=== PATIENT | female | born 1955 | race Caucasian/White ===

== ENCOUNTER 2019-03-24 12:13 | Inpatient (IN) | payer MEDICARE ==
[~2019-03-24] VITALS: Ht 152.4 cm; Wt 124.7 kg
[2019-03-24] MEDS ORDERED: LEXAPRO20 MG PO (16:44)
[2019-03-24] MEDS ORDERED: OMEPRAZOLE40 MG PO (16:44)
[2019-03-24] MEDS ORDERED: INDERAL 40 MG T40 MG PO (16:46)
[2019-03-24] MEDS ORDERED: ZOCOR20 MG PO (16:49)
[2019-03-24] MEDS ORDERED: AMIODARONE HCL200 MG PO (16:50)
[2019-03-24] MEDS ORDERED: AMITRIPTYLINE150 MG PO (16:50)
[2019-03-24] MEDS ORDERED: ABILIFY10 MG PO (16:51)
[2019-03-24] MEDS ORDERED: XALATAN 0.0052.5 ML EACH EYE (16:52)
[2019-03-24] MEDS ORDERED: ALBUTEROL SULF8.5 GM INH (16:52)
[2019-03-24] MEDS ORDERED: HYDROCODON-ACE1 EA10 PO (16:54)
[2019-03-24] MEDS ORDERED: LEVOTHYROXINE125 MCG PO (16:54)
[2019-03-24] MEDS ORDERED: ZOFRAN8 MG PO (16:55)
[2019-03-24] MEDS ORDERED: METOLAZONE5 MG PO (16:55)
[2019-03-24] MEDS ORDERED: RESTASIS 0.05% (16:58)
[2019-03-24] MEDS ORDERED: ALPHAGAN 0.2%5 ML EACH EYE (17:00)
[2019-03-24] MEDS ORDERED: SYMBICORT 16010.2 GM INH (17:00)
[2019-03-24] MEDS ORDERED: BUMEX2 MG PO (17:01)
[2019-03-24] MEDS ORDERED: HYDROXYCHLOROQUINE PO (17:02)
[2019-03-24] MEDS ORDERED: SENNA S TABLET1 TAB PO (17:03)
[2019-03-24] MEDS ORDERED: TOPAMAX100 MG PO (17:03)
[2019-03-24] MEDS ORDERED: ATARAX 25 MG TA25 MG PO (17:04)
[2019-03-24] MEDS ORDERED: MECLIZINE HCL25 MG PO (17:05)
[2019-03-24] MEDS ORDERED: TESSALON PERLE100 MG PO (17:06)
[2019-03-24] MEDS ORDERED: OPSUMIT 10 MG (17:07)
[2019-03-24] MEDS ORDERED: ADEMPAS 1 MG PO (17:11)
[2019-03-24] MEDS ORDERED: BAYER CHEWABLE81 MG PO (17:11)
[2019-03-24] MEDS ORDERED: EPIPEN 2-P0.3 MG/0.3 IM (17:12)
[2019-03-24 17:43] VITALS: BP 114/48
--- NOTE | 2019-03-24 18:15 | NUR ---
SPOKE WITH DR MOSS NOTIFIED OF CONSULT
[2019-03-24 18:20] LABS: BASOPHILS 0.5 % (0-2); EOSINOPHILS 0 % (0-7); HEMATOCRIT 24.3 % (36.0-48.0); HEMOGLOBIN 7.6 g/dL (12-16); IMMATURE GRANULOCYTES 0.7 % (0-5); LYMPHOCYTES 15.7 % (15-50); MCH 24.8 pg (26.0-34.0); MCHC 31.3 g/dL (31.0-37.0); MCV 79.2 fL (80.0-100.0); MEAN PLATELET VOLUME 9.1 fL (7.4-10.4); MONOCYTES 8.4 % (2-11); NEUTROPHILS 74.7 % (40-80); PLATELET COUNT 244 10x3/uL (130-400); RBC 3.07 10x6/uL (4.00-5.40); RDW 19.7 % (11.5-14.5); WBC 4.3 10x3/uL (4.8-10.8)
[2019-03-24 18:21] VITALS: BMI 54.4
[2019-03-24 18:29] LABS: INR 1.31 (0.85-1.17); PROTIME 15.7 SECONDS (11.6-15.0)
[2019-03-24 18:37] LABS: ALBUMIN 2.7 g/dL (3.4-5.0); ANION GAP 17.7 mmol/L (8-16); BILIRUBIN - TOTAL 1.15 mg/dL (0.2-1.3); CALCIUM 8.4 mg/dL (8.5-10.1); CREATININE - SERUM 5.5 mg/dL (0.6-1.3); D-DIMER-QUANTITATIVE 4.15 ug/mLFEU (0.20-0.54); MAGNESIUM - SERUM 1.7 mg/dL (1.8-2.4); POTASSIUM - SERUM 4.7 mmol/L (3.5-5.1); PROTEIN - SERUM 7.6 g/dL (6.4-8.2)
--- NOTE | 2019-03-24 19:50 | NUR ---
VERÓNICA VALADEZ PAGED CONCERNING PT LABS.
[2019-03-24 20:00] VITALS: BP 108/40
--- NOTE | 2019-03-24 20:40 | NUR ---
PAGED [facility].
--- NOTE | 2019-03-24 21:07 | NUR ---
VERÓNICA VALADEZ STATES RENAL IS CONSULTED. RENAL PAGED AT THIS TIME. PT COMPLAINS OF NAUSEA. PRN EMILI SCRUGGS AT 1910. WILL CONTINUE TO MONITOR.
--- NOTE | 2019-03-24 21:30 | NUR ---
DR. MOSS PAGED BACK. CROSS AND TYPE WITH 1 UNIT PACKED RBC'S ORDERED. RESTART NORCO 10-325. WILL CONTINUE TO MONITOR.
--- NOTE | 2019-03-24 22:48 | NUR ---
UNIT OF PRBC'S STARTED BY VERNON REID IN LEFT HAND 20G @ 75ML/HR. BP-107/57 P-69 RR-20 T-97.0. PT ALERT AND ORIENTED AT THIS TIME. BLOOD VERIFIED X2 NURSES. NO S/S OF DISTRESS AT THIS TIME. WILL CONTINUE TO MONITOR. BED LOW CALL LIGHT WITHIN REACH.
--- NOTE | 2019-03-24 22:58 | NUR ---
PT RECIEVING BLOOD W/O DISTRESS. BP-91/47 P-67 RR-18 T-98.1. PT ESTING WITH EYES CLOSED AT THIS TIME ON 2L O2. BED LOW CALL LIGHT WITHIN REACH. WILL CONTINUE TO MONITOR.
[2019-03-24 23:16] LABS: APPEARANCE HAZY (CLEAR); BACTERIA NONE SEEN /hpf (NEGATIVE); BILIRUBIN NEGATIVE (NEGATIVE); COLOR YELLOW (YELLOW); EPITHELIAL CELLS 0-5 /hpf (0-5); GLUCOSE NEGATIVE (NEGATIVE); KETONE NEGATIVE (NEGATIVE); NITRITE NEGATIVE (NEGATIVE); PROTEIN TRACE mg/dL (NEGATIVE); SPECIFIC GRAVITY 1.015 (1.005-1.020); UROBILINOGEN NORMAL (NORMAL); WHITE CELLS - URINE 0-5 /hpf (NEGATIVE)
[2019-03-24 23:30] VITALS: BP 107/35
--- NOTE | 2019-03-24 23:31 | NUR ---
PT COMPLAINS OF NAUSEA. PT STATES PRN ZOFRAN HASN'T HELPED. WILL CONTINUE TO MONITOR.
--- NOTE | 2019-03-25 00:11 | NUR ---
I have reviewed this patient and I concur with the Shift Assessment completed by the Licensed Practical Nurse today this shift.
--- NOTE | 2019-03-25 01:16 | NUR ---
PT COMPLAINS OF PAIN IN HANDS AND BODY 01/13. PRN PAIN MEDICATION GIVEN. VITALS STABLE AT THIS TIME. WILL CONTINUE TO MONITOR.
--- NOTE | 2019-03-25 02:02 | NUR ---
PT BLOOD DONE INFUSING. POST TRANSFUSION VITALS FOLLOWS BP-103/49 P-68 RR-18 T-98.0. ADJUSTED PT IN BED. NO S/S OF DISTRESS AT THIS TIME. BED LOW CALL LIGHT WITHIN REACH. WILL CONTINUE TO MONITOR.
[2019-03-25 04:00] VITALS: BP 103/49
--- NOTE | 2019-03-25 07:00 | NUR ---
RECEIVED REPORT. ASSUMED CARE OF PATIENT. CALL LIGHT WITHIN REACH. PATIENT SITTING UP IN BED WITH EYES OPEN. PATIENT STATES SHE HAS NOT SLEPT WELL LAST NIGHT AND SHE HAS BEEN NAUSEATED ALL NIGHT THAT WAS NOT RELIEVED WITH ZOFRAN ADMINISTRATION. NO ACUTE DISTRESS AT THIS TIME. F/C PATENT.
[2019-03-25 07:15] LABS: BASOPHILS 0.3 % (0-2); EOSINOPHILS 0 % (0-7); HEMOGLOBIN 8.4 g/dL (12-16); IMMATURE GRANULOCYTES 0.3 % (0-5); LYMPHOCYTES 17.2 % (15-50); MCH 25.5 pg (26.0-34.0); MCHC 32.3 g/dL (31.0-37.0); MEAN PLATELET VOLUME 9.2 fL (7.4-10.4); MONOCYTES 7.8 % (2-11); NEUTROPHILS 74.4 % (40-80); PLATELET COUNT 225 10x3/uL (130-400); RBC 3.29 10x6/uL (4.00-5.40); RDW 19.7 % (11.5-14.5)
[2019-03-25 07:26] LABS: ANION GAP 17.5 mmol/L (8-16); CALCIUM 8.3 mg/dL (8.5-10.1); CARBON DIOXIDE 22.7 mmol/L (21.0-32.0); CREATININE - SERUM 5.8 mg/dL (0.6-1.3); POTASSIUM - SERUM 4.2 mmol/L (3.5-5.1)
--- NOTE | 2019-03-25 07:30 | NUR ---
LAB CALLED CRITICAL RESULT OF GLUCOSE 65. PATIENT ALERT/ORIENTED. COMPLAIN OF SLIGHT NAUSEA, HOWEVER PATIENT HAS COMPLAINED OF BEING NAUSEATED ALL NOC PER INSTRUMENT MAKER APPRENTICE NURSE. ORANGE JUICE AND SKYLA CRACKERS PROVIDED. PATIENT CONSUMING ORANGE JUICE AT THIS TIME. NO ACUTE DISTRESS.
[2019-03-25 07:38] LABS: ALBUMIN 2.6 g/dL (3.4-5.0); BILIRUBIN - TOTAL 1.75 mg/dL (0.2-1.3); MAGNESIUM - SERUM 1.6 mg/dL (1.8-2.4); PROTEIN - SERUM 7.4 g/dL (6.4-8.2)
[2019-03-25 08:56] VITALS: BP 112/46
--- NOTE | 2019-03-25 11:39 | NUR ---
PT AT BEDSIDE AND UNABLE TO DO A WHOLE LOT WITH PATIENT DUE TO SLOW PROCESSING OF COMMANDS AND FALLING ASLEEP DURING EVAL. PT ABLE TO GET PATIENT TO TRY TO HELP ROLE FROM SIDE TO SIDE, GOWN CHANGED AND FERSH ICE WATER PROVIDED. CALL LIGHT WITHIN REACH.
--- NOTE | 2019-03-25 14:07 | NUR ---
FLUIDS STOPPED PER AT THIS TIME.
--- NOTE | 2019-03-25 15:25 | NUR ---
FAMILY BROUGHT OPSUMIT AND ADEMPAS MEDICATIONS TO HOSPITAL THEY ARE VERY DIFFICULT TO GET. PATIENT LABELS APPLIED TO MEDICATION BOTTLES PER PHARMACY AND MEDICATION IS IN PATIENT CASSETTE.
--- NOTE | 2019-03-25 18:08 | NUR ---
ULTRASOUND COMPLETED, TRAY ORDERED FROM DIETARY AT THIS TIME.
--- NOTE | 2019-03-25 19:10 | NUR ---
EVENING ROUNDS COMPLETED. PATIENT IN BED WITH HOB ELEVATED. PARTNER AT BEDSIDE. NO C/O PAIN OR DISCOMFORT. DENIES HAVING ANY NEEDS AT THIS TIME. BED IN LOWEST POSITION. SIDE RAILS UP. CALL LIGHT IN REACH. WILL CONTINUE TO MONITOR.
[2019-03-25 20:00] VITALS: BP 106/44
[2019-03-26] VITALS: BP 113/51
--- NOTE | 2019-03-26 04:30 | NUR ---
PATIENT RESTING IN BED WITH EYES CLOSED. NO SIGNS OF DISTRESS. PARTNER AT BEDSIDE. BED IN LOWEST POSITION. SIDE RAILS UP. CALL LIGHT IN REACH. WILL CONTINUE TO MONITOR.
[2019-03-26 05:54] LABS: BASOPHILS 0.4 % (0-2); EOSINOPHILS 0 % (0-7); HEMATOCRIT 24.6 % (36.0-48.0); IMMATURE GRANULOCYTES 0.4 % (0-5); LYMPHOCYTES 20.2 % (15-50); MCH 25.5 pg (26.0-34.0); MCHC 32.5 g/dL (31.0-37.0); MCV 78.3 fL (80.0-100.0); MEAN PLATELET VOLUME 9.5 fL (7.4-10.4); MONOCYTES 10.8 % (2-11); NEUTROPHILS 68.2 % (40-80); PLATELET COUNT 225 10x3/uL (130-400); RBC 3.14 10x6/uL (4.00-5.40); WBC 4.6 10x3/uL (4.8-10.8)
[2019-03-26 06:37] LABS: ALBUMIN 2.4 g/dL (3.4-5.0); ANION GAP 19.7 mmol/L (8-16); BILIRUBIN - TOTAL 1.31 mg/dL (0.2-1.3); CALCIUM 8.4 mg/dL (8.5-10.1); CARBON DIOXIDE 21.2 mmol/L (21.0-32.0); POTASSIUM - SERUM 3.9 mmol/L (3.5-5.1); PROTEIN - SERUM 7.4 g/dL (6.4-8.2)
[2019-03-26 06:43] LABS: % SATURATION 12 % (15-55); IRON 27 ug/dl (35-150); TOTAL IRON BIND CAPACITY 211 ug/dl (260-445); UNSAT IRON BIND CAPACITY 184 ug/dl (150-375)
[2019-03-26 09:04] VITALS: BP 111/40
--- NOTE | 2019-03-26 11:13 | NUR ---
SO IN ROOM. CL IN REACH. WAITING ON PHARMACY TO BRING ME BUMEX DRIP. BULL CATH KINKED FOR URINE SAMPLE I NEED. WCTM.
[2019-03-26 14:30] VITALS: BMI 55.0
[2019-03-26 14:57] VITALS: BP 95/43
[2019-03-26 18:15] VITALS: BP 88/66
--- NOTE | 2019-03-26 19:15 | NUR ---
EVENING ROUNDS COMPELETED. PATIENT SITTING UP IN BED. PARTNER AT BEDSIDE. NO C/O PAIN OR DISCOMFORT. DENIES HAVING ANY NEEDS AT THIS TIME. WILL CONTINUE TO MONITOR.
[2019-03-26 19:42] VITALS: BP 90/42
--- NOTE | 2019-03-26 20:20 | NUR ---
OT NOTE: PT COMPLETED BED MOB TASKS WITH LILI Jacome. PT COMPLETED GROOMING TASKS WITH CGA. PT COMPLETED HYGIENE TASKS WITH LILI Jacome. THANK YOU, TREVON MULTANI
[2019-03-26 23:49] VITALS: BP 94/43
--- NOTE | 2019-03-27 04:00 | NUR ---
PATIENT PULLED OUT IV. CATHETER INTACT. 20 G IV RESITED TO RIGHT BREAST. GOOD BLOOD RETURN. FLUSHES WITHOUT DIFFICULTY.
[2019-03-27 04:17] LABS: BASOPHILS 0.5 % (0-2); EOSINOPHILS 0 % (0-7); HEMATOCRIT 23.4 % (36.0-48.0); HEMOGLOBIN 7.6 g/dL (12-16); IMMATURE GRANULOCYTES 0.3 % (0-5); LYMPHOCYTES 17.2 % (15-50); MCH 25.8 pg (26.0-34.0); MCHC 32.5 g/dL (31.0-37.0); MCV 79.3 fL (80.0-100.0); MEAN PLATELET VOLUME 9.3 fL (7.4-10.4); MONOCYTES 8.2 % (2-11); NEUTROPHILS 73.8 % (40-80); PLATELET COUNT 238 10x3/uL (130-400); RBC 2.95 10x6/uL (4.00-5.40); RDW 19.7 % (11.5-14.5)
[2019-03-27 04:25] LABS: WBC 5.8 10x3/uL (4.8-10.8)
--- NOTE | 2019-03-27 04:46 | NUR ---
BATH AND LINEN CHANGE COMPLETE, PT REPOSITIONED IN BED FOR COMFORT.
[2019-03-27 04:48] VITALS: BP 96/46
[2019-03-27 04:53] LABS: ALBUMIN 2.1 g/dL (3.4-5.0); ANION GAP 16.4 mmol/L (8-16); BILIRUBIN - TOTAL 1.08 mg/dL (0.2-1.3); CARBON DIOXIDE 22.5 mmol/L (21.0-32.0); CREATININE - SERUM 6.3 mg/dL (0.6-1.3); POTASSIUM - SERUM 3.9 mmol/L (3.5-5.1); PROTEIN - SERUM 6.7 g/dL (6.4-8.2)
[2019-03-27 09:04] VITALS: BP 95/52
--- NOTE | 2019-03-27 10:57 | NUR ---
SITTING UP IN BED. PARTNER AT BEDSIDE. CONSENT FOR BLOOD TRANSFUSION SIGNED ON CHART. INITIATE PRBC TRANSFUSION AT 75mL/HR. BP-89/54, HR-54, T-96.7. REMAIN IN ROOM FIRST 15 MINUTES TO MONITOR FOR ANY REACTION. CONTINUE PLAN OF CARE AND SAFETY PRECAUTIONS.
--- NOTE | 2019-03-27 11:10 | NUR ---
RESTING IN BED WITH EYES CLOSED. PARTNER AT BEDSIDE. BP-81/45, HR-55, T-96. INCREASE TRANSFUSION TO 125mL/HR. NO SIGN OF REACTION. CONTINUE PLAN OF CARE AND SAFETY PRECAUTIONS.
[2019-03-27 12:59] VITALS: BP 88/76
[2019-03-27 16:20] VITALS: Ht 152.4 cm; Wt 124.7 kg
[2019-03-27 16:50] VITALS: BP 95/31
--- NOTE | 2019-03-27 17:10 | NUR ---
ALERT AND ORIENTED X4. SITTING UP IN BED EATING DINNER. INITIATE UNIT 2 PRBC TRANSFUSION. TUBING CHANGED. T-98.5, HR-58, R-18, BP-99/41. CONTINUE TO MONITOR. REMAIN IN ROOM FOR FIRST 15MINS TO MONITOR FOR REACTION.
--- NOTE | 2019-03-27 17:31 | NUR ---
NO REACTION OBSERVED. VITALS STABLE. AFEBRILE AT 97.6. DENIES ANY NEEDS AT THIS TIME. CONTINUE PLAN OF CARE AND SAFETY PRECAUTIONS.
--- NOTE | 2019-03-27 18:55 | NUR ---
EVENING ROUNDS COMPLETE. PT LAYING IN BED. NO SIGNS OF DISTRESS. PT DENIES ANY PAIN OR NEEDS AT THIS TIME. CL IN REACH, BED IN LOWEST POSITION.
[2019-03-27 20:00] VITALS: BP 103/45
[2019-03-27 21:52] LABS: BASOPHILS 0.3 % (0-2); EOSINOPHILS 0 % (0-7); IMMATURE GRANULOCYTES 0.4 % (0-5); LYMPHOCYTES 12.1 % (15-50); MCH 26.7 pg (26.0-34.0); MCHC 32.9 g/dL (31.0-37.0); MCV 81.1 fL (80.0-100.0); MEAN PLATELET VOLUME 9.6 fL (7.4-10.4); MONOCYTES 6.4 % (2-11); NEUTROPHILS 80.8 % (40-80); PLATELET COUNT 208 10x3/uL (130-400); RDW 18.5 % (11.5-14.5); WBC 6.9 10x3/uL (4.8-10.8)
[2019-03-27 21:54] LABS: HEMATOCRIT 29.2 % (36.0-48.0); HEMOGLOBIN 9.6 g/dL (12-16)
[2019-03-27 21:58] LABS: CALCIUM 7.9 mg/dL (8.5-10.1); CARBON DIOXIDE 20.9 mmol/L (21.0-32.0); CREATININE - SERUM 6.2 mg/dL (0.6-1.3); POTASSIUM - SERUM 3.9 mmol/L (3.5-5.1)
[2019-03-28] VITALS: BP 101/46
[2019-03-28 04:00] VITALS: BP 109/39
[2019-03-28 05:59] LABS: BASOPHILS 0.3 % (0-2); EOSINOPHILS 0 % (0-7); HEMATOCRIT 28.1 % (36.0-48.0); HEMOGLOBIN 9.4 g/dL (12-16); IMMATURE GRANULOCYTES 0.4 % (0-5); LYMPHOCYTES 12.4 % (15-50); MCH 26.8 pg (26.0-34.0); MCHC 33.5 g/dL (31.0-37.0); MCV 80.1 fL (80.0-100.0); MEAN PLATELET VOLUME 9.7 fL (7.4-10.4); MONOCYTES 6.4 % (2-11); NEUTROPHILS 80.5 % (40-80); PLATELET COUNT 201 10x3/uL (130-400); RBC 3.51 10x6/uL (4.00-5.40); RDW 18.4 % (11.5-14.5); WBC 6.8 10x3/uL (4.8-10.8)
[2019-03-28 06:16] LABS: INR 1.16 (0.85-1.17); PROTIME 14.3 SECONDS (11.6-15.0)
[2019-03-28 06:17] LABS: APTT 43.3 SECONDS (22.8-39.4)
[2019-03-28 06:27] LABS: ALBUMIN 2.3 g/dL (3.4-5.0); ANION GAP 19.2 mmol/L (8-16); BILIRUBIN - TOTAL 1.34 mg/dL (0.2-1.3); CALCIUM 7.7 mg/dL (8.5-10.1); CARBON DIOXIDE 20.4 mmol/L (21.0-32.0); CREATININE - SERUM 6.4 mg/dL (0.6-1.3); POTASSIUM - SERUM 3.6 mmol/L (3.5-5.1); PROTEIN - SERUM 7.3 g/dL (6.4-8.2)
--- NOTE | 2019-03-28 07:39 | NUR ---
PT LAYING DOWN. RR EVEN AND UNLABORED. PRESSURE DRESSING TO RIGHT AND LEFT FOREARM, CDI. PT DENIES NEEDS OR PAIN AT THIS TIME. WILL CONTINUE TO MONITOR.
--- NOTE | 2019-03-28 08:20 | NUR ---
UPON WALKING IN ROOM PT STATES SHE IS SOB. OXYGEN SAT HOLDING AROUND 95%. CRACKLES HEARD IN UPPER BILAT LOBES. PRN ALBUTEROL TX IN PROGRESS AT THIS TIME. SMALL BLOOD CLOTS FOUND AROUND INSERTION SITE OF BULL WITH NO BLOOD TRACES VISIBLE IN BULL BAG. LOVENOX D/C LAST NIGHT. VERÓNICA LOWRY NOTIFIED AND CXR ORDERED. WILL CONTINUE TO MONITOR.
[2019-03-28 11:06] VITALS: BP 98/43
--- NOTE | 2019-03-28 14:02 | NUR ---
NUTRITION F/U RENAL DIET, CURRENTLY WITH POOR PO INTAKE RECENT MEALS. WILL CONTINUE TO MONITOR PT PROGRESS. RD FOLLOWING
[2019-03-28 15:09] VITALS: BP 104/49
--- NOTE | 2019-03-28 16:46 | NUR ---
I have reviewed this patient and I concur with the Shift Assessment completed by the Licensed Practical Nurse today this shift.
--- NOTE | 2019-03-28 17:05 | NUR ---
OT NOTE: PT STATED SHE WAS FATIGUED. PT COMPLETED SUPINE TO SIT WITH MAX A. PT COMPLETED EOB SITTING ENDURANCE WITH MIN A/CGA. PT COMPLETED GROOMING TASKS WITH SETUP.PT DECLINED TO SIT IN CHAIR. THANK YOU, TREVON MULTANI
[2019-03-28 18:26] VITALS: BP 88/49
--- NOTE | 2019-03-28 19:05 | NUR ---
EVENING ROUNDS COMPLETE. PT SITTING UP IN BED. FAMILY AT BEDSIDE. NO SIGNS OF DISTRESS. PT DENIES ANY PAIN OR NEEDS AT THIS TIME. CL IN REACH, BED IN LOWEST POSITION.
[2019-03-28 20:00] VITALS: BP 108/52
[2019-03-29] VITALS (13 sets, daily range): BP systolic 89–117; BP diastolic 32–109
--- NOTE | 2019-03-29 04:18 | NUR ---
AT 0[address] PT ON [address] FOR ASSISTANCE. PT HAD PULLED OUT HER RIGHT BREAST IV, TIP INTACT. PT WAS ACTIVELY BLEEDING FROM INSERTION SITE. PRESSURE DRESSING APPLIED TO RIGHT BREAST. PT HAD ALSO PULLED OFF TELE, NEW ELECTRODES APPLIED. FULL BED AND LINEN CHANGE. CL IN REACH, BED IN LOWEST POSITION.
[2019-03-29 05:13] LABS: BASOPHILS 0.2 % (0-2); EOSINOPHILS 0 % (0-7); HEMATOCRIT 27.3 % (36.0-48.0); IMMATURE GRANULOCYTES 0.5 % (0-5); LYMPHOCYTES 11.4 % (15-50); MCH 26.5 pg (26.0-34.0); MCV 80.3 fL (80.0-100.0); MEAN PLATELET VOLUME 9.8 fL (7.4-10.4); MONOCYTES 5.6 % (2-11); NEUTROPHILS 82.3 % (40-80); PLATELET COUNT 211 10x3/uL (130-400); RDW 18.7 % (11.5-14.5); WBC 6.2 10x3/uL (4.8-10.8)
[2019-03-29 05:43] LABS: ALBUMIN 2.5 g/dL (3.4-5.0); BILIRUBIN - TOTAL 1.32 mg/dL (0.2-1.3); CALCIUM 7.8 mg/dL (8.5-10.1); CARBON DIOXIDE 20.4 mmol/L (21.0-32.0); CREATININE - SERUM 6.6 mg/dL (0.6-1.3); PROTEIN - SERUM 7.2 g/dL (6.4-8.2)
[2019-03-29 05:45] LABS: POTASSIUM - SERUM 4.3 mmol/L (3.5-5.1)
[2019-03-29 05:46] LABS: ANION GAP 20.9 mmol/L (8-16)
--- NOTE | 2019-03-29 07:48 | NUR ---
PATIENT IS RESTING ON HER BACK IN BED, DENIES ANY NEEDS AT THIS TIME.
--- NOTE | 2019-03-29 08:34 | NUR ---
PATIETN IS HAVING DIFFICULTY BREATHING. ORDERS PUT IN FOR PRN BREATHING TREATMENT. LUNGS ARE VERY CRACKLY AND WET. CALLING CARDIOLOGY TO CONSULT PULMONOLOGY. RESPIRATORY IS GIVING BREATHING TREATMENT NOW. 02 SAT IS 96. O2 IS AT 5 LITERS.
--- NOTE | 2019-03-29 09:23 | NUR ---
PATIENT IS VERY LETHARGIC. CALLED ALEN, ALSO TALKED TO MINAL ABOUT HER BEING LETHARGIC. MINAL SAID THAT A TRANSFER TO ICU WOULD BE THE SAFE DECISION, ESPECIALLY IF SHE HAS DIALYSIS AT BEDSIDE. PATIENT IS UNABLE TO TAKE ANY MEDICATIONS AT THIS TIME. BREATHING HAS IMPROVED SINCE BREATHING TREATMENT.
--- NOTE | 2019-03-29 11:52 | NUR ---
PATIENT HAS BEEN TRANSFERED TO ICU.
--- NOTE | 2019-03-29 12:01 | NUR ---
DR KATIE ROSE.
--- NOTE | 2019-03-29 12:02 | NUR ---
RECIEVED IN REPORT THAT ISA HAWKINS, AND BUBBA WERE AWARE OF CONSULTS.
--- NOTE | 2019-03-29 12:11 | MORECARE ---
CASE MANAGEMENT DISCHARGE SUMMARY PATIENT: CARO JASSO UNIT: [id number] ADM DATE: 03/24/19 AGE: 63 : 55 SEX: F ROOM/BED: D.2303 AUTHOR: KENNEYDOC PHYSICIAN: REFERRING PHYSICIAN: ELTON HODGE MD DATE OF SERVICE: 03/29/19 Discharge Plan Patient Name: CARO JASSO Facility: [facility]:[place] : 1955 Planned Disposition: Anticipated Discharge Date: Discharge Date: Expected LOS: Initial Reviewer: [email or web address] Initial Review Date: 03/29/2019 Generated: 03/29/19 1:11 pm DCP- Discharge Planning Updated by [email or web address]: Kamini Hall on 03/27/19 2:[address] MOSS WANTED THE PATIENT TRANSFERRED TO [facility] TO HER NARROW GAUGE OPERATOR THIS AM. @ 0813, PLACED A CALL TO THE MORTGAGE ASSISTANT, ADARSH, TO OBTAIN ADMIN APPROVAL TO PROCEED WITH TRANSFER. STATED THAT SHE WOULD HAVE TO CALL THE ADMIN CDL TEAM TRUCK DRIVER, BUT WAS CURRENTLY INDISPOSED AND UNABLE. IF I DON'T HEAR BACK FROM HERE, I WILL CALL BACK LATER. @0817, I SPOKE WITH THE PATIENT WHO IS WILLING FOR THE TRANSFER. @0821, I SPOKE WITH ALEN SAWYER APN FOR DR YATES. SHE HAS REQUESTED THAT I HAVE DR MOSS CALL AND DISCUSS THE TRANSFER WITH DR YATES. @0836, I SPOKE WITH DR MOSS AND MADE THIS REQUEST. SHE ASKED ME TO TEXT HER DR YATES'S NUMBER AND SHE WOULD CALL HER. SOON WE HUNG UP, I TEXT HER THE NUMBER. @1334, I PLACED A CALL TO ALEN TO SEE IF SHE KNEW WHEN DR YATES WOULD BE HERE AT THE HOSPITAL SHE STATED HE WAS HERE NOW. SHE SAID THAT DR MOSS DID NOT CALL AND TALK TO DR YATES ABOUT THE TRANSFER. SHE STATED THAT SHE WOULD TALK TO HIM AND LET ME KNOW, BUT SHE DID NOT FEEL THAT THE PATIENT WOULD TRANSFER. @1426, DR YATES AND VERÓNICA LOWRY ON THE FLOOR. THEY HAVE TALKED WITH THE PATIENT. THE PATIENT WILL REMAIN HERE FOR TREATMENT AND NOT TRANSFER. Patient Name: CARO JASSO Page [phone] at 1211 All edits/amendments must be made on the electronic document DICTATION DATE: 03/29/191209 REPULPING SUPERVISOR: ELVIRA 03/29/191209 RPT#: [id number] DC DATE: STATUS: ADM IN [facility] [address] [place] [address] END OF REPORT
--- NOTE | 2019-03-29 12:18 | MORECARE ---
CASE MANAGEMENT DISCHARGE SUMMARY PATIENT: CARO JASSO UNIT: [id number] ADM DATE: 03/24/19 AGE: 63 : 55 SEX: F ROOM/BED: D.2303 AUTHOR: KENNEYDOC PHYSICIAN: REFERRING PHYSICIAN: ELTON HODGE MD DATE OF SERVICE: 03/29/19 Discharge Plan Patient Name: CARO JASSO Facility: [facility]:[place] : 1955 Planned Disposition: Anticipated Discharge Date: Discharge Date: Expected LOS: Initial Reviewer: [email or web address] Initial Review Date: 03/29/2019 Generated: 03/29/19 1:17 pm Comments DCP- Discharge Planning Updated by [email or web address]: Olivia Ramachandran on 03/29/19 11:[address] Patient Name: CARO JASSO Admission Status: Elective Accout number: [id number] Admission Date: 03-24-2019 : 1955 Admission Diagnosis: Attending: ELTON HODGE Current LOS: 5 Anticipated DC Date: Planned Disposition: Primary Insurance: [facility] [employer] Discharge Planning Comments: CM SPOKE WITH DAUGHTER ABOUT DC PLANNING/NEEDS. SHE STATES IS WAITING TO TALK TO THE DOCTOR BUT HAS RECIEVED BAD NEWS ON MOTHER'S PROGNOSIS. I HAVE MENTIONED REHAB AND HOSPICE. DAUGHTER WANTS TO THINK ABOUT IT. CM WILL FOLLOW AND ASSIST. Digital Watch Assembler: Olivia Ramachandran DCP- Discharge Planning Updated by [id number]: Kamini Hall on 03/27/19 2:[address] MOSS WANTED THE PATIENT TRANSFERRED TO [facility] TO HER MATERIAL MIXER THIS AM. @ 0813, PLACED A CALL TO THE BILINGUAL TEACHER, ADARSH, TO OBTAIN ADMIN APPROVAL TO PROCEED WITH TRANSFER. [facility] STATED THAT SHE WOULD HAVE TO CALL THE ADMIN HUMAN RESOURCE OFFICER, BUT WAS CURRENTLY INDISPOSED AND UNABLE. IF I DON'T HEAR BACK FROM HERE, I WILL CALL BACK LATER. @0817, I SPOKE WITH THE PATIENT WHO IS WILLING FOR THE TRANSFER. @0821, I SPOKE WITH ALEN SAWYER APN FOR DR YATES. SHE HAS REQUESTED THAT I HAVE DR MOSS CALL AND DISCUSS THE TRANSFER WITH DR YATES. @0836, I SPOKE WITH DR MOSS AND MADE THIS REQUEST. SHE ASKED ME TO TEXT HER DR YATES'S NUMBER AND SHE WOULD CALL HER. SOON WE HUNG UP, I TEXT HER THE NUMBER. @9471, I PLACED A CALL TO ALEN TO SEE IF SHE KNEW WHEN DR YATES WOULD BE HERE AT THE HOSPITAL SHE STATED HE WAS HERE NOW. SHE SAID THAT DR MOSS DID NOT CALL AND TALK TO DR YATES ABOUT THE TRANSFER. SHE STATED THAT SHE WOULD TALK TO HIM AND LET ME KNOW, BUT SHE DID NOT FEEL THAT THE PATIENT WOULD TRANSFER. @4133, DR YATES AND VERÓNICA LOWRY ON THE FLOOR. THEY HAVE TALKED WITH THE PATIENT. THE PATIENT WILL REMAIN HERE FOR TREATMENT AND NOT TRANSFER. DCPIA - Discharge Planning Initial Assessment Updated by [id number]: Olivia Ramachandran on 03/29/19 12:11 pm * Is the patient Alert and Oriented? No * Preadmission Environment Home with Family * Other Equipment WALKER, WC, TRANSFER CHAIR, O2 NEBS * List name and contact numbers for known caregivers / representatives who currently or will assist patient after discharge: HARRIETT, DAUGHTER, * Community resources currently utilized Home Health * Please name any agencies selected above. [facility] * Has this patient been hospitalized within the prior 30 days at any hospital? Yes Last DP export: 03/29/19 11:11 Patient Name: CARO JASSO Page [phone] at 1218 All edits/amendments must be made on the electronic document DICTATION DATE: 03/29/191216 AMUSEMENT RIDE OPERATOR: ELVIRA 03/29/191216 RPT#: [id number] DC DATE: STATUS: ADM IN [facility] [address] [facility] [place] [address] END OF REPORT
--- NOTE | 2019-03-29 13:43 | NUR ---
pharmacy called and stated that giving the patient zosyn would cause an allergic reaction since she is allergic to penicillin and cephalosporins. attempted to get a hold of ciaran's office and sent me to voicemail. none of the ever's pager worked.
--- NOTE | 2019-03-29 15:00 | NUR ---
patient is confused. pulling oxygen off. reoriented as needed. information obtained from daughter at bedside. DNR obtained and in chart. vss. will continue to monitor patient.
--- NOTE | 2019-03-29 17:06 | NUR ---
DR CASTELLON ORDERED ANTIBIOTICS. PATIENT CAME TO ICU WITHOUT AN IV. 3 ATTEMPTS WERE UNSUCCESFUL. ER NURSE AT BEDSIDE ATTEMPTING TO GET AN IV.
--- NOTE | 2019-03-29 21:00 | NUR ---
PT RESTING IN BED, PM MEDS ADMINISTERED WITHOUT DIFFICULTY. WILL CONTINUE TO MONITOR.
--- NOTE | 2019-03-29 23:00 | NUR ---
PT RESTING IN BED, NO ACUTE DISTRESS NOTED.
[2019-03-30] VITALS (25 sets, daily range): BP systolic 87–119; BP diastolic 38–86
--- NOTE | 2019-03-30 01:00 | NUR ---
PT RESTING IN BED, AAOX4. NO ACUTE DISTRESS NOTED, WILL CONTINUE TO MONITOR.
[2019-03-30 02:46] LABS: BASOPHILS 0.1 % (0-2); EOSINOPHILS 0 % (0-7); HEMATOCRIT 24.9 % (36.0-48.0); HEMOGLOBIN 8.2 g/dL (12-16); IMMATURE GRANULOCYTES 0.4 % (0-5); LYMPHOCYTES 7.9 % (15-50); MCH 26.1 pg (26.0-34.0); MCHC 32.9 g/dL (31.0-37.0); MCV 79.3 fL (80.0-100.0); MEAN PLATELET VOLUME 9.6 fL (7.4-10.4); MONOCYTES 5.2 % (2-11); NEUTROPHILS 86.4 % (40-80); PLATELET COUNT 186 10x3/uL (130-400); RBC 3.14 10x6/uL (4.00-5.40); RDW 18.7 % (11.5-14.5)
--- NOTE | 2019-03-30 03:00 | NUR ---
PT RESTING IN BED, NO ACUTE DISTRESS NOTED.
[2019-03-30 03:06] LABS: ALBUMIN 2.3 g/dL (3.4-5.0); ANION GAP 21.5 mmol/L (8-16); BILIRUBIN - TOTAL 1.2 mg/dL (0.2-1.3); CALCIUM 7.6 mg/dL (8.5-10.1); CARBON DIOXIDE 18.2 mmol/L (21.0-32.0); CREATININE - SERUM 6.9 mg/dL (0.6-1.3); POTASSIUM - SERUM 3.7 mmol/L (3.5-5.1)
--- NOTE | 2019-03-30 05:00 | NUR ---
PT RESTING IN BED, AAOX4. NO ACUTE DISTRESS NOTED.
--- NOTE | 2019-03-30 05:00 | NUR ---
PT REPORTED SLIGHT HEADACHE, WAS UNABLE TO REPORT QUALITY OF PAIN, BUT REPORTED INTERMITTENT, WILL CONTINUE TO MONITOR
--- NOTE | 2019-03-30 07:00 | NUR ---
REC'D REPORT AND RESUMED CARE, SLEEPING, AROUSABLE TO VERBAL STIMULI, VSS, DENIES PAIN, DYSPNEA WITH SPEAKING, ASSESSMENT COMPLETED PER FLOWHEET. CALL LIGHT IN REACH, VOICES NO NEEDS AT THIS TIME
--- NOTE | 2019-03-30 07:40 | NUR ---
BREAKFAST TRAY TO BEDSIDE, ASSIST WITH SET UP, INDEPENDENT WITH EATING
--- NOTE | 2019-03-30 08:00 | NUR ---
DAUGHTER AT BEDSIDE, STATUS UPDATED, AWAITING TO SPEAK WITH , NO OTHER NEEDS AT THIS TIME
--- NOTE | 2019-03-30 08:55 | NUR ---
TO ROOM FOR MORNING MEDS LETHARGIC FALLING ASLEEP IN CONVERSATION, FSBS CHECK 59, PHONE CALL TO DR. YATES, NEW ORDER FOR HYPOGLYCEMIC PROTOCAL INITIATED
--- NOTE | 2019-03-30 09:12 | NUR ---
NUTRITION F/U PT NOW IN ICU. RENAL DIET SNACKING AT BREAKFAST. WILL CONTINUE TO PROVIDE RENAL DIET, MONITOR PT PROGRESS. RD FOLLOWING
--- NOTE | 2019-03-30 09:15 | NUR ---
ORANG JUICE, PEANUT BUTTER CRACKERS GIVEN
--- NOTE | 2019-03-30 09:40 | NUR ---
25 MG DEXTROSE GIVEN PER PROTOCAL
--- NOTE | 2019-03-30 10:03 | NUR ---
ZOFRAN 4 MG GIVEN FOR NAUSEA
[2019-03-30 10:47] LABS: APPEARANCE SL CLDY (CLEAR); BACTERIA FEW /hpf (NEGATIVE); BILIRUBIN NEGATIVE (NEGATIVE); COLOR YELLOW (YELLOW); EPITHELIAL CELLS 0-5 /hpf (0-5); GLUCOSE NEGATIVE (NEGATIVE); KETONE NEGATIVE (NEGATIVE); NITRITE NEGATIVE (NEGATIVE); PROTEIN 1+ mg/dL (NEGATIVE); SPECIFIC GRAVITY 1.015 (1.005-1.020); UROBILINOGEN NORMAL (NORMAL); WHITE CELLS - URINE 0-5 /hpf (NEGATIVE)
[2019-03-30 10:48] LABS: MUCUS <1+ /lpf (NONE SEEN)
--- NOTE | 2019-03-30 10:54 | NUR ---
CALLED TO ROOM, FEELING FUNNY, FSBS RE CHECK 104, NO NAUSEA AT THIS TIME
[2019-03-30 12:09] LABS: HEPATITIS C ANTIBODY 0.1 (0.0-0.9)
--- NOTE | 2019-03-30 12:40 | NUR ---
DOPAMINE INITIATED AT 2MG/KG/MIN PER ORDER
--- NOTE | 2019-03-30 14:21 | NUR ---
PER CARDIOLOGY RESIDENT CARE SUPERVISOR, GIVE DOSE OF MIDIDRINE 10 MG NOW AHND WAIT FOR 1/2 HOUR AND DC DOPAMINE
--- NOTE | 2019-03-30 16:10 | NUR ---
PRBC INITIATED AT 100 CC/HR, PER ORDER
--- NOTE | 2019-03-30 17:00 | NUR ---
CHG BATH GIVEN
--- NOTE | 2019-03-30 18:17 | NUR ---
REPORT GIVEN TO VERNON PRAKASH
--- NOTE | 2019-03-30 19:00 | NUR ---
SHIFT ASSESSMENT COMPLETE. VS STABLE. WILL CONTINUE TO MONITOR.
[2019-03-31] VITALS (23 sets, daily range): BP systolic 89–140; BP diastolic 39–83
[2019-03-31 02:15] LABS: BASOPHILS 0.2 % (0-2); EOSINOPHILS 0 % (0-7); HEMATOCRIT 26.4 % (36.0-48.0); HEMOGLOBIN 8.9 g/dL (12-16); IMMATURE GRANULOCYTES 0.6 % (0-5); LYMPHOCYTES 8.3 % (15-50); MCHC 33.7 g/dL (31.0-37.0); MEAN PLATELET VOLUME 9.5 fL (7.4-10.4); MONOCYTES 4.8 % (2-11); NEUTROPHILS 86.1 % (40-80); PLATELET COUNT 187 10x3/uL (130-400); RDW 18.5 % (11.5-14.5); WBC 8.2 10x3/uL (4.8-10.8)
[2019-03-31 02:21] LABS: ANION GAP 20.7 mmol/L (8-16); CALCIUM 7.3 mg/dL (8.5-10.1); CARBON DIOXIDE 18.2 mmol/L (21.0-32.0); CREATININE - SERUM 7.2 mg/dL (0.6-1.3); POTASSIUM - SERUM 3.9 mmol/L (3.5-5.1)
--- NOTE | 2019-03-31 07:00 | NUR ---
BEDSIDE REPORT RECEIVED. ASSESSMENT COMPLETED PER FLOWSHEET, SEE FLOWSHEET FOR INFORMATION. PT IN BED GETTING A BREATHING TREATMENT PER RT. NO NEEDS OR DISTRESS NOTED AT THIS TIME. VSS. WILL CONT TO MONITOR.
--- NOTE | 2019-03-31 08:00 | NUR ---
PER RENAL ONLINE COMMUNITY MANAGER, DO NOT TRANSFER PT, KEEP IN ICU.
--- NOTE | 2019-03-31 08:34 | NUR ---
AT BEDSIDE. PT AT BEDSIDE ALSO. 0900 MEDICATIONS GIVEN. ORDER TO HOLD AMIODERONE. VSS. NO NEEDS OR DISTRESS NOTED AT THIS TIME. WILL CONT TO MONITOR.
--- NOTE | 2019-03-31 09:00 | NUR ---
PT AT BEDSIDE. NO NEEDS OR DISTRESS NOTED AT THIS TIME. VSS. WILL CONT TO MONITOR.
--- NOTE | 2019-03-31 10:34 | NUR ---
SPOKE WITH MINAL SANCHES BUMPER OPERATOR, ORDER RECEIVED FOR A TRIALYSIS CATHETER FOR POSSIBLE DIALYSIS. CONSENT FOR PROCEDURE SIGNED BY PT. NO NEEDS OR DISTRESS NOTED. VSS. WILL CONT TO MONITOR.
--- NOTE | 2019-03-31 10:37 | NUR ---
NOTED SIGNED DNR PAPERWORK BY PHYSICIAN IN CHART. PER DR YATES AND HIS SPINDLE SANDER JUVENTINO SAWYER, PLACE ORDERS FOR PT TO BE DNR PER PT WISHES.
--- NOTE | 2019-03-31 11:00 | NUR ---
PT RESTING IN BED WITH EYES CLOSED. REASSESSMENT COMPLETED PER FLOWSHEET, SEE FLOWSHEET FOR INFORMATION. PT DENIES ANY NEEDS OR DISTRESS AT THIS TIME. VSS. WILL CONT TO MONITOR.
--- NOTE | 2019-03-31 11:27 | NUR ---
SPOKE WITH MINAL SANCHES, WE ARE GOING TO DO DIALYSIS.
--- NOTE | 2019-03-31 11:45 | NUR ---
AT BEDSIDE. PREPAIRING FOR TRIALYSIS CATHETER PLACEMENT.
--- NOTE | 2019-03-31 12:10 | NUR ---
TRIALYSIS CATHETER PLACEMENT SUCCESSFUL, PLACEMENT IN LEFT SUBCLAVIAN. VSS. NO NEEDS OR DISTRESS NOTED AT THIS TIME. WILL CONT TO MONITOR.
--- NOTE | 2019-03-31 13:00 | NUR ---
CHG BEDBATH GIVEN ALONG WITH COMPLETE LINEN CHANGE. PT DENIES ANY NEEDS OR DISTRESS. VSS. WILL CONT TO MONITOR.
--- NOTE | 2019-03-31 15:00 | NUR ---
REASSESSMENT COMPLETED PER FLOWSHEET, SEE FLOWSHEET FOR ADDITIONAL INFORMATION. PT IN BED RESTING WITH EYES CLOSED. NO NEEDS OR DISTRESS NOTED AT THIS TIME. VSS. WILL CONT TO MONITOR.
--- NOTE | 2019-03-31 17:20 | NUR ---
UP IN BED AT THIS TIME VISITING WITH FAMILY. NO ACUTE DISTRESS NOTED. VSS. CALL LIGHT IN REACH. WILL CONTINUE PLAN OF CARE.
--- NOTE | 2019-03-31 18:43 | NUR ---
CONTINENT BOWEL MOVEMENT NOTED VIA BEDPAN, LOOSE DARK. SPECIMEN SENT TO LAB PER ORDERS. MARZENA CARE AND BULL CARE PROVIDED. NO ACUTE DISTRESS NOTED. VSS. WILL CONTINUE PLAN OF CARE.
--- NOTE | 2019-03-31 19:11 | NUR ---
POSITIVE OCCULT BLOOD STOOL NOTED. DR YATES NOTIFIED, ORDERED PROTOIX 40 BID.
[2019-04-01] VITALS (8 sets, daily range): BP systolic 91–126; BP diastolic 39–54
[2019-04-01 02:59] LABS: BASOPHILS 0.2 % (0-2); EOSINOPHILS 0 % (0-7); HEMATOCRIT 25.2 % (36.0-48.0); HEMOGLOBIN 8.4 g/dL (12-16); LYMPHOCYTES 8.4 % (15-50); MCH 26.8 pg (26.0-34.0); MCHC 33.3 g/dL (31.0-37.0); MCV 80.3 fL (80.0-100.0); MEAN PLATELET VOLUME 9.4 fL (7.4-10.4); MONOCYTES 7.6 % (2-11); NEUTROPHILS 82.8 % (40-80); PLATELET COUNT 155 10x3/uL (130-400); RBC 3.14 10x6/uL (4.00-5.40); RDW 18.8 % (11.5-14.5); WBC 6.2 10x3/uL (4.8-10.8)
[2019-04-01 03:23] LABS: ANION GAP 16.4 mmol/L (8-16); CALCIUM 7.7 mg/dL (8.5-10.1); CREATININE - SERUM 5.8 mg/dL (0.6-1.3); POTASSIUM - SERUM 3.4 mmol/L (3.5-5.1)
--- NOTE | 2019-04-01 07:30 | NUR ---
DARVIN MAE LABOR ECONOMICS PROFESSOR AT BEDSIDE, UPDATE GIVEN, NEW ORDERS RECIEVED,
--- NOTE | 2019-04-01 09:30 | NUR ---
DR. YATES AT BEDSIDE, UPDATE GIVEN
--- NOTE | 2019-04-01 10:07 | NUR ---
REPORT CALLED TO ILIA ON MED2
--- NOTE | 2019-04-01 10:26 | NUR ---
PT ARRIVED VIA STRETCHER TO ROOM. ALERT AND ORIENTED, ATBEDSIDE. NO COMPLAINTS ALL QUESTIONS ANSWERED. CL IN REACH, SRX2.
--- NOTE | 2019-04-01 18:26 | NUR ---
PT HAS BEEN ALERT AND ORIENTED, RECIEVED 1 UNIT OF PRBCS PER MD ORDER. AT BEDSIDE. NO COMPLAINTS OR CONCERNS NOTED AT THIS TIME. CL IN REACH, SRX2. FIXED PTS BED (WAS SET ON SUPER TALL MODE), PT IS NOW MUCH MORE COMFORTABLE.
--- NOTE | 2019-04-01 19:15 | NUR ---
REPORT RECEIVED, WILL CONTINUE POC. PATIENT IS AAOX4, AT BEDSIDE. NO S/S OF DISTRESS OBSERVED, RR EVEN AND UNLABORED ON 2L O2 VIA NC. PATIENT DENIES NEEDS AT THIS TIME. CL IN REACH, BED LOCKED AND LOWERED. WILL CTM.
[2019-04-02] VITALS: BP 95/46
[2019-04-02 04:34] LABS: BASOPHILS 0.3 % (0-2); EOSINOPHILS 0 % (0-7); HEMATOCRIT 29.6 % (36.0-48.0); HEMOGLOBIN 9.8 g/dL (12-16); IMMATURE GRANULOCYTES 1.3 % (0-5); LYMPHOCYTES 11.7 % (15-50); MCH 26.9 pg (26.0-34.0); MCHC 33.1 g/dL (31.0-37.0); MCV 81.3 fL (80.0-100.0); MEAN PLATELET VOLUME 9.8 fL (7.4-10.4); MONOCYTES 6.9 % (2-11); NEUTROPHILS 79.8 % (40-80); PLATELET COUNT 177 10x3/uL (130-400); RBC 3.64 10x6/uL (4.00-5.40); RDW 18.4 % (11.5-14.5); WBC 6.8 10x3/uL (4.8-10.8)
[2019-04-02 04:38] VITALS: BP 134/61
[2019-04-02 04:42] LABS: ANION GAP 17.8 mmol/L (8-16); CALCIUM 7.8 mg/dL (8.5-10.1); CARBON DIOXIDE 22.5 mmol/L (21.0-32.0); CREATININE - SERUM 6.2 mg/dL (0.6-1.3); POTASSIUM - SERUM 3.3 mmol/L (3.5-5.1)
--- NOTE | 2019-04-02 07:54 | NUR ---
PT PULLED UP IN BED. ALERT AND ORIENTED X3. DISORIENTED TO PLACE. RR EVEN AND UNLABORED. DENIES FURTHER NEEDS OR PAIN AT THIS TIME. AT BEDSIDE. BED AT LOWEST POSITION. CALL LIGHT WITHIN REACH. WILL CONTINUE TO MONITOR.
--- NOTE | 2019-04-02 08:18 | NUR ---
PT REPOSITIONED TO LEFT SIDE. BM X1. CLEANED AND PADS CHANGED. FAMILY AT [facility] ASSISTING WITH FEEDING.
[2019-04-02 09:25] VITALS: BP 146/66
--- NOTE | 2019-04-02 10:06 | NUR ---
PT REMOVED FROM BEDPAN. BM X1, DARK LIQUID. COMPRESSION DRESSING REMOVED FROM RIGHT LOWER FOREARM. SKIN TEAR NOTED. STILL ACTIVELY BLEEDING. COMPRESSION DRESSING REPLACED. PT REQUEST ZOFRAN. ASSESSMENT COMPLETE. WILL CONTINUE TO MONITOR.
[2019-04-02 12:00] VITALS: BP 127/48
--- NOTE | 2019-04-02 13:01 | MORECARE ---
CASE MANAGEMENT DISCHARGE SUMMARY PATIENT: CARO JASSO UNIT: [id number] ADM DATE: 03/24/19 AGE: 63 : 55 SEX: F ROOM/BED: D.2106 AUTHOR: DALE MOULTON PHYSICIAN: REFERRING PHYSICIAN: ELTON HODGE MD DATE OF SERVICE: 04/02/19 Discharge Plan Patient Name: CARO JASSO Facility: [facility]:[place] : 1955 Planned Disposition: Anticipated Discharge Date: Discharge Date: Expected LOS: Initial Reviewer: [id number] Initial Review Date: 03/29/2019 Generated: 04/02/19 2:00 pm DCP- Discharge Planning Updated by [email or web address]: Kamini Hall on 04/02/19 11:[address] I HAVE SPOKEN TO EDSON EWING CLINICAL LIAKRISTIN WITH [facility] ABOUT THIS PATIENT POTENTIALLY BEING A NEW START. THIS WAY SHE CAN MAKE CONTACT TO PRESTART THE PROCESS. PTS FIRST DIALYSIS WAS YESTERDAY. DCP- Discharge Planning Updated by [id number]: Olivia Ramachandran on 03/29/19 11:[address] Patient Name: CARO JASSO Admission Status: Elective Accout number: [id number] Admission Date: 03-24-2019 : 1955 Admission Diagnosis: Attending: ELTON HODGE Current LOS: 5 Anticipated DC Date: Planned Disposition: Primary Insurance: [facility] MEDICARE SOLUTIONS Discharge Planning Comments: CM SPOKE WITH DAUGHTER ABOUT DC PLANNING/NEEDS. SHE STATES IS WAITING TO TALK TO THE DOCTOR BUT HAS RECIEVED BAD NEWS ON MOTHER'S PROGNOSIS. I HAVE MENTIONED REHAB AND HOSPICE. DAUGHTER WANTS TO THINK ABOUT IT. CM WILL FOLLOW AND ASSIST. Quality Control Systems Manager: Olivia Ramachandran DCP- Discharge Planning Updated by [id number]: Kamini Hall on 03/27/19 2:[address] MOSS WANTED THE PATIENT TRANSFERRED TO [facility] TO HER DIRECTOR OF INSTRUCTIONAL TECHNOLOGY THIS AM. @ 0813, PLACED A CALL TO THE CARD READER, ADARSH, TO OBTAIN ADMIN APPROVAL TO PROCEED WITH TRANSFER. SE STATED THAT SHE WOULD HAVE TO CALL THE ADMIN FOOD TRUCK CATERER, BUT WAS CURRENTLY INDISPOSED AND UNABLE. IF I DON'T HEAR BACK FROM HERE, I WILL CALL BACK LATER. @0817, I SPOKE WITH THE PATIENT WHO IS WILLING FOR THE TRANSFER. @0821, I SPOKE WITH ALEN SAWYER APN FOR DR YATES. SHE HAS REQUESTED THAT I HAVE DR MOSS CALL AND DISCUSS THE TRANSFER WITH DR YATES. @0836, I SPOKE WITH DR MOSS AND MADE THIS REQUEST. SHE ASKED ME TO TEXT HER DR YATES'S NUMBER AND SHE WOULD CALL HER. SOON WE HUNG UP, I TEXT HER THE NUMBER. @1334, I PLACED A CALL TO ALEN TO SEE IF SHE KNEW WHEN DR YATES WOULD BE HERE AT THE HOSPITAL SHE STATED HE WAS HERE NOW. SHE SAID THAT DR MOSS DID NOT CALL AND TALK TO DR YATES ABOUT THE TRANSFER. SHE STATED THAT SHE WOULD TALK TO HIM AND LET ME KNOW, BUT SHE DID NOT FEEL THAT THE PATIENT WOULD TRANSFER. @0666, DR YATES AND VERÓNICA LOWRY ON THE FLOOR. THEY HAVE TALKED WITH THE PATIENT. THE PATIENT WILL REMAIN HERE FOR TREATMENT AND NOT TRANSFER. DCPIA - Discharge Planning Initial Assessment Updated by [email or web address]: Olivia Ramachandran on 03/29/19 12:11 pm * Is the patient Alert and Oriented? No * Preadmission Environment Home with Family * Other Equipment WALKER, WC, TRANSFER CHAIR, O2 NEBS * List name and contact numbers for known caregivers / representatives who currently or will assist patient after discharge: HARRIETT, DAUGHTER, * Community resources currently utilized Home Health * Please name any agencies selected above. [facility] * Has this patient been hospitalized within the prior 30 days at any hospital? Yes Last DP export: 03/29/19 11:18 Patient Name: CARO JASSO Page [phone] at 1301 All edits/amendments must be made on the electronic document DICTATION DATE: 04/02/19 1301 OUTCOMES ANALYST: ELVIRA 04/02/19 1301 RPT#: [id number] DC DATE: STATUS: ADM IN [facility] [address] [place] [address] END OF REPORT
[2019-04-02 16:00] VITALS: BP 119/50
--- NOTE | 2019-04-02 16:00 | NUR ---
I HAVE REVIEWED THIS PATIENT AND I CONCUR WITH THE SHIFT ASSESSMENT COMPLETED BY THE SAMPLE CASE PORTER TODAY THIS SHIFT
[2019-04-02 20:48] VITALS: BP 105/50
--- NOTE | 2019-04-02 21:10 | NUR ---
OT NOTE: PT REQUIRED MOD A FOR SIMPLE SIDE ROLLING TASKS. PT COMPLETED FACE/HAND HYGIENE WITH SET UP. THANK YOU, TREVON MULTANI
--- NOTE | 2019-04-02 21:45 | NUR ---
REPORT RECIEVED AND ROUNDING COMPLETE. PATIENT LAYING IN BED IN HIGH FOWLERS POSITION. PATIENT HAS EYES CLOSED, BREATHING SHALLOW AND EVEN, NO S/SX OF DISTRESS AT THIS TIME. PATIENT WEARING O2 AT 2L VIA NASAL CANNULA. CELINE HAS A LEFT HAND PIV THAT IS SALINE LOCKED, PIV SHOWING NO S/SX OF INFILTRATION OR INFECTION AT THIS TIME, DRESSING C/D/I. CELINE HAS BULL CATH THAT HAS NO URINE AT THIS TIME, LINER MACHINE OPERATOR STATES JUST EMPTIED. PATIENT HAS NO NEEDS AT THIS TIME. CALL LIGHT WITHIN REACH AND BED IN LOWEST LOCKED POSITION.
[2019-04-03 00:02] VITALS: BP 121/50
[2019-04-03 04:30] VITALS: BP 122/54
[2019-04-03 05:42] LABS: BASOPHILS 0.4 % (0-2); EOSINOPHILS 0 % (0-7); HEMATOCRIT 28.7 % (36.0-48.0); HEMOGLOBIN 9.3 g/dL (12-16); IMMATURE GRANULOCYTES 1.4 % (0-5); LYMPHOCYTES 12.4 % (15-50); MCH 26.5 pg (26.0-34.0); MCHC 32.4 g/dL (31.0-37.0); MCV 81.8 fL (80.0-100.0); MEAN PLATELET VOLUME 9.8 fL (7.4-10.4); MONOCYTES 7.2 % (2-11); NEUTROPHILS 78.6 % (40-80); PLATELET COUNT 183 10x3/uL (130-400); RBC 3.51 10x6/uL (4.00-5.40); RDW 18.6 % (11.5-14.5); WBC 5.6 10x3/uL (4.8-10.8)
[2019-04-03 06:20] LABS: ANION GAP 13.5 mmol/L (8-16); CALCIUM 8.1 mg/dL (8.5-10.1); CARBON DIOXIDE 25.5 mmol/L (21.0-32.0)
[2019-04-03 06:24] LABS: CREATININE - SERUM 4.5 mg/dL (0.6-1.3)
--- NOTE | 2019-04-03 07:10 | NUR ---
PT RESTING. RR EVEN AND UNLABORED. PT REPOSITIONED TO COMFORT. DENIES FURTHER NEEDS OR PAIN AT THIS TIME. BED IN LOWEST POSITION. CALL LIGHT WITHIN REACH. WILL CONTINUE TO MONITOR.
[2019-04-03 08:00] VITALS: BP 106/67
--- NOTE | 2019-04-03 11:40 | EC ---
PATIENT:CARO JASSO DATE OF SERVICE: 03/24/19 SEX: F MEDICAL RECORD: [id number] DATE OF : [birth year] LOCATION:D.M2 D.210 AGE OF PATIENT: 63 ADMISSION DATE: 03/24/19 REFERRING PHYSICIAN: INTERPRETING PHYSICIAN: RORY SELLERS MD ECHOCARDIOGRAM REPORT ECHO CHARGES 4 ECHO COMPLETE Date: 03/26/19 CLINICAL DIAGNOSIS: DYSPNEA ECHOCARDIOGRAPHIC MEASUREMENTS (adult normal given) AC root (d.<3.7cm) 2.5 cm LV Septum d (<1.2 cm> 1.0 cm Valve Excursion 1.7 cm LV Septum (systole) 1.3 cm Left Atria (s.<4.0cm> 5.0 cm LVPW d(<1.2cm) 1.0 cm RV (d.<2.3cm) 3.5 cm LVPW (sytole) 1.1 cm LV diastole(<5.6CM) 5.1 cm MV E-F(>70mm/sec) cm LV systole 4.1 cm LVOT Diameter 1.9 cm MV exc.(>10mm) cm Est.ejection fraction (50-75%) % DOPPLER: LVIT cm/sec A 80 cm/sec E 133 cm/sec LA cm/sec RVSP 48.9 mmHg LVOT 97 cm/sec AOP1/2T m/s Asc. Ao 166 cm/sec RVOT 120 cm/sec RA cm/sec PA 112 cm/sec AV Gradient Peak 11.1 mmHg AV Mean 7.0 mmHg AV Area 1.9 cm MV Gradient Peak 8.5 mmHg MV Mean 3.2 mmHg MV Area cm COMMENTS: Putty Mixer And Applier: Hali [facility] Supervisor Plasma: 1 Dr. Sellers TAPE# PACS Pericardial Effusion N DATE OF SERVICE: ECHOCARDIOGRAM FINDINGS: 1. Left ventricular chamber size is within normal limits. Left ventricular systolic function is normal. Overall ejection fraction estimated at 55%. 2. Left atrium is enlarged at 5.0 cm. Right atrium and right ventricular chamber sizes are within normal limits. 3. Valvular structures have normal structure and motion. ECHOCARDIOGRAM REPORT [id number] CARO JASSO 4. Doppler interrogation reveals vqoz-dh-gyebjqcs mitral regurgitation, mild tricuspid regurgitation, no other valvular insufficiency or stenosis. Pulmonary systolic pressure is elevated, estimated at 49 mmHg. 5. No evidence of pericardial effusion or left ventricular thrombus. TRANSINT:[id number] Voice Confirmation ID: [id number] DOCUMENT ID: [id number] RORY SELLERS MD at 1140 CC: [id number] DICTATION DATE: 03/27/19 1056 DIRECTOR ORANGE: 03/27/19 1100 ADM IN [facility] [address] [place] [address]
[2019-04-03 12:00] VITALS: BP 149/71
--- NOTE | 2019-04-03 13:20 | NUR ---
Nutrition Follow-up: Pt reports eating ~50% of breakfast this AM. Experiencing some nausea but no vomiting. Nepro at bedside; pt reports that she tries to drink some. Diet: Renal Wt: 279.9# Last BM: 04/03 Labs noted: Na 130, K+ 3.0, Ca 8.1 Meds noted: Dev Singh -Continue current diet as tolerated. -Offer Nepro with meals. -RD following.
--- NOTE | 2019-04-03 15:13 | NUR ---
OT NOTE: BED MOB WITH MOD ASSIST; STATIC SITTING BALANCE ON EOB WITH SPV; UE/LE AROM EXS FOR STRENGTHENING. CHAPIN DE LUNA, OTR/L
[2019-04-03 16:00] VITALS: BP 90/45
--- NOTE | 2019-04-03 16:41 | NUR ---
OT NOTE: PT COMPLETED SUPINE TO SIT WITH MAX A. PT COMPLETED SIT TO STAND WITH MOD A. PT COMPLETED ADL MOB WITH MOD/MAX A. PT COMPLETED UE AROM AX. THANK YOU, TREVON MULTANI
--- NOTE | 2019-04-03 19:05 | NUR ---
PT IN DIALYSIS AT THIS TIME.
--- NOTE | 2019-04-03 19:36 | NUR ---
PT BACK FROM DIALYSIS. MEAL PROVIDED. PT DENIES ANY NEEDS AT THIS TIME. CL IN REACH, BED IN LOWEST POSITION. FAMILY AT BEDSIDE. NO SIGNS OF DISTRESS.
[2019-04-03 21:04] VITALS: BP 104/40
--- NOTE | 2019-04-03 21:14 | NUR ---
PT IV TO L HAND INFILTRATED. REMOVED, TIP INTACT. PT TOLERATED WELL.
[2019-04-04 00:24] VITALS: BP 105/39
[2019-04-04 04:30] VITALS: BP 101/46
[2019-04-04 04:39] LABS: BASOPHILS 0.8 % (0-2); EOSINOPHILS 0 % (0-7); HEMATOCRIT 27.3 % (36.0-48.0); IMMATURE GRANULOCYTES 1.2 % (0-5); LYMPHOCYTES 18.5 % (15-50); MCH 27.4 pg (26.0-34.0); MEAN PLATELET VOLUME 9.7 fL (7.4-10.4); MONOCYTES 7.4 % (2-11); NEUTROPHILS 72.1 % (40-80); PLATELET COUNT 165 10x3/uL (130-400); RBC 3.29 10x6/uL (4.00-5.40); RDW 18.6 % (11.5-14.5); WBC 4.9 10x3/uL (4.8-10.8)
[2019-04-04 04:53] LABS: ANION GAP 9.9 mmol/L (8-16); CARBON DIOXIDE 30.1 mmol/L (21.0-32.0); CREATININE - SERUM 3.4 mg/dL (0.6-1.3)
--- NOTE | 2019-04-04 07:41 | NUR ---
REPORT RECIEVED. PT SITTING SEMI FOWLERS IN BED. RR EVEN AND UNLABORED. SHE HAS A L SUBCLAVIN TRIALYSIS WITH A PURPLE NURSE PORT THAT IS SL. IS HAS A BULL DRAINING URINE. BED LOCKED AND IN LOWEST POSITION, CALL LIGHT WITHIN REACH. WILL CTM
--- NOTE | 2019-04-04 09:54 | NUR ---
OT NOTE: PT DOING WELL TODAY. PERFORMED BED MOB WITH MOD/MAX ASSIST; UPRIGHT SITTING ON EOB WITH SBA. MAX ASSIST TO THOMAS SOCKS; SET UP FOR SIMPLE GROOMING. SIT TO STAND WITH MIN/MOD ASSIST; ABLE TO TAKE A FEW STEPS FROM BED TO CHAIR WITH WALKER AND MIN ASSIST. EDUCATED PT ON UE/LE EXS WHILE SITTING UP IN CHAIR. REPORTS OF L LATERAL/POSTERIOR ANKLE PAIN. NO REDNESS OR BREAKDOWN NOTED. CHAPIN DE LUNA, OTR/L
--- NOTE | 2019-04-04 12:00 | NUR ---
PT REANNA TO DIALYSIS AT THIS TIME
[2019-04-04 13:36] VITALS: BP 108/41
--- NOTE | 2019-04-04 16:17 | NUR ---
Rehab Note- Acute Inpatient Rehab prescreen order received. She has [facility] insurance and will require a PreAuth. Have started PreAuth and faxed clinicals. Will continue to follow the patient at this time. Thank you for this referral! La Nena Ghotra RN Clinical Liaison, [facility] Rehab
--- NOTE | 2019-04-04 17:03 | MORECARE ---
CASE MANAGEMENT DISCHARGE SUMMARY PATIENT: CAOR JASSO UNIT: [id number] ADM DATE: 03/24/19 AGE: 63 : 55 SEX: F ROOM/BED: D.2106 AUTHOR: DALE MOULTON PHYSICIAN: REFERRING PHYSICIAN: ELTON HODGE MD DATE OF SERVICE: 04/04/19 Discharge Plan Patient Name: CARO JASSO Facility: [facility]:[place] : 1955 Planned Disposition: Inpatient Rehab Anticipated Discharge Date: Discharge Date: Expected LOS: Initial Reviewer: [id number] Initial Review Date: 03/29/2019 Generated: 04/04/19 6:03 pm DCP- Discharge Planning Updated by [email or web address]: Kamini Hall on 04/02/19 11:[address] I HAVE SPOKEN TO EDSON EWING CLINICAL LIASON WITH [facility] ABOUT THIS PATIENT POTENTIALLY BEING A NEW START. THIS WAY SHE CAN MAKE CONTACT TO PRESTART THE PROCESS. PTS FIRST DIALYSIS WAS YESTERDAY. DCP- Discharge Planning Updated by [email or web address]: Olivia Ramachandran on 03/29/19 11:[address] Patient Name: CARO JASSO Admission Status: Elective Accout number: [id number] Admission Date: 03-24-2019 : 1955 Admission Diagnosis: Attending: ELTON HODGE Current LOS: 5 Anticipated DC Date: Planned Disposition: Primary Insurance: [employer] MEDICARE SOLUTIONS Discharge Planning Comments: CM SPOKE WITH DAUGHTER ABOUT DC PLANNING/NEEDS. SHE STATES IS WAITING TO TALK TO THE DOCTOR BUT HAS RECIEVED BAD NEWS ON MOTHER'S PROGNOSIS. I HAVE MENTIONED REHAB AND HOSPICE. DAUGHTER WANTS TO THINK ABOUT IT. CM WILL FOLLOW AND ASSIST. Medicaid Business Analyst: Olivia Ramachandran DCP- Discharge Planning Updated by [email or web address]: Kamini Hall on 03/27/19 2:[address] MOSS WANTED THE PATIENT TRANSFERRED TO [facility] TO HER FIRE FIGHTER AIRPORT THIS AM. @ 0813, PLACED A CALL TO THE LOSS PREVENTION AND SAFETY MANAGER, ADARSH, TO OBTAIN ADMIN APPROVAL TO PROCEED WITH TRANSFER. [facility] STATED THAT SHE WOULD HAVE TO CALL THE ADMIN ENGINEERING GROUP LEADER, BUT WAS CURRENTLY INDISPOSED AND UNABLE. IF I DON'T HEAR BACK FROM HERE, I WILL CALL BACK LATER. @0817, I SPOKE WITH THE PATIENT WHO IS WILLING FOR THE TRANSFER. @0821, I SPOKE WITH ALEN SAWYER APN FOR DR YATES. SHE HAS REQUESTED THAT I HAVE DR MOSS CALL AND DISCUSS THE TRANSFER WITH DR YATES. @0836, I SPOKE WITH DR MOSS AND MADE THIS REQUEST. SHE ASKED ME TO TEXT HER DR YATES'S NUMBER AND SHE WOULD CALL HER. SOON WE HUNG UP, I TEXT HER THE NUMBER. @1334, I PLACED A CALL TO ALEN TO SEE IF SHE KNEW WHEN DR YATES WOULD BE HERE AT THE HOSPITAL SHE STATED HE WAS HERE NOW. SHE SAID THAT DR MOSS DID NOT CALL AND TALK TO DR YATES ABOUT THE TRANSFER. SHE STATED THAT SHE WOULD TALK TO HIM AND LET ME KNOW, BUT SHE DID NOT FEEL THAT THE PATIENT WOULD TRANSFER. @0678, DR YATES AND VERÓNICA LOWRY ON THE FLOOR. THEY HAVE TALKED WITH THE PATIENT. THE PATIENT WILL REMAIN HERE FOR TREATMENT AND NOT TRANSFER. DCPIA - Discharge Planning Initial Assessment Updated by [id number]: Olivia Ramachandran on 03/29/19 12:11 pm * Is the patient Alert and Oriented? No * Preadmission Environment Home with Family * Other Equipment WALKER, WC, TRANSFER CHAIR, O2 NEBS * List name and contact numbers for known caregivers / representatives who currently or will assist patient after discharge: HARRIETT, DAUGHTER, * Community resources currently utilized Home Health * Please name any agencies selected above. [facility] * Has this patient been hospitalized within the prior 30 days at any hospital? Yes Last DP export: 04/02/19 12:01 Patient Name: CARO JASSO Page [phone] at 1703 All edits/amendments must be made on the electronic document DICTATION DATE: 04/04/191702 LADLE REPAIRMAN: ELVIRA 04/04/191702 RPT#: [id number] DC DATE: STATUS: ADM IN [facility] [address] [facility] [place] [address] END OF REPORT
--- NOTE | 2019-04-04 17:13 | MORECARE ---
CASE MANAGEMENT DISCHARGE SUMMARY PATIENT: CARO JASSO UNIT: [id number] ADM DATE: 03/24/19 AGE: 63 : 55 SEX: F ROOM/BED: D.2106 AUTHOR: KENNEY,DOC PHYSICIAN: REFERRING PHYSICIAN: ELTON HODGE MD DATE OF SERVICE: 04/04/19 Discharge Plan Patient Name: CARO JASSO Facility: [facility]:[place] : 1955 Planned Disposition: Inpatient Rehab Anticipated Discharge Date: Discharge Date: Expected LOS: Initial Reviewer: [email or web address] Initial Review Date: 03/29/2019 Generated: 04/04/19 6:13 pm Comments DCP- Discharge Planning Updated by [email or web address]: Phil Caruso on 04/04/19 4:[address] Patient Name: CARO JASSO Encounter No: [id number] : 1955 Primary Insurance: [facility] MEDICARE SOLUTIONS Anticipated DC Date: Planned Disposition: Inpatient Rehab External Planned Provider: [facility] INPATIENT REHAB DCP follow-up note: CM RECEIVED ORDER FOR INPATIENT REHAB PRESCREENING, MET WITH PT'S DAUGHTER, HARRIETT YOUNG, IN ROOM. HARRIETT IS PT'S EMERGENCY CONTACT LISTED ON FACE SHEET AND REPORTS TO BE PT'S CAREGIVER AT HOME. PT IN DIALYSIS. CM HAD ALSO RECEIVED HANDWRITTEN NOTE INDICTATING PT WANTS REHAB IN [place]. HARRIETT REPORTS PT WANTS REFERRAL TO [facility] FOR INPATIENT REHAB. CM DISCUSSED HAVING A ALTERNATE PLAN IF DECLINED FOR INPATIENT REHAB. THEY HAVE DISCUSSED SNF; CM PROVIDED LIST OF AVAILABLE SNF FACILITIES WITHIN [address] OF [place]. HARRIETT WILL DISCUSS THIS WITH PT AND THEY WILL LET CM KNOW OF ALTERNATE PLAN FOR REHAB. CM TO SEND REFERRAL TO [facility] FOR INPATIENT REHAB SOON POSSIBLE. PT CONSIDERING SNF FACILITY ALTERNATE REHAB PLAN IF DECLINED BY [facility]. Phil Caruso, CASE MANAGEMENT DCP- Discharge Planning Updated by [id number]: Kamini Hall on 04/02/19 11:[address] I HAVE SPOKEN TO EDSON EWING, CLINICAL LIASON WITH [facility] ABOUT THIS PATIENT POTENTIALLY BEING A NEW START. THIS WAY SHE CAN MAKE CONTACT TO PRESTART THE PROCESS. PTS FIRST DIALYSIS WAS YESTERDAY. DCP- Discharge Planning Updated by [email or web address]: Olivia Ramachandran on 03/29/19 11:[address] Patient Name: CARO JASSO Admission Status: Elective Accout number: [id number] Admission Date: 03-24-2019 : 1955 Admission Diagnosis: Attending: ELTON HODGE Current LOS: 5 Anticipated DC Date: Planned Disposition: Primary Insurance: [facility] MEDICARE SOLUTIONS Discharge Planning Comments: CM SPOKE WITH DAUGHTER ABOUT DC PLANNING/NEEDS. SHE STATES IS WAITING TO TALK TO THE DOCTOR BUT HAS RECIEVED BAD NEWS ON MOTHER'S PROGNOSIS. I HAVE MENTIONED REHAB AND HOSPICE. DAUGHTER WANTS TO THINK ABOUT IT. CM WILL FOLLOW AND ASSIST. Roll Handler: Olivia Ramachandran DCP- Discharge Planning Updated by [id number]: Kamini Hall on 03/27/19 2:[address] MOSS WANTED THE PATIENT TRANSFERRED TO [facility] TO HER ROOF FOREMAN THIS AM. @ 0813, PLACED A CALL TO THE TROLLEY OPERATOR, ADARSH, TO OBTAIN ADMIN APPROVAL TO PROCEED WITH TRANSFER. SE STATED THAT SHE WOULD HAVE TO CALL THE ADMIN CIVIL DRAFTER, BUT WAS CURRENTLY INDISPOSED AND UNABLE. IF I DON'T HEAR BACK FROM HERE, I WILL CALL BACK LATER. @0817, I SPOKE WITH THE PATIENT WHO IS WILLING FOR THE TRANSFER. @0821, I SPOKE WITH ALEN SAWYER APN FOR DR YATES. SHE HAS REQUESTED THAT I HAVE DR MOSS CALL AND DISCUSS THE TRANSFER WITH DR YATES. @0836, I SPOKE WITH DR MOSS AND MADE THIS REQUEST. SHE ASKED ME TO TEXT HER DR YATES'S NUMBER AND SHE WOULD CALL HER. SOON WE HUNG UP, I TEXT HER THE NUMBER. @1334, I PLACED A CALL TO ALEN TO SEE IF SHE KNEW WHEN DR YATES WOULD BE HERE AT THE HOSPITAL SHE STATED HE WAS HERE NOW. SHE SAID THAT DR MOSS DID NOT CALL AND TALK TO DR YATES ABOUT THE TRANSFER. SHE STATED THAT SHE WOULD TALK TO HIM AND LET ME KNOW, BUT SHE DID NOT FEEL THAT THE PATIENT WOULD TRANSFER. @1426, DR YATES AND VERÓNICA LOWRY ON THE FLOOR. THEY HAVE TALKED WITH THE PATIENT. THE PATIENT WILL REMAIN HERE FOR TREATMENT AND NOT TRANSFER. DCPIA - Discharge Planning Initial Assessment Updated by [email or web address]: Olivia Ramachandran on 03/29/19 12:11 pm * Is the patient Alert and Oriented? No * Preadmission Environment Home with Family * Other Equipment WALKER, WC, TRANSFER CHAIR, O2 NEBS * List name and contact numbers for known caregivers / representatives who currently or will assist patient after discharge: HARRIETT, SANDY, * Community resources currently utilized Home Health * Please name any agencies selected above. [facility] * Has this patient been hospitalized within the prior 30 days at any hospital? Yes Last DP export: 04/04/19 4:03 Patient Name: CARO JASSO Page [id number] at 1713 All edits/amendments must be made on the electronic document DICTATION DATE: 04/04/191711 ASSISTANT TENNIS COACH: ELVIRA 04/04/191711 RPT#: [id number] DC DATE: STATUS: ADM IN [facility] [address] [place] [address] END OF REPORT
--- NOTE | 2019-04-04 18:55 | NUR ---
EVENING ROUNDS COMPLETE. PT SITTING UP IN BED. NO SIGNS OF DISTRESS. PT DENIES ANY PAIN OR NEEDS AT THIS TIME. CL IN REACH, BED IN LOWEST POSITION.
[2019-04-04 20:00] VITALS: BP 114/44
[2019-04-05] VITALS: BP 94/40
[2019-04-05 04:00] VITALS: BP 103/49
[2019-04-05 04:21] LABS: BASOPHILS 0.4 % (0-2); EOSINOPHILS 0 % (0-7); HEMATOCRIT 28.4 % (36.0-48.0); LYMPHOCYTES 19.1 % (15-50); MCH 26.5 pg (26.0-34.0); MCHC 31.7 g/dL (31.0-37.0); MCV 83.8 fL (80.0-100.0); MEAN PLATELET VOLUME 9.4 fL (7.4-10.4); MONOCYTES 8.3 % (2-11); NEUTROPHILS 71.2 % (40-80); PLATELET COUNT 173 10x3/uL (130-400); RBC 3.39 10x6/uL (4.00-5.40); RDW 18.8 % (11.5-14.5); WBC 5.2 10x3/uL (4.8-10.8)
[2019-04-05 04:49] LABS: BILIRUBIN - TOTAL 0.96 mg/dL (0.2-1.3); CALCIUM 8.2 mg/dL (8.5-10.1); CARBON DIOXIDE 31.9 mmol/L (21.0-32.0); PROTEIN - SERUM 6.8 g/dL (6.4-8.2)
[2019-04-05 05:08] LABS: CREATININE - SERUM 2.5 mg/dL (0.6-1.3); POTASSIUM - SERUM 2.9 mmol/L (3.5-5.1)
--- NOTE | 2019-04-05 06:14 | NUR ---
PT OUTPUT ONLY 50ML, BLADDER SCAN SHOWED 0ML X3 SCANS.
--- NOTE | 2019-04-05 07:45 | NUR ---
RETURNED TO ROOM VIA BED FROM SURGERY. A/A/OX4. DENIES ANY PAIN, DRESSING TO LEFT CHEST C/D/I AND HEMESPLIT DRESSING RIGHT CHEST C/D/I. WANTED 02 MASK OFF AND NC BACK ON. PLACED ON HER AT 2L/M WITH SPO2 READING OF 100%. NO REQUESTS AT PRESENT TIME. IV INFUSING THROUGH BLUE PORT OF HEMESPLIT AND ORDER RECEIVED FROM DR. WILSON TO CONTINUE RUNNING ALL FLUIDS THROUGH THAT PORT.
--- NOTE | 2019-04-05 08:57 | NUR ---
PT DECLINES USE OF SCDS.
[2019-04-05 09:18] VITALS: BP 161/56
--- NOTE | 2019-04-05 12:04 | MORECARE ---
CASE MANAGEMENT DISCHARGE SUMMARY PATIENT: CARO JASSO UNIT: [id number] ADM DATE: 03/24/19 AGE: 63 : 55 SEX: F ROOM/BED: D.2106 AUTHOR: KENNEY,DOC PHYSICIAN: REFERRING PHYSICIAN: ELTON HODGE MD DATE OF SERVICE: 04/05/19 Discharge Plan Patient Name: CARO JASSO Facility: [facility]:[place] : 1955 Planned Disposition: Inpatient Rehab Anticipated Discharge Date: Discharge Date: Expected LOS: Initial Reviewer: [id number] Initial Review Date: 03/29/2019 Generated: 04/05/19 1:04 pm Comments DCP- Discharge Planning Updated by [id number]: Phil Caruso on 04/04/19 4:[address] Patient Name: CARO JASSO Encounter No: [id number] : 1955 Primary Insurance: [facility] MEDICARE SOLUTIONS Anticipated DC Date: Planned Disposition: Inpatient Rehab External Planned Provider: [facility] INPATIENT REH[facility] DCP follow-up note: CM RECEIVED ORDER FOR INPATIENT REHAB PRESCREENING, MET WITH PT'S DAUGHTER, HARRIETT YOUNG, IN ROOM. HARRIETT IS PT'S EMERGENCY CONTACT LISTED ON FACE SHEET AND REPORTS TO BE PT'S CAREGIVER AT HOME. PT IN DIALYSIS. CM HAD ALSO RECEIVED HANDWRITTEN NOTE INDICTATING PT WANTS REHAB IN [place]. HARRIETT REPORTS PT WANTS REFERRAL TO [facility] FOR INPATIENT REHAB. CM DISCUSSED HAVING A ALTERNATE PLAN IF DECLINED FOR INPATIENT REHAB. THEY HAVE DISCUSSED RESIDENTIAL; CM PROVIDED LIST OF AVAILABLE RESIDENTIAL FACILITIES WITHIN [address] OF [place]. HARRIETT WILL DISCUSS THIS WITH PT AND THEY WILL LET CM KNOW OF ALTERNATE PLAN FOR REHAB. CM TO SEND REFERRAL TO [facility] FOR INPATIENT REHAB SOON POSSIBLE. PT CONSIDERING RESIDENTIAL FACILITY ALTERNATE REHAB PLAN IF DECLINED BY [facility]. Phil Caruso, CASE MANAGEMENT DCP- Discharge Planning Updated by [id number]: Kamini Hall on 04/02/19 11:[address] I HAVE SPOKEN TO EDSON EWING, CLINICAL LIASON WITH [facility] ABOUT THIS PATIENT POTENTIALLY BEING A NEW START. THIS WAY SHE CAN MAKE CONTACT TO PRESTART THE PROCESS. PTS FIRST DIALYSIS WAS YESTERDAY. DCP- Discharge Planning Updated by [email or web address]: Olivia Ramachandran on 03/29/19 11:[address] Patient Name: CARO JASSO Admission Status: Elective Accout number: [id number] Admission Date: 03-24-2019 : 1955 Admission Diagnosis: Attending: ELTON HODGE Current LOS: 5 Anticipated DC Date: Planned Disposition: Primary Insurance: [facility] MEDICARE SOLUTIONS Discharge Planning Comments: CM SPOKE WITH DAUGHTER ABOUT DC PLANNING/NEEDS. SHE STATES IS WAITING TO TALK TO THE DOCTOR BUT HAS RECIEVED BAD NEWS ON MOTHER'S PROGNOSIS. I HAVE MENTIONED REHAB AND HOSPICE. DAUGHTER WANTS TO THINK ABOUT IT. CM WILL FOLLOW AND ASSIST. Warranty Manager: Olivia Ramachandran DCP- Discharge Planning Updated by [id number]: Kamini Hall on 03/27/19 2:[address] MOSS WANTED THE PATIENT TRANSFERRED TO [facility] TO HER SOLDERER DIPPER THIS AM. @ 0813, PLACED A CALL TO THE JET PIERCER OPERATOR, ADARSH, TO OBTAIN ADMIN APPROVAL TO PROCEED WITH TRANSFER. SE STATED THAT SHE WOULD HAVE TO CALL THE ADMIN MILL LABOR SUPERVISOR, BUT WAS CURRENTLY INDISPOSED AND UNABLE. IF I DON'T HEAR BACK FROM HERE, I WILL CALL BACK LATER. @0817, I SPOKE WITH THE PATIENT WHO IS WILLING FOR THE TRANSFER. @0821, I SPOKE WITH ALEN SAWYER APN FOR DR YATES. SHE HAS REQUESTED THAT I HAVE DR MOSS CALL AND DISCUSS THE TRANSFER WITH DR YATES. @0836, I SPOKE WITH DR MOSS AND MADE THIS REQUEST. SHE ASKED ME TO TEXT HER DR YATES'S NUMBER AND SHE WOULD CALL HER. SOON WE HUNG UP, I TEXT HER THE NUMBER. @1334, I PLACED A CALL TO ALEN TO SEE IF SHE KNEW WHEN DR YATES WOULD BE HERE AT THE HOSPITAL SHE STATED HE WAS HERE NOW. SHE SAID THAT DR MOSS DID NOT CALL AND TALK TO DR YATES ABOUT THE TRANSFER. SHE STATED THAT SHE WOULD TALK TO HIM AND LET ME KNOW, BUT SHE DID NOT FEEL THAT THE PATIENT WOULD TRANSFER. @1426, DR YATES AND VERÓNICA LOWRY ON THE FLOOR. THEY HAVE TALKED WITH THE PATIENT. THE PATIENT WILL REMAIN HERE FOR TREATMENT AND NOT TRANSFER. DCPIA - Discharge Planning Initial Assessment Updated by [email or web address]: Olivia Ramachandran on 03/29/19 12:11 pm * Is the patient Alert and Oriented? No * Preadmission Environment Home with Family * Other Equipment WALKER, WC, TRANSFER CHAIR, O2 NEBS * List name and contact numbers for known caregivers / representatives who currently or will assist patient after discharge: HARRIETT, SANDY, * Community resources currently utilized Home Health * Please name any agencies selected above. [facility] * Has this patient been hospitalized within the prior 30 days at any hospital? Yes External Providers External Provider: OTHER-OTHER Next Contact Date: 04/05/2019 Service Request Date: Service Type: Resolution: Reviewer: Comments: Last DP export: 04/04/19 4:13 Patient Name: CARO JASSO Page [phone] at 1204 All edits/amendments must be made on the electronic document DICTATION DATE: 04/05/19 120 TONGUE CARRIER: ELVIRA 04/05/19 1204 RPT#: [id number] DC DATE: STATUS: ADM IN [facility] [address] [place] [address] END OF REPORT
--- NOTE | 2019-04-05 12:34 | MORECARE ---
CASE MANAGEMENT DISCHARGE SUMMARY PATIENT: CARO JASSO UNIT: [id number] ADM DATE: 03/24/19 AGE: 63 : 55 SEX: F ROOM/BED: D.2106 AUTHOR: KENNEY,DOC PHYSICIAN: REFERRING PHYSICIAN: ELTON HODGE MD DATE OF SERVICE: 04/05/19 Discharge Plan Patient Name: CARO JASSO Facility: [facility]:[place] : 1955 Planned Disposition: Inpatient Rehab Anticipated Discharge Date: Discharge Date: Expected LOS: Initial Reviewer: [id number] Initial Review Date: 03/29/2019 Generated: 04/05/19 1:34 pm Comments DCP- Discharge Planning Updated by [id number]: Phil Caruso on 04/04/19 4:[address] Patient Name: CARO JASSO Encounter No: [id number] : 1955 Primary Insurance: [facility] MEDICARE SOLUTIONS Anticipated DC Date: Planned Disposition: Inpatient Rehab External Planned Provider: [facility] INPATIENT REHAB DCP follow-up note: CM RECEIVED ORDER FOR INPATIENT REHAB PRESCREENING, MET WITH PT'S DAUGHTER, HARRIETT YOUNG, IN ROOM. HARRIETT IS PT'S EMERGENCY CONTACT LISTED ON FACE SHEET AND REPORTS TO BE PT'S CAREGIVER AT HOME. PT IN DIALYSIS. CM HAD ALSO RECEIVED HANDWRITTEN NOTE INDICTATING PT WANTS REHAB IN [place]. HARRIETT REPORTS PT WANTS REFERRAL TO [facility] FOR INPATIENT REHAB. CM DISCUSSED HAVING A ALTERNATE PLAN IF DECLINED FOR INPATIENT REHAB. THEY HAVE DISCUSSED [facility]PC; CM PROVIDED LIST OF AVAILABLE [facility]PC FACILITIES WITHIN [address] OF [place]. HARRIETT WILL DISCUSS THIS WITH PT AND THEY WILL LET CM KNOW OF ALTERNATE PLAN FOR REHAB. CM TO SEND REFERRAL TO [facility] FOR INPATIENT REHAB SOON POSSIBLE. PT CONSIDERING [facility]PC FACILITY ALTERNATE REHAB PLAN IF DECLINED BY [facility]. hPil Caruso, CASE MANAGEMENT DCP- Discharge Planning Updated by [id number]: Kamini Hall on 04/02/19 11:[address] I HAVE SPOKEN TO EDSON EWING, CLINICAL LIASON WITH [facility] ABOUT THIS PATIENT POTENTIALLY BEING A NEW START. THIS WAY SHE CAN MAKE CONTACT TO PRESTART THE PROCESS. PTS FIRST DIALYSIS WAS YESTERDAY. DCP- Discharge Planning Updated by [id number]: Olivia Ramachandran on 03/29/19 11:[address] Patient Name: CARO JASSO Admission Status: Elective Accout number: [id number] Admission Date: 03-24-2019 : 1955 Admission Diagnosis: Attending: ELTON HODGE Current LOS: 5 Anticipated DC Date: Planned Disposition: Primary Insurance: [facility] MEDICARE SOLUTIONS Discharge Planning Comments: CM SPOKE WITH DAUGHTER ABOUT DC PLANNING/NEEDS. SHE STATES IS WAITING TO TALK TO THE DOCTOR BUT HAS RECIEVED BAD NEWS ON MOTHER'S PROGNOSIS. I HAVE MENTIONED REHAB AND HOSPICE. DAUGHTER WANTS TO THINK ABOUT IT. CM WILL FOLLOW AND ASSIST. Embedded Software Manager: Olivia Ramachandran DCP- Discharge Planning Updated by [id number]: Kamini Hall on 03/27/19 2:[address] MOSS WANTED THE PATIENT TRANSFERRED TO [facility] TO HER CONCEPTOR THIS AM. @ 0813, PLACED A CALL TO THE CERTIFIED CODING SPECIALIST, ADARSH, TO OBTAIN ADMIN APPROVAL TO PROCEED WITH TRANSFER. SE STATED THAT SHE WOULD HAVE TO CALL THE ADMIN FIBROUS PLASTERER, BUT WAS CURRENTLY INDISPOSED AND UNABLE. IF I DON'T HEAR BACK FROM HERE, I WILL CALL BACK LATER. @0817, I SPOKE WITH THE PATIENT WHO IS WILLING FOR THE TRANSFER. @0821, I SPOKE WITH ALEN SAWYER APN FOR DR YATES. SHE HAS REQUESTED THAT I HAVE DR MOSS CALL AND DISCUSS THE TRANSFER WITH DR YATES. @0836, I SPOKE WITH DR MOSS AND MADE THIS REQUEST. SHE ASKED ME TO TEXT HER DR YATES'S NUMBER AND SHE WOULD CALL HER. SOON WE HUNG UP, I TEXT HER THE NUMBER. @1334, I PLACED A CALL TO ALEN TO SEE IF SHE KNEW WHEN DR YATES WOULD BE HERE AT THE HOSPITAL SHE STATED HE WAS HERE NOW. SHE SAID THAT DR MOSS DID NOT CALL AND TALK TO DR YATES ABOUT THE TRANSFER. SHE STATED THAT SHE WOULD TALK TO HIM AND LET ME KNOW, BUT SHE DID NOT FEEL THAT THE PATIENT WOULD TRANSFER. @1426, DR YATES AND VERÓNICA LOWRY ON THE FLOOR. THEY HAVE TALKED WITH THE PATIENT. THE PATIENT WILL REMAIN HERE FOR TREATMENT AND NOT TRANSFER. DCPIA - Discharge Planning Initial Assessment Updated by [id number]: Olivia Ramachandran on 03/29/19 12:11 pm * Is the patient Alert and Oriented? No * Preadmission Environment Home with Family * Other Equipment WALKER, WC, TRANSFER CHAIR, O2 NEBS * List name and contact numbers for known caregivers / representatives who currently or will assist patient after discharge: HARRIETT, SANDY, * Community resources currently utilized Home Health * Please name any agencies selected above. [facility] * Has this patient been hospitalized within the prior 30 days at any hospital? Yes External Providers External Provider: OTHER-OTHER Next Contact Date: 04/05/2019 Service Request Date: Service Type: Resolution: Reviewer: Comments: Last DP export: 04/05/19 11:04 Patient Name: CARO JASSO Page [id number] at 1234 All edits/amendments must be made on the electronic document DICTATION DATE: 04/05/19 1234 HYDRAMATIC MECHANIC: ELVIRA 04/05/19 1234 RPT#: [id number] DC DATE: STATUS: ADM IN [facility] [address] [place] [address] END OF REPORT
--- NOTE | 2019-04-05 12:42 | MORECARE ---
CASE MANAGEMENT DISCHARGE SUMMARY PATIENT: CARO JASSO UNIT: [id number] ADM DATE: 03/24/19 AGE: 63 : 55 SEX: F ROOM/BED: D.2106 AUTHOR: DALE MOULTON PHYSICIAN: REFERRING PHYSICIAN: ELTON HODGE MD DATE OF SERVICE: 04/05/19 Discharge Plan Patient Name: CARO JASSO Facility: [facility]:[place] : 1955 Planned Disposition: Inpatient Rehab Anticipated Discharge Date: Discharge Date: Expected LOS: Initial Reviewer: [id number] Initial Review Date: 03/29/2019 Generated: 04/05/19 1:42 pm Comments DCP- Discharge Planning Updated by [id number]: Phil Caruso on 04/05/19 11:[address] Patient Name: CARO JASSO Encounter No: [id number] : 1955 Primary Insurance: [facility] [employer] SOLUTIONS Anticipated DC Date: Planned Disposition: Inpatient Rehab External Planned Provider: [facility] DCP follow-up note: CM CALLED AND SPOKE TO VERNON PEACOCK, OF [facility], ; THEY WILL SCREEN FOR INPATIENT REHAB ADMISSION. THEY HAVE THE AVAILABILITY OF HEMODIALYSIS IN THEIR REHAB, BUT WILL NOT ACCEPT PERITONEAL DIALYSIS. CM FAXED REFERRAL TO [facility], . CM WAITING ADMISSION DETERMINATION FROM [facility]. SANJANA Hernández DCP- Discharge Planning Updated by [id number]: Phil Caruso on 04/04/19 4:[address] Patient Name: CARO JASSO Encounter No: [id number] : 1955 Primary Insurance: [facility] [employer] SOLUTIONS Anticipated DC Date: Planned Disposition: Inpatient Rehab External Planned Provider: [facility] DCP follow-up note: CM RECEIVED ORDER FOR INPATIENT REHAB PRESCREENING, MET WITH PT'S DAUGHTER, HARRIETT YOUNG, IN ROOM. HARRIETT IS PT'S EMERGENCY CONTACT LISTED ON FACE SHEET AND REPORTS TO BE PT'S CAREGIVER AT HOME. PT IN DIALYSIS. CM HAD ALSO RECEIVED HANDWRITTEN NOTE INDICTATING PT WANTS REHAB IN [place]. HARRIETT REPORTS PT WANTS REFERRAL TO [facility] FOR INPATIENT REHAB. CM DISCUSSED HAVING A ALTERNATE PLAN IF DECLINED FOR INPATIENT REHAB. THEY HAVE DISCUSSED LONGTERM; CM PROVIDED LIST OF AVAILABLE LONGTERM FACILITIES WITHIN [address] OF [place]. HARRIETT WILL DISCUSS THIS WITH PT AND THEY WILL LET CM KNOW OF ALTERNATE PLAN FOR REHAB. CM TO SEND REFERRAL TO [facility] FOR INPATIENT REHAB SOON POSSIBLE. PT CONSIDERING LONGTERM FACILITY ALTERNATE REHAB PLAN IF DECLINED BY [facility]. Phil Caruso, CASE MANAGEMENT DCP- Discharge Planning Updated by [id number]: Kamini Hall on 04/02/19 11:[address] I HAVE SPOKEN TO EDSON EWING, CLINICAL LIASON WITH [facility] ABOUT THIS PATIENT POTENTIALLY BEING A NEW START. THIS WAY SHE CAN MAKE CONTACT TO PRESTART THE PROCESS. PTS FIRST DIALYSIS WAS YESTERDAY. DCP- Discharge Planning Updated by [id number]: Olivia Ramachandran on 03/29/19 11:[address] Patient Name: CARO JASSO Admission Status: Elective Accout number: [id number] Admission Date: 03-24-2019 : 1955 Admission Diagnosis: Attending: ELTON HODGE Current LOS: 5 Anticipated DC Date: Planned Disposition: Primary Insurance: [employer] Discharge Planning Comments: CM SPOKE WITH DAUGHTER ABOUT DC PLANNING/NEEDS. SHE STATES IS WAITING TO TALK TO THE DOCTOR BUT HAS RECIEVED BAD NEWS ON MOTHER'S PROGNOSIS. I HAVE MENTIONED REHAB AND HOSPICE. DAUGHTER WANTS TO THINK ABOUT IT. CM WILL FOLLOW AND ASSIST. City Mail Carrier: Olivia Ramachandran DCP- Discharge Planning Updated by [id number]: Kamini Hall on 03/27/19 2:[address] MOSS WANTED THE PATIENT TRANSFERRED TO [facility] TO HER CLINICAL APPEALS SPECIALIST THIS AM. @ 0813, PLACED A CALL TO THE SENIOR ANALYTICAL CHEMIST, ADARSH, TO OBTAIN ADMIN APPROVAL TO PROCEED WITH TRANSFER. STATED THAT SHE WOULD HAVE TO CALL THE ADMIN MATTRESS FINISHER, BUT WAS CURRENTLY INDISPOSED AND UNABLE. IF I DON'T HEAR BACK FROM HERE, I WILL CALL BACK LATER. @0817, I SPOKE WITH THE PATIENT WHO IS WILLING FOR THE TRANSFER. @0821, I SPOKE WITH ALEN SAWYER APN FOR DR YATES. SHE HAS REQUESTED THAT I HAVE DR MOSS CALL AND DISCUSS THE TRANSFER WITH DR YATES. @2192, I SPOKE WITH DR MOSS AND MADE THIS REQUEST. SHE ASKED ME TO TEXT HER DR YATES'S NUMBER AND SHE WOULD CALL HER. SOON WE HUNG UP, I TEXT HER THE NUMBER. @8557, I PLACED A CALL TO ALEN TO SEE IF SHE KNEW WHEN DR YATES WOULD BE HERE AT THE HOSPITAL SHE STATED HE WAS HERE NOW. SHE SAID THAT DR MOSS DID NOT CALL AND TALK TO DR YATES ABOUT THE TRANSFER. SHE STATED THAT SHE WOULD TALK TO HIM AND LET ME KNOW, BUT SHE DID NOT FEEL THAT THE PATIENT WOULD TRANSFER. @4777, DR YATES AND VERÓNICA LOWRY ON THE FLOOR. THEY HAVE TALKED WITH THE PATIENT. THE PATIENT WILL REMAIN HERE FOR TREATMENT AND NOT TRANSFER. DCPIA - Discharge Planning Initial Assessment Updated by [id number]: Olivia Ramachandran on 03/29/19 12:11 pm * Is the patient Alert and Oriented? No * Preadmission Environment Home with Family * Other Equipment WALKER, WC, TRANSFER CHAIR, O2 NEBS * List name and contact numbers for known caregivers / representatives who currently or will assist patient after discharge: HARRIETT, DAUGHTER, * Community resources currently utilized Home Health * Please name any agencies selected above. [facility] * Has this patient been hospitalized within the prior 30 days at any hospital? Yes Last DP export: 04/05/19 11:34 Patient Name: CARO JASSO Page [phone] at 1242 All edits/amendments must be made on the electronic document DICTATION DATE: 04/05/19 1242 ATHLETIC EVENTS SCORER: ELVIRA 04/05/19 1242 RPT#: [id number] DC DATE: STATUS: ADM IN [facility] [address] [place] [address] END OF REPORT
--- NOTE | 2019-04-05 14:52 | MORECARE ---
CASE MANAGEMENT DISCHARGE SUMMARY PATIENT: CARO JASSO UNIT: [id number] ADM DATE: 03/24/19 AGE: 63 : 55 SEX: F ROOM/BED: D.2106 AUTHOR: DALE MOULTON PHYSICIAN: REFERRING PHYSICIAN: ELTON HODGE MD DATE OF SERVICE: 04/05/19 Discharge Plan Patient Name: CARO JASSO Facility: [facility]:[place] : 1955 Planned Disposition: Inpatient Rehab Anticipated Discharge Date: Discharge Date: Expected LOS: Initial Reviewer: [id number] Initial Review Date: 03/29/2019 Generated: 04/05/19 3:51 pm Comments DCP- Discharge Planning Updated by [id number]: Phil Caruso on 04/05/19 1:[address] Patient Name: CARO JASSO Encounter No: [id number] : 1955 Primary Insurance: [facility] MEDICARE SOLUTIONS Anticipated DC Date: Planned Disposition: Inpatient Rehab External Planned Provider:[facility] DCP follow-up note: CM NOTIFIED PT'S DAUGHTER IN ROOM OF REFERRAL BEING FAXED TO [facility]. CM RECEIVED PATIENT CHOICE LETTER FOR 1- [facility] AND 2- [place] [facility]. CM WAITING ADMISSION DETERMINATION FROM [facility]. SANJANA Hernández DCP- Discharge Planning Updated by [id number]: Phil Caruso on 04/05/19 11:[address] Patient Name: CARO JASSO Encounter No: [id number] : 1955 Primary Insurance: [facility] MEDICARE SOLUTIONS Anticipated DC Date: Planned Disposition: Inpatient Rehab External Planned Provider: [facility] DCP follow-up note: CM CALLED AND SPOKE TO VERNON PEACOCK, OF [facility], ; THEY WILL SCREEN FOR INPATIENT REHAB ADMISSION. THEY HAVE THE AVAILABILITY OF HEMODIALYSIS IN THEIR REHAB, BUT WILL NOT ACCEPT PERITONEAL DIALYSIS. CM FA[facility]ED [facility] TO [facility], . CM WAITING ADMISSION DETERMINATION FROM [facility] IN[facility]. Phil Caruso CASE MANAGEMENT DCP- Discharge Planning Updated by [id number]: Phil Caruso on 04/04/19 4:[address] Patient Name: CARO JASSO Encounter No: [id number] : 1955 Primary Insurance: [facility] MEDICARE SOLUTIONS Anticipated DC Date: Planned Disposition: Inpatient Rehab External Planned Provider: [facility] DCP follow-up note: CM RECEIVED ORDER FOR INPATIENT REHAB PRESCREENING, MET WITH PT'S DAUGHTER, HARRIETT YOUNG, IN ROOM. HARRIETT IS PT'S EMERGENCY CONTACT LISTED ON FACE SHEET AND REPORTS TO BE PT'S CAREGIVER AT HOME. PT IN DIALYSIS. CM HAD ALSO RECEIVED HANDWRITTEN NOTE INDICTATING PT WANTS REHAB IN [place]. HARRIETT REPORTS PT WANTS REFERRAL TO [facility] FOR INPATIENT REHAB. CM DISCUSSED HAVING A ALTERNATE PLAN IF DECLINED FOR INPATIENT REHAB. THEY HAVE DISCUSSED INTERMEDIATE; CM PROVIDED LIST OF AVAILABLE INTERMEDIATE FACILITIES WITHIN [address] OF [place]. HARRIETT WILL DISCUSS THIS WITH PT AND THEY WILL LET CM KNOW OF ALTERNATE PLAN FOR REHAB. CM TO SEND REFERRAL TO [facility] FOR INPATIENT REHAB SOON POSSIBLE. PT CONSIDERING INTERMEDIATE FACILITY ALTERNATE REHAB PLAN IF DECLINED BY [facility]. Phil Caruso CASE ED DCP- Discharge Planning Updated by [id number]: Kamini Hall on 04/02/19 11:[address] I HAVE SPOKEN TO EDSON EWING, CLINICAL LIASON WITH [facility] ABOUT THIS PATIENT POTENTIALLY BEING A NEW START. THIS WAY SHE CAN MAKE CONTACT TO PRESTART THE PROCESS. PTS FIRST DIALYSIS WAS YESTERDAY. DCP- Discharge Planning Updated by [id number]: Olivia Ramachandran on 03/29/19 11:[address] Patient Name: CARO JASSO Admission Status: Elective Accout number: [id number] Admission Date: 03-24-2019 : 1955 Admission Diagnosis: Attending: ELTON HODGE Current LOS: 5 Anticipated DC Date: Planned Disposition: Primary Insurance: [facility] MEDICARE SOLUTIONS Discharge Planning Comments: CM SPOKE WITH DAUGHTER ABOUT DC PLANNING/NEEDS. SHE STATES IS WAITING TO TALK TO THE DOCTOR BUT HAS RECIEVED BAD NEWS ON MOTHER'S PROGNOSIS. I HAVE MENTIONED REHAB AND HOSPICE. DAUGHTER WANTS TO THINK ABOUT IT. CM WILL FOLLOW AND ASSIST. Photographic Colorist: Olivia Ramachandran DCP- Discharge Planning Updated by [id number]: Kamini Hall on 03/27/19 2:[address] MOSS WANTED THE PATIENT TRANSFERRED TO [facility] [place] TO HER CHANNEL DEVELOPMENT MANAGER THIS AM. @ 0813, PLACED A CALL TO THE COMMERCIAL RETOUCHER, ADARSH, TO OBTAIN ADMIN APPROVAL TO PROCEED WITH TRANSFER. YOSHI STATED THAT SHE WOULD HAVE TO CALL THE ADMIN MACHINE GUIDE BASE WINDER, BUT WAS CURRENTLY INDISPOSED AND UNABLE. IF I DON'T HEAR BACK FROM HERE, I WILL CALL BACK LATER. @0817, I SPOKE WITH THE PATIENT WHO IS WILLING FOR THE TRANSFER. @0821, I SPOKE WITH ALEN SAWYER APN FOR DR YATES. SHE HAS REQUESTED THAT I HAVE DR MOSS CALL AND DISCUSS THE TRANSFER WITH DR YATES. @0836, I SPOKE WITH DR MOSS AND MADE THIS REQUEST. SHE ASKED ME TO TEXT HER DR YATES'S NUMBER AND SHE WOULD CALL HER. SOON WE HUNG UP, I TEXT HER THE NUMBER. @1334, I PLACED A CALL TO ALEN TO SEE IF SHE KNEW WHEN DR YATES WOULD BE HERE AT THE HOSPITAL SHE STATED HE WAS HERE NOW. SHE SAID THAT DR MOSS DID NOT CALL AND TALK TO DR YATES ABOUT THE TRANSFER. SHE STATED THAT SHE WOULD TALK TO HIM AND LET ME KNOW, BUT SHE DID NOT FEEL THAT THE PATIENT WOULD TRANSFER. @1426, DR YATES AND VERÓNICA LOWRY ON THE FLOOR. THEY HAVE TALKED WITH THE PATIENT. THE PATIENT WILL REMAIN HERE FOR TREATMENT AND NOT TRANSFER. DCPIA - Discharge Planning Initial Assessment Updated by [id number]: Olivia Ramachandran on 03/29/19 12:11 pm * Is the patient Alert and Oriented? No * Preadmission Environment Home with Family * Other Equipment WALKER, WC, TRANSFER CHAIR, O2 NEBS * List name and contact numbers for known caregivers / representatives who currently or will assist patient after discharge: HARRIETT, DAUGHTER, * Community resources currently utilized Home Health * Please name any agencies selected above. [facility] * Has this patient been hospitalized within the prior 30 days at any hospital? Yes Coverage Notice Reviewer: [id number] - Phil Shady Notice Issued Date-Time: 04/04/2019 18:45 Notice Type: Patient Choice Letter Notice Delivered To: Patient Relationship to Patient: Director Of Market Intelligence Name: Delivery Method: HAND - Hand Delivered Kristyn Days: Prior Verbal Notification: Recipient Understood Notice: Yes Recipient Signature: Yes Med Rec Note Co-signed by Attending: Coverage Notice Comment: 1- [facility] 2- [facility] Last DP export: 04/05/19 11:42 Patient Name: CARO JASSO Page [id number] at 1452 All edits/amendments must be made on the electronic document DICTATION DATE: 04/05/191450 EYEGLASS FRAME TRUER: ELVIRA 04/05/191450 RPT#: [id number] [place] DATE: STATUS: ADM IN [facility] [address] [place] [address] END OF REPORT
--- NOTE | 2019-04-05 17:39 | NUR ---
I have reviewed this patient and I concur with the Shift Assessment completed by the Licensed Practical Nurse today this shift.
[2019-04-05 18:04] VITALS: BP 99/48
[2019-04-05 20:00] VITALS: BP 102/60
[2019-04-06] VITALS: BP 100/49
[2019-04-06 04:00] VITALS: BP 108/51
[2019-04-06 05:28] LABS: BASOPHILS 0.7 % (0-2); EOSINOPHILS 0.3 % (0-7); HEMATOCRIT 28.8 % (36.0-48.0); HEMOGLOBIN 8.8 g/dL (12-16); LYMPHOCYTES 17.6 % (15-50); MCH 26.3 pg (26.0-34.0); MCHC 30.6 g/dL (31.0-37.0); MEAN PLATELET VOLUME 9.4 fL (7.4-10.4); NEUTROPHILS 72.4 % (40-80); PLATELET COUNT 170 10x3/uL (130-400); RBC 3.34 10x6/uL (4.00-5.40); RDW 19.3 % (11.5-14.5); WBC 5.8 10x3/uL (4.8-10.8)
[2019-04-06 05:43] LABS: MCV 86.2 fL (80.0-100.0)
[2019-04-06 06:24] LABS: ALBUMIN 1.9 g/dL (3.4-5.0); BILIRUBIN - TOTAL 0.81 mg/dL (0.2-1.3); CALCIUM 8.3 mg/dL (8.5-10.1); CARBON DIOXIDE 31.9 mmol/L (21.0-32.0); PROTEIN - SERUM 6.6 g/dL (6.4-8.2)
[2019-04-06 06:40] LABS: CREATININE - SERUM 2.3 mg/dL (0.6-1.3)
--- NOTE | 2019-04-06 06:41 | MORECARE ---
CASE MANAGEMENT DISCHARGE SUMMARY PATIENT: CARO JASSO UNIT: [id number] ADM DATE: 03/24/19 AGE: 63 : 55 SEX: F ROOM/BED: D.2106 AUTHOR: DALE MOULTON PHYSICIAN: REFERRING PHYSICIAN: ELTON HODGE MD DATE OF SERVICE: 04/06/19 Discharge Plan Patient Name: CARO JASSO Facility[facility] : 1955 Planned Disposition: Inpatient Rehab Anticipated Discharge Date: Discharge Date: Expected LOS: Initial Reviewer: [id number] Initial Review Date: 03/29/2019 Generated: 04/06/19 7:40 am Comments DCP- Discharge Planning Updated by [id number]: Phil Caruso on 04/05/19 1:[address] Patient Name: CARO JASSO Encounter No: [id number] : 1955 Primary Insurance: [facility] MEDICARE SOLUTIONS Anticipated DC Date: Planned Disposition: Inpatient Rehab External Planned Provider:[facility] DCP follow-up note: CM NOTIFIED PT'S DAUGHTER IN ROOM OF REFERRAL BEING FAXED TO [facility]. CM RECEIVED PATIENT CHOICE LETTER FOR 1- [facility] AND 2- [place] [facility] IF PT [facility]. CM WAITING ADMISSION DETERMINATION FROM [facility]. SANJANA Hernández DCP- Discharge Planning Updated by [id number]: Phil Caruso on 04/05/19 11:[address] Patient Name: CARO JASSO Encounter No: [id number] : 1955 Primary Insurance: [facility] MEDICARE SOLUTIONS Anticipated DC Date: Planned Disposition: Inpatient Rehab External Planned Provider: [facility] DCP follow-up note: CM CALLED AND SPOKE TO VERNON PEACOCK, OF [facility], ; THEY WILL SCREEN FOR INPATIENT REHAB ADMISSION. THEY HAVE THE AVAILABILITY OF HEMODIALYSIS IN THEIR REHAB, BUT WILL NOT ACCEPT PERITONEAL DIALYSIS. CM [facility] RE[facility], . CM WAITING ADMISSION DETERMINATION FROM [facility] IN[facility]IENT [facility]. Phil Caruso CASE MANAGEMENT DCP- Discharge Planning Updated by [id number]: Phil Caruso on 04/04/19 4:[address] Patient Name: CARO JASSO Encounter No: [id number] : 1955 Primary Insurance: [facility] MEDICARE SOLUTIONS Anticipated DC Date: Planned Disposition: Inpatient Rehab External Planned Provider: [facility] DCP follow-up note: CM RECEIVED ORDER FOR INPATIENT REHAB PRESCREENING, MET WITH PT'S DAUGHTER, HARRIETT YOUNG, IN ROOM. HARRIETT IS PT'S EMERGENCY CONTACT LISTED ON FACE SHEET AND REPORTS TO BE PT'S CAREGIVER AT HOME. PT IN DIALYSIS. CM HAD ALSO RECEIVED HANDWRITTEN NOTE INDICTATING PT WANTS REHAB IN [place]. HARRIETT REPORTS PT WANTS REFERRAL TO [facility] FOR INPATIENT REHAB. CM DISCUSSED HAVING A ALTERNATE PLAN IF DECLINED FOR INPATIENT REHAB. THEY HAVE DISCUSSED INTERMEDIATE; CM PROVIDED LIST OF AVAILABLE INTERMEDIATE FACILITIES WITHIN [address] OF [place]. HARRIETT WILL DISCUSS THIS WITH PT AND THEY WILL LET CM KNOW OF ALTERNATE PLAN FOR REHAB. CM TO SEND REFERRAL TO [facility] FOR INPATIENT REHAB SOON POSSIBLE. PT CONSIDERING INTERMEDIATE FACILITY ALTERNATE REHAB PLAN IF DECLINED BY [facility]. Phil Caruso CASE ED DCP- Discharge Planning Updated by [id number]: Kamini Hall on 04/02/19 11:[address] I HAVE SPOKEN TO EDSON EWING, CLINICAL LIASON WITH [facility] ABOUT THIS PATIENT POTENTIALLY BEING A NEW START. THIS WAY SHE CAN MAKE CONTACT TO PRESTART THE PROCESS. PTS FIRST DIALYSIS WAS YESTERDAY. DCP- Discharge Planning Updated by [id number]: Olivia Ramachandran on 03/29/19 11:[address] Patient Name: CARO JASSO Admission Status: Elective Accout number: [id number] Admission Date: 03-24-2019 : 1955 Admission Diagnosis: Attending: ELTON HODGE Current LOS: 5 Anticipated DC Date: Planned Disposition: Primary Insurance: [facility] MEDICARE SOLUTIONS Discharge Planning Comments: CM SPOKE WITH DAUGHTER ABOUT DC PLANNING/NEEDS. SHE STATES IS WAITING TO TALK TO THE DOCTOR BUT HAS RECIEVED BAD NEWS ON MOTHER'S PROGNOSIS. I HAVE MENTIONED REHAB AND HOSPICE. DAUGHTER WANTS TO THINK ABOUT IT. CM WILL FOLLOW AND ASSIST. Baseball Player: Olivia Ramachandran DCP- Discharge Planning Updated by [id number]: Kamini Hall on 03/27/19 2:[address] MOSS WANTED THE PATIENT TRANSFERRED TO [facility] TO HER BUDGET COUNSELOR THIS AM. @ 0813, PLACED A CALL TO THE INSTALLATION ENGINEER, ADARSH, TO OBTAIN ADMIN APPROVAL TO PROCEED WITH TRANSFER. YOSHI STATED THAT SHE WOULD HAVE TO CALL THE ADMIN TRADITIONAL [facility] PRACTITIONER, BUT WAS CURRENTLY INDISPOSED AND UNABLE. IF I DON'T HEAR BACK FROM HERE, I WILL CALL BACK LATER. @0817, I SPOKE WITH THE PATIENT WHO IS WILLING FOR THE TRANSFER. @0821, I SPOKE WITH ALEN SAWYER APN FOR DR YATES. SHE HAS REQUESTED THAT I HAVE DR MOSS CALL AND DISCUSS THE TRANSFER WITH DR YATES. @0836, I SPOKE WITH DR MOSS AND MADE THIS REQUEST. SHE ASKED ME TO TEXT HER DR YATES'S NUMBER AND SHE WOULD CALL HER. SOON WE HUNG UP, I TEXT HER THE NUMBER. @1334, I PLACED A CALL TO ALEN TO SEE IF SHE KNEW WHEN DR YATES WOULD BE HERE AT THE HOSPITAL SHE STATED HE WAS HERE NOW. SHE SAID THAT DR MOSS DID NOT CALL AND TALK TO DR YATES ABOUT THE TRANSFER. SHE STATED THAT SHE WOULD TALK TO HIM AND LET ME KNOW, BUT SHE DID NOT FEEL THAT THE PATIENT WOULD TRANSFER. @1426, DR YATES AND VERÓNICA LOWRY ON THE FLOOR. THEY HAVE TALKED WITH THE PATIENT. THE PATIENT WILL REMAIN HERE FOR TREATMENT AND NOT TRANSFER. DCPIA - Discharge Planning Initial Assessment Updated by [id number]: Olivia Ramachandran on 03/29/19 12:11 pm * Is the patient Alert and Oriented? No * Preadmission Environment Home with Family * Other Equipment WALKER, WC, TRANSFER CHAIR, O2 NEBS * List name and contact numbers for known caregivers / representatives who currently or will assist patient after discharge: HARRIETT, DAUGHTER, * Community resources currently utilized Home Health * Please name any agencies selected above. [facility] * Has this patient been hospitalized within the prior 30 days at any hospital? Yes Coverage Notice Reviewer: [id number] - Phil Shady Notice Issued Date-Time: 04/04/2019 18:45 Notice Type: Patient Choice Letter Notice Delivered To: Patient Relationship to Patient: Carbon Accountant Name: Delivery Method: HAND - Hand Delivered Kristyn Days: Prior Verbal Notification: Recipient Understood Notice: Yes Recipient Signature: Yes Med Rec Note Co-signed by Attending: Coverage Notice Comment: 1- [facility] 2- [facility] Last DP export: 04/05/19 1:52 Patient Name: CARO JASSO Page 65037 at 0641 All edits/amendments must be made on the electronic document DICTATION DATE: 04/06/19639 CHILD CARE CENTRE MANAGER: ELVIRA 04/06/19639 RPT#: [id number] DC DATE: STATUS: ADM IN [facility] [address] [place] [address] END OF REPORT
[2019-04-06 06:45] LABS: ANION GAP 5.6 mmol/L (8-16); POTASSIUM - SERUM 3.5 mmol/L (3.5-5.1)
--- NOTE | 2019-04-06 08:11 | OP ---
PATIENT NAME: CARO SCHAFER MEDICAL RECORD: [id number] :55 LOCATION:D. D.2106 ADMISSION DATE:03/24/19 SURGEON: CHARLEE WILSON MD DATE OF OPERATION: 04/05/2019 PREOPERATIVE DIAGNOSES: End-stage renal disease, having started dialysis with an acute catheter, hypertension, diabetes, coronary artery disease, morbid obesity, and pulmonary hypertension. POSTOPERATIVE DIAGNOSES: End-stage renal disease, having started dialysis with an acute catheter, hypertension, diabetes, coronary artery disease, morbid obesity, and pulmonary hypertension. OPERATION PERFORMED: Implantation of a tunneled 19-cm HemoSplit dialysis catheter via the right internal jugular vein using ultrasound and fluoroscopic guidance under local and TIVA per SURVEY DIRECTOR. REFERRING PHYSICIAN: Dr. Castellon PREOPERATIVE NOTE: Ms. Schafer is a super morbidly obese white female with overwhelming medical problems including end-stage renal disease and pulmonary hypertension. She began dialysis with a Trialysis catheter inserted via the left subclavian vein last week and I have been asked to provide long-term access both with a tunneled hemodialysis catheter and potentially also a peritoneal dialysis catheter. DESCRIPTION OF PROCEDURE: Under TIVA in supine position, the patient was prepped and draped in sterile manner. Ultrasound was utilized to locate the right internal jugular vein. It was turgid, rather deep due to the patient's obesity, but otherwise normal sonographically. With ultrasound guidance, local anesthetic was infiltrated into the skin and subcutaneous tissues. A small incision was made at the base of the neck and a micropuncture needle and guidewire inserted into the internal jugular vein. Images were recorded on paper and kept in the patient's medical record. Under fluoroscopy, a catheter and guidewire exchange was made and then serial dilators were passed and lastly a dilator peel-away introducer sheath. I chose a 19-cm HemoSplit. I made a small incision beneath the clavicle and pulled that catheter through a subcutaneous tunnel up to the cervical incision and then inserted it through the peel-away sheath. The catheter tip came to rest very nicely in the right atrium, deep in the right atrium and the catheter had a good configuration. There was no evidence of any complication. Both lumens were accessed and aspirated and free return of blood confirmed. They were then flushed with saline and then heparin locked, clamped and capped. The cervical incision was closed with interrupted inverted 3-0 Vicryl and Dermabond glue. It was dressed with Maxorb Ag, Tegaderm, and Cavilon skin prep. The catheter was sutured to the skin near the entry site with 2-0 Prolene and the entry site dressed with a chlorhexidine Biopatch and then a standard CVL dressing applied over all. I then removed the sutures from the Trialysis catheter in the left subclavian vein and removed it. The catheter was removed intact without difficulty. Hemostasis was obtained with a period of direct pressure and placing the patient in reverse Trendelenburg position. A dry gauze pressure dressing was applied. The patient was then awakened and returned to the recovery room in stable OPERATIVE REPORT [id number] CARO SCHAFER condition. Blood loss was about 10 cc, unreplaced. Sponges, instruments, and needles were accounted for. No drain was used and no surgical specimen was submitted for histopathology. The patient is certainly a high risk for hemodialysis and high risk for any kind of operative procedure to place a peritoneal dialysis catheter. I believe it is possible having observed how well she tolerated the TIVA today, I believe it is possible to insert a peritoneal dialysis catheter with minimally invasive ultrasound and fluoroscopic guidance under local anesthesia and hopefully probably even with a presternal extension, although I would not do this until the family and the patient understands the risks of her present medical condition and hemodialysis in the face of pulmonary hypertension and the potential benefits of peritoneal dialysis, but also the risks of yet another surgical procedure to implant a peritoneal dialysis catheter. TRANSINT:[id number] Voice Confirmation ID: [id number] DOCUMENT ID: [id number] CHARLEE WILSON MD at 0811 CC: CT CASTELLON [id number] DICTATION DATE: 04/05/19 1600 HAND CLIPPER: 04/06/19 0021 ADM IN [facility] [address] [place] [id number]
[2019-04-06 09:59] VITALS: BP 127/54
[2019-04-06 17:32] VITALS: BP 148/59
--- NOTE | 2019-04-06 19:11 | NUR ---
PT RESTING WITH EYES CLOSED. RESPIRATIONS EVEN AND UNLABORED. THE BED IS LOW AND CALL LIGHT IS WITHIN REACH. WILL CONTINUE TO MONITOR.
[2019-04-06 20:00] VITALS: BP 140/63
[2019-04-07] VITALS: BP 136/60
[2019-04-07 04:00] VITALS: BP 123/50
--- NOTE | 2019-04-07 07:35 | NUR ---
REPORT RECIEVED. PT SITTING UP IN BED. A&O. RR EVEN AND UNLABORED ON 3L NC. SHE HAS A BULL DRAINING URINE AND A R HEMOSPLIT INFUSING NS @ KVO. BED LOCKED AND IN LOWEST POSITION, CALL LIGHT WITHIN REACH. WILL CTM
[2019-04-07 08:16] VITALS: BP 142/53
[2019-04-07 08:53] LABS: BASOPHILS 0.5 % (0-2); EOSINOPHILS 0 % (0-7); HEMATOCRIT 29.6 % (36.0-48.0); HEMOGLOBIN 9.2 g/dL (12-16); IMMATURE GRANULOCYTES 0.5 % (0-5); LYMPHOCYTES 14.4 % (15-50); MCHC 31.1 g/dL (31.0-37.0); MCV 86.8 fL (80.0-100.0); MEAN PLATELET VOLUME 8.8 fL (7.4-10.4); NEUTROPHILS 77.6 % (40-80); PLATELET COUNT 142 10x3/uL (130-400); RBC 3.41 10x6/uL (4.00-5.40); RDW 19.2 % (11.5-14.5); WBC 6.2 10x3/uL (4.8-10.8)
[2019-04-07 09:16] LABS: ALBUMIN 2.1 g/dL (3.4-5.0); ANION GAP 9.3 mmol/L (8-16); BILIRUBIN - TOTAL 0.98 mg/dL (0.2-1.3); CALCIUM 8.6 mg/dL (8.5-10.1); CARBON DIOXIDE 30.1 mmol/L (21.0-32.0); CREATININE - SERUM 2.2 mg/dL (0.6-1.3); POTASSIUM - SERUM 3.4 mmol/L (3.5-5.1); PROTEIN - SERUM 7.1 g/dL (6.4-8.2)
[2019-04-07 16:36] VITALS: BP 131/57
--- NOTE | 2019-04-07 18:18 | NUR ---
I HAVE REVIEWED THIS PATIENT AND I CONCUR WITH THE SHIFT ASSESSMENT COMPLETED BY THE EDUCATIONAL PSYCHOLOGY PROFESSOR TODAY THIS SHIFT
[2019-04-07 20:00] VITALS: BP 124/58
[2019-04-07 23:44] VITALS: BP 109/49
[2019-04-08 04:05] VITALS: BP 119/60
--- NOTE | 2019-04-08 05:55 | NUR ---
I have reviewed this patient and I concur with the Shift Assessment completed by the Licensed Practical Nurse today this shift.
--- NOTE | 2019-04-08 07:30 | NUR ---
A/A/OX4. DENIES ANY PAIN OR DISCOMFORT AND NO REQUESTS VOICED. HS PATENT TO RIGHT SHOULDER WITH DRESSING DRY AND INTACT. DRESSING TO PREVIOUS TRIALYSIS SITE C/D/I. ASSESSMENT COMPLETED AND WILL CONTINUE POC. BULL PATENT AND DRAINING DARK ST[place]ON, CONCENTRATED URINE. REMAINS DNR.
[2019-04-08 08:08] VITALS: BP 135/67
[2019-04-08 11:44] VITALS: BP 132/67
--- NOTE | 2019-04-08 14:14 | NUR ---
I AGREE WITH THE CURRENT ASSESSMENT OF THE AUCTION ASSISTANT ON STAFF
[2019-04-08 16:27] VITALS: BP 119/49
--- NOTE | 2019-04-08 19:16 | NUR ---
C/O BEING COLD HEATER ADJUSTED AND WARM BLANKET REFUSEDBED LOW AND LOCKED AND CALL LIGHT IS IN REACH LCTA ASSISTED WITH OTHER NEEDS AND WILL MONITOR
[2019-04-08 20:20] VITALS: BP 125/45
[2019-04-09 00:37] VITALS: BP 127/52
--- NOTE | 2019-04-09 02:57 | NUR ---
I have reviewed this patient and I concur with the Shift Assessment completed by the Licensed Practical Nurse today this shift.
[2019-04-09 04:30] VITALS: BP 119/41
[2019-04-09 05:31] LABS: BASOPHILS 0.4 % (0-2); EOSINOPHILS 0 % (0-7); HEMATOCRIT 28.9 % (36.0-48.0); IMMATURE GRANULOCYTES 0.6 % (0-5); LYMPHOCYTES 15.4 % (15-50); MCH 26.8 pg (26.0-34.0); MCHC 31.1 g/dL (31.0-37.0); MEAN PLATELET VOLUME 9.2 fL (7.4-10.4); NEUTROPHILS 76.6 % (40-80); PLATELET COUNT 140 10x3/uL (130-400); RBC 3.36 10x6/uL (4.00-5.40); RDW 19.2 % (11.5-14.5); WBC 5.5 10x3/uL (4.8-10.8)
[2019-04-09 06:04] LABS: ANION GAP 13.7 mmol/L (8-16); BILIRUBIN - TOTAL 1.03 mg/dL (0.2-1.3); CALCIUM 8.2 mg/dL (8.5-10.1); POTASSIUM - SERUM 3.7 mmol/L (3.5-5.1); PROTEIN - SERUM 6.5 g/dL (6.4-8.2)
[2019-04-09 06:05] LABS: CREATININE - SERUM 3.1 mg/dL (0.6-1.3)
[2019-04-09 07:57] VITALS: BP 115/41
--- NOTE | 2019-04-09 11:31 | NUR ---
PT IN DIALYSIS.
[2019-04-09 11:37] VITALS: BP 125/56
--- NOTE | 2019-04-09 11:54 | NUR ---
Skin integrity High Risk: 89 y/o with history of falls. She has been in hospital since 03/24/19. Recommendations: -Turn/reposition/assist q 2 hours / Reposition hourly if up in chair -Float heels off mattress/pillow -Daily and as needed personal care -Calmoseptine cream for redness related to incontinence/moisture -Assess skin q shift and when personal care is performed Wound care continues to monitor.
--- NOTE | 2019-04-09 12:52 | MORECARE ---
CASE MANAGEMENT DISCHARGE SUMMARY PATIENT: CARO JASSO UNIT: [id number] ADM DATE: 03/24/19 AGE: 63 : 55 SEX: F ROOM/BED: D.2106 AUTHOR: DALE MOULTON PHYSICIAN: REFERRING PHYSICIAN: ELTON HODGE MD DATE OF SERVICE: 04/09/19 Discharge Plan Patient Name: CARO JASSO Facility: [facility]:[place] : 1955 Planned Disposition: Longterm Facility Anticipated Discharge Date: 04/11/19 Discharge Date: Expected LOS: 18 Initial Reviewer: [email or web address] Initial Review Date: 03/29/2019 Generated: 04/09/19 1:51 pm DCP- Discharge Planning Updated by [id number]: Phil Caruso on 04/05/19 2:[address] Patient Name: CARO JASSO Encounter No: [id number] : 1955 Primary Insurance: [facility] MEDICARE SOLUTIONS Anticipated DC Date: Planned Disposition: Inpatient Rehab External [facility] Provider[facility] DCP follow-up note: CM NOTIFIED PT'S DAUGHTER IN ROOM OF REFERRAL [facility]. CM RECEIVED PATIENT CHOICE LETTER FOR 1- [facility] AND 2- [place] [facility] IF [facility]. CM WAITING ADMISSION DETERMINATION FROM [facility]. SANJANA Hernández DCP- Discharge Planning Updated by [email or web address]: Phil Caruso on 04/05/19 12:[address] Patient Name: CARO JASSO Encounter No: [id number] : 1955 Primary Insurance: [facility] MEDIC[employer] SOLUTIONS Anticipated DC Date: Planned Disposition: Inpatient Rehab External Planned Provider: [facility] DCP follow-up note: CM CALLED AND SPOKE TO VERNON PEACOCK, OF [facility], ; THEY WILL SCREEN FOR INPATIENT REHAB ADMISSION. THEY HAVE THE AVAILABILITY OF HEMODIALYSIS IN THEIR REHAB, BUT WILL NOT ACCEPT PERITONEAL DIALYSIS. CM FA[facility]ED [facility]ERR[facility] TO [facility], . CM WAITING ADMISSION DETERMINATION FROM [facility]. SANJANA Hernández DCP- Discharge Planning Updated by [email or web address]: Phil Caruso on 04/04/19 5:[address] Patient Name: CARO JASSO Encounter No: [id number] : 1955 Primary Insurance: [facility] [employer] SOLUTIONS Anticipated DC Date: Planned Disposition: Inpatient Rehab External Planned Provider: [facility] DCP follow-up note: CM RECEIVED ORDER FOR INPATIENT REHAB PRESCREENING, MET WITH PT'S DAUGHTER, HARRIETT YOUNG, IN ROOM. HARRIETT IS PT'S EMERGENCY CONTACT LISTED ON FACE SHEET AND REPORTS TO BE PT'S CAREGIVER AT HOME. PT IN DIALYSIS. CM HAD ALSO RECEIVED HANDWRITTEN NOTE INDICTATING PT WANTS REHAB IN [place]. HARRIETT REPORTS PT WANTS REFERRAL TO [facility] FOR INPATIENT REHAB. CM DISCUSSED HAVING A ALTERNATE PLAN IF DECLINED FOR INPATIENT REHAB. THEY HAVE DISCUSSED GROUP HOME; CM PROVIDED LIST OF AVAILABLE GROUP HOME FACILITIES WITHIN [address] OF [place]. HARRIETT WILL DISCUSS THIS WITH PT AND THEY WILL LET CM KNOW OF ALTERNATE PLAN FOR REHAB. CM TO SEND REFERRAL TO [facility] FOR INPATIENT REHAB SOON POSSIBLE. PT CONSIDERING GROUP HOME FACILITY ALTERNATE REHAB PLAN IF DECLINED BY [facility]. Phil Caruso CASE ED DCP- Discharge Planning Updated by [id number]: Kamini Hall on 04/02/19 12:[address] I HAVE SPOKEN TO EDSON EWING, CLINICAL LIASON WITH [facility] ABOUT THIS PATIENT POTENTIALLY BEING A NEW START. THIS WAY SHE CAN MAKE CONTACT TO PRESTART THE PROCESS. PTS FIRST DIALYSIS WAS YESTERDAY. DCP- Discharge Planning Updated by [email or web address]: Olivia Ramachandran on 03/29/19 12:[address] Patient Name: CARO JASSO Admission Status: Elective Accout number: [id number] Admission Date: 03-24-2019 : 1955 Admission Diagnosis: Attending: ELTON HODGE Current LOS: 5 Anticipated DC Date: Planned Disposition: Primary Insurance: [facility] [employer] SOLUT[employer] Discharge Planning Comments: CM SPOKE WITH DAUGHTER ABOUT DC PLANNING/NEEDS. SHE STATES IS WAITING TO TALK TO THE DOCTOR BUT HAS RECIEVED BAD NEWS ON MOTHER'S PROGNOSIS. I HAVE MENTIONED REHAB AND HOSPICE. DAUGHTER WANTS TO THINK ABOUT IT. CM WILL FOLLOW AND ASSIST. Platen Press Feeder: Olivia Ramachandran DCP- Discharge Planning Updated by [id number]: Kamini Hall on 03/27/19 3:[address] MOSS WANTED THE PATIENT TRANSFERRED TO [facility] TO HER FORM SETTER [address] FORMS THIS AM. @ 0813, PLACED A CALL TO THE AIRCRAFT DELIVERY CHECKER, ADARSH, TO OBTAIN ADMIN APPROVAL TO PROCEED WITH TRANSFER. STATED THAT SHE WOULD HAVE TO CALL THE ADMIN ASSOCIATE PROFESSOR OF EDUCATION, BUT WAS CURRENTLY INDISPOSED AND UNABLE. IF I DON'T HEAR BACK FROM HERE, I WILL CALL BACK LATER. @0817, I SPOKE WITH THE PATIENT WHO IS WILLING FOR THE TRANSFER. @0821, I SPOKE WITH ALEN SAWYER APN FOR DR YATES. SHE HAS REQUESTED THAT I HAVE DR MOSS CALL AND DISCUSS THE TRANSFER WITH DR YATES. @0836, I SPOKE WITH DR MOSS AND MADE THIS REQUEST. SHE ASKED ME TO TEXT HER DR YATES'S NUMBER AND SHE WOULD CALL HER. SOON WE HUNG UP, I TEXT HER THE NUMBER. @1334, I PLACED A CALL TO ALEN TO SEE IF SHE KNEW WHEN DR YATES WOULD BE HERE AT THE HOSPITAL SHE STATED HE WAS HERE NOW. SHE SAID THAT DR MOSS DID NOT CALL AND TALK TO DR YATES ABOUT THE TRANSFER. SHE STATED THAT SHE WOULD TALK TO HIM AND LET ME KNOW, BUT SHE DID NOT FEEL THAT THE PATIENT WOULD TRANSFER. @1425, DR YATES AND VERÓNICA LOWRY ON THE FLOOR. THEY HAVE TALKED WITH THE PATIENT. THE PATIENT WILL REMAIN HERE FOR TREATMENT AND NOT TRANSFER. DCPIA - Discharge Planning Initial Assessment Updated by [id number]: Olivia Ramachandran on 03/29/19 12:11 pm * Is the patient Alert and Oriented? No * Preadmission Environment Home with Family * Other Equipment WALKER, WC, TRANSFER CHAIR, O2 NEBS * List name and contact numbers for known caregivers / representatives who currently or will assist patient after discharge: HARRIETT, SANDY, * Community resources currently utilized Home Health * Please name any agencies selected above. [facility] * Has this patient been hospitalized within the prior 30 days at any hospital? Yes Coverage Notice Reviewer: [id number] - Phil Caruso Notice Issued Date-Time: 04/04/2019 18:45 Notice Type: Patient Choice Letter Notice Delivered To: Patient Relationship to Patient: Specialist Field Engineer Name: Delivery Method: HAND - Hand Delivered Kristyn Days: Prior Verbal Notification: Recipient Understood Notice: Yes Recipient Signature: Yes Med Rec Note Co-signed by Attending: Coverage Notice Comment: 1- [facility] 2- [facility] Last DP export: 04/06/19 6:41 a Patient Name: CARO JASSO Page 68838 at 1252 All edits/amendments must be made on the electronic document DICTATION DATE: 04/09/19 1251 COST ACCOUNTING MANAGER: ELVIRA 04/09/19 1251 RPT#: [id number] [place] DATE: STATUS: ADM IN [facility] [address] [place] [address] END OF REPORT
--- NOTE | 2019-04-09 13:00 | MORECARE ---
CASE MANAGEMENT DISCHARGE SUMMARY PATIENT: CARO JASSO UNIT: [id number] ADM DATE: 03/24/19 AGE: 63 : 55 SEX: F ROOM/BED: D.2107 AUTHOR: KENNEY,DOC PHYSICIAN: REFERRING PHYSICIAN: ELTON HODGE MD DATE OF SERVICE: 04/09/19 Discharge Plan Patient Name: CARO JASSO Facility: [facility]:[place] : 1955 Planned Disposition: Half-Way Facility Anticipated Discharge Date: 04/11/19 Discharge Date: Expected LOS: 18 Initial Reviewer: [id number] Initial Review Date: 03/29/2019 Generated: 04/09/19 2:00 pm Comments DCP- Discharge Planning Updated by [id number]: Phil Caruso on 04/09/19 11:[address] Patient Name: CARO JASSO Encounter No: [id number] : 1955 Primary Insurance: [employer] MED[employer] SOLUTIONS Anticipated DC Date: 04-11-2019 Planned Disposition: Half-Way Facility External Planned Provider: TO BE DETERMINED DCP follow-up note: CM RECEIVED INPATIENT REHAB DENIAL FROM PT'S INSURANCE. CM MET WITH PT IN ROOM, PROVIDED COPY OF DENIAL AND READ REASON FOR DENIAL WITH SUGGESTION THAT REHAB COULD BE PROVIDED IN [facility] FACILITY. CM PROVIDED PT WITH LISTING OF [facility] FACLITIES WITHIN 25 MIL[place] OF [place] AT PT'S REQUEST FROM MEDICARE WEBSITE. CM PROVIDED CHOICE FORM. PT STATES SHE WANTS TO THINK ABOUT CHOICES AND WILL LET CM KNOW SOON POSSIBLE. COPY OF INPATIENT DENIAL PLACED IN CHART WITH PT'S SIGNATURE, DATE AND TIME OF PT'S RECEIPT. CM WENT BACK IN ROOM AFTER LUNCH, PT IS OUT OF ROOM IN DIALYSIS. CM TO FOLLOW UP WITH PT LATER REGARDING [facility] REHAB CHOICES. CM WAITING ON PT'S DECISION FOR [facility] WELL CHOICES FOR SKILLED REHAB PLACEMENT. SANJANA Hernández DCP- Discharge Planning Updated by [id number]: Phil Caruso on 04/05/19 2:[address] Patient Name: CARO JASSO Encounter No: [id number] : 1955 Primary Insurance: [employer] MEDICARE SOLUTIONS Anticipated DC Date: Planned Disposition: Inpatient Rehab External Planned Provider:[facility] DCP follow-up note: CM NOTIFIED PT'S DAUGHTER IN ROOM OF REFERRAL BEING FAXED TO [facility] INPATIENT REH[facility]. CM RECEIVED PATIENT CHOICE LETTER FOR 1- [facility] AND 2- [place] [facility] IF PT IS DECLINED BY [facility] INPATIENT REH[facility]. CM WAITING ADMISSION DETERMINATION FROM [facility] INPATIENT REHAB. SANJANA Hernández DCP- Discharge Planning Updated by [id number]: Phil Caruso on 04/05/19 12:[address] Patient Name: CARO JASSO Encounter No: [id number] : 1955 Primary Insurance: [facility] MEDICARE SOLUTIONS Anticipated DC Date: Planned Disposition: Inpatient Rehab External Planned Provider: [facility] DCP follow-up note: CM CALLED AND SPOKE TO VERNON PEACOCK, OF [facility] IN[facility]IENT REHAB, ; THEY WILL SCREEN FOR INPATIENT REHAB ADMISSION. THEY HAVE THE AVAILABILITY OF HEMODIALYSIS IN THEIR REHAB, BUT WILL NOT ACCEPT PERITONEAL DIALYSIS. CM FAXED REFERRAL TO [facility] INPATIENT REHAB, . CM WAITING ADMISSION DETERMINATION FROM [facility] IN[facility]IENT REHAB. SANJANA Hernández DCP- Discharge Planning Updated by [id number]: Phil Caruso on 04/04/19 5:[address] Patient Name: CARO JASSO Encounter No: [id number] : 1955 Primary Insurance: [facility] MEDICARE SOLUTIONS Anticipated DC Date: Planned Disposition: Inpatient Rehab External Planned Provider: [facility]IENT RE[facility] DCP follow-up note: CM RECEIVED ORDER FOR INPATIENT REHAB PRESCREENING, MET WITH PT'S DAUGHTER, HARRIETT YOUNG, IN ROOM. HARRIETT IS PT'S EMERGENCY CONTACT LISTED ON FACE SHEET AND REPORTS TO BE PT'S CAREGIVER AT HOME. PT IN DIALYSIS. CM HAD ALSO RECEIVED HANDWRITTEN NOTE INDICTATING PT WANTS REHAB IN [place]. HARRIETT REPORTS PT WANTS REFERRAL TO [facility] FOR INPATIENT REHAB. CM DISCUSSED HAVING A ALTERNATE PLAN IF DECLINED FOR INPATIENT REHAB. THEY HAVE DISCUSSED [facility]; CM PROVIDED LIST OF AVAILABLE [facility] FACILITIES WITHIN 50 [place] OF [place]. HARRIETT WILL DISCUSS THIS WITH PT AND THEY WILL LET CM KNOW OF ALTERNATE PLAN FOR REHAB. CM TO SEND REFERRAL TO [facility] FOR INPATIENT REHAB SOON POSSIBLE. PT CONSIDERING [facility] FACILITY ALTERNATE REHAB PLAN IF DECLINED BY [facility]. Phil Caruso, CASE MANAGEMENT DCP- Discharge Planning Updated by [id number]: Kamini Hall on 04/02/19 12:[address] I HAVE SPOKEN TO EDSON EWING, CLINICAL LIASON WITH [facility] ABOUT THIS PATIENT POTENTIALLY BEING A NEW START. THIS WAY SHE CAN MAKE CONTACT TO PRESTART THE PROCESS. [facility] WAS YESTERDAY. DCP- Discharge Planning Updated by [id number]: Olivia Ramachandran on 03/29/19 12:[address] Patient Name: CARO JASSO Admission Status: Elective Accout number: [id number] Admission Date: 03-24-2019 : 1955 Admission Diagnosis: Attending: ELTON HODGE Current LOS: 5 Anticipated DC Date: Planned Disposition: Primary Insurance: [facility] MEDICARE SOLUTIONS Discharge Planning Comments: CM SPOKE WITH DAUGHTER ABOUT DC PLANNING/NEEDS. SHE STATES IS WAITING TO TALK TO THE DOCTOR BUT HAS RECIEVED BAD NEWS ON MOTHER'S PROGNOSIS. I HAVE MENTIONED REHAB AND HOSPICE. DAUGHTER WANTS TO THINK ABOUT IT. CM WILL FOLLOW AND ASSIST. Child Care Sitter: Olivia Ramachandran DCP- Discharge Planning Updated by [id number]: Kamini Hall on 03/27/19 3:[address] MOSS WANTED THE PATIENT TRANSFERRED TO [facility] TO HER SUBWAY OPERATOR THIS AM. @ 0813, PLACED A CALL TO THE ROASTER OPERATOR, ADARSH, TO OBTAIN ADMIN APPROVAL TO PROCEED WITH TRANSFER. [facility] STATED THAT SHE WOULD HAVE TO CALL THE ADMIN STUD DAIRY CATTLE FARMER, BUT WAS CURRENTLY INDISPOSED AND UNABLE. IF I DON'T HEAR BACK FROM HERE, I WILL CALL BACK LATER. @0817, I SPOKE WITH THE PATIENT WHO IS WILLING FOR THE TRANSFER. @0821, I SPOKE WITH ALEN SAWYER APN FOR DR YATES. SHE HAS REQUESTED THAT I HAVE DR MOSS CALL AND DISCUSS THE TRANSFER WITH DR YATES. @0836, I SPOKE WITH DR MOSS AND MADE THIS REQUEST. SHE ASKED ME TO TEXT HER DR YATES'S NUMBER AND SHE WOULD CALL HER. SOON WE HUNG UP, I TEXT HER THE NUMBER. @8031, I PLACED A CALL TO ALEN TO SEE IF SHE KNEW WHEN DR YATES WOULD BE HERE AT THE HOSPITAL SHE STATED HE WAS HERE NOW. SHE SAID THAT DR MOSS DID NOT CALL AND TALK TO DR YATES ABOUT THE TRANSFER. SHE STATED THAT SHE WOULD TALK TO HIM AND LET ME KNOW, BUT SHE DID NOT FEEL THAT THE PATIENT WOULD TRANSFER. @2530, DR YATES AND VERÓNICA LOWRY ON THE FLOOR. THEY HAVE TALKED WITH THE PATIENT. THE PATIENT WILL REMAIN HERE FOR TREATMENT AND NOT TRANSFER. DCPIA - Discharge Planning Initial Assessment Updated by [id number]: Olivia Ramachandran on 03/29/19 12:11 pm * Is the patient Alert and Oriented? No * Preadmission Environment Home with Family * Other Equipment WALKER, WC, TRANSFER CHAIR, O2 NEBS * List name and contact numbers for known caregivers / representatives who currently or will assist patient after discharge: HARRIETT, SANDY, * Community resources currently utilized Home Health * Please name any agencies selected above. [facility] * Has this patient been hospitalized within the prior 30 days at any hospital? Yes Coverage Notice Reviewer: [id number] Liyah Caruso Notice Issued Date-Time: 04/04/2019 18:45 Notice Type: Patient Choice Letter Notice Delivered To: Patient Relationship to Patient: Milk Inspector Name: Delivery Method: HAND - Hand Delivered Kristyn Days: Prior Verbal Notification: Recipient Understood Notice: Yes Recipient Signature: Yes Med Rec Note Co-signed by Attending: Coverage Notice Comment: 1- [facility] 2- [facility] Last DP export: 04/09/19 11:52 a Patient Name: CARO JASSO Page [id number] at 1300 All edits/amendments must be made on the electronic document DICTATION DATE: 04/09/19 1300 CIRCULATOR: ELVIRA 04/09/19 1300 RPT#: [id number] DC DATE: STATUS: ADM IN [facility] [address] [place] [address] END OF REPORT
--- NOTE | 2019-04-09 15:15 | NUR ---
PT RETURNED FROM DIALYSIS VIA BED. DIALYSIS STATES THEY GOT OFF 2L.
--- NOTE | 2019-04-09 15:20 | NUR ---
PT WANTING POTATOE SOUP INSTEAD OF WHAT SHE GOT BROUGHT ON HER LUNCH TRAY. DIET MESSAGE SENT. PT STATES SHE HAS NO FURTHER NEEDS AT THIS TIME. BED LOW. CL IN REACH.
--- NOTE | 2019-04-09 15:28 | NUR ---
I have reviewed this patient and I concur with the Shift Assessment completed by the Licensed Practical Nurse today this shift.
--- NOTE | 2019-04-09 19:12 | NUR ---
AWAKE AND ALERT SAW TO NEEDS AND PROVIDED SOME EDUCATION ON BED FUCTIONS PT DENIES NASEA AT THIS TIME BED IS LOW AND LOCKED AND CALL LIGHT IS IN REACH
[2019-04-09 20:48] VITALS: BP 131/56
[2019-04-10 00:19] VITALS: BP 103/45
--- NOTE | 2019-04-10 01:10 | NUR ---
I have reviewed this patient and I concur with the Shift Assessment completed by the Licensed Practical Nurse today this shift.
[2019-04-10 04:30] VITALS: BP 126/48
[2019-04-10 07:44] VITALS: BP 129/57
--- NOTE | 2019-04-10 08:27 | NUR ---
REPORT RECEIVED. WILL CONTINUE WITH POC. PT CURRENTLY LYING HIGH FOWLERS. CALL LIGHT W/I REACH. RR EVEN AND UNLABORED ON 2L 02. NO PIV NOTED. BULL IN PLACE AND DRAINING URINE. NO S/S OF DISTRESS NOTED. PT DENIES ANY NEEDS. WILL CTM.
--- NOTE | 2019-04-10 10:01 | MORECARE ---
CASE MANAGEMENT DISCHARGE SUMMARY PATIENT: CARO JASSO UNIT: [id number] ADM DATE: 03/24/19 AGE: 63 : 55 SEX: F ROOM/BED: D.2106 AUTHOR: KENNEY,DOC PHYSICIAN: REFERRING PHYSICIAN: ELTON HODGE MD DATE OF SERVICE: 04/10/19 Discharge Plan Patient Name: CARO JASSO Facility: [facility]:[place] : 1955 Planned Disposition: Penitentiary Facility Anticipated Discharge Date: 04/11/19 Discharge Date: Expected LOS: 18 Initial Reviewer: [id number] Initial Review Date: 03/29/2019 Generated: 04/10/19 11:01 am Comments DCP- Discharge Planning Updated by [id number]: Phil Caruso on 04/09/19 11:[address] Patient Name: CARO JASSO Encounter No: [id number] : 1955 Primary Insurance: [employer] MEDICARE SOLUTIONS Anticipated DC Date: 04-11-2019 Planned Disposition: Penitentiary Facility External Planned Provider: TO BE DETERMINED DCP follow-up note: CM RECEIVED INPATIENT REHAB DENIAL FROM PT'S INSURANCE. CM MET WITH PT IN ROOM, PROVIDED COPY OF DENIAL AND READ REASON FOR DENIAL WITH SUGGESTION THAT REHAB COULD BE PROVIDED IN [facility] FACILITY. CM PROVIDED PT WITH LISTING OF [facility] FACLITIES WITHIN 25 MIL[place] OF [place] AT PT'S REQUEST FROM MEDICARE WEBSITE. CM PROVIDED CHOICE FORM. PT STATES SHE WANTS TO THINK ABOUT CHOICES AND WILL LET CM KNOW SOON POSSIBLE. COPY OF INPATIENT DENIAL PLACED IN CHART WITH PT'S SIGNATURE, DATE AND TIME OF PT'S RECEIPT. CM WENT BACK IN ROOM AFTER LUNCH, PT IS OUT OF ROOM IN DIALYSIS. CM TO FOLLOW UP WITH PT LATER REGARDING [facility] REHAB CHOICES. CM WAITING ON PT'S DECISION FOR [facility] WELL CHOICES FOR SKILLED REHAB PLACEMENT. SANJANA Hernández DCP- Discharge Planning Updated by [id number]: Phil Caruso on 04/05/19 2:[address] Patient Name: CARO JASSO Encounter No: [id number] : 1955 Primary Insurance: [employer] MED[employer]ARE SOLUTIONS Anticipated DC Date: Planned Disposition: Inpatient Rehab External Planned Provider:[facility] DCP follow-up note: CM NOTIFIED PT'S DAUGHTER IN ROOM OF REFERRAL BEING FAXED TO [facility] INPATIENT REHAB. CM RECEIVED PATIENT CHOICE LETTER FOR 1- [facility] AND 2- [place] [facility] IF PT IS DECLINED BY [facility] INPATIENT REHAB. CM WAITING ADMISSION DETERMINATION FROM [facility] INPATIENT REH[facility]. SANJANA Hernández DCP- Discharge Planning Updated by [id number]: Phil Caruso on 04/05/19 12:[address] Patient Name: CARO JASSO Encounter No: [id number] : 1955 Primary Insurance: [facility] MEDICARE SOLUTIONS Anticipated DC Date: Planned Disposition: Inpatient Rehab External Planned Provider: [facility] DCP follow-up note: CM CALLED AND SPOKE TO VERNON PEACOCK, OF [facility] INPATIENT REHAB, ; THEY WILL SCREEN FOR INPATIENT REHAB ADMISSION. THEY HAVE THE AVAILABILITY OF HEMODIALYSIS IN THEIR REHAB, BUT WILL NOT ACCEPT PERITONEAL DIALYSIS. CM FAXED REFERRAL TO [facility] INPATIENT REHAB, . CM WAITING ADMISSION DETERMINATION FROM [facility] INPATIENT REHAB. SANJANA Hernández DCP- Discharge Planning Updated by [id number]: Phil Caruso on 04/04/19 5:[address] Patient Name: CARO JASSO Encounter No: [id number] : 1955 Primary Insurance: [facility] MEDICARE SOLUTIONS Anticipated DC Date: Planned Disposition: Inpatient Rehab External Planned Provider: [facility] IN[facility]IENT [facility] DCP follow-up note: CM RECEIVED ORDER FOR INPATIENT REHAB PRESCREENING, MET WITH PT'S DAUGHTER, HARRIETT YOUNG, IN ROOM. HARRIETT IS PT'S EMERGENCY CONTACT LISTED ON FACE SHEET AND REPORTS TO BE PT'S CAREGIVER AT HOME. PT IN DIALYSIS. CM HAD ALSO RECEIVED HANDWRITTEN NOTE INDICTATING PT WANTS REHAB IN [place]. HARRIETT REPORTS PT WANTS REFERRAL TO [facility] FOR INPATIENT REHAB. CM DISCUSSED HAVING A ALTERNATE PLAN IF DECLINED FOR INPATIENT REHAB. THEY HAVE DISCUSSED [facility]; CM PROVIDED LIST OF AVAILABLE [facility] FACILITIES WITHIN 50 [place] OF [place]. HARRIETT WILL DISCUSS THIS WITH PT AND THEY WILL LET CM KNOW OF ALTERNATE PLAN FOR REHAB. CM TO SEND REFERRAL TO [facility] FOR INPATIENT REHAB SOON POSSIBLE. PT CONSIDERING [facility] FACILITY ALTERNATE REHAB PLAN IF DECLINED BY [facility]. Phil Crauso, CASE MANAGEMENT DCP- Discharge Planning Updated by [id number]: Kamini Hall on 04/02/19 12:[address] I HAVE SPOKEN TO EDSON EWING, CLINICAL LIASON [facility] ABOUT THIS PATIENT POTENTIALLY BEING A NEW START. THIS WAY SHE CAN MAKE CONTACT TO PRESTART THE PROCESS. [facility] WAS YESTERDAY. DCP- Discharge Planning Updated by [id number]: Olivia Ramachandran on 03/29/19 12:[address] Patient Name: CARO JASSO Admission Status: Elective Accout number: [id number] Admission Date: 03-24-2019 : 1955 Admission Diagnosis: Attending: ELTON HODGE Current LOS: 5 Anticipated DC Date: Planned Disposition: Primary Insurance: [facility] MEDICARE SOLUTIONS Discharge Planning Comments: CM SPOKE WITH DAUGHTER ABOUT DC PLANNING/NEEDS. SHE STATES IS WAITING TO TALK TO THE DOCTOR BUT HAS RECIEVED BAD NEWS ON MOTHER'S PROGNOSIS. I HAVE MENTIONED REHAB AND HOSPICE. DAUGHTER WANTS TO THINK ABOUT IT. CM WILL FOLLOW AND ASSIST. Sales Support Administrator: Olivia Ramachandran DCP- Discharge Planning Updated by [id number]: Kamini Hall on 03/27/19 3:[address] MOSS WANTED THE PATIENT TRANSFERRED TO [facility] TO HER LOGISTICS PLANNING MANAGER THIS AM. @ 0813, PLACED A CALL TO THE TELECINE OPERATOR, ADARSH, TO OBTAIN ADMIN APPROVAL TO PROCEED WITH TRANSFER. [facility] STATED THAT SHE WOULD HAVE TO CALL THE ADMIN ELECTRO PLATER, BUT WAS CURRENTLY INDISPOSED AND UNABLE. IF I DON'T HEAR BACK FROM HERE, I WILL CALL BACK LATER. @0817, I SPOKE WITH THE PATIENT WHO IS WILLING FOR THE TRANSFER. @0821, I SPOKE WITH ALEN SAWYER APN FOR DR YATES. SHE HAS REQUESTED THAT I HAVE DR MOSS CALL AND DISCUSS THE TRANSFER WITH DR YATES. @0836, I SPOKE WITH DR MOSS AND MADE THIS REQUEST. SHE ASKED ME TO TEXT HER DR YATES'S NUMBER AND SHE WOULD CALL HER. SOON WE HUNG UP, I TEXT HER THE NUMBER. @3157, I PLACED A CALL TO ALEN TO SEE IF SHE KNEW WHEN DR YATES WOULD BE HERE AT THE HOSPITAL SHE STATED HE WAS HERE NOW. SHE SAID THAT DR MOSS DID NOT CALL AND TALK TO DR YATES ABOUT THE TRANSFER. SHE STATED THAT SHE WOULD TALK TO HIM AND LET ME KNOW, BUT SHE DID NOT FEEL THAT THE PATIENT WOULD TRANSFER. @3356, DR YATES AND VERÓNICA LOWRY ON THE FLOOR. THEY HAVE TALKED WITH THE PATIENT. THE PATIENT WILL REMAIN HERE FOR TREATMENT AND NOT TRANSFER. DCPIA - Discharge Planning Initial Assessment Updated by [id number]: Olivia Ramachandran on 03/29/19 12:11 pm * Is the patient Alert and Oriented? No * Preadmission Environment Home with Family * Other Equipment WALKER, WC, TRANSFER CHAIR, O2 NEBS * List name and contact numbers for known caregivers / representatives who currently or will assist patient after discharge: SANDY LORENZANA, * Community resources currently utilized Home Health * Please name any agencies selected above. [facility] * Has this patient been hospitalized within the prior 30 days at any hospital? Yes Coverage Notice Reviewer: [id number] Caruso Notice Issued Date-Time: 04/04/2019 18:45 Notice Type: Patient Choice Letter Notice Delivered To: Patient Relationship to Patient: Teacher Ballet Name: Delivery Method: HAND - Hand Delivered Kristyn Days: Prior Verbal Notification: Recipient Understood Notice: Yes Recipient Signature: Yes Med Rec Note Co-signed by Attending: Coverage Notice Comment: 1- [facility] 2- [facility] Reviewer: [id number] Liyah Caruso Notice Issued Date-Time: 04/10/2019 9:56 Notice Type: Patient Choice Letter Notice Delivered To: Patient Relationship to Patient: Teacher Ballet Name: Delivery Method: HAND - Hand Delivered Kristyn Days: Prior Verbal Notification: Recipient Understood Notice: Yes Recipient Signature: Yes Med Rec Note Co-signed by Attending: Coverage Notice Comment: 1 - [facility], 2 - [facility] Last DP export: 04/09/19 12:00 p Patient Name: CARO JASSO Page [phone] at 1001 All edits/amendments must be made on the electronic document DICTATION DATE: 04/10/19999 DIRECTOR OF STUDENT FINANCIAL SERVICES: ELVIRA 04/10/19999 RPT#: [id number] DC DATE: STATUS: ADM IN [facility] [address] [place] [address] END OF REPORT
--- NOTE | 2019-04-10 10:07 | MORECARE ---
CASE MANAGEMENT DISCHARGE SUMMARY PATIENT: CARO JASSO UNIT: [id number] ADM DATE: 03/24/19 AGE: 63 : 55 SEX: F ROOM/BED: D.2106 AUTHOR: KENNEY,DOC PHYSICIAN: REFERRING PHYSICIAN: ELTON HODGE MD DATE OF SERVICE: 04/10/19 Discharge Plan Patient Name: CARO JASSO Facility: [facility]:[place] : 1955 Planned Disposition: Half-Way Facility Anticipated Discharge Date: 04/11/19 Discharge Date: Expected LOS: 18 Initial Reviewer: [id number] Initial Review Date: 03/29/2019 Generated: 04/10/19 11:07 am Comments DCP- Discharge Planning Updated by [id number]: Phil Caruso on 04/10/19 9:[address] Patient Name: CARO JASSO Encounter No: [id number] : 1955 Primary Insurance: [facility] MEDICARE SOLUTIONS Anticipated DC Date: 04-11-2019 Planned Disposition: Half-Way Facility External Planned Provider: [facility], MEDICARE REHAB BED DCP follow-up note: CM MET WITH PT IN ROOM TO DISCUSS DISCHARGE PLANNING AND NEEDS. PT HAS REVIEWED LIST WITH FAMILY AND WOULD LIKE [facility]ERRAL TO [facility] AND [facility]. CHOICE FORM SIGNED. CM CALLED [facility], , SPOKE TO BIGG AND PROVIDED REFERRAL INFORMATION. CM FAXED REFERRAL TO [facility] AT [phone]. CM WAITING ADMISSION DETERMINATION FROM [facility] INSURANCE DETERMINATION. [facility] IS WORKING ON OUTPATIENT DIALYSIS UNIT. Phil Caruso, CASE ED DCP- Discharge Planning Updated by [id number]: Phil Caruso on 04/09/19 11:[address] Patient Name: CARO JASSO Encounter No: [id number] : 1955 Primary Insurance: [facility] MEDICARE SOLUTIONS Anticipated DC Date: 04-11-2019 Planned Disposition: Half-Way Facility External Planned Provider: TO BE DETERMINED DCP follow-up note: CM RECEIVED INPATIENT REHAB DENIAL FROM PT'S INSURANCE. CM MET WITH PT IN ROOM, PROVIDED COPY OF DENIAL AND READ REASON FOR DENIAL WITH SUGGESTION THAT REHAB COULD BE PROVIDED IN LONG-TERM FACILITY. CM PROVIDED PT WITH LISTING OF LONG-TERM FACLITIES WITHIN 25 MILES OF [place] AT PT'S REQUEST FROM MEDICARE WEBSITE. CM PROVIDED CHOICE FORM. PT STATES SHE WANTS TO THINK ABOUT CHOICES AND WILL LET CM KNOW SOON POSSIBLE. COPY OF INPATIENT DENIAL PLACED IN CHART WITH PT'S SIGNATURE, DATE AND TIME OF PT'S RECEIPT. CM WENT BACK IN ROOM AFTER LUNCH, PT IS OUT OF ROOM IN DIALYSIS. CM TO FOLLOW UP WITH PT LATER REGARDING LONG-TERM REHAB CHOICES. CM WAITING ON PT'S DECISION FOR LONG-TERM WELL CHOICES FOR SKILLED REHAB PLACEMENT. Phil Caruso CASE MANAGEMENT DCP- Discharge Planning Updated by [id number]: Phil Caruso on 04/05/19 2:[address] Patient Name: CARO JASSO Encounter No: [id number] : 1955 Primary Insurance: [facility] MEDICARE SOLUTIONS Anticipated DC Date: Planned Disposition: Inpatient Rehab External Planned Provider:[facility] DCP follow-up note: CM NOTIFIED PT'S DAUGHTER IN ROOM OF REFERRAL BEING FAXED TO [facility] INPATIENT [facility]. CM RECEIVED PATIENT CHOICE LETTER FOR 1- [facility] AND 2- [place] [facility] IF PT IS DECLINED BY [facility]. CM WAITING ADMISSION DETERMINATION FROM [facility]. SANJANA Hernández DCP- Discharge Planning Updated by [id number]: Phil Caruso on 04/05/19 12:[address] Patient Name: CARO JASSO Encounter No: [id number] : 1955 Primary Insurance: [facility] MEDICARE SOLUTIONS Anticipated DC Date: Planned Disposition: Inpatient Rehab External Planned Provider[facility] DCP follow-up note: CM CALLED AND SPOKE TO VERNON PEACOCK, OF [facility] INPATIENT REH[facility], ; THEY WILL SCREEN FOR INPATIENT REHAB ADMISSION. THEY HAVE THE AVAILABILITY OF HEMODIALYSIS IN THEIR REHAB, BUT WILL NOT ACCEPT PERITONEAL DIALYSIS. CM [facility], . CM WAITING ADMISSION DETERMINATION FROM [facility] INPAT[facility]. Phil Caruso CASE MANAGEMENT DCP- Discharge Planning Updated by [id number]: Phil Caruso on 04/04/19 5:[address] Patient Name: CARO JASSO Encounter No: [id number] : 1955 Primary Insurance: [facility] MEDICARE SOLUTIONS Anticipated DC Date: Planned Disposition: Inpatient Rehab External Planned Provider: [facility] DCP follow-up note: CM RECEIVED ORDER FOR INPATIENT REHAB PRESCREENING, MET WITH PT'S DAUGHTER, HARRIETT YOUNG, IN ROOM. HARRIETT IS PT'S EMERGENCY CONTACT LISTED ON FACE SHEET AND REPORTS TO BE PT'S CAREGIVER AT HOME. PT IN DIALYSIS. CM HAD ALSO RECEIVED HANDWRITTEN NOTE INDICTATING PT WANTS REHAB IN [place]. HARRIETT REPORTS PT WANTS REFERRAL TO [facility] FOR INPATIENT REHAB. CM DISCUSSED HAVING A ALTERNATE PLAN IF DECLINED FOR INPATIENT REHAB. THEY HAVE DISCUSSED LONG-TERM; CM PROVIDED LIST OF AVAILABLE LONG-TERM FACILITIES WITHIN 50 MILES OF [place]. HARRIETT WILL DISCUSS THIS WITH PT AND THEY WILL LET CM KNOW OF ALTERNATE PLAN FOR REHAB. CM TO SEND REFERRAL TO [facility] FOR INPATIENT REHAB SOON POSSIBLE. PT CONSIDERING LONG-TERM FACILITY ALTERNATE REHAB PLAN IF DECLINED BY [facility]. Phil Caruso CASE ED DCP- Discharge Planning Updated by [email or web address]: Kamini Hall on 04/02/19 12:[address] I HAVE SPOKEN TO EDSON EWING, CLINICAL LIASON WITH [facility] ABOUT THIS PATIENT POTENTIALLY BEING A NEW START. THIS WAY SHE CAN MAKE CONTACT TO PRESTART THE PROCESS. [facility] WAS YESTERDAY. DCP- Discharge Planning Updated by [id number]: Olivia Ramachandran on 03/29/19 12:[address] Patient Name: CARO JASSO Admission Status: Elective Accout number: [id number] Admission Date: 03-24-2019 : 1955 Admission Diagnosis: Attending: ELTON HODGE Current LOS: 5 Anticipated DC Date: Planned Disposition: Primary Insurance: [facility] MEDICARE SOLUTIONS Discharge Planning Comments: CM SPOKE WITH DAUGHTER ABOUT DC PLANNING/NEEDS. SHE STATES IS WAITING TO TALK TO THE DOCTOR BUT HAS RECIEVED BAD NEWS ON MOTHER'S PROGNOSIS. I HAVE MENTIONED REHAB AND HOSPICE. DAUGHTER WANTS TO THINK ABOUT IT. CM WILL FOLLOW AND ASSIST. Teaching Assistant: Olivia Ramachandran DCP- Discharge Planning Updated by [id number]: Kamini Hall on 03/27/19 3:[address] MOSS WANTED THE PATIENT TRANSFERRED TO [facility] TO HER DRUPAL PROGRAMMER THIS AM. @ 0813, PLACED A CALL TO THE HUMAN RELATIONS MANAGER, ADARSH, TO OBTAIN ADMIN APPROVAL TO PROCEED WITH TRANSFER. SEH STATED THAT SHE WOULD HAVE TO CALL THE ADMIN RETAIL ACCOUNT MANAGER, BUT WAS CURRENTLY INDISPOSED AND UNABLE. IF I DON'T HEAR BACK FROM HERE, I WILL CALL BACK LATER. @0817, I SPOKE WITH THE PATIENT WHO IS WILLING FOR THE TRANSFER. @0821, I SPOKE WITH ALEN SAWYER APN FOR DR YATES. SHE HAS REQUESTED THAT I HAVE DR MOSS CALL AND DISCUSS THE TRANSFER WITH DR YATES. @0836, I SPOKE WITH DR MOSS AND MADE THIS REQUEST. SHE ASKED ME TO TEXT HER DR YATES'S NUMBER AND SHE WOULD CALL HER. SOON WE HUNG UP, I TEXT HER THE NUMBER. @1334, I PLACED A CALL TO ALEN TO SEE IF SHE KNEW WHEN DR YATES WOULD BE HERE AT THE HOSPITAL SHE STATED HE WAS HERE NOW. SHE SAID THAT DR MOSS DID NOT CALL AND TALK TO DR YATES ABOUT THE TRANSFER. SHE STATED THAT SHE WOULD TALK TO HIM AND LET ME KNOW, BUT SHE DID NOT FEEL THAT THE PATIENT WOULD TRANSFER. @1426, DR YATES AND VERÓNICA LOWRY ON THE FLOOR. THEY HAVE TALKED WITH THE PATIENT. THE PATIENT WILL REMAIN HERE FOR TREATMENT AND NOT TRANSFER. DCPIA - Discharge Planning Initial Assessment Updated by [id number]: Olivia Ramachandran on 03/29/19 12:11 pm * Is the patient Alert and Oriented? No * Preadmission Environment Home with Family * Other Equipment WALKER, WC, TRANSFER CHAIR, O2 NEBS * List name and contact numbers for known caregivers / representatives who currently or will assist patient after discharge: HARRIETT, DAUGHTER, * Community resources currently utilized Home Health * Please name any agencies selected above. [facility] * Has this patient been hospitalized within the prior 30 days at any hospital? Yes Coverage Notice Reviewer: [id number] Liyah Caruso Notice Issued Date-Time: 04/04/2019 18:45 Notice Type: Patient Choice Letter Notice Delivered To: Patient Relationship to Patient: Slack Line Yarder Name: Delivery Method: HAND - Hand Delivered Kristyn Days: Prior Verbal Notification: Recipient Understood Notice: Yes Recipient Signature: Yes Med Rec Note Co-signed by Attending: Coverage Notice Comment: 1- [facility] 2- [facility] Reviewer: [id number] Liyah Caruso Notice Issued Date-Time: 04/10/2019 9:56 Notice Type: Patient Choice Letter Notice Delivered To: Patient Relationship to Patient: Slack Line Yarder Name: Delivery Method: HAND - Hand Delivered Kristny Days: Prior Verbal Notification: Recipient Understood Notice: Yes Recipient Signature: Yes Med Rec Note Co-signed by Attending: Coverage Notice Comment: 1 - [facility], 2 - YENNIFER Robbins DP export: 04/10/19 9:01 a Patient Name: CARO JASSO Page [phone] at 1007 All edits/amendments must be made on the electronic document DICTATION DATE: 04/10/19 [facility] TRAVEL OT: ELVIRA 04/10/19 [facility] RPT#: [id number] DC DATE: STATUS: ADM IN [facility] [address] [place] [address] END OF REPORT
--- NOTE | 2019-04-10 10:51 | MORECARE ---
CASE MANAGEMENT DISCHARGE SUMMARY PATIENT: CARO JASSO UNIT: [id number] ADM DATE: 03/24/19 AGE: 63 : 55 SEX: F ROOM/BED: D.2106 AUTHOR: KENNEY,DOC PHYSICIAN: REFERRING PHYSICIAN: ELTON HODGE MD DATE OF SERVICE: 04/10/19 Discharge Plan Patient Name: CARO JASSO Facility: [facility]:[place] : 1955 Planned Disposition: Custodial Facility Anticipated Discharge Date: 04/11/19 Discharge Date: Expected LOS: 18 Initial Reviewer: [id number] Initial Review Date: 03/29/2019 Generated: 04/10/19 11:51 am Comments DCP- Discharge Planning Updated by [id number]: Phil Caruso on 04/10/19 9:[address] Patient Name: CARO JASSO Encounter No: [id number] : 1955 Primary Insurance: [facility] MEDICARE SOLUTIONS Anticipated DC Date: 04-11-2019 Planned Disposition: Custodial Facility External Planned Provider: [facility], MEDICARE REHAB BED DCP follow-up note: CM MET WITH PT IN ROOM TO DISCUSS DISCHARGE PLANNING AND NEEDS. PT HAS REVIEWED LIST WITH FAMILY AND WOULD LIKE [facility]ERRAL TO [facility] AND [facility]. CHOICE FORM SIGNED. CM CALLED [facility], , SPOKE TO BIGG AND PROVIDED REFERRAL INFORMATION. CM FAXED REFERRAL TO [facility] AT [phone]. CM WAITING ADMISSION DETERMINATION FROM [facility]ANCE DETERMINATION. [facility] IS WORKING ON OUTPATIENT DIALYSIS UNIT. Phil Caruso, CASE ED DCP- Discharge Planning Updated by [id number]: Phil Caruso on 04/09/19 11:[address] Patient Name: CARO JASSO Encounter No: [id number] : 1955 Primary Insurance: [facility] MEDICARE SOLUTIONS Anticipated DC Date: 04-11-2019 Planned Disposition: Custodial Facility External Planned Provider: TO BE DETERMINED DCP follow-up note: CM RECEIVED INPATIENT REHAB DENIAL FROM PT'S INSURANCE. CM MET WITH PT IN ROOM, PROVIDED COPY OF DENIAL AND READ REASON FOR DENIAL WITH SUGGESTION THAT REHAB COULD BE PROVIDED IN HALFWAY FACILITY. CM PROVIDED PT WITH LISTING OF HALFWAY FACLITIES WITHIN 25 MILES OF [place] AT PT'S REQUEST FROM MEDICARE WEBSITE. CM PROVIDED CHOICE FORM. PT STATES SHE WANTS TO THINK ABOUT CHOICES AND WILL LET CM KNOW SOON POSSIBLE. COPY OF INPATIENT DENIAL PLACED IN CHART WITH PT'S SIGNATURE, DATE AND TIME OF PT'S RECEIPT. CM WENT BACK IN ROOM AFTER LUNCH, PT IS OUT OF ROOM IN DIALYSIS. CM TO FOLLOW UP WITH PT LATER REGARDING HALFWAY REHAB CHOICES. CM WAITING ON PT'S DECISION FOR HALFWAY WELL CHOICES FOR SKILLED REHAB PLACEMENT. Phil Caruso CASE MANAGEMENT DCP- Discharge Planning Updated by [id number]: Phil Caruso on 04/05/19 2:[address] Patient Name: CARO JASSO Encounter No: [id number] : 1955 Primary Insurance: [facility] MEDICARE SOLUTIONS Anticipated DC Date: Planned Disposition: Inpatient Rehab External Planned Provider:[facility] DCP follow-up note: CM NOTIFIED PT'S DAUGHTER IN ROOM OF REFERRAL BEING FAXED TO [facility] INPATIENT [facility]. CM RECEIVED PATIENT CHOICE LETTER FOR 1- [facility] AND 2- [place] [facility] IF PT IS DECLINED BY [facility]. CM WAITING ADMISSION DETERMINATION FROM [facility]. SANJANA Hernández DCP- Discharge Planning Updated by [id number]: Phil Caruso on 04/05/19 12:[address] Patient Name: CARO JASSO Encounter No: [id number] : 1955 Primary Insurance: [facility] MEDICARE SOLUTIONS Anticipated DC Date: Planned Disposition: Inpatient Rehab External [facility] DCP follow-up note: CM CALLED AND SPOKE TO VERNON PEACOCK, OF [facility] INPATIENT REH[facility], ; THEY WILL SCREEN FOR INPATIENT REHAB ADMISSION. THEY HAVE THE AVAILABILITY OF HEMODIALYSIS IN THEIR REHAB, BUT WILL NOT ACCEPT PERITONEAL DIALYSIS. CM [facility], . CM WAITING ADMISSION DETERMINATION FROM [facility] INPAT[facility]. Phil Caruso CASE MANAGEMENT DCP- Discharge Planning Updated by [id number]: Phil Caruso on 04/04/19 5:[address] Patient Name: CARO JASSO Encounter No: [id number] : 1955 Primary Insurance: [facility] MEDICARE SOLUTIONS Anticipated DC Date: Planned Disposition: Inpatient Rehab External Planned Provider: [facility] DCP follow-up note: CM RECEIVED ORDER FOR INPATIENT REHAB PRESCREENING, MET WITH PT'S DAUGHTER, HARRIETT YOUNG, IN ROOM. HARRIETT IS PT'S EMERGENCY CONTACT LISTED ON FACE SHEET AND REPORTS TO BE PT'S CAREGIVER AT HOME. PT IN DIALYSIS. CM HAD ALSO RECEIVED HANDWRITTEN NOTE INDICTATING PT WANTS REHAB IN [place]. HARRIETT REPORTS PT WANTS REFERRAL TO [facility] FOR INPATIENT REHAB. CM DISCUSSED HAVING A ALTERNATE PLAN IF DECLINED FOR INPATIENT REHAB. THEY HAVE DISCUSSED HALFWAY; CM PROVIDED LIST OF AVAILABLE HALFWAY FACILITIES WITHIN 50 MILES OF [place]. HARRIETT WILL DISCUSS THIS WITH PT AND THEY WILL LET CM KNOW OF ALTERNATE PLAN FOR REHAB. CM TO SEND REFERRAL TO [facility] FOR INPATIENT REHAB SOON POSSIBLE. PT CONSIDERING HALFWAY FACILITY ALTERNATE REHAB PLAN IF DECLINED BY [facility]. Phil Caruso CASE ED DCP- Discharge Planning Updated by [id number]: Kamini Hall on 04/02/19 12:[address] I HAVE SPOKEN TO EDSON EWING, CLINICAL LIASON WITH [facility] ABOUT THIS PATIENT POTENTIALLY BEING A NEW START. THIS WAY SHE CAN MAKE CONTACT TO PRESTART THE PROCESS. [facility] WAS YESTERDAY. DCP- Discharge Planning Updated by [id number]: Olivia Ramachandran on 03/29/19 12:[address] Patient Name: CARO JASSO Admission Status: Elective Accout number: [id number] Admission Date: 03-24-2019 : 1955 Admission Diagnosis: Attending: ELTON HODGE Current LOS: 5 Anticipated DC Date: Planned Disposition: Primary Insurance: [facility] MEDICARE SOLUTIONS Discharge Planning Comments: CM SPOKE WITH DAUGHTER ABOUT DC PLANNING/NEEDS. SHE STATES IS WAITING TO TALK TO THE DOCTOR BUT HAS RECIEVED BAD NEWS ON MOTHER'S PROGNOSIS. I HAVE MENTIONED REHAB AND HOSPICE. DAUGHTER WANTS TO THINK ABOUT IT. CM WILL FOLLOW AND ASSIST. Web Production Manager: Olivia Ramachandran DCP- Discharge Planning Updated by [id number]: Kamini Hall on 03/27/19 3:[address] MOSS WANTED THE PATIENT TRANSFERRED TO [facility] TO HER RESERVOIR ENGINEERING CONSULTANT THIS AM. @ 0813, PLACED A CALL TO THE PARKING LOT CHAUFFEUR, ADARSH, TO OBTAIN ADMIN APPROVAL TO PROCEED WITH TRANSFER. SEH STATED THAT SHE WOULD HAVE TO CALL THE ADMIN GERMINATION TESTING MANAGER, BUT WAS CURRENTLY INDISPOSED AND UNABLE. IF I DON'T HEAR BACK FROM HERE, I WILL CALL BACK LATER. @0817, I SPOKE WITH THE PATIENT WHO IS WILLING FOR THE TRANSFER. @0821, I SPOKE WITH ALEN SAWYER APN FOR DR YATES. SHE HAS REQUESTED THAT I HAVE DR MOSS CALL AND DISCUSS THE TRANSFER WITH DR YATES. @0836, I SPOKE WITH DR MOSS AND MADE THIS REQUEST. SHE ASKED ME TO TEXT HER DR YATES'S NUMBER AND SHE WOULD CALL HER. SOON WE HUNG UP, I TEXT HER THE NUMBER. @1334, I PLACED A CALL TO ALEN TO SEE IF SHE KNEW WHEN DR YATES WOULD BE HERE AT THE HOSPITAL SHE STATED HE WAS HERE NOW. SHE SAID THAT DR MOSS DID NOT CALL AND TALK TO DR YATES ABOUT THE TRANSFER. SHE STATED THAT SHE WOULD TALK TO HIM AND LET ME KNOW, BUT SHE DID NOT FEEL THAT THE PATIENT WOULD TRANSFER. @1426, DR YATES AND VERÓNICA LOWRY ON THE FLOOR. THEY HAVE TALKED WITH THE PATIENT. THE PATIENT WILL REMAIN HERE FOR TREATMENT AND NOT TRANSFER. DCPIA - Discharge Planning Initial Assessment Updated by [id number]: Olivia Ramachandran on 03/29/19 12:11 pm * Is the patient Alert and Oriented? No * Preadmission Environment Home with Family * Other Equipment WALKER, WC, TRANSFER CHAIR, O2 NEBS * List name and contact numbers for known caregivers / representatives who currently or will assist patient after discharge: HARRIETT, DAUGHTER, * Community resources currently utilized Home Health * Please name any agencies selected above. [facility] * Has this patient been hospitalized within the prior 30 days at any hospital? Yes Coverage Notice Reviewer: [id number] Liyah Caruso Notice Issued Date-Time: 04/04/2019 18:45 Notice Type: Patient Choice Letter Notice Delivered To: Patient Relationship to Patient: Pharmaceutical Scientist Name: Delivery Method: HAND - Hand Delivered Kristyn Days: Prior Verbal Notification: Recipient Understood Notice: Yes Recipient Signature: Yes Med Rec Note Co-signed by Attending: Coverage Notice Comment: 1- [facility] 2- [facility] Reviewer: [id number] - Phil Caruso Notice Issued Date-Time: 04/10/2019 9:56 Notice Type: Patient Choice Letter Notice Delivered To: Patient Relationship to Patient: Pharmaceutical Scientist Name: Delivery Method: HAND - Hand Delivered Kristyn Days: Prior Verbal Notification: Recipient Understood Notice: Yes Recipient Signature: Yes Med Rec Note Co-signed by Attending: Coverage Notice Comment: 1 - [facility], 2 - YENNIFER Robbins DP export: 04/10/19 9:07 a Patient Name: CARO JASSO Page [phone] at 1051 All edits/amendments must be made on the electronic document DICTATION DATE: 04/10/19 1051 FINISHING RANGE FEEDER: ELVIRA 04/10/19 1051 RPT#: [id number] DC DATE: STATUS: ADM IN [facility] [address] [place] [address] END OF REPORT
--- NOTE | 2019-04-10 11:14 | MORECARE ---
CASE MANAGEMENT DISCHARGE SUMMARY PATIENT: CARO JASSO UNIT: [id number] ADM DATE: 03/24/19 AGE: 63 : 55 SEX: F ROOM/BED: D.2106 AUTHOR: KENNEY,DOC PHYSICIAN: REFERRING PHYSICIAN: ELTON HODGE MD DATE OF SERVICE: 04/10/19 Discharge Plan Patient Name: CARO JASSO Facility: [facility]:[place] : 1955 Planned Disposition: Long-Term Facility Anticipated Discharge Date: 04/11/19 Discharge Date: Expected LOS: 18 Initial Reviewer: [id number] Initial Review Date: 03/29/2019 Generated: 04/10/19 12:14 pm Comments DCP- Discharge Planning Updated by [email or web address]: Phil Caruso on 04/10/19 9:[address] Patient Name: CARO JASSO Encounter No: [id number] : 1955 Primary Insurance: [facility] [employer] Anticipated DC Date: 04-11-2019 Planned Disposition: Long-Term Facility External Planned Provider: [facility], MEDICARE REHAB BED DCP follow-up note: CM MET WITH PT IN ROOM TO DISCUSS DISCHARGE PLANNING AND NEEDS. PT HAS REVIEWED LIST WITH FAMILY AND WOULD LIKE [facility]FERRAL TO [facility] AND [facility]. CHOICE FORM SIGNED. CM CALLED [facility], , SPOKE TO BIGG AND PROVIDED REFERRAL INFORMATION. CM FAXED REFERRAL TO [facility] AT [phone]. CM WAITING ADMISSION DETERMINATION FROM [facility] WELL INSURANCE DETERMINATION. [facility] IS WORKING ON OUTPATIENT DIALYSIS UNIT. Phil Caruso, CASE ED DCP- Discharge Planning Updated by [id number]: Phil Caruso on 04/09/19 11:[address] Patient Name: CARO JASSO Encounter No: [id number] : 1955 Primary Insurance: [facility] [employer] Anticipated DC Date: 04-11-2019 Planned Disposition: Long-Term Facility External Planned Provider: TO BE DETERMINED DCP follow-up note: CM RECEIVED INPATIENT REHAB DENIAL FROM PT'S INSURANCE. CM MET WITH PT IN ROOM, PROVIDED COPY OF DENIAL AND READ REASON FOR DENIAL WITH SUGGESTION THAT REHAB COULD BE PROVIDED IN ASSISTED FACILITY. CM PROVIDED PT WITH LISTING OF ASSISTED FACLITIES WITHIN 25 MILES OF [place] AT PT'S REQUEST FROM MEDICARE WEBSITE. CM PROVIDED CHOICE FORM. PT STATES SHE WANTS TO THINK ABOUT CHOICES AND WILL LET CM KNOW SOON POSSIBLE. COPY OF INPATIENT DENIAL PLACED IN CHART WITH PT'S SIGNATURE, DATE AND TIME OF PT'S RECEIPT. CM WENT BACK IN ROOM AFTER LUNCH, PT IS OUT OF ROOM IN DIALYSIS. CM TO FOLLOW UP WITH PT LATER REGARDING ASSISTED REHAB CHOICES. CM WAITING ON PT'S DECISION FOR ASSISTED WELL CHOICES FOR SKILLED REHAB PLACEMENT. Phil Caruso CASE MANAGEMENT DCP- Discharge Planning Updated by [id number]: Phil Caruso on 04/05/19 2:[address] Patient Name: CARO JASSO Encounter No: [id number] : 1955 Primary Insurance: [facility] [employer] Anticipated DC Date: Planned Disposition: Inpatient Rehab External Planned Provider:[facility] DCP follow-up note: CM NOTIFIED PT'S DAUGHTER IN ROOM OF REFERRAL BEING FAXED TO [facility]. CM RECEIVED PATIENT CHOICE LETTER FOR 1- [facility] AND 2- [place] [facility] IF PT IS DECLINED BY [facility]. CM WAITING ADMISSION DETERMINATION FROM [facility]. SANJANA Hernández DCP- Discharge Planning Updated by [id number]: Phil Caruso on 04/05/19 12:[address] Patient Name: CARO JASSO Encounter No: [id number] : 1955 Primary Insurance: [facility] [employer] [employer] Anticipated DC Date: Planned Disposition: Inpatient Rehab External [facility] Provider[facility] DCP follow-up note: CM CALLED AND SPOKE TO VERNON PEACOCK, OF [facility], ; THEY WILL SCREEN FOR INPATIENT REHAB ADMISSION. THEY HAVE THE AVAILABILITY OF HEMODIALYSIS IN THEIR REHAB, BUT WILL NOT ACCEPT PERITONEAL DIALYSIS. CM [facility], . CM WAITING ADMISSION DETERMINATION FROM [facility]. Phil Caruso CASE MANAGEMENT DCP- Discharge Planning Updated by [id number]: Phil Caruso on 04/04/19 5:[address] Patient Name: CARO JASSO Encounter No: [id number] : 1955 Primary Insurance: [facility] [employer] Anticipated DC Date: Planned Disposition: Inpatient Rehab External Planned Provider: [facility] DCP follow-up note: CM RECEIVED ORDER FOR INPATIENT REHAB PRESCREENING, MET WITH PT'S DAUGHTER, HARRIETT YOUNG, IN ROOM. HARRIETT IS PT'S EMERGENCY CONTACT LISTED ON FACE SHEET AND REPORTS TO BE PT'S CAREGIVER AT HOME. PT IN DIALYSIS. CM HAD ALSO RECEIVED HANDWRITTEN NOTE INDICTATING PT WANTS REHAB IN [place]. HARRIETT REPORTS PT WANTS REFERRAL TO [facility] FOR INPATIENT REHAB. CM DISCUSSED HAVING A ALTERNATE PLAN IF DECLINED FOR INPATIENT REHAB. THEY HAVE DISCUSSED ASSISTED; CM PROVIDED LIST OF AVAILABLE ASSISTED FACILITIES WITHIN 50 MILES OF [place]. HARRIETT WILL DISCUSS THIS WITH PT AND THEY WILL LET CM KNOW OF ALTERNATE PLAN FOR REHAB. CM TO SEND REFERRAL TO [facility] FOR INPATIENT REHAB SOON POSSIBLE. PT CONSIDERING ASSISTED FACILITY ALTERNATE REHAB PLAN IF DECLINED BY [facility]. Phil Caruso CASE ED DCP- Discharge Planning Updated by [email or web address]: Kamini Hall on 04/02/19 12:[address] I HAVE SPOKEN TO EDSON EWING, CLINICAL LIASON WITH [facility] ABOUT THIS PATIENT POTENTIALLY BEING A NEW START. THIS WAY SHE CAN MAKE CONTACT TO PRESTART THE PROCESS. [facility] WAS YESTERDAY. DCP- Discharge Planning Updated by [email or web address]: Olivia Ramachandran on 03/29/19 12:[address] Patient Name: CARO JASSO Admission Status: Elective Accout number: [id number] Admission Date: 03-24-2019 : 1955 Admission Diagnosis: Attending: ELTON HODGE Current LOS: 5 Anticipated DC Date: Planned Disposition: Primary Insurance: [facility] [employer] [employer] Discharge Planning Comments: CM SPOKE WITH DAUGHTER ABOUT DC PLANNING/NEEDS. SHE STATES IS WAITING TO TALK TO THE DOCTOR BUT HAS RECIEVED BAD NEWS ON MOTHER'S PROGNOSIS. I HAVE MENTIONED REHAB AND HOSPICE. DAUGHTER WANTS TO THINK ABOUT IT. CM WILL FOLLOW AND ASSIST. Cardiac Cath Lab Radiology Technologist: Olivia Ramachandran DCP- Discharge Planning Updated by [id number]: Kamini Hall on 03/27/19 3:[address] MOSS WANTED THE PATIENT TRANSFERRED TO [facility] TO HER FOUNTAIN VENDING MECHANIC THIS AM. @ 0813, PLACED A CALL TO THE DIAL PAINTER, ADARSH, TO OBTAIN ADMIN APPROVAL TO PROCEED WITH TRANSFER. SEH STATED THAT SHE WOULD HAVE TO CALL THE ADMIN SITE ACQUISITION SPECIALIST, BUT WAS CURRENTLY INDISPOSED AND UNABLE. IF I DON'T HEAR BACK FROM HERE, I WILL CALL BACK LATER. @0817, I SPOKE WITH THE PATIENT WHO IS WILLING FOR THE TRANSFER. @0821, I SPOKE WITH ALEN SAWYER APN FOR DR YATES. SHE HAS REQUESTED THAT I HAVE DR MOSS CALL AND DISCUSS THE TRANSFER WITH DR YATES. @0836, I SPOKE WITH DR MOSS AND MADE THIS REQUEST. SHE ASKED ME TO TEXT HER DR YATES'S NUMBER AND SHE WOULD CALL HER. SOON WE HUNG UP, I TEXT HER THE NUMBER. @1334, I PLACED A CALL TO ALEN TO SEE IF SHE KNEW WHEN DR YATES WOULD BE HERE AT THE HOSPITAL SHE STATED HE WAS HERE NOW. SHE SAID THAT DR MOSS DID NOT CALL AND TALK TO DR YATES ABOUT THE TRANSFER. SHE STATED THAT SHE WOULD TALK TO HIM AND LET ME KNOW, BUT SHE DID NOT FEEL THAT THE PATIENT WOULD TRANSFER. @1426, DR YATES AND VERÓNICA LOWRY ON THE FLOOR. THEY HAVE TALKED WITH THE PATIENT. THE PATIENT WILL REMAIN HERE FOR TREATMENT AND NOT TRANSFER. DCPIA - Discharge Planning Initial Assessment Updated by [id number]: Olivia Ramachandran on 03/29/19 12:11 pm * Is the patient Alert and Oriented? No * Preadmission Environment Home with Family * Other Equipment WALKER, WC, TRANSFER CHAIR, O2 NEBS * List name and contact numbers for known caregivers / representatives who currently or will assist patient after discharge: HARRIETT, DAUGHTER, * Community resources currently utilized Home Health * Please name any agencies selected above. [facility] * Has this patient been hospitalized within the prior 30 days at any hospital? Yes External Providers External Provider: [facility] Next Contact Date: 04/10/2019 Service Request Date: Service Type: Resolution: Reviewer: Comments: Coverage Notice Reviewer: [id number] Liyah Caruso Notice Issued Date-Time: 04/04/2019 18:45 Notice Type: Patient Choice Letter Notice Delivered To: Patient Relationship to Patient: Associate Professor Of Management Name: Delivery Method: HAND - Hand Delivered Kristyn Days: Prior Verbal Notification: Recipient Understood Notice: Yes Recipient Signature: Yes Med Rec Note Co-signed by Attending: Coverage Notice Comment: 1- [facility] 2- [facility] Reviewer: [id number] Liyah Caruso Notice Issued Date-Time: 04/10/2019 9:56 Notice Type: Patient Choice Letter Notice Delivered To: Patient Relationship to Patient: Associate Professor Of Management Name: Delivery Method: HAND - Hand Delivered Kristyn Days: Prior Verbal Notification: Recipient Understood Notice: Yes Recipient Signature: Yes Med Rec Note Co-signed by Attending: Coverage Notice Comment: 1 - [facility], 2 - [facility] Last DP export: 04/10/19 9:51 a Patient Name: CARO JASSO Page 64000 at 1114 All edits/amendments must be made on the electronic document DICTATION DATE: 04/10/19 111 RESEARCH LABORATORY MANAGER: ELVIRA 04/10/19 1114 RPT#: [id number] DC DATE: STATUS: ADM IN [facility] [address] [place] [address] END OF REPORT
--- NOTE | 2019-04-10 14:19 | NUR ---
Nutrition Follow-up: Noted pt to be NPO p MN for PD catheter insertion. Megace started 04/08. Diet: Renal PO intake: 25-75% Wt: 278.8# Last BM: 04/05 per chart Labs noted: K+ 3.7, Ca 8.2, Alb 2.0 Meds noted: Megace, Senokot -Continue renal diet as tolerated. -Offer Nepro with meals. -Will monitor wt trends and skin integrity. -RD following.
--- NOTE | 2019-04-10 14:50 | NUR ---
I have reviewed this patient and I concur with the Shift Assessment completed by the Licensed Practical Nurse today this shift.
[2019-04-10 14:56] VITALS: BP 134/55
[2019-04-10 15:53] LABS: BASOPHILS 0.4 % (0-2); EOSINOPHILS 0 % (0-7); HEMATOCRIT 28.8 % (36.0-48.0); HEMOGLOBIN 9.2 g/dL (12-16); IMMATURE GRANULOCYTES 0.6 % (0-5); LYMPHOCYTES 15.7 % (15-50); MCHC 31.9 g/dL (31.0-37.0); MCV 84.5 fL (80.0-100.0); MEAN PLATELET VOLUME 9.7 fL (7.4-10.4); MONOCYTES 6.7 % (2-11); NEUTROPHILS 76.6 % (40-80); PLATELET COUNT 155 10x3/uL (130-400); RBC 3.41 10x6/uL (4.00-5.40); RDW 18.9 % (11.5-14.5); WBC 5.2 10x3/uL (4.8-10.8)
[2019-04-10 16:06] LABS: ANION GAP 6.9 mmol/L (8-16); CARBON DIOXIDE 31.9 mmol/L (21.0-32.0); CREATININE - SERUM 1.7 mg/dL (0.6-1.3)
[2019-04-10 16:08] LABS: POTASSIUM - SERUM 2.8 mmol/L (3.5-5.1)
--- NOTE | 2019-04-10 16:22 | MORECARE ---
CASE MANAGEMENT DISCHARGE SUMMARY PATIENT: CARO JASSO UNIT: [id number] ADM DATE: 03/24/19 AGE: 63 : 55 SEX: F ROOM/BED: D.2106 AUTHOR: KENNEY,DOC PHYSICIAN: REFERRING PHYSICIAN: ELTON HODGE MD DATE OF SERVICE: 04/10/19 Discharge Plan Patient Name: CARO JASSO Facility: [facility]:[place] : 1955 Planned Disposition: Retirement Facility Anticipated Discharge Date: 04/11/19 Discharge Date: Expected LOS: 18 Initial Reviewer: [id number] Initial Review Date: 03/29/2019 Generated: 04/10/19 5:22 pm Comments DCP- Discharge Planning Updated by [id number]: Phil Caruso on 04/10/19 3:[address] Patient Name: CARO JASSO Encounter No: [id number] : 1955 Primary Insurance: [facility] SOLUTIONS Anticipated DC Date: 04-11-2019 Planned Disposition: Retirement Facility External Planned Provider: [facility], MEDICARE REHAB BED DCP follow-up note: CM MET WITH PT IN ROOM TO DISCUSS DISCHARGE PLANNING AND NEEDS. PT HAS REVIEWED LIST WITH FAMILY AND WOULD LIKE [facility]ERRAL TO [facility] AND [facility]. CHOICE FORM SIGNED. CM CALLED [facility], , SPOKE TO BIGG AND PROVIDED REFERRAL INFORMATION. CM FAXED REFERRAL TO [facility] AT [phone]. CM WAITING ADMISSION DETERMINATION FROM [facility] WE[facility] INSURANCE DETERMINATION. RAYO TOUSSAINT IS WORKING ON OUTPATIENT DIALYSIS UNIT. Phil Caruso, CASE MANAGEMENT Appended by Phil Caruso on 04/10/2019 16:10 ACQUISITION PROFESSIONAL: CM RECEIVED CALL FROM [facility], , SPOKE TO BIGG WHO ASKED WHY PT IS ON ABILIFY. CM SPOKE TO PT IN ROOM, PT DENIES MENTAL ILLNESS OR PLACEMENT IN PSYCHIATRIC CARE IN THE PAST. PT THINKS IT MAY BE FOR DEMENTIAL. CM NOTIFIED BIGG. CM WAITING ADMISSION DETERMINATION FROM [facility] WELL INSURANCE DETERMINATION. [facility] IS WORKING ON OUTPATIENT DIALYSIS UNIT. SANJANA Hernández DCP- Discharge Planning Updated by [id number]: Phil Caruso on 04/09/19 11:[address] Patient Name: CARO JASSO Encounter No: [id number] : 1955 Primary Insurance: [facility] MED[facility] SOLUTIONS Anticipated DC Date: 04-11-2019 Planned Disposition: Retirement Facility External Planned Provider: TO BE DETERMINED DCP follow-up note: CM RECEIVED INPATIENT REHAB DENIAL FROM PT'S INSURANCE. CM MET WITH PT IN ROOM, PROVIDED COPY OF DENIAL AND READ REASON FOR DENIAL WITH SUGGESTION THAT REHAB COULD BE PROVIDED IN NURSING HOME FACILITY. CM PROVIDED PT WITH LISTING OF NURSING HOME FACLITIES WITHIN [place] OF [place] AT PT'S REQUEST FROM MEDICARE WEBSITE. CM PROVIDED CHOICE FORM. PT STATES SHE WANTS TO THINK ABOUT CHOICES AND WILL LET CM KNOW SOON POSSIBLE. COPY OF INPATIENT DENIAL PLACED IN CHART WITH PT'S SIGNATURE, DATE AND TIME OF PT'S RECEIPT. CM WENT BACK IN ROOM AFTER LUNCH, PT IS OUT OF ROOM IN DIALYSIS. CM TO FOLLOW UP WITH PT LATER REGARDING NURSING HOME REHAB CHOICES. CM WAITING ON PT'S DECISION FOR NURSING HOME WELL CHOICES FOR SKILLED REHAB PLACEMENT. SANJANA Hernández DCP- Discharge Planning Updated by [id number]: Phil Caruso on 04/05/19 2:[address] Patient Name: CARO JASSO Encounter No: [id number] : 1955 Primary Insurance: [facility] MED[facility] SOLUTIONS Anticipated DC Date: Planned Disposition: Inpatient Rehab External Planned Provider:[facility] DCP follow-up note: CM NOTIFIED PT'S DAUGHTER IN ROOM OF REFERRAL BEING FAXED TO [facility]. CM RECEIVED PATIENT CHOICE LETTER FOR 1- [facility] AND 2- [place] [facility] IF PT IS DECLINED BY [facility] IN[facility] REH[facility]. CM WAITING ADMISSION DETERMINATION FROM [facility]. SANJANA Hernández DCP- Discharge Planning Updated by [id number]: Phil Caruso on 04/05/19 12:[address] Patient Name: CARO JASSO Encounter No: [id number] : 1955 Primary Insurance: [facility] MED[facility] SOLUTIONS Anticipated DC Date: Planned Disposition: Inpatient Rehab External Planned Provider: [facility] DCP follow-up note: CM CALLED AND SPOKE TO VERNON PEACOCK, OF [facility], ; THEY WILL SCREEN FOR INPATIENT REHAB ADMISSION. THEY HAVE THE AVAILABILITY OF HEMODIALYSIS IN THEIR REHAB, BUT WILL NOT ACCEPT PERITONEAL DIALYSIS. CM FAXED REFERRAL TO [facility], . CM WA[facility]. Phil Caruso CASE MANAGEMENT DCP- Discharge Planning Updated by [id number]: Phil Caruso on 04/04/19 5:[address] Patient Name: CARO JASSO Encounter No: [id number] : 1955 Primary Insurance: [facility] MEDIC[facility] SOLUTIONS Anticipated DC Date: Planned Disposition: Inpatient Rehab External Planned Provider: [facility] DCP follow-up note: CM RECEIVED ORDER FOR INPATIENT REHAB PRESCREENING, MET WITH PT'S DAUGHTER, HARRIETT YOUNG, IN ROOM. HARRIETT IS PT'S EMERGENCY CONTACT LISTED ON FACE SHEET AND REPORTS TO BE PT'S CAREGIVER AT HOME. PT IN DIALYSIS. CM HAD ALSO RECEIVED HANDWRITTEN NOTE INDICTATING PT WANTS REHAB IN [place]. HARRIETT REPORTS PT WANTS REFERRAL TO [facility] FOR INPATIENT REHAB. CM DISCUSSED HAVING A ALTERNATE PLAN IF DECLINED FOR INPATIENT REHAB. THEY HAVE DISCUSSED NURSING HOME; CM PROVIDED LIST OF AVAILABLE NURSING HOME FACILITIES WITHIN [address] [place] OF [place]. HARRIETT WILL DISCUSS THIS WITH PT AND THEY WILL LET CM KNOW OF ALTERNATE PLAN FOR REHAB. CM TO SEND REFERRAL TO [facility] FOR INPATIENT REHAB SOON POSSIBLE. PT CONSIDERING NURSING HOME FACILITY ALTERNATE REHAB PLAN IF DECLINED BY [facility]. Phil Caruso, CASE MANAGEMENT DCP- Discharge Planning Updated by [id number]: Kamini Hall on 04/02/19 12:[address] I HAVE SPOKEN TO EDSON EWING, CLINICAL LIASON WITH [facility] ABOUT THIS PATIENT POTENTIALLY BEING A NEW START. THIS WAY SHE CAN MAKE CONTACT TO PRESTART THE PROCESS. [facility] WAS YESTERDAY. DCP- Discharge Planning Updated by [id number]: Olivia Ramachandran on 03/29/19 12:[address] Patient Name: CARO JASSO Admission Status: Elective Accout number: [id number] Admission Date: 03-24-2019 : 1955 Admission Diagnosis: Attending: ELTON HODGE Current LOS: 5 Anticipated DC Date: Planned Disposition: Primary Insurance: [facility] MEDICARE SOLUTIONS Discharge Planning Comments: CM SPOKE WITH DAUGHTER ABOUT DC PLANNING/NEEDS. SHE STATES IS WAITING TO TALK TO THE DOCTOR BUT HAS RECIEVED BAD NEWS ON MOTHER'S PROGNOSIS. I HAVE MENTIONED REHAB AND HOSPICE. DAUGHTER WANTS TO THINK ABOUT IT. CM WILL FOLLOW AND ASSIST. Solder Cream Maker: Olivia Ramachandran DCP- Discharge Planning Updated by [id number]: Kamini Rafael on 03/27/19 3:[address] MOSS WANTED THE PATIENT TRANSFERRED TO [facility] TO HER COMMERCIAL OR INSTITUTIONAL CLEANER THIS AM. @ 0813, PLACED A CALL TO THE SQUEEZER OPERATOR, ADARSH, TO OBTAIN ADMIN APPROVAL TO PROCEED WITH TRANSFER. [facility] STATED THAT SHE WOULD HAVE TO CALL THE ADMIN LICENSED ELECTRICIAN, BUT WAS CURRENTLY INDISPOSED AND UNABLE. IF I DON'T HEAR BACK FROM HERE, I WILL CALL BACK LATER. @0817, I SPOKE WITH THE PATIENT WHO IS WILLING FOR THE TRANSFER. @0821, I SPOKE WITH ALEN SAWYER APN FOR DR YATES. SHE HAS REQUESTED THAT I HAVE DR MOSS CALL AND DISCUSS THE TRANSFER WITH DR YATES. @0836, I SPOKE WITH DR MOSS AND MADE THIS REQUEST. SHE ASKED ME TO TEXT HER DR YATES'S NUMBER AND SHE WOULD CALL HER. SOON WE HUNG UP, I TEXT HER THE NUMBER. @3354, I PLACED A CALL TO ALEN TO SEE IF SHE KNEW WHEN DR YATES WOULD BE HERE AT THE HOSPITAL SHE STATED HE WAS HERE NOW. SHE SAID THAT DR MOSS DID NOT CALL AND TALK TO DR YATES ABOUT THE TRANSFER. SHE STATED THAT SHE WOULD TALK TO HIM AND LET ME KNOW, BUT SHE DID NOT FEEL THAT THE PATIENT WOULD TRANSFER. @1965, DR YATES AND VERÓNICA LOWRY ON THE FLOOR. THEY HAVE TALKED WITH THE PATIENT. THE PATIENT WILL REMAIN HERE FOR TREATMENT AND NOT TRANSFER. DCPIA - Discharge Planning Initial Assessment Updated by [id number]: Olivia Madie on 03/29/19 12:11 pm * Is the patient Alert and Oriented? No * Preadmission Environment Home with Family * Other Equipment WALKER, WC, TRANSFER CHAIR, O2 NEBS * List name and contact numbers for known caregivers / representatives who currently or will assist patient after discharge: SANDY LORENZANA, * Community resources currently utilized Home Health * Please name any agencies selected above. [facility] * Has this patient been hospitalized within the prior 30 days at any hospital? Yes Coverage Notice Reviewer: [id number] Caruso Notice Issued Date-Time: 04/04/2019 18:45 Notice Type: Patient Choice Letter Notice Delivered To: Patient Relationship to Patient: Cafe Aide Name: Delivery Method: HAND - Hand Delivered Kristyn Days: Prior Verbal Notification: Recipient Understood Notice: Yes Recipient Signature: Yes Med Rec Note Co-signed by Attending: Coverage Notice Comment: 1- [facility] 2- [facility] Reviewer: [id number] Caruso Notice Issued Date-Time: 04/10/2019 9:56 Notice Type: Patient Choice Letter Notice Delivered To: Patient Relationship to Patient: Cafe Aide Name: Delivery Method: HAND - Hand Delivered Kristyn Days: Prior Verbal Notification: Recipient Understood Notice: Yes Recipient Signature: Yes Med Rec Note Co-signed by Attending: Coverage Notice Comment: 1 - [facility], 2 - [facility] DP export: 04/10/19 10:14 a Patient Name: CARO JASSO Page 16432 at 1622 All edits/amendments must be made on the electronic document DICTATION DATE: 04/10/191621 HELPDESK MANAGER: ELVIRA 04/10/191621 RPT#: [id number] DC DATE: STATUS: ADM IN [facility] [address] [place] [address] END OF REPORT
--- NOTE | 2019-04-10 19:00 | NUR ---
PT CO PAIN PRN WILL BE GIVEN ASSISTED WITH COMFORT AND MADE SURE LIGHT WAS IN REACH BED IS LOW AND LOCKED SRX2
[2019-04-10 20:00] VITALS: BP 114/47
--- NOTE | 2019-04-10 21:39 | NUR ---
PT INSISTED AND SELF REMOVED BULKY DRSG TO LEFT SHOULDER SHE ALLOWED ME TO COVER SITE WITH A BANDAID
[2019-04-11] VITALS (10 sets, daily range): BP systolic 102–129; BP diastolic 37–52
--- NOTE | 2019-04-11 01:44 | NUR ---
I have reviewed this patient and I concur with the Shift Assessment completed by the Licensed Practical Nurse today this shift.
[2019-04-11 04:40] LABS: BASOPHILS 0.4 % (0-2); EOSINOPHILS 0 % (0-7); HEMATOCRIT 26.8 % (36.0-48.0); HEMOGLOBIN 8.4 g/dL (12-16); IMMATURE GRANULOCYTES 0.4 % (0-5); LYMPHOCYTES 13.6 % (15-50); MCH 26.8 pg (26.0-34.0); MCHC 31.3 g/dL (31.0-37.0); MCV 85.4 fL (80.0-100.0); MEAN PLATELET VOLUME 9.8 fL (7.4-10.4); MONOCYTES 6.6 % (2-11); PLATELET COUNT 150 10x3/uL (130-400); RBC 3.14 10x6/uL (4.00-5.40); RDW 19.1 % (11.5-14.5)
[2019-04-11 04:58] LABS: ANION GAP 8.3 mmol/L (8-16); CARBON DIOXIDE 29.6 mmol/L (21.0-32.0)
[2019-04-11 05:00] LABS: POTASSIUM - SERUM 2.9 mmol/L (3.5-5.1)
--- NOTE | 2019-04-11 05:23 | NUR ---
POTASIUM 2.9 BUT CONTINUES TO REFUSE PO MED I AM UNABLE TO OBTAIN IV
--- NOTE | 2019-04-11 08:44 | MORECARE ---
CASE MANAGEMENT DISCHARGE SUMMARY PATIENT: CARO JASSO UNIT: [id number] ADM DATE: 03/24/19 AGE: 63 : 55 SEX: F ROOM/BED: D.0044 AUTHOR: KENNEY,DOC PHYSICIAN: REFERRING PHYSICIAN: ELTON HODGE MD DATE OF SERVICE: 04/11/19 Discharge Plan Patient Name: CARO JASSO Facility: [facility]:[place] : 1955 Planned Disposition: Long-Term Facility Anticipated Discharge Date: 04/11/19 Discharge Date: Expected LOS: 18 Initial Reviewer: [id number] Initial Review Date: 03/29/2019 Generated: 04/11/19 9:44 am Comments DCP- Discharge Planning Updated by [id number]: Phil Caruso on 04/11/19 7:[address] Patient Name: CARO JASSO Encounter No: [id number] : 1955 Primary Insurance: [facility] MEDICARE SOLUTIONS Anticipated DC Date: 04-11-2019 Planned Disposition: Long-Term Facility External Planned Provider: [facility], [facility]ICARE REHAB BED DCP follow-up note: CM FAXED REFERRAL UPDATE TO [facility] AT [phone]. CM WAITING ADMISSION DETERMINATION FROM [facility] INSURANCE DETERMINATION. [facility] IS WORKING ON OUTPATIENT DIALYSIS UNIT. Phil Caruso, CASE MANAGEMENT DCP- Discharge Planning Updated by [id number]: Phil Caruso on 04/10/19 3:[address] Patient Name: CARO JASSO Encounter No: [id number] : 1955 Primary Insurance: [facility] MEDICARE SOLUTIONS Anticipated DC Date: 04-11-2019 Planned Disposition: Long-Term Facility External Planned Provider: [facility] MED[facility]ARE REHAB BED DCP follow-up note: CM MET WITH PT IN ROOM TO DISCUSS DISCHARGE PLANNING AND NEEDS. PT HAS REVIEWED LIST WITH FAMILY AND WOULD LIKE [facility]ERRAL TO [facility] AND [facility]. CHOICE FORM SIGNED. CM CALLED [facility], , SPOKE TO BIGG AND PROVIDED REFERRAL INFORMATION. CM FAXED REFERRAL TO [facility] AT [phone]. CM WAITING ADMISSION DETERMINATION FROM [facility]ERMIN[facility]. EDSON HARVEY [facility] IS WORKING ON OUTPATIENT DIALYSIS UNIT. Phil Caruso, CASE MANAGEMENT Appended by Phil Caruso on 04/10/2019 16:10 CAREER SERVICES MANAGER: CM RECEIVED CALL FROM [facility], , SPOKE TO BIGG WHO ASKED WHY PT IS ON ABILIFY. CM SPOKE TO PT IN ROOM, PT DENIES MENTAL ILLNESS OR PLACEMENT IN PSYCHIATRIC CARE IN THE PAST. PT THINKS IT MAY BE FOR DEMENTIAL. CM NOTIFIED BIGG. CM WAITING ADMISSION DETERMINATION FROM [facility]ANCE DETERMINATION. EDSON HARVEY [facility] IS WORKING ON OUTPATIENT DIALYSIS UNIT. SANJANA Hernández DCP- Discharge Planning Updated by [id number]: Phil Caruso on 04/09/19 11:[address] Patient Name: CARO JASSO Encounter No: [id number] : 1955 Primary Insurance: [employer] MED[employer] SOLUTIONS Anticipated DC Date: 04-11-2019 Planned Disposition: Long-Term Facility External Planned Provider: TO BE DETERMINED DCP follow-up note: CM RECEIVED INPATIENT REHAB DENIAL FROM PT'S INSURANCE. CM MET WITH PT IN ROOM, PROVIDED COPY OF DENIAL AND READ REASON FOR DENIAL WITH SUGGESTION THAT REHAB COULD BE PROVIDED IN PRISON FACILITY. CM PROVIDED PT WITH LISTING OF PRISON FACLITIES WITHIN 25 MILES OF [place] AT PT'S REQUEST FROM MEDICARE WEBSITE. CM PROVIDED CHOICE FORM. PT STATES SHE WANTS TO THINK ABOUT CHOICES AND WILL LET CM KNOW SOON POSSIBLE. COPY OF INPATIENT DENIAL PLACED IN CHART WITH PT'S SIGNATURE, DATE AND TIME OF PT'S RECEIPT. CM WENT BACK IN ROOM AFTER LUNCH, PT IS OUT OF ROOM IN DIALYSIS. CM TO FOLLOW UP WITH PT LATER REGARDING PRISON REHAB CHOICES. CM WAITING ON PT'S DECISION FOR PRISON WELL CHOICES FOR SKILLED REHAB PLACEMENT. SANJANA Hernández DCP- Discharge Planning Updated by [id number]: Phil Caruso on 04/05/19 2:[address] Patient Name: CARO JASSO Encounter No: [id number] : 1955 Primary Insurance: [employer] MEDICARE SOLUTIONS Anticipated DC Date: Planned Disposition: Inpatient Rehab External Planned Provider:[facility] INPATIENT REH[facility] DCP follow-up note: CM NOTIFIED PT'S DAUGHTER IN ROOM OF REFERRAL BEING FAXED TO [facility] INPATIENT [facility]. CM RECEIVED PATIENT CHOICE LETTER FOR 1- [facility] AND 2- [place] [facility] IF PT IS DECLINED BY [facility]. CM WAITING ADMISSION DETERMINATION FROM [facility] INPATIENT RE[facility]. SANJANA Hernández DCP- Discharge Planning Updated by [id number]: Phil Caruso on 04/05/19 12:[address] Patient Name: CARO JASSO Encounter No: [id number] : 1955 Primary Insurance: [facility] MEDICARE SOLUTIONS Anticipated DC Date: Planned Disposition: Inpatient Rehab External [facility] DCP follow-up note: CM CALLED AND SPOKE TO VERNON PEACOCK, OF [facility] INPATIENT RE[facility], ; THEY WILL SCREEN FOR INPATIENT REHAB ADMISSION. THEY HAVE THE AVAILABILITY OF HEMODIALYSIS IN THEIR REHAB, BUT WILL NOT ACCEPT PERITONEAL DIALYSIS. CM FAXED REFERRAL TO [facility] IN[facility]IENT [facility], . CM WAITING ADMISSION DETERMINATION FROM [facility] INPATIENT REH[facility]. SANJANA Hernández DCP- Discharge Planning Updated by [id number]: Phil Caruso on 04/04/19 5:[address] Patient Name: CARO JASSO Encounter No: [id number] : 1955 Primary Insurance: [facility] MED[employer] SOLUTIONS Anticipated DC Date: Planned Disposition: Inpatient Rehab External [facility] DCP follow-up note: CM RECEIVED ORDER FOR INPATIENT REHAB PRESCREENING, MET WITH PT'S DAUGHTER, HARRIETT YOUNG, IN ROOM. HARRIETT IS PT'S EMERGENCY CONTACT LISTED ON FACE SHEET AND REPORTS TO BE PT'S CAREGIVER AT HOME. PT IN DIALYSIS. CM HAD ALSO RECEIVED HANDWRITTEN NOTE INDICTATING PT WANTS REHAB IN [place]. HARRIETT REPORTS PT WANTS REFERRAL TO [facility] FOR INPATIENT REHAB. CM DISCUSSED HAVING A ALTERNATE PLAN IF DECLINED FOR INPATIENT REHAB. THEY HAVE DISCUSSED PRISON; CM PROVIDED LIST OF AVAILABLE PRISON FACILITIES WITHIN [address] OF [place]. HARRIETT WILL DISCUSS THIS WITH PT AND THEY WILL LET CM KNOW OF ALTERNATE PLAN FOR REHAB. CM TO SEND REFERRAL TO [facility] FOR INPATIENT REHAB SOON POSSIBLE. PT CONSIDERING PRISON FACILITY ALTERNATE REHAB PLAN IF DECLINED BY [facility]. Phil Caruso, CASE MANAGEMENT DCP- Discharge Planning Updated by [id number]: Kamini Hall on 04/02/19 12:[address] I HAVE SPOKEN TO EDSON EWING, CLINICAL LIASON WITH [facility] ABOUT THIS PATIENT POTENTIALLY BEING A NEW START. THIS WAY SHE CAN MAKE CONTACT TO PRESTART THE PROCESS. [facility] WAS YESTERDAY. DCP- Discharge Planning Updated by [id number]: Olivia Madie on 03/29/19 12:[address] Patient Name: CARO JASSO Admission Status: Elective Accout number: [id number] Admission Date: 03-24-2019 : 1955 Admission Diagnosis: Attending: ELTON HODGE Current LOS: 5 Anticipated DC Date: Planned Disposition: Primary Insurance: [facility] MEDICARE SOLUTIONS Discharge Planning Comments: CM SPOKE WITH DAUGHTER ABOUT DC PLANNING/NEEDS. SHE STATES IS WAITING TO TALK TO THE DOCTOR BUT HAS RECIEVED BAD NEWS ON MOTHER'S PROGNOSIS. I HAVE MENTIONED REHAB AND HOSPICE. DAUGHTER WANTS TO THINK ABOUT IT. CM WILL FOLLOW AND ASSIST. Environmental Health Technician: Olivia Ramachandran DCP- Discharge Planning Updated by [id number]: Kamini Hall on 03/27/19 3:[address] MOSS WANTED THE PATIENT TRANSFERRED TO [facility] TO HER FABRICATION TECHNICIAN THIS AM. @ 0813, PLACED A CALL TO THE STERILE PROCESSING MANAGER, ADARSH, TO OBTAIN ADMIN APPROVAL TO PROCEED WITH TRANSFER. [facility] STATED THAT SHE WOULD HAVE TO CALL THE ADMIN MATTRESS STRIPPER, BUT WAS CURRENTLY INDISPOSED AND UNABLE. IF I DON'T HEAR BACK FROM HERE, I WILL CALL BACK LATER. @0817, I SPOKE WITH THE PATIENT WHO IS WILLING FOR THE TRANSFER. @0821, I SPOKE WITH ALEN SAWYER APN FOR DR YATES. SHE HAS REQUESTED THAT I HAVE DR MOSS CALL AND DISCUSS THE TRANSFER WITH DR YATES. @0836, I SPOKE WITH DR MOSS AND MADE THIS REQUEST. SHE ASKED ME TO TEXT HER DR YATES'S NUMBER AND SHE WOULD CALL HER. SOON WE HUNG UP, I TEXT HER THE NUMBER. @5063, I PLACED A CALL TO ALEN TO SEE IF SHE KNEW WHEN DR YATES WOULD BE HERE AT THE HOSPITAL SHE STATED HE WAS HERE NOW. SHE SAID THAT DR MOSS DID NOT CALL AND TALK TO DR YATES ABOUT THE TRANSFER. SHE STATED THAT SHE WOULD TALK TO HIM AND LET ME KNOW, BUT SHE DID NOT FEEL THAT THE PATIENT WOULD TRANSFER. @7845, DR YATES AND VERÓNICA LOWRY ON THE FLOOR. THEY HAVE TALKED WITH THE PATIENT. THE PATIENT WILL REMAIN HERE FOR TREATMENT AND NOT TRANSFER. DCPIA - Discharge Planning Initial Assessment Updated by [id number]: Olivia Ramachandran on 03/29/19 12:11 pm * Is the patient Alert and Oriented? No * Preadmission Environment Home with Family * Other Equipment WALKER, WC, TRANSFER CHAIR, O2 NEBS * List name and contact numbers for known caregivers / representatives who currently or will assist patient after discharge: SANDY LORENZANA, * Community resources currently utilized Home Health * Please name any agencies selected above. [facility] * Has this patient been hospitalized within the prior 30 days at any hospital? Yes Coverage Notice Reviewer: [id number] Caruso Notice Issued Date-Time: 04/04/2019 18:45 Notice Type: Patient Choice Letter Notice Delivered To: Patient Relationship to Patient: Metal Spray Operator Name: Delivery Method: HAND - Hand Delivered Kristyn Days: Prior Verbal Notification: Recipient Understood Notice: Yes Recipient Signature: Yes Med Rec Note Co-signed by Attending: Coverage Notice Comment: 1- [facility] 2- [facility] Reviewer: [id number] Caruso Notice Issued Date-Time: 04/10/2019 9:56 Notice Type: Patient Choice Letter Notice Delivered To: Patient Relationship to Patient: Metal Spray Operator Name: Delivery Method: HAND - Hand Delivered Kristyn Days: Prior Verbal Notification: Recipient Understood Notice: Yes Recipient Signature: Yes Med Rec Note Co-signed by Attending: Coverage Notice Comment: 1 - [facility], 2 - [facility] Last DP export: 04/10/19 3:22 p Patient Name: CARO JASSO Page [phone] at 0844 All edits/amendments must be made on the electronic document DICTATION DATE: 04/11/19843 JUNIOR STAFF ACCOUNTANT: ELVIRA 04/11/19843 RPT#: [id number] DC DATE: STATUS: ADM IN [facility] [address] [place] [address] END OF REPORT
--- NOTE | 2019-04-11 11:47 | NUR ---
MORNING MEDS HELD DUE TO NPO STATUS. B/P 126/41, THUS ANTI-HYPERTENSIVES HELD.
--- NOTE | 2019-04-11 11:49 | NUR ---
PRE-OP MEDS GIVEN WITH SIP OF MORRIS. PT LEFT UNIT FOR PROCEDURE.
--- NOTE | 2019-04-11 13:23 | NUR ---
PERITONEAL DIALYSIS CATHETER REF# [id number] LOT# [id number] EXP 04/05/2022
--- NOTE | 2019-04-11 14:30 | NUR ---
PT RETURNED FROM SX VIA BED. ALERT AND ORIENTED. ON ROOM AIR. VS STABLE. ABDOMINAL DRESSING C/D/I. RIGHT CHEST HEMOSPLIT INFUSING IVF. SX NURSE STATES SHE DID NOT HAVE HEPARIN TO HEP LOC HEMOSPLIT. BED LOW. CL IN REACH.
--- NOTE | 2019-04-11 14:42 | NUR ---
PT REFUSED DIALYSIS TODAY. PT BROUGHT BACK FROM SURGERY AND HEMOSPLIT NO HEPARIN LOCKED. SX STATED THEY DID NOT HAVE HEPARIN DO THAT. CALLED AND SPOKE WITH DR. GUTIÉRREZ HE STATES TO ORDER 1000 HEPARIN AND HEP LOCK HEMOSPLIT. I ALSO STATED TO HIM PATIENTS POTASSIUM IS 2.9 BUT SHE IS REFUSING POTASSIUM PILLS HE STATES TO ORDR PT V8 JUICE AND IF SHE WON'T DRINK GIVE HER TWO ORANGE JUICES AND SOME POTATOES OF SOME SORT FOR DINNER.
--- NOTE | 2019-04-11 15:47 | NUR ---
PT DRANK TWO SMALL CANS OF V8 JUICE.
--- NOTE | 2019-04-11 16:06 | NUR ---
OT NOTE: PT SEEN IN AM. STATED THAT SHE WAS FEELING NAUSEATED AND HOLDING EMESIS BAG. ALSO STATED THAT SHE WAS GOING FOR SURGICAL PROCEDURE TODAY. BUT PT WAS AGREEABLE TO ATTEMPT TO STAND AND TRANSFER TO CHAIR SHE WAS TIRED OF BEING IN BED. BED MOB WITH MOD ASSIST. SITTING BALANCE ON EOB WITH SBA; MAX ASSIST TO THOMAS SOCKS; SET UP TO WASH FACE AND HANDS WITH WASHCLOTH. SIT TO STAND WITH MIN/MOD ASSIST; TRANSFER WITHOUT WALKER WITH MOD ASSIST X 2. PT TOLERATED SITTING UP IN CHAIR FOR GREATER THAN 3 HRS TODAY. CHAPIN DE LUNA, OTR/L
--- NOTE | 2019-04-11 17:07 | MORECARE ---
CASE MANAGEMENT DISCHARGE SUMMARY PATIENT: CARO JASSO UNIT: [id number] ADM DATE: 03/24/19 AGE: 63 : 55 SEX: F ROOM/BED: D.6718 AUTHOR: KENNEY,DOC PHYSICIAN: REFERRING PHYSICIAN: ELTON HODGE MD DATE OF SERVICE: 04/11/19 Discharge Plan Patient Name: CARO JASSO Facility: [facility]:[place] : 1955 Planned Disposition: Intermediate Facility Anticipated Discharge Date: 04/11/19 Discharge Date: Expected LOS: 18 Initial Reviewer: [id number] Initial Review Date: 03/29/2019 Generated: 04/11/19 6:06 pm Comments DCP- Discharge Planning Updated by [email or web address]: Phil Caruso on 04/11/19 7:[address] Patient Name: CARO JASSO Encounter No: [id number] : 1955 Primary Insurance: [facility] MEDICARE SOLUTIONS Anticipated DC Date: 04-11-2019 Planned Disposition: Intermediate Facility External Planned Provider: [facility], MEDICARE REHAB BED DCP follow-up note: CM FAXED REFERRAL UPDATE TO [facility] AT [phone]. CM WAITING ADMISSION DETERMINATION FROM [facility] WE[facility] INSURANCE DETERMINATION. [facility] IS WORKING ON OUTPATIENT DIALYSIS UNIT. Phil Caruso, CASE MANAGEMENT DCP- Discharge Planning Updated by [id number]: Phil Caruso on 04/10/19 3:[address] Patient Name: CARO JASSO Encounter No: [id number] : 1955 Primary Insurance: [facility] MEDICARE SOLUTIONS Anticipated DC Date: 04-11-2019 Planned Disposition: Intermediate Facility External Planned Provider: [facility] MEDICARE REHAB BED DCP follow-up note: CM MET WITH PT IN ROOM TO DISCUSS DISCHARGE PLANNING AND NEEDS. PT HAS REVIEWED LIST WITH FAMILY AND WOULD LIKE REFERRAL TO [facility] AND [facility]. CHOICE FORM SIGNED. CM CALLED [facility], , SPOKE TO BIGG AND PROVIDED REFERRAL INFORMATION. CM FAXED REFERRAL TO [facility] AT [phone]. CM WAITING ADMISSION DETERMINATION FROM [facility] DETERMINATION. EDSON HARVEY [facility] IS WORKING ON OUTPATIENT DIALYSIS UNIT. Phil Caruso, CASE MANAGEMENT Appended by Phil Caruso on 04/10/2019 16:10 MILKING MACHINE MECHANIC: CM RECEIVED CALL FROM [facility], , SPOKE TO BIGG WHO ASKED WHY PT IS ON ABILIFY. CM SPOKE TO PT IN ROOM, PT DENIES MENTAL ILLNESS OR PLACEMENT IN PSYCHIATRIC CARE IN THE PAST. PT THINKS IT MAY BE FOR DEMENTIAL. CM NOTIFIED BIGG. CM WAITING ADMISSION DETERMINATION FROM [facility]ANCE DETERMINATION. EDSON HARVEY [facility] IS WORKING ON OUTPATIENT DIALYSIS UNIT. SANJANA Hernández DCP- Discharge Planning Updated by [id number]: Phil Caruso on 04/09/19 11:[address] Patient Name: CARO JASSO Encounter No: [id number] : 1955 Primary Insurance: [employer] SOLUTIONS Anticipated DC Date: 04-11-2019 Planned Disposition: Intermediate Facility External Planned Provider: TO BE DETERMINED DCP follow-up note: CM RECEIVED INPATIENT REHAB DENIAL FROM PT'S INSURANCE. CM MET WITH PT IN ROOM, PROVIDED COPY OF DENIAL AND READ REASON FOR DENIAL WITH SUGGESTION THAT REHAB COULD BE PROVIDED IN DETENTION FACILITY. CM PROVIDED PT WITH LISTING OF DETENTION FACLITIES WITHIN 25 MILES OF [place] AT PT'S REQUEST FROM MEDICARE WEBSITE. CM PROVIDED CHOICE FORM. PT STATES SHE WANTS TO THINK ABOUT CHOICES AND WILL LET CM KNOW SOON POSSIBLE. COPY OF INPATIENT DENIAL PLACED IN CHART WITH PT'S SIGNATURE, DATE AND TIME OF PT'S RECEIPT. CM WENT BACK IN ROOM AFTER LUNCH, PT IS OUT OF ROOM IN DIALYSIS. CM TO FOLLOW UP WITH PT LATER REGARDING DETENTION REHAB CHOICES. CM WAITING ON PT'S DECISION FOR DETENTION WELL CHOICES FOR SKILLED REHAB PLACEMENT. SANJANA Hernández DCP- Discharge Planning Updated by [id number]: Phil Caruso on 04/05/19 2:[address] Patient Name: CARO JASSO Encounter No: [id number] : 1955 Primary Insurance: [employer] SOL[employer] Anticipated DC Date: Planned Disposition: Inpatient Rehab External Planned Provider:[facility] DCP follow-up note: CM NOTIFIED PT'S DAUGHTER IN ROOM OF REFERRAL BEING FAXED TO [facility] INPAT[facility]. CM RECEIVED PATIENT CHOICE LETTER FOR 1- [facility] AND 2- [facility] [facility] IF PT IS DECLINED BY [facility]. CM WAITING ADMISSION DETERMINATION FROM [facility] INPATIENT RE[facility]. SANJANA Hernández DCP- Discharge Planning Updated by [id number]: Phil Caruso on 04/05/19 12:[address] Patient Name: CARO JASSO Encounter No: [id number] : 1955 Primary Insurance: [facility] MEDICARE SOLUTIONS Anticipated DC Date: Planned Disposition: Inpatient Rehab External Planned Provider: [facility] DCP follow-up note: CM CALLED AND SPOKE TO VERNON PEACOCK, OF [facility] INPATIENT [facility], ; THEY WILL SCREEN FOR INPATIENT REHAB ADMISSION. THEY HAVE THE AVAILABILITY OF HEMODIALYSIS IN THEIR REHAB, BUT WILL NOT ACCEPT PERITONEAL DIALYSIS. CM FAXED REFERRAL TO [facility], . CM WAITING ADMISSION DETERMINATION FROM [facility] INPAT[facility]. SANJANA Hernández DCP- Discharge Planning Updated by [id number]: Phil Caruso on 04/04/19 5:[address] Patient Name: CARO JASSO Encounter No: [id number] : 1955 Primary Insurance: [facility] MEDICARE SOLUTIONS Anticipated DC Date: Planned Disposition: Inpatient Rehab External Planned Provider: [facility] DCP follow-up note: CM RECEIVED ORDER FOR INPATIENT REHAB PRESCREENING, MET WITH PT'S DAUGHTER, HARRIETT YOUNG, IN ROOM. HARRIETT IS PT'S EMERGENCY CONTACT LISTED ON FACE SHEET AND REPORTS TO BE PT'S CAREGIVER AT HOME. PT IN DIALYSIS. CM HAD ALSO RECEIVED HANDWRITTEN NOTE INDICTATING PT WANTS REHAB IN [place]. HARRIETT REPORTS PT WANTS REFERRAL TO [facility] FOR INPATIENT REHAB. CM DISCUSSED HAVING A ALTERNATE PLAN IF DECLINED FOR INPATIENT REHAB. THEY HAVE DISCUSSED DETENTION; CM PROVIDED LIST OF AVAILABLE DETENTION FACILITIES WITHIN 50 [place] OF [place]. HARRIETT WILL DISCUSS THIS WITH PT AND THEY WILL LET CM KNOW OF ALTERNATE PLAN FOR REHAB. CM TO SEND REFERRAL TO [facility] FOR INPATIENT REHAB SOON POSSIBLE. PT CONSIDERING DETENTION FACILITY ALTERNATE REHAB PLAN IF DECLINED BY [facility]. Phil Caruso, CASE MANAGEMENT DCP- Discharge Planning Updated by [id number]: Kamini Hall on 04/02/19 12:[address] I HAVE SPOKEN TO EDSON EWING, CLINICAL LIASON WITH [facility] ABOUT THIS PATIENT POTENTIALLY BEING A NEW START. THIS WAY SHE CAN MAKE CONTACT TO PRESTART THE PROCESS. [facility] WAS YESTERDAY. DCP- Discharge Planning Updated by [id number]: Olivia Madie on 03/29/19 12:[address] Patient Name: CARO JASSO Admission Status: Elective Accout number: [id number] Admission Date: 03-24-2019 : 1955 Admission Diagnosis: Attending: ELTON HODGE Current LOS: 5 Anticipated DC Date: Planned Disposition: Primary Insurance: [facility] MEDICARE SOLUTIONS Discharge Planning Comments: CM SPOKE WITH DAUGHTER ABOUT DC PLANNING/NEEDS. SHE STATES IS WAITING TO TALK TO THE DOCTOR BUT HAS RECIEVED BAD NEWS ON MOTHER'S PROGNOSIS. I HAVE MENTIONED REHAB AND HOSPICE. DAUGHTER WANTS TO THINK ABOUT IT. CM WILL FOLLOW AND ASSIST. Skill Training Program Coordinator: Olivia Ramachandran DCP- Discharge Planning Updated by [id number]: Kamini Hall on 03/27/19 3:[address] MOSS WANTED THE PATIENT TRANSFERRED TO [facility] TO HER MISSILEMAN THIS AM. @ 0813, PLACED A CALL TO THE BUILDING DRAFTER, ADARSH, TO OBTAIN ADMIN APPROVAL TO PROCEED WITH TRANSFER. [facility] STATED THAT SHE WOULD HAVE TO CALL THE ADMIN RN CARDIAC CATH, BUT WAS CURRENTLY INDISPOSED AND UNABLE. IF I DON'T HEAR BACK FROM HERE, I WILL CALL BACK LATER. @0817, I SPOKE WITH THE PATIENT WHO IS WILLING FOR THE TRANSFER. @0821, I SPOKE WITH ALEN SAWYER APN FOR DR YATES. SHE HAS REQUESTED THAT I HAVE DR MOSS CALL AND DISCUSS THE TRANSFER WITH DR YATES. @0836, I SPOKE WITH DR MOSS AND MADE THIS REQUEST. SHE ASKED ME TO TEXT HER DR YATES'S NUMBER AND SHE WOULD CALL HER. SOON WE HUNG UP, I TEXT HER THE NUMBER. @4559, I PLACED A CALL TO ALEN TO SEE IF SHE KNEW WHEN DR YATES WOULD BE HERE AT THE HOSPITAL SHE STATED HE WAS HERE NOW. SHE SAID THAT DR MOSS DID NOT CALL AND TALK TO DR YATES ABOUT THE TRANSFER. SHE STATED THAT SHE WOULD TALK TO HIM AND LET ME KNOW, BUT SHE DID NOT FEEL THAT THE PATIENT WOULD TRANSFER. @7721, DR YATES AND VERÓNICA LOWRY ON THE FLOOR. THEY HAVE TALKED WITH THE PATIENT. THE PATIENT WILL REMAIN HERE FOR TREATMENT AND NOT TRANSFER. DCPIA - Discharge Planning Initial Assessment Updated by [id number]: Olivia Ramachandran on 03/29/19 12:11 pm * Is the patient Alert and Oriented? No * Preadmission Environment Home with Family * Other Equipment WALKER, WC, TRANSFER CHAIR, O2 NEBS * List name and contact numbers for known caregivers / representatives who currently or will assist patient after discharge: SANDY LORENZANA, * Community resources currently utilized Home Health * Please name any agencies selected above. [facility] * Has this patient been hospitalized within the prior 30 days at any hospital? Yes External Providers External Provider: OTHER-OTHER Next Contact Date: 04/11/2019 Service Request Date: Service Type: Resolution: Reviewer: Comments: Coverage Notice Reviewer: [id number] Liyah Caruso Notice Issued Date-Time: 04/04/2019 18:45 Notice Type: Patient Choice Letter Notice Delivered To: Patient Relationship to Patient: Direct Service Professional Name: Delivery Method: HAND - Hand Delivered Kristyn Days: Prior Verbal Notification: Recipient Understood Notice: Yes Recipient Signature: Yes Med Rec Note Co-signed by Attending: Coverage Notice Comment: 1- [facility] 2- [facility] Reviewer: [email or web address] Liyah Caruso Notice Issued Date-Time: 04/10/2019 9:56 Notice Type: Patient Choice Letter Notice Delivered To: Patient Relationship to Patient: Direct Service Professional Name: Delivery Method: HAND - Hand Delivered Kristyn Days: Prior Verbal Notification: Recipient Understood Notice: Yes Recipient Signature: Yes Med Rec Note Co-signed by Attending: Coverage Notice Comment: 1 - [facility], 2 - [facility] Last DP export: 04/11/19 7:44 a Patient Name: CARO JASSO Page [phone] at 1707 All edits/amendments must be made on the electronic document DICTATION DATE: 04/11/191705 OPERATOR AND TRUCK DRIVER: ELVIRA 04/11/191705 RPT#: [id number] DC DATE: STATUS: [facility] [address] [place] [address] END OF REPORT
--- NOTE | 2019-04-11 17:17 | MORECARE ---
CASE MANAGEMENT DISCHARGE SUMMARY PATIENT: CARO JASSO UNIT: [id number] ADM DATE: 03/24/19 AGE: 63 : 55 SEX: F ROOM/BED: D.1446 AUTHOR: DALE MOULTON PHYSICIAN: REFERRING PHYSICIAN: ELTON HODGE MD DATE OF SERVICE: 04/11/19 Discharge Plan Patient Name: CARO JASSO Facility: [facility]:[place] : 1955 Planned Disposition: Group Home Facility Anticipated Discharge Date: 04/11/19 Discharge Date: Expected LOS: 18 Initial Reviewer: [id number] Initial Review Date: 03/29/2019 Generated: 04/11/19 6:16 pm Comments DCP- Discharge Planning Updated by [id number]: Phil Caruso on 04/11/19 4:[address] Patient Name: CARO JASSO Encounter No: [id number] : 1955 Primary Insurance: [facility] [employer] [employer] Anticipated DC Date: 04-11-2019 Planned Disposition: Group Home Facility External Planned Provider: [facility], MEDICARE REHAB BED DCP follow-up note: CM RECEIVED CALL FROM [facility], THEY WILL NOT ACCEPT PT. ANABELLA SPOKE TO PT WHO ASKED CM TO FAX REFERRAL TO HER SECOND CHOICE, [facility]. CHOICE PREVIOUSLY SIGNED. CM SPOKE TO EDSON OF PATIENT PATHWAYS WHO INFORMED CM THAT PT WILL HAVE TO BE ABLE TO TRANSFER HERSELF FROM CHAIR TO BED OR HAVE SOMEONE THERE THAT WILL ASSIST WITH EVERY TRANSFER TO EVEN BE CONSIDERED AT THE [place] [facility]. CM SPOKE TO PT WHO DECLINED PLACEMENT ANYWHERE ELSE OTHER THAN [place]. PT INSISTED THAT SHE CAN TRANSFER HERSELF TO A CHAIR AND WILL DO IT WITH THERAPY. CM LEFT NOTE ON DRY ERASE BOARD OF NEED FOR DOCUMENATION THAT PT IS ABLE TO TRANSFER HERSELF. CM CALLED [facility], , THERE WAS NO ANSWER. CM FAXED REFERRAL TO [facility] AT [phone]. CM SPOKE TO PT AFTER HER PD CATHETER WAS INSERTED. PT STILL WILLING FOR PLACEMENT AT [facility], STILL INSISTS THAT SHE CAN TRANSFER HERSELF IF THERAPY WILL WORK WITH HER STATING THEY HAVE ONLY SEEN HER ABOUT "3 TIMES". CM ASSURED PT THAT THERAPY WILL CONTINUE TO WORK WITH HER. PT STATES SHE THINKS THAT SHE WILL JUST BE ABLE TO GO HOME WITH PERITONEAL DIALYSIS. CM EXPLAINED THAT PT WILL HAVE TO TALK TO THE DOCTOR AND THAT CM UNDERSTOOD THAT PT WILL HAVE TO HAVE HEMODIALYSIS AND THAT PD IS A PROCESS AND TAKES TRAINING AND ARRANGEMENTS. PT NOW THINKS SHE WILL CAN HAVE PD AND GO HOME. CM WAITING ADMISSION DETERMINATION FOR REHAB FROM [facility]. SANJANA Hernández DCP- Discharge Planning Updated by [id number]: Phil Caruso on 04/11/19 7:[address] Patient Name: CARO JASSO Encounter No: [id number] : 1955 Primary Insurance: [facility] [employer] [employer] Anticipated DC Date: 04-11-2019 Planned Disposition: Group Home Facility External Planned Provider: [facility] DCP follow-up note: CM FAXED REFERRAL UPDATE TO [facility] AT [phone]. CM WAITING ADMISSION DETERMINATION FROM [facility] WELL INSURANCE DETERMINATION. EDSON HARVEY [facility] IS WORKING ON OUTPATIENT DIALYSIS UNIT. SANJANA Hernández DCP- Discharge Planning Updated by [id number]: Phil Caruso on 04/10/19 3:[address] Patient Name: CARO JASSO Encounter No: [id number] : 1955 Primary Insurance: [facility] [employer] SOLUT[employer] Anticipated DC Date: 04-11-2019 Planned Disposition: Group Home Facility External Planned Provider: [facility] DCP follow-up note: CM MET WITH PT IN ROOM TO DISCUSS DISCHARGE PLANNING AND NEEDS. PT HAS REVIEWED LIST WITH FAMILY AND WOULD LIKE REFERRAL TO [facility] AT FIRST CHOICE AND [facility] SECOND CHOICE. CHOICE FORM SIGNED. CM CALLED [facility], , SPOKE TO BIGG AND PROVIDED REFERRAL INFORMATION. CM FAXED REFERRAL TO [facility] AT [phone]. CM WAITING ADMISSION DETERMINATION FROM [facility] WELL INSURANCE DETERMINATION. EDSON HARVEY [facility] IS WORKING ON OUTPATIENT DIALYSIS UNIT. 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 CM SPOKE TO PT IN ROOM, PT DENIES MENTAL ILLNESS OR PLACEMENT IN PSYCHIATRIC CARE IN THE PAST. PT THINKS IT MAY BE FOR DEMENTIAL. CM NOTIFIED BIGG. CM WAITING ADMISSION DETERMINATION FROM [facility] WE[facility] INSURANCE DETERMINATION. RAYO TOUSSAINT IS WORKING ON OUTPATIENT DIALYSIS UNIT. SANJANA Hernández DCP- Discharge Planning Updated by [id number]: Phil Caruso on 04/09/19 11:[address] Patient Name: CARO JASSO Encounter No: [id number] : 1955 Primary Insurance: [facility] [employer] SOLUTIONS Anticipated DC Date: 04-11-2019 Planned Disposition: Group Home Facility External Planned Provider: TO BE DETERMINED DCP follow-up note: CM RECEIVED INPATIENT REHAB DENIAL FROM PT'S INSURANCE. CM MET WITH PT IN ROOM, PROVIDED COPY OF DENIAL AND READ REASON FOR DENIAL WITH SUGGESTION THAT REHAB COULD BE PROVIDED IN LONGTERM FACILITY. CM PROVIDED PT WITH LISTING OF LONGTERM FACLITIES WITHIN 25 MILES OF [place] AT PT'S REQUEST FROM MEDICARE WEBSITE. CM PROVIDED CHOICE FORM. PT STATES SHE WANTS TO THINK ABOUT CHOICES AND WILL LET CM KNOW SOON POSSIBLE. COPY OF INPATIENT DENIAL PLACED IN CHART WITH PT'S SIGNATURE, DATE AND TIME OF PT'S RECEIPT. CM WENT BACK IN ROOM AFTER LUNCH, PT IS OUT OF ROOM IN DIALYSIS. CM TO FOLLOW UP WITH PT LATER REGARDING LONGTERM REHAB CHOICES. CM WAITING ON PT'S DECISION FOR LONGTERM WELL CHOICES FOR SKILLED REHAB PLACEMENT. SANJANA Hernández DCP- Discharge Planning Updated by [id number]: Phil Caruso on 04/05/19 2:[address] Patient Name: CARO JASSO Encounter No: [id number] : 1955 Primary Insurance: [facility] [employer] [employer] Anticipated DC Date: Planned Disposition: Inpatient Rehab External Planned Provider:[facility] DCP follow-up note: CM NOTIFIED PT'S DAUGHTER IN ROOM OF REFERRAL BEING FAXED TO [facility]. CM RECEIVED PATIENT CHOICE LETTER FOR 1- [facility] AND 2- [facility] [place] [facility] IF PT IS DECLINED BY [facility]. CM WAITING ADMISSION DETERMINATION FROM [facility]. SANJANA Hernández MANAGEMENT DCP- Discharge Planning Updated by [id number]: Phil Caruso on 04/05/19 12:[address] Patient Name: CARO JASSO Encounter No: [id number] : 1955 Primary Insurance: [facility] [employer] SOLUTIONS Anticipated DC Date: Planned Disposition: Inpatient Rehab External Planned Provider: [facility] DCP follow-up note: CM CALLED AND SPOKE TO VERNON PEACOCK, OF [facility], ; THEY WILL SCREEN FOR INPATIENT REHAB ADMISSION. THEY HAVE THE AVAILABILITY OF HEMODIALYSIS IN THEIR REHAB, BUT WILL NOT ACCEPT PERITONEAL DIALYSIS. CM FAXED REFERRAL TO [facility], . CM WAITING ADMISSION DETERMINATION FROM [facility]. SANJANA Hernández DCP- Discharge Planning Updated by [id number]: Phil Caruso on 04/04/19 5:[address] Patient Name: CARO JASSO Encounter No: [id number] : 1955 Primary Insurance: [facility] [employer] SOLUTIONS Anticipated DC Date: Planned Disposition: Inpatient Rehab External Planned Provider: [facility] DCP follow-up note: CM RECEIVED ORDER FOR INPATIENT REHAB PRESCREENING, MET WITH PT'S DAUGHTER, HARRIETT YOUNG, IN ROOM. HARRIETT IS PT'S EMERGENCY CONTACT LISTED ON FACE SHEET AND REPORTS TO BE PT'S CAREGIVER AT HOME. PT IN DIALYSIS. CM HAD ALSO RECEIVED HANDWRITTEN NOTE INDICTATING PT WANTS REHAB IN [place]. HARRIETT REPORTS PT WANTS REFERRAL TO [facility] FOR INPATIENT REHAB. CM DISCUSSED HAVING A ALTERNATE PLAN IF DECLINED FOR INPATIENT REHAB. THEY HAVE DISCUSSED LONGTERM; CM PROVIDED LIST OF AVAILABLE LONGTERM FACILITIES WITHIN [address] OF [place]. HARRIETT WILL DISCUSS THIS WITH PT AND THEY WILL LET CM KNOW OF ALTERNATE PLAN FOR REHAB. CM TO SEND REFERRAL TO [facility] FOR INPATIENT REHAB SOON POSSIBLE. PT CONSIDERING LONGTERM FACILITY ALTERNATE REHAB PLAN IF DECLINED BY [facility]. Phil Caruso CASE MANAGEMENT DCP- Discharge Planning Updated by [id number]: Kamini Hall on 04/02/19 12:[address] I HAVE SPOKEN TO EDSON EWING, CLINICAL LIASON WITH [facility] ABOUT THIS PATIENT POTENTIALLY BEING A NEW START. THIS WAY SHE CAN MAKE CONTACT TO PRESTART THE PROCESS. PTS FIRST DIALYSIS WAS YESTERDAY. DCP- Discharge Planning Updated by [id number]: Olivia Madie on 03/29/19 12:[address] Patient Name: CARO JASSO Admission Status: Elective Accout number: [id number] Admission Date: 03-24-2019 : 1955 Admission Diagnosis: Attending: ELTON HODGE Current LOS: 5 Anticipated DC Date: Planned Disposition: Primary Insurance: [facility] [employer] SOLUTIONS Discharge Planning Comments: CM SPOKE WITH DAUGHTER ABOUT DC PLANNING/NEEDS. SHE STATES IS WAITING TO TALK TO THE DOCTOR BUT HAS RECIEVED BAD NEWS ON MOTHER'S PROGNOSIS. I HAVE MENTIONED REHAB AND HOSPICE. DAUGHTER WANTS TO THINK ABOUT IT. CM WILL FOLLOW AND ASSIST. Search Optimization Analyst: Olivia Madie DCP- Discharge Planning Updated by [id number]: Kamini Hall on 03/27/19 3:[address] MOSS WANTED THE PATIENT TRANSFERRED TO [facility] TO HER WAGON DRIVER THIS AM. @ 0813, PLACED A CALL TO THE CHIEF MATE, ADARSH, TO OBTAIN ADMIN APPROVAL TO PROCEED WITH TRANSFER. YOSHI STATED THAT SHE WOULD HAVE TO CALL THE ADMIN HUB ASSOCIATE, BUT WAS CURRENTLY INDISPOSED AND UNABLE. IF I DON'T HEAR BACK FROM HERE, I WILL CALL BACK LATER. @0817, I SPOKE WITH THE PATIENT WHO IS WILLING FOR THE TRANSFER. @0821, I SPOKE WITH ALEN SAWYER APN FOR DR YATES. SHE HAS REQUESTED THAT I HAVE DR MOSS CALL AND DISCUSS THE TRANSFER WITH DR YATES. @0836, I SPOKE WITH DR MOSS AND MADE THIS REQUEST. SHE ASKED ME TO TEXT HER DR YATES'S NUMBER AND SHE WOULD CALL HER. SOON WE HUNG UP, I TEXT HER THE NUMBER. @9464, I PLACED A CALL TO ALEN TO SEE IF SHE KNEW WHEN DR YATES WOULD BE HERE AT THE HOSPITAL SHE STATED HE WAS HERE NOW. SHE SAID THAT DR MOSS DID NOT CALL AND TALK TO DR YATES ABOUT THE TRANSFER. SHE STATED THAT SHE WOULD TALK TO HIM AND LET ME KNOW, BUT SHE DID NOT FEEL THAT THE PATIENT WOULD TRANSFER. @8738, DR YATES AND VERÓNICA LOWRY ON THE FLOOR. THEY HAVE TALKED WITH THE PATIENT. THE PATIENT WILL REMAIN HERE FOR TREATMENT AND NOT TRANSFER. DCPIA - Discharge Planning Initial Assessment Updated by [id number]: Olivia Ramachandran on 03/29/19 12:11 pm * Is the patient Alert and Oriented? No * Preadmission Environment Home with Family * Other Equipment WALKER, WC, TRANSFER CHAIR, O2 NEBS * List name and contact numbers for known caregivers / representatives who currently or will assist patient after discharge: HARRIETT, SANDY, * Community resources currently utilized Home Health * Please name any agencies selected above. [facility] * Has this patient been hospitalized within the prior 30 days at any hospital? Yes Coverage Notice Reviewer: [id number] Caruso Notice Issued Date-Time: 04/04/2019 18:45 Notice Type: Patient Choice Letter Notice Delivered To: Patient Relationship to Patient: Clinical Rehabilitation Aide Name: Delivery Method: HAND - Hand Delivered Kristyn Days: Prior Verbal Notification: Recipient Understood Notice: Yes Recipient Signature: Yes Med Rec Note Co-signed by Attending: Coverage Notice Comment: 1- [facility] 2- [facility] Reviewer: [id number] Liyah Caruso Notice Issued Date-Time: 04/10/2019 9:56 Notice Type: Patient Choice Letter Notice Delivered To: Patient Relationship to Patient: Clinical Rehabilitation Aide Name: Delivery Method: HAND - Hand Delivered Kristyn Days: Prior Verbal Notification: Recipient Understood Notice: Yes Recipient Signature: Yes Med Rec Note Co-signed by Attending: Coverage Notice Comment: 1 - [facility], 2 - [facility] Last DP export: 04/11/19 4:07 p Patient Name: CARO JASSO Page [id number] at 1717 All edits/amendments must be made on the electronic document DICTATION DATE: 04/11/191715 GENERAL INTERNIST: ELVIRA 04/11/191715 RPT#: [id number] DC DATE: STATUS: ADM IN [facility] [address] [place] [address] END OF REPORT
--- NOTE | 2019-04-11 18:35 | NUR ---
ABDOMINAL DRESSING STILL C/D/I.
--- NOTE | 2019-04-11 19:00 | NUR ---
REPORT RECEIVED, WILL CONTINUE POC. PATIENT IS AAOX4, LYING IN SEMI FOWLERS POSITION. NO S/S OF DISTRESS OBSERVED, RR EVEN AND UNLABORED ON ROOM AIR. F/C DRAINING BY GRAVITY TO LT SIDE OF BED, DARK YELLOW URINE NOTED. PATIENT DENIES NEEDS AT THIS TIME. CL IN REACH, BED LOCKED AND LOWERED. WILL CTM.
[2019-04-12] VITALS: BP 123/56
--- NOTE | 2019-04-12 01:02 | NUR ---
PT ABD DRSG SATURATED ON LT SIDE. REPLACED DRSG, NO SIGNS OF FURTHER BLEEDING.
[2019-04-12 04:00] VITALS: BP 115/45
--- NOTE | 2019-04-12 05:30 | NUR ---
I have reviewed this patient and I concur with the Shift Assessment completed by the Licensed Practical Nurse today this shift.
--- NOTE | 2019-04-12 06:15 | NUR ---
PT C/O NAUSEA, PRN ZOFRAN ADMINISTERED.
--- NOTE | 2019-04-12 07:11 | NUR ---
REPORT RECIEVED. PT RESTING QUIETLY. RISE AND FALL OF CHEST NOTED. NO DISTRESS NOTED. PT CURRENTLY ON 2L NC. SHE HAS A R CHEST HEMOSPLIT AND A NEW PD CATH THAT WAS PLACED YESTERDAY. SHE HAS A BULL DRAINING URINE. BED LOCKED AND IN LOWEST POSITION, CALL LIGHT WITHIN REACH. WILL CTM
[2019-04-12 08:29] VITALS: BP 136/58
--- NOTE | 2019-04-12 09:09 | MORECARE ---
CASE MANAGEMENT DISCHARGE SUMMARY PATIENT: CARO JASSO UNIT: [id number] ADM DATE: 03/24/19 AGE: 63 : 55 SEX: F ROOM/BED: D.2106 AUTHOR: KENNEY,DOC PHYSICIAN: REFERRING PHYSICIAN: ELTON HODGE MD DATE OF SERVICE: 04/12/19 Discharge Plan Patient Name: CARO JASSO Facility: [facility]:[place] : 1955 Planned Disposition: Half-Way Facility Anticipated Discharge Date: 04/11/19 Discharge Date: Expected LOS: 18 Initial Reviewer: [id number] Initial Review Date: 03/29/2019 Generated: 04/12/19 10:09 am Comments DCP- Discharge Planning Updated by [id number]: Phil Caruso on 04/12/19 8:[address] Patient Name: CARO JASSO Encounter No: [id number] : 1955 Primary Insurance: [facility] MEDIC[facility] SOLUTIONS Anticipated DC Date: 04-11-2019 Planned Disposition: Half-Way Facility External Planned Provider: [facility], MEDICARE REHAB BED DCP follow-up note: CM RECEIVED CALL FROM ANTWAN OF [facility], , THEY RECEIVED REFERRAL, WILL SCREEN FOR ADMISSION. IF PT NEEDS MINIMAL ASSISTANCE TO TRANSFER TO [facility], CUSTODIAL STAFF WILL BE ABLE TO PROVIDE THIS ASSISTANCE. PT WILL HAVE TO BE ACCEPTED AT [facility] FOR THEM TO ACCEPT PT THEY WILL NOT TRANSPORT ANYWHERE OUTSIDE [place] FOR DIALYSIS. [facility] WILL CALL WITH ADMISSION DETERMINATION AFTER SCREENING IS COMPLETED. CM WAITING ADMISSION DETERMINATION FOR REHAB FROM [facility]. Phil Caruso, CASE MANAGEMENT DCP- Discharge Planning Updated by [id number]: Phil Caruso on 04/11/19 4:[address] Patient Name: CARO JASSO Encounter No: [id number] : 1955 Primary Insurance: [facility] MED[facility] SOLUTIONS Anticipated DC Date: 04-11-2019 Planned Disposition: Half-Way Facility External Planned Provider: [facility], MEDICARE REHAB BED DCP follow-up note: CM RECEIVED CALL FROM [facility], THEY WILL NOT ACCEPT PT. CM SPOKE TO PT WHO ASKED CM TO FAX REFERRAL TO HER SECOND CHOICE, [facility]. CHOICE PREVIOUSLY SIGNED. CM SPOKE TO EDSON HARVEY PATIENT PATHWAYS WHO INFORMED CM THAT PT WILL HAVE TO BE ABLE TO TRANSFER HERSELF FROM CHAIR TO BED OR HAVE SOMEONE THERE THAT WILL ASSIST WITH EVERY TRANSFER TO EVEN BE CONSIDERED AT THE [place] [facility]IS [facility]. CM SPOKE TO PT WHO DECLINED PLACEMENT ANYWHERE ELSE OTHER THAN [place]. PT INSISTED THAT SHE CAN TRANSFER HERSELF TO A CHAIR AND WILL DO IT WITH THERAPY. CM LEFT NOTE ON DRY ERASE BOARD OF NEED FOR DOCUMENATION THAT PT IS ABLE TO TRANSFER HERSELF. CM CALLED [facility], , THERE WAS NO ANSWER. CM FAXED REFERRAL TO [facility] AT [phone]. CM SPOKE TO PT AFTER HER PD CATHETER WAS INSERTED. PT STILL WILLING FOR PLACEMENT AT [facility], STILL INSISTS THAT SHE CAN TRANSFER HERSELF IF THERAPY WILL WORK WITH HER STATING THEY HAVE ONLY SEEN HER ABOUT "3 TIMES". CM ASSURED PT THAT THERAPY WILL CONTINUE TO WORK WITH HER. PT STATES SHE THINKS THAT SHE WILL JUST BE ABLE TO GO HOME WITH PERITONEAL DIALYSIS. CM EXPLAINED THAT PT WILL HAVE TO TALK TO THE DOCTOR AND THAT CM UNDERSTOOD THAT PT WILL HAVE TO HAVE HEMODIALYSIS AND THAT PD IS A PROCESS AND TAKES TRAINING AND ARRANGEMENTS. PT NOW THINKS SHE WILL CAN HAVE PD AND GO HOME. ANABELLA WAITING ADMISSION DETERMINATION FOR REHAB FROM [facility]. SANJANA Hernández DCP- Discharge Planning Updated by [id number]: Phil Caruso on 04/11/19 7:[address] Patient Name: CARO JASSO Encounter No: [id number] : 1955 Primary Insurance: [facility] MED[facility] SOLUTIONS Anticipated DC Date: 04-11-2019 Planned Disposition: Half-Way Facility External Planned Provider: [facility], MEDICARE REHAB BED DCP follow-up note: CM FAXED REFERRAL UPDATE TO [facility] AT [phone]. CM WAITING ADMISSION DETERMINATION FROM [facility] WELL INSURANCE DETERMINATION. EDSON HARVEY PATIENT [facility] IS WORKING ON OUTPATIENT DIALYSIS UNIT. SANJANA Hernández DCP- Discharge Planning Updated by [id number]: Phil Caruso on 04/10/19 3:[address] Patient Name: CARO JASSO Encounter No: [id number] : 1955 Primary Insurance: [facility] MED[facility] SOLUTIONS Anticipated DC Date: 04-11-2019 Planned Disposition: Half-Way Facility External Planned Provider: [facility], MEDICARE REHAB BED DCP follow-up note: CM MET WITH PT IN ROOM TO DISCUSS DISCHARGE PLANNING AND NEEDS. PT HAS REVIEWED LIST WITH FAMILY AND WOULD LIKE REFERRAL TO [facility] AT FIRST CHOICE AND [facility] SECOND CHO[facility]. CHOICE FORM SIGNED. CM CALLED [facility], , SPOKE TO BIGG AND PROVIDED REFERRAL INFORMATION. CM FAXED REFERRAL TO [facility] AT [phone]. CM WAITING ADMISSION DETERMINATION FROM [facility] WELL INSURANCE DETERMINATION. EDSON HARVEY PATIENT [facility] IS WORKING ON OUTPATIENT DIALYSIS UNIT. Phil Caruso, CASE MANAGEMENT Appended by Phil Caruso on 04/10/2019 16:10 CONING MACHINE OPERATOR: CM RECEIVED CALL FROM [facility], , SPOKE TO BIGG WHO ASKED WHY PT IS ON ABILIFY. CM SPOKE TO PT IN ROOM, PT DENIES MENTAL ILLNESS OR PLACEMENT IN PSYCHIATRIC CARE IN THE PAST. PT THINKS IT MAY BE FOR DEMENTIAL. CM NOTIFIED BIGG. CM WAITING ADMISSION DETERMINATION FROM [facility] INSURANCE DETERMINATION. EDSON HARVEY PATIENT [facility] IS WORKING ON OUTPATIENT DIALYSIS UNIT. Phil Caruso, CASE MANAGEMENT DCP- Discharge Planning Updated by [id number]: Phil Caruso on 04/09/19 11:[address] Patient Name: CARO JASSO Encounter No: [id number] : 1955 Primary Insurance: [facility] MED[facility] SOLUTIONS Anticipated DC Date: 04-11-2019 Planned Disposition: Half-Way Facility External Planned Provider: TO BE DETERMINED DCP follow-up note: CM RECEIVED INPATIENT REHAB DENIAL FROM PT'S INSURANCE. CM MET WITH PT IN ROOM, PROVIDED COPY OF DENIAL AND READ REASON FOR DENIAL WITH SUGGESTION THAT REHAB COULD BE PROVIDED IN [facility] FACILITY. CM PROVIDED PT WITH LISTING OF [facility] FACLITIES WITHIN [address] OF [place] AT PT'S REQUEST FROM MEDICARE WEBSITE. CM PROVIDED CHOICE FORM. PT STATES SHE WANTS TO THINK ABOUT CHOICES AND WILL LET CM KNOW SOON POSSIBLE. COPY OF INPATIENT DENIAL PLACED IN CHART WITH PT'S SIGNATURE, DATE AND TIME OF PT'S RECEIPT. CM WENT BACK IN ROOM AFTER LUNCH, PT IS OUT OF ROOM IN DIALYSIS. CM TO FOLLOW UP WITH PT LATER REGARDING [facility] REHAB CHOICES. CM WAITING ON PT'S DECISION FOR [facility] WELL CHOICES FOR SKILLED REHAB PLACEMENT. SANJANA Hernández DCP- Discharge Planning Updated by [id number]: Phil Caruso on 04/05/19 2:[address] Patient Name: CARO JASSO Encounter No: [id number] : 1955 Primary Insurance: [facility] MED[facility] SOLUTIONS Anticipated DC Date: Planned Disposition: Inpatient Rehab External Planned Provider:[facility] DCP follow-up note: CM NOTIFIED PT'S DAUGHTER IN ROOM OF REFERRAL BEING FAXED TO [facility]. CM RECEIVED PATIENT CHOICE LETTER FOR 1- [facility] AND 2- [place] [facility] IF PT IS DECLINED BY [facility]. CM WAITING ADMISSION DETERMINATION FROM [facility] IN[facility] RE[facility]. SANJANA Hernández DCP- Discharge Planning Updated by [id number]: Phil Caruso on 04/05/19 12:[address] Patient Name: CARO JASSO Encounter No: [id number] : 1955 Primary Insurance: [facility] MEDIC[facility] SOLUTIONS Anticipated DC Date: Planned Disposition: Inpatient Rehab External Planned Provider: [facility] DCP follow-up note: CM CALLED AND SPOKE TO VERNON PEACOCK, OF [facility], ; THEY WILL SCREEN FOR INPATIENT REHAB ADMISSION. THEY HAVE THE AVAILABILITY OF HEMODIALYSIS IN THEIR REHAB, BUT WILL NOT ACCEPT PERITONEAL DIALYSIS. CM [facility], . CM WAITING ADMISSION DETERMINATION FROM [facility]. SANJANA Hernández DCP- Discharge Planning Updated by [id number]: Phil Caruso on 04/04/19 5:[address] Patient Name: CARO JASSO Encounter No: [id number] : 1955 Primary Insurance: [facility] MED[facility] SOLUTIONS Anticipated DC Date: Planned Disposition: Inpatient Rehab External [facility] DCP follow-up note: CM RECEIVED ORDER FOR INPATIENT REHAB PRESCREENING, MET WITH PT'S DAUGHTER, HARRIETT YOUNG, IN ROOM. HARRIETT IS PT'S EMERGENCY CONTACT LISTED ON FACE SHEET AND REPORTS TO BE PT'S CAREGIVER AT HOME. PT IN DIALYSIS. CM HAD ALSO RECEIVED HANDWRITTEN NOTE INDICTATING PT WANTS REHAB IN [place]. HARRIETT REPORTS PT WANTS REFERRAL TO [facility] FOR INPATIENT REHAB. CM DISCUSSED HAVING A ALTERNATE PLAN IF DECLINED FOR INPATIENT REHAB. THEY HAVE DISCUSSED [facility]PC; CM PROVIDED LIST OF AVAILABLE [facility]PC FACILITIES WITHIN [address] OF [place]. HARRIETT WILL DISCUSS THIS WITH PT AND THEY WILL LET CM KNOW OF ALTERNATE PLAN FOR REHAB. CM TO SEND REFERRAL TO [facility] FOR INPATIENT REHAB SOON POSSIBLE. PT CONSIDERING [facility] FACILITY ALTERNATE REHAB PLAN IF DECLINED BY [facility]. Phil Caruso, CASE MANAGEMENT DCP- Discharge Planning Updated by [id number]: Kamini Hall on 04/02/19 12:[address] I HAVE SPOKEN TO EDSON EWING, CLINICAL LIASON WITH [facility], [facility] ABOUT THIS PATIENT POTENTIALLY BEING A NEW START. THIS WAY SHE CAN MAKE CONTACT TO PRESTART THE PROCESS. PTS FIRST DIALYSIS WAS YESTERDAY. DCP- Discharge Planning Updated by [id number]: Olivia Ramachandran on 03/29/19 12:[address] Patient Name: CARO JASSO Admission Status: Elective Accout number: [id number] Admission Date: 03-24-2019 : 1955 Admission Diagnosis: Attending: ELTON HODGE Current LOS: 5 Anticipated DC Date: Planned Disposition: Primary Insurance: [facility] MEDIC[facility] SOLUTIONS Discharge Planning Comments: CM SPOKE WITH DAUGHTER ABOUT DC PLANNING/NEEDS. SHE STATES IS WAITING TO TALK TO THE DOCTOR BUT HAS RECIEVED BAD NEWS ON MOTHER'S PROGNOSIS. I HAVE MENTIONED REHAB AND HOSPICE. DAUGHTER WANTS TO THINK ABOUT IT. CM WILL FOLLOW AND ASSIST. Incendiaries Supervisor: Olivia Ramachandran DCP- Discharge Planning Updated by [id number]: Kamini Hall on 03/27/19 3:[address] MOSS WANTED THE PATIENT TRANSFERRED TO [facility] TO HER CUTTING ROOM SUPERVISOR THIS AM. @ 0813, PLACED A CALL TO THE SUPERVISOR [employer], ADARSH, TO OBTAIN ADMIN APPROVAL TO PROCEED WITH TRANSFER. [facility] STATED THAT SHE WOULD HAVE TO CALL THE ADMIN SOFA COVER INSPECTOR, BUT WAS CURRENTLY INDISPOSED AND UNABLE. IF I DON'T HEAR BACK FROM HERE, I WILL CALL BACK LATER. @0817, I SPOKE WITH THE PATIENT WHO IS WILLING FOR THE TRANSFER. @0821, I SPOKE WITH ALEN SAWYER APN FOR DR YATES. SHE HAS REQUESTED THAT I HAVE DR MOSS CALL AND DISCUSS THE TRANSFER WITH DR YATES. @0836, I SPOKE WITH DR MOSS AND MADE THIS REQUEST. SHE ASKED ME TO TEXT HER DR YATES'S NUMBER AND SHE WOULD CALL HER. SOON WE HUNG UP, I TEXT HER THE NUMBER. @1334, I PLACED A CALL TO ALEN TO SEE IF SHE KNEW WHEN DR YATES WOULD BE HERE AT THE HOSPITAL SHE STATED HE WAS HERE NOW. SHE SAID THAT DR MOSS DID NOT CALL AND TALK TO DR YATES ABOUT THE TRANSFER. SHE STATED THAT SHE WOULD TALK TO HIM AND LET ME KNOW, BUT SHE DID NOT FEEL THAT THE PATIENT WOULD TRANSFER. @1426, DR YATES AND VERÓNICA LOWRY ON THE FLOOR. THEY HAVE TALKED WITH THE PATIENT. THE PATIENT WILL REMAIN HERE FOR TREATMENT AND NOT TRANSFER. DCPIA - Discharge Planning Initial Assessment Updated by [id number]: Oliviavalerie Ramachandran on 03/29/19 12:11 pm * Is the patient Alert and Oriented? No * Preadmission Environment Home with Family * Other Equipment WALKER, WC, TRANSFER CHAIR, O2 NEBS * List name and contact numbers for known caregivers / representatives who currently or will assist patient after discharge: HARRIETT, SANDY, * Community resources currently utilized Home Health * Please name any agencies selected above. [facility] * Has this patient been hospitalized within the prior 30 days at any hospital? Yes Coverage Notice Reviewer: [id number] Caruso Notice Issued Date-Time: 04/04/2019 18:45 Notice Type: Patient Choice Letter Notice Delivered To: Patient Relationship to Patient: Cake Icer And Packer Name: Delivery Method: HAND - Hand Delivered Kristyn Days: Prior Verbal Notification: Recipient Understood Notice: Yes Recipient Signature: Yes Med Rec Note Co-signed by Attending: Coverage Notice Comment: 1- [facility] 2- [facility] Reviewer: [id number] Caruso Notice Issued Date-Time: 04/10/2019 9:56 Notice Type: Patient Choice Letter Notice Delivered To: Patient Relationship to Patient: Cake Icer And Packer Name: Delivery Method: HAND - Hand Delivered Kristyn Days: Prior Verbal Notification: Recipient Understood Notice: Yes Recipient Signature: Yes Med Rec Note Co-signed by Attending: Coverage Notice Comment: 1 - [facility], 2 - [facility] Last DP export: 04/11/19 4:17 p Patient Name: CARO JASSO Page [id number] at 0909 All edits/amendments must be made on the electronic document DICTATION DATE: 04/12/19908 LEAK PATCHER: ELVIRA 04/12/19908 RPT#: [id number] DC DATE: STATUS: ADM IN [facility] [address] [place] [address] END OF REPORT
--- NOTE | 2019-04-12 09:17 | NUR ---
OT NOTE: PT PERFORMED VERY WELL TODAY. BED MOB WITH SBA; GOOD SITING BALANCE ON EOB; SIT TO STAND WITH WALKER AND CGA; TRANSFERRED TO CHAIR WITH CGA AND WALKER. ABLE TO AMB A FEW STEPS FROM CHAIR TO TOILET WITH MIN ASSIST; MIN ASSIST WITH TOILET HYGIENE. MUCH IMPROVED FROM YESTERDAY [facility] OTR/L
--- NOTE | 2019-04-12 15:01 | NUR ---
OT NOTE: PT COMPLETED BED MOB WITH CGA/MIN A. PT COMPLETED UE AROM AXS. PT COMPLETED UB HYGIENE TASKS WITH SET UP. THANK YOU, TREVON MULTANI
--- NOTE | 2019-04-12 15:10 | NUR ---
I HAVE REVIEWED THIS PATIENT AND I CONCUR WITH THE SHIFT ASSESSMENT COMPLETED BY THE WASTE WATER WORKER TODAY THIS SHIFT
--- NOTE | 2019-04-12 16:31 | MORECARE ---
CASE MANAGEMENT DISCHARGE SUMMARY PATIENT: CARO JASSO UNIT: [id number] ADM DATE: 03/24/19 AGE: 63 : 55 SEX: F ROOM/BED: D.2102 AUTHOR: KENNEY,DOC PHYSICIAN: REFERRING PHYSICIAN: ELTON HODGE MD DATE OF SERVICE: 04/12/19 Discharge Plan Patient Name: CARO JASSO Facility: [facility]:[place] : 1955 Planned Disposition: Senior Care Facility Anticipated Discharge Date: 04/11/19 Discharge Date: Expected LOS: 18 Initial Reviewer: [id number] Initial Review Date: 03/29/2019 Generated: 04/12/19 5:31 pm Comments DCP- Discharge Planning Updated by [email or web address]: Phil Caruso on 04/12/19 3:[address] Patient Name: CARO JASSO Encounter No: [id number] : 1955 Primary Insurance: [facility] MEDICARE SOLUTIONS Anticipated DC Date: 04-11-2019 Planned Disposition: Senior Care Facility External Planned Provider: [facility] DCP follow-up note: CM RECEIVED CALLF [facility], THEY CANNOT MEET PT'S NEEDS. CM NOTIFIED PT OF DENIAL. PT STATES SHE HAS CALLED HER INSURANCE COMPANY AND SHE WAS TOLD THAT INPATIENT REHAB DID NOT INCLUDE ALL HER MEDICAL PROBLEMS FOR THE INSURANCE TO REVIEW FOR INPATIENT REHAB. PT WANTS CM TO RESUBMIT TO [facility] FOR INPATIENT REHAB. CM CALLED [facility] INPATIENT REHAB, , LEFT MESSAGE FOR MADONNA OF ADMISSIONS ASKING FOR CONSIDERATION AND RESUBMISSION FOR INSURANCE AUTHORIZATION. CM FAXED REFERRAL TO [facility] INPATIENT REHAB AT [phone]. CM NOTIFIED PT AND ASKED WHAT HER SECOND CHOICE WILL BE SINCE DECLINED BY [facility] AND [facility]. CM RECEIVED PATIENT CHOICE LETTER FOR 1- ANY [facility] AND 2- ANY [facility] IF PT IS DECLINED BY [facility] INPATIENT REH[facility]. PT STATES THAT [facility] ALSO HAS INPATIENT REHAB. CM WAITING ADMISSION DETERMINATION FROM [facility] INPATIENT REHAB. Phil Niederwald, CASE MANAGEMENT DCP- Discharge Planning Updated by [id number]: Phil Caruso on 04/12/19 8:[address] Patient Name: CARO JASSO Encounter No: [id number] : 1955 Primary Insurance: [facility] MEDICARE SOLUTIONS Anticipated DC Date: 04-11-2019 Planned Disposition: Senior Care Facility External Planned Provider: [facility], MEDICARE REHAB BED DCP follow-up note: CM RECEIVED CALL FROM ANTWAN OF [facility], , THEY RECEIVED REFERRAL, WILL SCREEN FOR ADMISSION. IF PT NEEDS MINIMAL ASSISTANCE TO TRANSFER TO [facility], CARE HOME STAFF WILL BE ABLE TO PROVIDE THIS ASSISTANCE. PT WILL HAVE TO BE ACCEPTED AT [facility] FOR THEM TO ACCEPT PT THEY WILL NOT TRANSPORT ANYWHERE OUTSIDE [place] FOR DIALYSIS. ANTWAN WILL CALL WITH ADMISSION DETERMINATION AFTER SCREENING IS COMPLETED. CM WAITING ADMISSION DETERMINATION FOR REHAB FROM [facility]. Phil Caruso, CASE MANAGEMENT DCP- Discharge Planning Updated by [id number]: Phil Caruso on 04/11/19 4:[address] Patient Name: CARO JASSO Encounter No: [id number] : 1955 Primary Insurance: [facility] MEDICARE SOLUTIONS Anticipated DC Date: 04-11-2019 Planned Disposition: Senior Care Facility External Planned Provider: [facility], MEDICARE REHAB BED DCP follow-up note: CM RECEIVED CALL FROM [facility], THEY WILL NOT ACCEPT PT. ANABELLA SPOKE TO PT WHO ASKED CM TO FAX REFERRAL TO HER SECOND CHOICE, [facility]. CHOICE PREVIOUSLY SIGNED. CM SPOKE TO EDSON OF [facility] WHO INFORMED CM THAT PT WILL HAVE TO BE ABLE TO TRANSFER HERSELF FROM CHAIR TO BED OR HAVE SOMEONE THERE THAT WILL ASSIST WITH EVERY TRANSFER TO EVEN BE CONSIDERED AT THE [place] [facility]. CM SPOKE TO PT WHO DECLINED PLACEMENT ANYWHERE ELSE OTHER THAN [place]. PT INSISTED THAT SHE CAN TRANSFER HERSELF TO A CHAIR AND WILL DO IT WITH THERAPY. CM LEFT NOTE ON DRY ERASE BOARD OF NEED FOR DOCUMENATION THAT PT IS ABLE TO TRANSFER HERSELF. CM CALLED [facility], , THERE WAS NO ANSWER. CM FAXED REFERRAL TO [facility] AT [phone]. CM SPOKE TO PT AFTER HER PD CATHETER WAS INSERTED. PT STILL WILLING FOR PLACEMENT AT [facility], STILL INSISTS THAT SHE CAN TRANSFER HERSELF IF THERAPY WILL WORK WITH HER STATING THEY HAVE ONLY SEEN HER ABOUT "3 TIMES". CM ASSURED PT THAT THERAPY WILL CONTINUE TO WORK WITH HER. PT STATES SHE THINKS THAT SHE WILL JUST BE ABLE TO GO HOME WITH PERITONEAL DIALYSIS. CM EXPLAINED THAT PT WILL HAVE TO TALK TO THE DOCTOR AND THAT CM UNDERSTOOD THAT PT WILL HAVE TO HAVE HEMODIALYSIS AND THAT PD IS A PROCESS AND TAKES TRAINING AND ARRANGEMENTS. PT NOW THINKS SHE WILL CAN HAVE PD AND GO HOME. CM WAITING ADMISSION DETERMINATION FOR REHAB FROM [facility]. SANJANA Hernández DCP- Discharge Planning Updated by [id number]: Phil Caruso on 04/11/19 7:[address] Patient Name: CARO JASSO Encounter No: [id number] : 1955 Primary Insurance: [facility] MEDIC[facility] SOLUTIONS Anticipated DC Date: 04-11-2019 Planned Disposition: Senior Care Facility External Planned Provider: [facility], MEDICARE REHAB BED DCP follow-up note: CM FAXED REFERRAL UPDATE TO [facility] AT [phone]. CM WAITING ADMISSION DETERMINATION FROM [facility] WELL INSURANCE DETERMINATION. RAYO TOUSSAINT IS WORKING ON OUTPATIENT DIALYSIS UNIT. SANJANA Hernández DCP- Discharge Planning Updated by [id number]: Phil Caruso on 04/10/19 3:[address] Patient Name: CARO JASSO Encounter No: [id number] : 1955 Primary Insurance: [facility] MED[facility] SOLUTIONS Anticipated DC Date: 04-11-2019 Planned Disposition: Senior Care Facility External Planned Provider: [facility], MEDICARE REHAB BED DCP follow-up note: CM MET WITH PT IN ROOM TO DISCUSS DISCHARGE PLANNING AND NEEDS. PT HAS REVIEWED LIST WITH FAMILY AND WOULD LIKE REFERRAL TO [facility] AT FIRST CHOICE AND [facility] SECOND CHOICE. CHOICE FORM SIGNED. CM CALLED [facility], , SPOKE TO BIGG AND PROVIDED REFERRAL INFORMATION. CM FAXED REFERRAL TO [facility] AT [phone]. CM WAITING ADMISSION DETERMINATION FROM [facility] WELL INSURANCE DETERMINATION. EDSON HARVEY [facility] IS WORKING ON OUTPATIENT DIALYSIS UNIT. Phil Caruso CASE MANAGEMENT Appended by Phil Caruso on 04/10/2019 16:10 AMMONIUM NITRATE CRYSTALLIZER: CM RECEIVED CALL FROM [facility], , SPOKE TO BIGG WHO ASKED WHY PT IS ON ABILIFY. CM SPOKE TO PT IN ROOM, PT DENIES MENTAL ILLNESS OR PLACEMENT IN PSYCHIATRIC CARE IN THE PAST. PT THINKS IT MAY BE FOR DEMENTIAL. CM NOTIFIED BIGG. CM WAITING ADMISSION DETERMINATION FROM [facility] INSURANCE DETERMINATION. EDSON OF [facility] IS WORKING ON OUTPATIENT DIALYSIS UNIT. Phil Caruso CASE ED DCP- Discharge Planning Updated by [id number]: Phil Caruso on 04/09/19 11:[address] Patient Name: CARO JASSO Encounter No: [id number] : 1955 Primary Insurance: [employer] MEDICARE SOLUTIONS Anticipated DC Date: 04-11-2019 Planned Disposition: Senior Care Facility External Planned Provider: TO BE DETERMINED DCP follow-up note: CM RECEIVED INPATIENT REHAB DENIAL FROM PT'S INSURANCE. CM MET WITH PT IN ROOM, PROVIDED COPY OF DENIAL AND READ REASON FOR DENIAL WITH SUGGESTION THAT REHAB COULD BE PROVIDED IN RETIREMENT FACILITY. CM PROVIDED PT WITH LISTING OF RETIREMENT FACLITIES WITHIN [place] MIL[place] OF [place] AT PT'S REQUEST FROM MEDICARE WEBSITE. CM PROVIDED CHOICE FORM. PT STATES SHE WANTS TO THINK ABOUT CHOICES AND WILL LET CM KNOW SOON POSSIBLE. COPY OF INPATIENT DENIAL PLACED IN CHART WITH PT'S SIGNATURE, DATE AND TIME OF PT'S RECEIPT. CM WENT BACK IN ROOM AFTER LUNCH, PT IS OUT OF ROOM IN DIALYSIS. CM TO FOLLOW UP WITH PT LATER REGARDING RETIREMENT REHAB CHOICES. CM WAITING ON PT'S DECISION FOR RETIREMENT WELL CHOICES FOR SKILLED REHAB PLACEMENT. SANJANA Hernández DCP- Discharge Planning Updated by [id number]: Phil Caruso on 04/05/19 2:[address] Patient Name: CARO JASSO Encounter No: [id number] : 1955 Primary Insurance: [employer] MEDICARE SOLUTIONS Anticipated DC Date: Planned Disposition: Inpatient Rehab External Planned Provider:[facility] DCP follow-up note: CM NOTIFIED PT'S DAUGHTER IN ROOM OF REFERRAL BEING FAXED TO [facility] INPATIENT [facility]. CM RECEIVED PATIENT CHOICE LETTER FOR 1- [facility] AND 2- [facility] IF PT IS DECLINED BY [facility] INPATIENT REHAB. CM WAITING ADMISSION DETERMINATION FROM [facility] INPATIENT [facility]. SANJANA Hernández DCP- Discharge Planning Updated by [id number]: Phil Caruso on 04/05/19 12:[address] Patient Name: CARO JASSO Encounter No: [id number] : 1955 Primary Insurance: [facility] MED[facility] SOLUTIONS Anticipated DC Date: Planned Disposition: Inpatient Rehab External Planned Provider: [facility] DCP follow-up note: CM CALLED AND SPOKE TO VERNON PEACOCK, OF [facility], ; THEY WILL SCREEN FOR INPATIENT REHAB ADMISSION. THEY HAVE THE AVAILABILITY OF HEMODIALYSIS IN THEIR REHAB, BUT WILL NOT ACCEPT PERITONEAL DIALYSIS. CM FAXED REFERRAL TO [facility], . CM WAITING ADMISSION DETERMINATION FROM [facility] INPAT[facility]. SANJANA Hernández DCP- Discharge Planning Updated by [id number]: Phil Caruso on 04/04/19 5:[address] Patient Name: CARO JASSO Encounter No: [id number] : 1955 Primary Insurance: [facility] MED[facility] SOLUTIONS Anticipated DC Date: Planned Disposition: Inpatient Rehab External Planned Provider: [facility] DCP follow-up note: CM RECEIVED ORDER FOR INPATIENT REHAB PRESCREENING, MET WITH PT'S DAUGHTER, HARRIETT YOUNG, IN ROOM. HARRIETT IS PT'S EMERGENCY CONTACT LISTED ON FACE SHEET AND REPORTS TO BE PT'S CAREGIVER AT HOME. PT IN DIALYSIS. CM HAD ALSO RECEIVED HANDWRITTEN NOTE INDICTATING PT WANTS REHAB IN [place]. HARRIETT REPORTS PT WANTS REFERRAL TO [facility] FOR INPATIENT REHAB. CM DISCUSSED HAVING A ALTERNATE PLAN IF DECLINED FOR INPATIENT REHAB. THEY HAVE DISCUSSED RETIREMENT; CM PROVIDED LIST OF AVAILABLE RETIREMENT FACILITIES WITHIN [address] OF [place]. HARRIETT WILL DISCUSS THIS WITH PT AND THEY WILL LET CM KNOW OF ALTERNATE PLAN FOR REHAB. CM TO SEND REFERRAL TO [facility] FOR INPATIENT REHAB SOON POSSIBLE. PT CONSIDERING RETIREMENT FACILITY ALTERNATE REHAB PLAN IF DECLINED BY [facility]. Phil Caruso, CASE MANAGEMENT DCP- Discharge Planning Updated by [id number]: Kamini Rafael on 04/02/19 12:[address] I HAVE SPOKEN TO EDSNO EWING, CLINICAL LIASON WITH MICHELLE ABOUT THIS PATIENT POTENTIALLY BEING A NEW START. THIS WAY SHE CAN MAKE CONTACT TO PRESTART THE PROCESS. PTS FIRST DIALYSIS WAS YESTERDAY. DCP- Discharge Planning Updated by [id number]: Olivia Madie on 03/29/19 12:[address] Patient Name: CARO JASSO Admission Status: Elective Accout number: [id number] Admission Date: 03-24-2019 : 1955 Admission Diagnosis: Attending: ELTON HODGE Current LOS: 5 Anticipated DC Date: Planned Disposition: Primary Insurance: [facility] MEDICARE SOLUTIONS Discharge Planning Comments: CM SPOKE WITH DAUGHTER ABOUT DC PLANNING/NEEDS. SHE STATES IS WAITING TO TALK TO THE DOCTOR BUT HAS RECIEVED BAD NEWS ON MOTHER'S PROGNOSIS. I HAVE MENTIONED REHAB AND HOSPICE. DAUGHTER WANTS TO THINK ABOUT IT. CM WILL FOLLOW AND ASSIST. Combination Welder: Olivia Ramachandran DCP- Discharge Planning Updated by [id number]: Kamini Rafael on 03/27/19 3:[address] MOSS WANTED THE PATIENT TRANSFERRED TO [facility] TO HER [employer] TEACHER THIS AM. @ 0813, PLACED A CALL TO THE [employer] ASSEMBLER, ADARSH, TO OBTAIN ADMIN APPROVAL TO PROCEED WITH TRANSFER. SE STATED THAT SHE WOULD HAVE TO CALL THE ADMIN MILK DRIVER, BUT WAS CURRENTLY INDISPOSED AND UNABLE. IF I DON'T HEAR BACK FROM HERE, I WILL CALL BACK LATER. @0817, I SPOKE WITH THE PATIENT WHO IS WILLING FOR THE TRANSFER. @0821, I SPOKE WITH ALEN SAWYER APN FOR DR YATES. SHE HAS REQUESTED THAT I HAVE DR MOSS CALL AND DISCUSS THE TRANSFER WITH DR YATES. @0836, I SPOKE WITH DR MOSS AND MADE THIS REQUEST. SHE ASKED ME TO TEXT HER DR YATES'S NUMBER AND SHE WOULD CALL HER. SOON WE HUNG UP, I TEXT HER THE NUMBER. @0717, I PLACED A CALL TO ALEN TO SEE IF SHE KNEW WHEN DR YATES WOULD BE HERE AT THE HOSPITAL SHE STATED HE WAS HERE NOW. SHE SAID THAT DR MOSS DID NOT CALL AND TALK TO DR YATES ABOUT THE TRANSFER. SHE STATED THAT SHE WOULD TALK TO HIM AND LET ME KNOW, BUT SHE DID NOT FEEL THAT THE PATIENT WOULD TRANSFER. @3296, DR YATES AND VERÓNICA LOWRY ON THE FLOOR. THEY HAVE TALKED WITH THE PATIENT. THE PATIENT WILL REMAIN HERE FOR TREATMENT AND NOT TRANSFER. DCPIA - Discharge Planning Initial Assessment Updated by [id number]: Olivia Ramachandran on 03/29/19 12:11 pm * Is the patient Alert and Oriented? No * Preadmission Environment Home with Family * Other Equipment WALKER, WC, TRANSFER CHAIR, O2 NEBS * List name and contact numbers for known caregivers / representatives who currently or will assist patient after discharge: HARRIETT, DAUGHTER, * Community resources currently utilized Home Health * Please name any agencies selected above. [facility] * Has this patient been hospitalized within the prior 30 days at any hospital? Yes Coverage Notice Reviewer: [id number] Caruso Notice Issued Date-Time: 04/04/2019 18:45 Notice Type: Patient Choice Letter Notice Delivered To: Patient Relationship to Patient: Income Tax Consultant Name: Delivery Method: HAND - Hand Delivered Kristyn Days: Prior Verbal Notification: Recipient Understood Notice: Yes Recipient Signature: Yes Med Rec Note Co-signed by Attending: Coverage Notice Comment: 1- [facility] 2- [facility] Reviewer: ELYSSA Caruso Notice Issued Date-Time: 04/10/2019 9:56 Notice Type: Patient Choice Letter Notice Delivered To: Patient Relationship to Patient: Income Tax Consultant Name: Delivery Method: HAND - Hand Delivered Kristyn Days: Prior Verbal Notification: Recipient Understood Notice: Yes Recipient Signature: Yes Med Rec Note Co-signed by Attending: Coverage Notice Comment: 1 - [facility], 2 - [facility] Reviewer: [id number] Caruso Notice Issued Date-Time: 04/12/2019 16:10 Notice Type: Patient Choice Letter Notice Delivered To: Patient Relationship to Patient: Income Tax Consultant Name: Delivery Method: HAND - Hand Delivered Kristyn Days: Prior Verbal Notification: Recipient Understood Notice: Yes Recipient Signature: Yes Med Rec Note Co-signed by Attending: Coverage Notice Comment: SNF IN [place] OR SNF IN [facility] export: 04/12/19 8:09 a Patient Name: CARO JASSO Page [id number] at 1631 All edits/amendments must be made on the electronic document DICTATION DATE: 04/12/19 163 DOLLY OPERATOR: ELVIRA 04/12/191630 RPT#: [id number] DC DATE: STATUS: ADM IN [facility] [address] [place] [address] END OF REPORT
[2019-04-12 18:28] VITALS: BP 123/47
--- NOTE | 2019-04-12 19:10 | NUR ---
BEDSIDE REPORT COMPLETE, WILL CONTINUE POC. PATIENT IS AAOX4, LYING IN SEMI FOWLERS POSITION. NO S/S OF DISTRESS OBSERVED, RR EVEN AND UNLABORED ON ROOM AIR. PATIENT DENIES NEEDS AT THIS TIME. CL IN REACH, BED LOCKED AND LOWERED. WILL CTM.
[2019-04-12 20:00] VITALS: BP 107/35
--- NOTE | 2019-04-12 20:25 | NUR ---
PT C/O PAIN, PRN PAIN MED ADMINISTERED WITH PM MED[facility].
[2019-04-12 23:00] VITALS: BP 108/36; BP 116/49
--- NOTE | 2019-04-13 01:50 | NUR ---
I have reviewed this patient and I concur with the Shift Assessment completed by the Licensed Practical Nurse today this shift.
[2019-04-13 04:00] VITALS: BP 106/50
[2019-04-13 05:31] LABS: BASOPHILS 0.3 % (0-2); EOSINOPHILS 0 % (0-7); HEMATOCRIT 25.8 % (36.0-48.0); HEMOGLOBIN 8.1 g/dL (12-16); IMMATURE GRANULOCYTES 0.3 % (0-5); MCH 26.8 pg (26.0-34.0); MCHC 31.4 g/dL (31.0-37.0); MCV 85.4 fL (80.0-100.0); MEAN PLATELET VOLUME 9.5 fL (7.4-10.4); MONOCYTES 8.1 % (2-11); NEUTROPHILS 78.3 % (40-80); PLATELET COUNT 175 10x3/uL (130-400); RBC 3.02 10x6/uL (4.00-5.40); RDW 19.2 % (11.5-14.5); WBC 7.2 10x3/uL (4.8-10.8)
--- NOTE | 2019-04-13 05:57 | NUR ---
PT C/O NAUSEA, ZOFRAN ADMINISTERED PER ORDERS.
[2019-04-13 05:58] LABS: ANION GAP 8.6 mmol/L (8-16); CALCIUM 8.2 mg/dL (8.5-10.1); CARBON DIOXIDE 30.2 mmol/L (21.0-32.0); CREATININE - SERUM 2.2 mg/dL (0.6-1.3); PHOSPHOROUS 2.1 mg/dL (2.5-4.9); POTASSIUM - SERUM 3.8 mmol/L (3.5-5.1)
--- NOTE | 2019-04-13 07:43 | NUR ---
REPORT RECIEVED. PT SITTING UP IN BED RECIEVING A RESP TREATMENT. SHE HAS A R CHEST HEMOSPLIT AND A PD CATH IN THE ABDOMEN. BED LOCKED AND IN LOWEST POSITION,CALL LIGHT WITHIN REACH. WILL CTM
--- NOTE | 2019-04-13 08:04 | MORECARE ---
CASE MANAGEMENT DISCHARGE SUMMARY PATIENT: CARO JASSO UNIT: [id number] ADM DATE: 03/24/19 AGE: 63 : 55 SEX: F ROOM/BED: D.2106 AUTHOR: KENNEY,DOC PHYSICIAN: REFERRING PHYSICIAN: ELTON HODGE MD DATE OF SERVICE: 04/13/19 Discharge Plan Patient Name: CARO JASSO Facility: [facility]:[place] : 1955 Planned Disposition: Care Home Facility Anticipated Discharge Date: 04/11/19 Discharge Date: Expected LOS: 18 Initial Reviewer: [id number] Initial Review Date: 03/29/2019 Generated: 04/13/19 9:04 am Comments DCP- Discharge Planning Updated by [email or web address]: Phil Caruso on 04/12/19 3:[address] Patient Name: CARO JASSO Encounter No: [id number] : 1955 Primary Insurance: [facility] MEDICARE SOLUTIONS Anticipated DC Date: 04-11-2019 Planned Disposition: Care Home Facility External Planned Provider: [facility] DCP follow-up note: CM RECEIVED CALLF [facility], THEY CANNOT MEET PT'S NEEDS. CM NOTIFIED PT OF DENIAL. PT STATES SHE HAS CALLED HER INSURANCE COMPANY AND SHE WAS TOLD THAT INPATIENT REHAB DID NOT INCLUDE ALL HER MEDICAL PROBLEMS FOR THE INSURANCE TO REVIEW FOR INPATIENT REHAB. PT WANTS CM TO RESUBMIT TO [facility] FOR INPATIENT REHAB. CM CALLED [facility], , LEFT MESSAGE FOR M[place] OF ADMISSIONS ASKING FOR CONSIDERATION AND RESUBMISSION FOR INSURANCE AUTHORIZATION. CM FAXED REFERRAL TO [facility] AT [phone]. CM NOTIFIED PT AND ASKED WHAT HER SECOND CHOICE WILL BE SINCE DECLINED BY [facility] AND [facility]. CM RECEIVED PATIENT CHOICE LETTER FOR 1- [facility] AND 2- ANY [facility] IF PT IS DECLINED BY [facility]. PT STATES THAT [facility] ALSO HAS INPATIENT REHAB. CM WAITING ADMISSION DETERMINATION FROM [facility] IN[facility]. Phil Thurmond, CASE MANAGEMENT DCP- Discharge Planning Updated by [id number]: Phil Caruso on 04/12/19 8:[address] Patient Name: CARO JASSO Encounter No: [id number] : 1955 Primary Insurance: [facility] MEDICARE SOLUTIONS Anticipated DC Date: 04-11-2019 Planned Disposition: Care Home Facility External Planned Provider: [facility], MEDICARE REHAB BED DCP follow-up note: CM RECEIVED CALL FROM ANTWAN OF [facility], , THEY RECEIVED REFERRAL, WILL SCREEN FOR ADMISSION. IF PT NEEDS MINIMAL ASSISTANCE TO TRANSFER TO [facility], LONGTERM STAFF WILL BE ABLE TO PROVIDE THIS ASSISTANCE. PT WILL HAVE TO BE ACCEPTED AT [facility] FOR THEM TO ACCEPT PT THEY WILL NOT TRANSPORT ANYWHERE OUTSIDE [place] FOR DIALYSIS. [facility]TW[facility] WILL CALL WITH ADMISSION DETERMINATION AFTER SCREENING IS COMPLETED. CM WAITING ADMISSION DETERMINATION FOR REHAB FROM [facility]. Phil Caruso, CASE MANAGEMENT DCP- Discharge Planning Updated by [id number]: Phil Caruso on 04/11/19 4:[address] Patient Name: CARO JASSO Encounter No: [id number] : 1955 Primary Insurance: [facility] MEDICARE SOLUTIONS Anticipated DC Date: 04-11-2019 Planned Disposition: Care Home Facility External Planned Provider: [facility], MEDICARE REHAB BED DCP follow-up note: CM RECEIVED CALL FROM [facility], THEY WILL NOT ACCEPT PT. ANABELLA SPOKE TO PT WHO ASKED CM TO FAX REFERRAL TO HER SECOND CHOICE, [facility]. CHOICE PREVIOUSLY SIGNED. CM SPOKE TO EDSON OF [facility] WHO INFORMED CM THAT PT WILL HAVE TO BE ABLE TO TRANSFER HERSELF FROM CHAIR TO BED OR HAVE SOMEONE THERE THAT WILL ASSIST WITH EVERY TRANSFER TO EVEN BE CONSIDERED AT THE [facility]. CM SPOKE TO PT WHO DECLINED PLACEMENT ANYWHERE ELSE OTHER THAN [facility]. PT INSISTED THAT SHE CAN TRANSFER HERSELF TO A CHAIR AND WILL DO IT WITH THERAPY. CM LEFT NOTE ON DRY ERASE BOARD OF NEED FOR DOCUMENATION THAT PT IS ABLE TO TRANSFER HERSELF. CM CALLED [facility], , THERE WAS NO ANSWER. CM FAXED REFERRAL TO [facility] AT [phone]. CM SPOKE TO PT AFTER HER PD CATHETER WAS INSERTED. PT STILL WILLING FOR PLACEMENT AT [facility], STILL INSISTS THAT SHE CAN TRANSFER HERSELF IF THERAPY WILL WORK WITH HER STATING THEY HAVE ONLY SEEN HER ABOUT "3 TIMES". CM ASSURED PT THAT THERAPY WILL CONTINUE TO WORK WITH HER. PT STATES SHE THINKS THAT SHE WILL JUST BE ABLE TO GO HOME WITH PERITONEAL DIALYSIS. CM EXPLAINED THAT PT WILL HAVE TO TALK TO THE DOCTOR AND THAT CM UNDERSTOOD THAT PT WILL HAVE TO HAVE HEMODIALYSIS AND THAT PD IS A PROCESS AND TAKES TRAINING AND ARRANGEMENTS. PT NOW THINKS SHE WILL CAN HAVE PD AND GO HOME. CM WAITING ADMISSION DETERMINATION FOR REHAB FROM [facility]. SANJANA Hernández DCP- Discharge Planning Updated by [id number]: Phil Caruso on 04/11/19 7:[address] Patient Name: CARO JASSO Encounter No: [id number] : 1955 Primary Insurance: [facility] MEDICARE SOLUTIONS Anticipated DC Date: 04-11-2019 Planned Disposition: Care Home Facility External Planned Provider: [facility], MEDICARE REHAB BED DCP follow-up note: CM FAXED REFERRAL UPDATE TO [facility] AT [phone]. CM WAITING ADMISSION DETERMINATION FROM [facility] WELL INSURANCE DETERMINATION. RAYO TOUSSAINT IS WORKING ON OUTPATIENT DIALYSIS UNIT. SANJANA Hernández DCP- Discharge Planning Updated by [id number]: Phil Caruso on 04/10/19 3:[address] Patient Name: CARO JASSO Encounter No: [id number] : 1955 Primary Insurance: [facility] MEDICARE SOLUTIONS Anticipated DC Date: 04-11-2019 Planned Disposition: Care Home Facility External Planned Provider: [facility], MEDICARE REHAB BED DCP follow-up note: CM MET WITH PT IN ROOM TO DISCUSS DISCHARGE PLANNING AND NEEDS. PT HAS REVIEWED LIST WITH FAMILY AND WOULD LIKE REFERRAL TO [facility] AND [facility]. CHOICE FORM SIGNED. CM CALLED [facility], , SPOKE TO BIGG AND PROVIDED REFERRAL INFORMATION. CM FAXED REFERRAL TO [facility] AT [phone]. CM WAITING ADMISSION DETERMINATION FROM [facility] INSURANCE DETERMINATION. EDSON HARVEY [facility] IS WORKING ON OUTPATIENT DIALYSIS UNIT. Phil Caruso CASE MANAGEMENT Appended by Phil Caruso on 04/10/2019 16:10 SENIOR ACCOUNT REPRESENTATIVE: CM RECEIVED CALL FROM [facility], , SPOKE TO BIGG WHO ASKED WHY PT IS ON ABILIFY. CM SPOKE TO PT IN ROOM, PT DENIES MENTAL ILLNESS OR PLACEMENT IN PSYCHIATRIC CARE IN THE PAST. PT THINKS IT MAY BE FOR DEMENTIAL. CM NOTIFIED BIGG. CM WAITING ADMISSION DETERMINATION FROM [facility] INSURANCE DETERMINATION. EDSON OF [facility] IS WORKING ON OUTPATIENT DIALYSIS UNIT. Phil Caruso CASE ED DCP- Discharge Planning Updated by [id number]: Phil Caruso on 04/09/19 11:[address] Patient Name: CARO JASSO Encounter No: [id number] : 1955 Primary Insurance: [employer] MEDICARE SOLUTIONS Anticipated DC Date: 04-11-2019 Planned Disposition: Care Home Facility External Planned Provider: TO BE DETERMINED DCP follow-up note: CM RECEIVED INPATIENT REHAB DENIAL FROM PT'S INSURANCE. CM MET WITH PT IN ROOM, PROVIDED COPY OF DENIAL AND READ REASON FOR DENIAL WITH SUGGESTION THAT REHAB COULD BE PROVIDED IN [facility] FACILITY. CM PROVIDED PT WITH LISTING OF [facility] FACLITIES WITHIN [place] OF [place] AT PT'S REQUEST FROM MEDICARE WEBSITE. CM PROVIDED CHOICE FORM. PT STATES SHE WANTS TO THINK ABOUT CHOICES AND WILL LET CM KNOW SOON POSSIBLE. COPY OF INPATIENT DENIAL PLACED IN CHART WITH PT'S SIGNATURE, DATE AND TIME OF PT'S RECEIPT. CM WENT BACK IN ROOM AFTER LUNCH, PT IS OUT OF ROOM IN DIALYSIS. CM TO FOLLOW UP WITH PT LATER REGARDING [facility] REHAB CHOICES. CM WAITING ON PT'S DECISION FOR [facility] WELL CHOICES FOR SKILLED REHAB PLACEMENT. SANJANA Hernández DCP- Discharge Planning Updated by [id number]: Phil Caruso on 04/05/19 2:[address] Patient Name: CARO JASSO Encounter No: [id number] : 1955 Primary Insurance: [employer] MEDICARE SOLUTIONS Anticipated DC Date: Planned Disposition: Inpatient Rehab External Planned Provider:[facility] DCP follow-up note: CM NOTIFIED PT'S DAUGHTER IN ROOM OF REFERRAL BEING FAXED TO [facility]. CM RECEIVED PATIENT CHOICE LETTER FOR 1- [facility] AND 2- [facility] IF PT IS DECLINED BY [facility]. CM WAITING ADMISSION DETERMINATION FROM [facility]. SANJANA Hernández DCP- Discharge Planning Updated by [id number]: Phil Caruso on 04/05/19 12:[address] Patient Name: CARO JASSO Encounter No: [id number] : 1955 Primary Insurance: [facility] MEDICARE SOLUTIONS Anticipated DC Date: Planned Disposition: Inpatient Rehab External Planned Provider[facility] DCP follow-up note: CM CALLED AND SPOKE TO VERNON PEACOCK, OF [facility], ; THEY WILL SCREEN FOR INPATIENT REHAB ADMISSION. THEY HAVE THE AVAILABILITY OF HEMODIALYSIS IN THEIR REHAB, BUT WILL NOT ACCEPT PERITONEAL DIALYSIS. CM FAXED REFERRAL TO [facility], . CM WAITING ADMISSION DETERMINATION FROM [facility]. SANJANA Hernández DCP- Discharge Planning Updated by [id number]: Phil Caruso on 04/04/19 5:[address] Patient Name: CARO JASSO Encounter No: [id number] : 1955 Primary Insurance: [facility] MEDICARE SOLUTIONS Anticipated DC Date: Planned Disposition: Inpatient Rehab External Planned Provider: [facility] DCP follow-up note: CM RECEIVED ORDER FOR INPATIENT REHAB PRESCREENING, MET WITH PT'S DAUGHTER, HARRIETT YOUNG, IN ROOM. HARRIETT IS PT'S EMERGENCY CONTACT LISTED ON FACE SHEET AND REPORTS TO BE PT'S CAREGIVER AT HOME. PT IN DIALYSIS. CM HAD ALSO RECEIVED HANDWRITTEN NOTE INDICTATING PT WANTS REHAB IN [place]. HARRIETT REPORTS PT WANTS REFERRAL TO [facility] FOR INPATIENT REHAB. CM DISCUSSED HAVING A ALTERNATE PLAN IF DECLINED FOR INPATIENT REHAB. THEY HAVE DISCUSSED [facility]; CM PROVIDED LIST OF AVAILABLE [facility] FACILITIES WITHIN [place] OF [place]. HARRIETT WILL DISCUSS THIS WITH PT AND THEY WILL LET CM KNOW OF ALTERNATE PLAN FOR REHAB. CM TO SEND REFERRAL TO [facility] FOR INPATIENT REHAB SOON POSSIBLE. PT CONSIDERING [facility] FACILITY ALTERNATE REHAB PLAN IF DECLINED BY [facility]. Phil Caruso, CASE MANAGEMENT DCP- Discharge Planning Updated by [id number]: Kamini Rafael on 04/02/19 12:[address] I HAVE SPOKEN TO EDSON EWING, CLINICAL LIASON WITH MICHELLE ABOUT THIS PATIENT POTENTIALLY BEING A NEW START. THIS WAY SHE CAN MAKE CONTACT TO PRESTART THE PROCESS. PTS FIRST D[facility] WAS YESTERDAY. DCP- Discharge Planning Updated by [id number]: Olivia Madie on 03/29/19 12:[address] Patient Name: CARO JASSO Admission Status: Elective Accout number: [id number] Admission Date: 03-24-2019 : 1955 Admission Diagnosis: Attending: ELTON HODGE Current LOS: 5 Anticipated DC Date: Planned Disposition: Primary Insurance: [facility] MEDICARE SOLUTIONS Discharge Planning Comments: CM SPOKE WITH DAUGHTER ABOUT DC PLANNING/NEEDS. SHE STATES IS WAITING TO TALK TO THE DOCTOR BUT HAS RECIEVED BAD NEWS ON MOTHER'S PROGNOSIS. I HAVE MENTIONED REHAB AND HOSPICE. DAUGHTER WANTS TO THINK ABOUT IT. CM WILL FOLLOW AND ASSIST. Head Bookkeeper: Olivia Ramachandran DCP- Discharge Planning Updated by [id number]: Kamini Rafael on 03/27/19 3:[address] MOSS WANTED THE PATIENT TRANSFERRED TO [facility] TO HER LAND RECLAMATION SPECIALIST THIS AM. @ 0813, PLACED A CALL TO THE PROFESSOR OF BUSINESS, ADARSH, TO OBTAIN ADMIN APPROVAL TO PROCEED WITH TRANSFER. SE STATED THAT SHE WOULD HAVE TO CALL THE ADMIN MARKETING ASSISTANT MANAGER, BUT WAS CURRENTLY INDISPOSED AND UNABLE. IF I DON'T HEAR BACK FROM HERE, I WILL CALL BACK LATER. @0817, I SPOKE WITH THE PATIENT WHO IS WILLING FOR THE TRANSFER. @0821, I SPOKE WITH ALEN SAWYER APN FOR DR YATES. SHE HAS REQUESTED THAT I HAVE DR MOSS CALL AND DISCUSS THE TRANSFER WITH DR YATES. @0836, I SPOKE WITH DR MOSS AND MADE THIS REQUEST. SHE ASKED ME TO TEXT HER DR YATES'S NUMBER AND SHE WOULD CALL HER. SOON WE HUNG UP, I TEXT HER THE NUMBER. @1481, I PLACED A CALL TO ALEN TO SEE IF SHE KNEW WHEN DR YATES WOULD BE HERE AT THE HOSPITAL SHE STATED HE WAS HERE NOW. SHE SAID THAT DR MOSS DID NOT CALL AND TALK TO DR YATES ABOUT THE TRANSFER. SHE STATED THAT SHE WOULD TALK TO HIM AND LET ME KNOW, BUT SHE DID NOT FEEL THAT THE PATIENT WOULD TRANSFER. @9706, DR YATES AND VERÓNICA LOWRY ON THE FLOOR. THEY HAVE TALKED WITH THE PATIENT. THE PATIENT WILL REMAIN HERE FOR TREATMENT AND NOT TRANSFER. DCPIA - Discharge Planning Initial Assessment Updated by [id number]: Olivia Ramachandran on 03/29/19 12:11 pm * Is the patient Alert and Oriented? No * Preadmission Environment Home with Family * Other Equipment WALKER, WC, TRANSFER CHAIR, O2 NEBS * List name and contact numbers for known caregivers / representatives who currently or will assist patient after discharge: HARRIETT, DAUGHTER, * Community resources currently utilized Home Health * Please name any agencies selected above. [facility] * Has this patient been hospitalized within the prior 30 days at any hospital? Yes Coverage Notice Reviewer: [id number] Caruso Notice Issued Date-Time: 04/04/2019 18:45 Notice Type: Patient Choice Letter Notice Delivered To: Patient Relationship to Patient: Insurance Defense Attorney Name: Delivery Method: HAND - Hand Delivered Kristyn Days: Prior Verbal Notification: Recipient Understood Notice: Yes Recipient Signature: Yes Med Rec Note Co-signed by Attending: Coverage Notice Comment: 1- [facility] 2- [facility] Reviewer: ELYSSA Caruso Notice Issued Date-Time: 04/10/2019 9:56 Notice Type: Patient Choice Letter Notice Delivered To: Patient Relationship to Patient: Insurance Defense Attorney Name: Delivery Method: HAND - Hand Delivered Kristyn Days: Prior Verbal Notification: Recipient Understood Notice: Yes Recipient Signature: Yes Med Rec Note Co-signed by Attending: Coverage Notice Comment: 1 - [facility], 2 - [facility] Reviewer: [id number] Caruso Notice Issued Date-Time: 04/12/2019 16:10 Notice Type: Patient Choice Letter Notice Delivered To: Patient Relationship to Patient: Insurance Defense Attorney Name: Delivery Method: HAND - Hand Delivered Kristyn Days: Prior Verbal Notification: Recipient Understood Notice: Yes Recipient Signature: Yes Med Rec Note Co-signed by Attending: Coverage Notice Comment: SNF IN [place] OR SNF IN [facility] DP export: 04/12/19 3:31 p Patient Name: CARO JASSO Page [id number] at 0804 All edits/amendments must be made on the electronic document DICTATION DATE: 04/13/19802 CORN BREEDER: ELVIRA 04/13/19802 RPT#: [id number] DC DATE: STATUS: ADM IN [facility] [address] [place] [address] END OF REPORT
[2019-04-13 09:00] VITALS: BP 120/50
--- NOTE | 2019-04-13 09:00 | MORECARE ---
CASE MANAGEMENT DISCHARGE SUMMARY PATIENT: CARO JASSO UNIT: [id number] ADM DATE: 03/24/19 AGE: 63 : 55 SEX: F ROOM/BED: D.2106 AUTHOR: KENNEY,DOC PHYSICIAN: REFERRING PHYSICIAN: ELTON HODGE MD DATE OF SERVICE: 04/13/19 Discharge Plan Patient Name: CARO JASSO Facility: [facility]:[place] : 1955 Planned Disposition: [facility] Facility Anticipated Discharge Date: 04/11/19 Discharge Date: Expected LOS: 18 Initial Reviewer: [id number] Initial Review Date: 03/29/2019 Generated: 04/13/19 10:00 am Comments DCP- Discharge Planning Updated by [id number]: Phil Caruso on 04/12/19 3:[address] Patient Name: CARO JASSO Encounter No: [id number] : 1955 Primary Insurance: [facility] MEDICARE SOLUTIONS Anticipated DC Date: 04-11-2019 Planned Disposition: [facility] Facility External Planned Provider: [facility] DCP follow-up note: CM RECEIVED CALLF [facility], THEY CANNOT MEET PT'S NEEDS. CM NOTIFIED PT OF DENIAL. PT STATES SHE HAS CALLED HER INSURANCE COMPANY AND SHE WAS TOLD THAT INPATIENT REHAB DID NOT INCLUDE ALL HER MEDICAL PROBLEMS FOR THE INSURANCE TO REVIEW FOR INPATIENT REHAB. PT WANTS CM TO RESUBMIT TO [facility] FOR INPATIENT REHAB. CM CALLED [facility], , LEFT MESSAGE FOR MADONNA OF ADMISSIONS ASKING FOR CONSIDERATION AND RESUBMISSION FOR INSURANCE AUTHORIZATION. CM FAXED REFERRAL TO [facility] AT [phone]. CM NOTIFIED PT AND ASKED WHAT HER SECOND CHOICE WILL BE SINCE DECLINED BY [facility] AND [facility]. CM RECEIVED PATIENT CHOICE LETTER FOR 1- ANY [place] [facility] AND 2- ANY [place] [facility] IF PT IS DECLINED BY [facility]IENT [facility]. PT STATES THAT [facility] ALSO HAS INPATIENT REHAB. CM WAITING ADMISSION DETERMINATION FROM [facility]. Phil Franklin, CASE MANAGEMENT DCP- Discharge Planning Updated by [id number]: Phil Caruso on 04/12/19 8:[address] Patient Name: CARO JASSO Encounter No: [id number] : 1955 Primary Insurance: [facility] MEDIC[employer] SOLUTIONS Anticipated DC Date: 04-11-2019 Planned Disposition: [facility] Facility External Planned Provider: [facility], MEDICARE REHAB BED DCP follow-up note: CM RECEIVED CALL FROM ANTWAN OF [facility], , THEY RECEIVED REFERRAL, WILL SCREEN FOR ADMISSION. IF PT NEEDS MINIMAL ASSISTANCE TO TRANSFER TO [facility], [facility] STAFF WILL BE ABLE TO PROVIDE THIS ASSISTANCE. PT WILL HAVE TO BE ACCEPTED AT [facility] FOR THEM TO ACCEPT PT THEY WILL NOT TRANSPORT ANYWHERE OUTSIDE [place] FOR DIALYSIS. ANTW[facility] WILL CALL WITH ADMISSION DETERMINATION AFTER SCREENING IS COMPLETED. CM WAITING ADMISSION DETERMINATION FOR REHAB FROM [facility]. Phil Caruso, CASE MANAGEMENT DCP- Discharge Planning Updated by [id number]: Phil Caruso on 04/11/19 4:[address] Patient Name: CARO JASSO Encounter No: [id number] : 1955 Primary Insurance: [facility] MEDIC[facility] SOLUTIONS Anticipated DC Date: 04-11-2019 Planned Disposition: [facility] Facility External Planned Provider: [facility], MEDICARE REHAB BED DCP follow-up note: CM RECEIVED CALL FROM [facility], THEY WILL NOT ACCEPT PT. ANABELLA SPOKE TO PT WHO ASKED CM TO FAX REFERRAL TO HER SECOND CHOICE, [facility]. CHOICE PREVIOUSLY SIGNED. CM SPOKE TO EDSON OF [facility] WHO INFORMED CM THAT PT WILL HAVE TO BE ABLE TO TRANSFER HERSELF FROM CHAIR TO BED OR HAVE SOMEONE THERE THAT WILL ASSIST WITH EVERY TRANSFER TO EVEN BE CONSIDERED AT THE [place] [facility]. CM SPOKE TO PT WHO DECLINED PLACEMENT ANYWHERE ELSE OTHER THAN [place]. PT INSISTED THAT SHE CAN TRANSFER HERSELF TO A CHAIR AND WILL DO IT WITH THERAPY. CM LEFT NOTE ON DRY ERASE BOARD OF NEED FOR DOCUMENATION THAT PT IS ABLE TO TRANSFER HERSELF. CM CALLED [facility], , THERE WAS NO ANSWER. CM FAXED REFERRAL TO [facility] AT [phone]. CM SPOKE TO PT AFTER HER PD CATHETER WAS INSERTED. PT STILL WILLING FOR PLACEMENT AT [facility], STILL INSISTS THAT SHE CAN TRANSFER HERSELF IF THERAPY WILL WORK WITH HER STATING THEY HAVE ONLY SEEN HER ABOUT "3 TIMES". CM ASSURED PT THAT THERAPY WILL CONTINUE TO WORK WITH HER. PT STATES SHE THINKS THAT SHE WILL JUST BE ABLE TO GO HOME WITH PERITONEAL DIALYSIS. CM EXPLAINED THAT PT WILL HAVE TO TALK TO THE DOCTOR AND THAT CM UNDERSTOOD THAT PT WILL HAVE TO HAVE HEMODIALYSIS AND THAT PD IS A PROCESS AND TAKES TRAINING AND ARRANGEMENTS. PT NOW THINKS SHE WILL CAN HAVE PD AND GO HOME. CM WAITING ADMISSION DETERMINATION FOR REHAB FROM [facility]. SANJANA Hernández DCP- Discharge Planning Updated by [id number]: Phil Caruso on 04/11/19 7:[address] Patient Name: CARO JASSO Encounter No: [id number] : 1955 Primary Insurance: [facility] MED[employer] SOLUTIONS Anticipated DC Date: 04-11-2019 Planned Disposition: [facility] Facility External Planned Provider: [facility], MEDICARE REHAB BED DCP follow-up note: CM FAXED REFERRAL UPDATE TO [facility] AT [phone]. CM WAITING ADMISSION DETERMINATION FROM [facility] WELL INSURANCE DETERMINATION. RAYO TOUSSAINT IS WORKING ON OUTPATIENT DIALYSIS UNIT. SANJANA Hernández DCP- Discharge Planning Updated by [id number]: Phil Caruso on 04/10/19 3:[address] Patient Name: CARO JASSO Encounter No: [id number] : 1955 Primary Insurance: [facility] [employer] SOLUTIONS Anticipated DC Date: 04-11-2019 Planned Disposition: [facility] Facility External Planned Provider: [facility], MEDICARE REHAB BED DCP follow-up note: CM MET WITH PT IN ROOM TO DISCUSS DISCHARGE PLANNING AND NEEDS. PT HAS REVIEWED LIST WITH FAMILY AND WOULD LIKE REFERRAL TO [facility] CHOICE AND [facility] SECOND CHOICE. CHOICE FORM SIGNED. CM CALLED [facility], , SPOKE TO BIGG AND PROVIDED REFERRAL INFORMATION. CM FAXED REFERRAL TO [facility] AT [phone]. CM WAITING ADMISSION DETERMINATION FROM [facility] WELL INSURANCE DETERMINATION. EDSON HARVEY [facility] IS WORKING ON OUTPATIENT DIALYSIS UNIT. Phil Caruso CASE MANAGEMENT Appended by Phil Caruso on 04/10/2019 16:10 SURVEILLANCE OBSERVER: CM RECEIVED CALL FROM [facility], , SPOKE TO BIGG WHO ASKED WHY PT IS ON ABILIFY. CM SPOKE TO PT IN ROOM, PT DENIES MENTAL ILLNESS OR PLACEMENT IN PSYCHIATRIC CARE IN THE PAST. PT THINKS IT MAY BE FOR DEMENTIAL. CM NOTIFIED BIGG. CM WAITING ADMISSION DETERMINATION FROM [facility] WE[facility] INSURANCE DETERMINATION. EDSON OF [facility] IS WORKING ON OUTPATIENT DIALYSIS UNIT. Phil Caruso CASE ED DCP- Discharge Planning Updated by [id number]: Phil Caruso on 04/09/19 11:[address] Patient Name: CARO JASSO Encounter No: [id number] : 1955 Primary Insurance: [employer] MEDICARE SOLUTIONS Anticipated DC Date: 04-11-2019 Planned Disposition: [facility] Facility External Planned Provider: TO BE DETERMINED DCP follow-up note: CM RECEIVED INPATIENT REHAB DENIAL FROM PT'S INSURANCE. CM MET WITH PT IN ROOM, PROVIDED COPY OF DENIAL AND READ REASON FOR DENIAL WITH SUGGESTION THAT REHAB COULD BE PROVIDED IN PENITENTIARY FACILITY. CM PROVIDED PT WITH LISTING OF PENITENTIARY FACLITIES WITHIN [address] OF [place] AT PT'S REQUEST FROM MEDICARE WEBSITE. CM PROVIDED CHOICE FORM. PT STATES SHE WANTS TO THINK ABOUT CHOICES AND WILL LET CM KNOW SOON POSSIBLE. COPY OF INPATIENT DENIAL PLACED IN CHART WITH PT'S SIGNATURE, DATE AND TIME OF PT'S RECEIPT. CM WENT BACK IN ROOM AFTER LUNCH, PT IS OUT OF ROOM IN DIALYSIS. CM TO FOLLOW UP WITH PT LATER REGARDING PENITENTIARY REHAB CHOICES. CM WAITING ON PT'S DECISION FOR PENITENTIARY WELL CHOICES FOR SKILLED REHAB PLACEMENT. SANJANA Hernández DCP- Discharge Planning Updated by [id number]: Phil Caruso on 04/05/19 2:[address] Patient Name: CARO JASSO Encounter No: [id number] : 1955 Primary Insurance: [employer] MEDICARE SOLUTIONS Anticipated DC Date: Planned Disposition: Inpatient Rehab External Planned Provider:[facility] DCP follow-up note: CM NOTIFIED PT'S DAUGHTER IN ROOM OF REFERRAL BEING FAXED TO [facility]. CM RECEIVED PATIENT CHOICE LETTER FOR 1- [facility] AND 2- [place] [facility] IF PT IS DECLINED BY [facility]. CM WAITING ADMISSION DETERMINATION FROM [facility]. SANJANA Hernández DCP- Discharge Planning Updated by [id number]: Phil Caruso on 04/05/19 12:[address] Patient Name: CARO JASSO Encounter No: [id number] : 1955 Primary Insurance: [facility] MED[employer] SOLUTIONS Anticipated DC Date: Planned Disposition: Inpatient Rehab External [facility] DCP follow-up note: CM CALLED AND SPOKE TO VERNON PEACOCK, OF [facility], ; THEY WILL SCREEN FOR INPATIENT REHAB ADMISSION. THEY HAVE THE AVAILABILITY OF HEMODIALYSIS IN THEIR REHAB, BUT WILL NOT ACCEPT PERITONEAL DIALYSIS. CM FAXED REFERRAL TO [facility], . CM WAITING ADMISSION DETERMINATION FROM [facility]. SANJANA Hernández DCP- Discharge Planning Updated by [id number]: Phil Caruso on 04/04/19 5:[address] Patient Name: CARO JASSO Encounter No: [id number] : 1955 Primary Insurance: [facility] [employer] SOLUTIONS Anticipated DC Date: Planned Disposition: Inpatient Rehab External [facility] DCP follow-up note: CM RECEIVED ORDER FOR INPATIENT REHAB PRESCREENING, MET WITH PT'S DAUGHTER, HARRIETT YOUNG, IN ROOM. HARRIETT IS PT'S EMERGENCY CONTACT LISTED ON FACE SHEET AND REPORTS TO BE PT'S CAREGIVER AT HOME. PT IN DIALYSIS. CM HAD ALSO RECEIVED HANDWRITTEN NOTE INDICTATING PT WANTS REHAB IN [place]. HARRIETT REPORTS PT WANTS REFERRAL TO [facility] FOR INPATIENT REHAB. CM DISCUSSED HAVING A ALTERNATE PLAN IF DECLINED FOR INPATIENT REHAB. THEY HAVE DISCUSSED PENITENTIARY; CM PROVIDED LIST OF AVAILABLE PENITENTIARY FACILITIES WITHIN [address] OF [place]. [place] WILL DISCUSS THIS WITH PT AND THEY WILL LET CM KNOW OF ALTERNATE PLAN FOR REHAB. CM TO SEND REFERRAL TO [facility] FOR INPATIENT REHAB SOON POSSIBLE. PT CONSIDERING PENITENTIARY FACILITY ALTERNATE REHAB PLAN IF DECLINED BY [facility]. Phil Caruso, CASE MANAGEMENT DCP- Discharge Planning Updated by [id number]: Kamini Rafael on 04/02/19 12:[address] I HAVE SPOKEN TO EDSON EWING, CLINICAL LIASON WITH MICHELLE ABOUT THIS PATIENT POTENTIALLY BEING A NEW START. THIS WAY SHE CAN MAKE CONTACT TO PRESTART THE PROCESS. [facility] FIRST [facility] WAS YESTERDAY. DCP- Discharge Planning Updated by [id number]: Olivia Madie on 03/29/19 12:[address] Patient Name: CARO JASSO Admission Status: Elective Accout number: [id number] Admission Date: 03-24-2019 : 1955 Admission Diagnosis: Attending: ELTON HODGE Current LOS: 5 Anticipated DC Date: Planned Disposition: Primary Insurance: [facility] MEDIC[employer] SOLUTIONS Discharge Planning Comments: CM SPOKE WITH DAUGHTER ABOUT DC PLANNING/NEEDS. SHE STATES IS WAITING TO TALK TO THE DOCTOR BUT HAS RECIEVED BAD NEWS ON MOTHER'S PROGNOSIS. I HAVE MENTIONED REHAB AND HOSPICE. DAUGHTER WANTS TO THINK ABOUT IT. CM WILL FOLLOW AND ASSIST. Desulfurizer Operator: Olivia Ramachandran DCP- Discharge Planning Updated by [id number]: Kamini Rafael on 03/27/19 3:[address] MOSS WANTED THE PATIENT TRANSFERRED TO [facility] TO HER FLIGHT NURSE THIS AM. @ 0813, PLACED A CALL TO THE ON SITE SERVICES SPECIALIST, ADARSH, TO OBTAIN ADMIN APPROVAL TO PROCEED WITH TRANSFER. SE STATED THAT SHE WOULD HAVE TO CALL THE ADMIN PROGRAM REP, BUT WAS CURRENTLY INDISPOSED AND UNABLE. IF I DON'T HEAR BACK FROM HERE, I WILL CALL BACK LATER. @0817, I SPOKE WITH THE PATIENT WHO IS WILLING FOR THE TRANSFER. @0821, I SPOKE WITH ALEN SAWYER APN FOR DR YATES. SHE HAS REQUESTED THAT I HAVE DR MOSS CALL AND DISCUSS THE TRANSFER WITH DR YATES. @0836, I SPOKE WITH DR MOSS AND MADE THIS REQUEST. SHE ASKED ME TO TEXT HER DR YATES'S NUMBER AND SHE WOULD CALL HER. SOON WE HUNG UP, I TEXT HER THE NUMBER. @4849, I PLACED A CALL TO ALEN TO SEE IF SHE KNEW WHEN DR YATES WOULD BE HERE AT THE HOSPITAL SHE STATED HE WAS HERE NOW. SHE SAID THAT DR MOSS DID NOT CALL AND TALK TO DR YATES ABOUT THE TRANSFER. SHE STATED THAT SHE WOULD TALK TO HIM AND LET ME KNOW, BUT SHE DID NOT FEEL THAT THE PATIENT WOULD TRANSFER. @1426, DR YATES AND VERÓNICA LOWRY ON THE FLOOR. THEY HAVE TALKED WITH THE PATIENT. THE PATIENT WILL REMAIN HERE FOR TREATMENT AND NOT TRANSFER. DCPIA - Discharge Planning Initial Assessment Updated by [id number]: Oliviavalerie Ramachandran on 03/29/19 12:11 pm * Is the patient Alert and Oriented? No * Preadmission Environment Home with Family * Other Equipment WALKER, WC, TRANSFER CHAIR, O2 NEBS * List name and contact numbers for known caregivers / representatives who currently or will assist patient after discharge: HARRIETT, DAUGHTER, * Community resources currently utilized Home Health * Please name any agencies selected above. [facility] * Has this patient been hospitalized within the prior 30 days at any hospital? Yes External Providers External Provider: [facility] and [facility] Next Contact Date: 04/13/2019 Service Request Date: Service Type: Resolution: Reviewer: Comments: Coverage Notice Reviewer: [id number] Caruso Notice Issued Date-Time: 04/04/2019 18:45 Notice Type: Patient Choice Letter Notice Delivered To: Patient Relationship to Patient: Yarn Twister Name: Delivery Method: HAND - Hand Delivered Kristyn Days: Prior Verbal Notification: Recipient Understood Notice: Yes Recipient Signature: Yes Med Rec Note Co-signed by Attending: Coverage Notice Comment: 1- [facility] 2- [facility] Reviewer: [id number] Caruso Notice Issued Date-Time: 04/10/2019 9:56 Notice Type: Patient Choice Letter Notice Delivered To: Patient Relationship to Patient: Yarn Twister Name: Delivery Method: HAND - Hand Delivered Kristyn Days: Prior Verbal Notification: Recipient Understood Notice: Yes Recipient Signature: Yes Med Rec Note Co-signed by Attending: Coverage Notice Comment: 1 - [facility], 2 - [facility] Reviewer: [id number] Caruso Notice Issued Date-Time: 04/12/2019 16:10 Notice Type: Patient Choice Letter Notice Delivered To: Patient Relationship to Patient: Yarn Twister Name: Delivery Method: HAND - Hand Delivered Kristyn Days: Prior Verbal Notification: Recipient Understood Notice: Yes Recipient Signature: Yes Med Rec Note Co-signed by Attending: Coverage Notice Comment: SNF IN [place] OR SNF IN [place] Last DP export: 04/13/19 7:04 a Patient Name: CARO JASSO Page [id number] at 0900 All edits/amendments must be made on the electronic document DICTATION DATE: 04/13/19899 ADVANCED PRACTICE PROVIDER: ELVIRA 04/13/19899 RPT#: [id number] DC DATE: STATUS: ADM IN [facility] [address] [place] [address] END OF REPORT
--- NOTE | 2019-04-13 09:06 | MORECARE ---
CASE MANAGEMENT DISCHARGE SUMMARY PATIENT: CARO JASSO UNIT: [id number] ADM DATE: 03/24/19 AGE: 63 : 55 SEX: F ROOM/BED: D.2106 AUTHOR: KENNEY,DOC PHYSICIAN: REFERRING PHYSICIAN: ELTON HODGE MD DATE OF SERVICE: 04/13/19 Discharge Plan Patient Name: CARO JASSO Facility: [facility]:[place] : 1955 Planned Disposition: Prison Facility Anticipated Discharge Date: 04/11/19 Discharge Date: Expected LOS: 18 Initial Reviewer: [id number] Initial Review Date: 03/29/2019 Generated: 04/13/19 10:06 am Comments DCP- Discharge Planning Updated by [email or web address]: Phil Caruso on 04/12/19 3:[address] Patient Name: CARO JASSO Encounter No: [id number] : 1955 Primary Insurance: [facility] MEDICARE SOLUTIONS Anticipated DC Date: 04-11-2019 Planned Disposition: Prison Facility External Planned Provider: [facility] DCP follow-up note: CM RECEIVED CALLF [facility], THEY CANNOT MEET PT'S NEEDS. CM NOTIFIED PT OF DENIAL. PT STATES SHE HAS CALLED HER INSURANCE COMPANY AND SHE WAS TOLD THAT INPATIENT REHAB DID NOT INCLUDE ALL HER MEDICAL PROBLEMS FOR THE INSURANCE TO REVIEW FOR INPATIENT REHAB. PT WANTS CM TO RESUBMIT TO [facility] FOR INPATIENT REHAB. CM CALLED [facility], , LEFT MESSAGE FOR MADONNA OF ADMISSIONS ASKING FOR CONSIDERATION AND RESUBMISSION FOR INSURANCE AUTHORIZATION. CM FAXED REFERRAL TO [facility] INPATIENT [facility] AT [phone]. CM NOTIFIED PT AND ASKED WHAT HER SECOND CHOICE WILL BE SINCE DECLINED BY [facility] AND [facility]. CM RECEIVED PATIENT CHOICE LETTER FOR 1- ANY [place] [facility] AND 2- ANY [place] [facility] IF PT IS DECLINED BY [facility] INPATIENT REH[facility]. PT STATES THAT [facility] ALSO HAS INPATIENT REHAB. CM WAITING ADMISSION DETERMINATION FROM [facility]. Phil Athelstan, CASE MANAGEMENT DCP- Discharge Planning Updated by [id number]: Phil Caruso on 04/12/19 8:[address] Patient Name: CARO JASSO Encounter No: [id number] : 1955 Primary Insurance: [facility] MEDICARE SOLUTIONS Anticipated DC Date: 04-11-2019 Planned Disposition: Prison Facility External Planned Provider: [facility], MEDICARE REHAB BED DCP follow-up note: CM RECEIVED CALL FROM ANTWAN OF [facility], , THEY RECEIVED REFERRAL, WILL SCREEN FOR ADMISSION. IF PT NEEDS MINIMAL ASSISTANCE TO TRANSFER TO [facility], [facility] STAFF WILL BE ABLE TO PROVIDE THIS ASSISTANCE. PT WILL HAVE TO BE ACCEPTED AT [facility] FOR THEM TO ACCEPT PT THEY WILL NOT TRANSPORT ANYWHERE OUTSIDE [place] FOR DIALYSIS. [facility] WILL CALL WITH ADMISSION DETERMINATION AFTER SCREENING IS COMPLETED. CM WAITING ADMISSION DETERMINATION FOR REHAB FROM [facility]. Phil Caruso, CASE MANAGEMENT DCP- Discharge Planning Updated by [id number]: Phil Caruso on 04/11/19 4:[address] Patient Name: CARO JASSO Encounter No: [id number] : 1955 Primary Insurance: [facility] MEDICARE SOLUTIONS Anticipated DC Date: 04-11-2019 Planned Disposition: Prison Facility External Planned Provider: [facility], MEDICARE REHAB BED DCP follow-up note: CM RECEIVED CALL FROM [facility], THEY WILL NOT ACCEPT PT. ANABELLA SPOKE TO PT WHO ASKED CM TO FAX REFERRAL TO HER SECOND CHOICE, [facility]. CHOICE PREVIOUSLY SIGNED. CM SPOKE TO EDSON OF [facility] WHO INFORMED CM THAT PT WILL HAVE TO BE ABLE TO TRANSFER HERSELF FROM CHAIR TO BED OR HAVE SOMEONE THERE THAT WILL ASSIST WITH EVERY TRANSFER TO EVEN BE CONSIDERED AT THE [place] [facility]. CM SPOKE TO PT WHO DECLINED PLACEMENT ANYWHERE ELSE OTHER THAN [place]. PT INSISTED THAT SHE CAN TRANSFER HERSELF TO A CHAIR AND WILL DO IT WITH THERAPY. CM LEFT NOTE ON DRY ERASE BOARD OF NEED FOR DOCUMENATION THAT PT IS ABLE TO TRANSFER HERSELF. CM CALLED [facility], , THERE WAS NO ANSWER. CM FAXED REFERRAL TO [facility] AT [phone]. CM SPOKE TO PT AFTER HER PD CATHETER WAS INSERTED. PT STILL WILLING FOR PLACEMENT AT [facility], STILL INSISTS THAT SHE CAN TRANSFER HERSELF IF THERAPY WILL WORK WITH HER STATING THEY HAVE ONLY SEEN HER ABOUT "3 TIMES". CM ASSURED PT THAT THERAPY WILL CONTINUE TO WORK WITH HER. PT STATES SHE THINKS THAT SHE WILL JUST BE ABLE TO GO HOME WITH PERITONEAL DIALYSIS. CM EXPLAINED THAT PT WILL HAVE TO TALK TO THE DOCTOR AND THAT CM UNDERSTOOD THAT PT WILL HAVE TO HAVE HEMODIALYSIS AND THAT PD IS A PROCESS AND TAKES TRAINING AND ARRANGEMENTS. PT NOW THINKS SHE WILL CAN HAVE PD AND GO HOME. CM WAITING ADMISSION DETERMINATION FOR REHAB FROM [facility]. SANJANA Hernández DCP- Discharge Planning Updated by [id number]: Phil Caruso on 04/11/19 7:[address] Patient Name: CARO JASSO Encounter No: [id number] : 1955 Primary Insurance: [facility] MEDICARE SOLUTIONS Anticipated DC Date: 04-11-2019 Planned Disposition: Prison Facility External Planned Provider: [facility], MEDICARE REHAB BED DCP follow-up note: CM FAXED REFERRAL UPDATE TO [facility] AT [phone]. CM WAITING ADMISSION DETERMINATION FROM [facility] INSURANCE DETERMINATION. RAYO TOUSSAINT IS WORKING ON OUTPATIENT DIALYSIS UNIT. SANJANA Hernández DCP- Discharge Planning Updated by [id number]: Phil Caruso on 04/10/19 3:[address] Patient Name: CARO JASSO Encounter No: [id number] : 1955 Primary Insurance: [facility] MEDICARE SOLUTIONS Anticipated DC Date: 04-11-2019 Planned Disposition: Prison Facility External Planned Provider: [facility], MEDICARE REHAB BED DCP follow-up note: CM MET WITH PT IN ROOM TO DISCUSS DISCHARGE PLANNING AND NEEDS. PT HAS REVIEWED LIST WITH FAMILY AND WOULD LIKE REFERRAL TO [facility] AT FIRST CHOICE AND [facility] SECOND CHOICE. CHOICE FORM SIGNED. CM CALLED [facility], , SPOKE TO BIGG AND PROVIDED REFERRAL INFORMATION. CM FAXED REFERRAL TO [facility] AT [phone]. CM WAITING ADMISSION DETERMINATION FROM [facility] INSURANCE DETERMINATION. EDSON HARVEY [facility] IS WORKING ON OUTPATIENT DIALYSIS UNIT. Phil Caruso CASE MANAGEMENT Appended by Phil Caruso on 04/10/2019 16:10 LAV CREWMAN: CM RECEIVED CALL FROM [facility], , SPOKE TO BIGG WHO ASKED WHY PT IS ON ABILIFY. CM SPOKE TO PT IN ROOM, PT DENIES MENTAL ILLNESS OR PLACEMENT IN PSYCHIATRIC CARE IN THE PAST. PT THINKS IT MAY BE FOR DEMENTIAL. CM NOTIFIED BIGG. CM WAITING ADMISSION DETERMINATION FROM [facility] INSURANCE DETERMINATION. EDSON OF [facility] IS WORKING ON OUTPATIENT DIALYSIS UNIT. Phil Caruso CASE ED DCP- Discharge Planning Updated by [id number]: Phil Caruso on 04/09/19 11:[address] Patient Name: CARO JASSO Encounter No: [id number] : 1955 Primary Insurance: [employer] MEDICARE SOLUTIONS Anticipated DC Date: 04-11-2019 Planned Disposition: Prison Facility External Planned Provider: TO BE DETERMINED DCP follow-up note: CM RECEIVED INPATIENT REHAB DENIAL FROM PT'S INSURANCE. CM MET WITH PT IN ROOM, PROVIDED COPY OF DENIAL AND READ REASON FOR DENIAL WITH SUGGESTION THAT REHAB COULD BE PROVIDED IN CARE HOME FACILITY. CM PROVIDED PT WITH LISTING OF CARE HOME FACLITIES WITHIN [address] OF [place] AT PT'S REQUEST FROM MEDICARE WEBSITE. CM PROVIDED CHOICE FORM. PT STATES SHE WANTS TO THINK ABOUT CHOICES AND WILL LET CM KNOW SOON POSSIBLE. COPY OF INPATIENT DENIAL PLACED IN CHART WITH PT'S SIGNATURE, DATE AND TIME OF PT'S RECEIPT. CM WENT BACK IN ROOM AFTER LUNCH, PT IS OUT OF ROOM IN DIALYSIS. CM TO FOLLOW UP WITH PT LATER REGARDING CARE HOME REHAB CHOICES. CM WAITING ON PT'S DECISION FOR CARE HOME WELL CHOICES FOR SKILLED REHAB PLACEMENT. SANJANA Hernández DCP- Discharge Planning Updated by [id number]: Phil Caruso on 04/05/19 2:[address] Patient Name: CARO JASSO Encounter No: [id number] : 1955 Primary Insurance: [employer] MEDICARE SOLUTIONS Anticipated DC Date: Planned Disposition: Inpatient Rehab External Planned Provider:[facility] DCP follow-up note: CM NOTIFIED PT'S DAUGHTER IN ROOM OF REFERRAL BEING FAXED TO [facility]. CM RECEIVED PATIENT CHOICE LETTER FOR 1- [facility] AND 2- [facility] [facility] IF PT IS DECLINED BY [facility] INPATIENT REH[facility]. CM WAITING ADMISSION DETERMINATION FROM [facility]. SANJANA Hernández DCP- Discharge Planning Updated by [id number]: Phil Caruso on 04/05/19 12:[address] Patient Name: CARO JASSO Encounter No: [id number] : 1955 Primary Insurance: [facility] MEDICARE SOLUTIONS Anticipated DC Date: Planned Disposition: Inpatient Rehab External [facility] DCP follow-up note: CM CALLED AND SPOKE TO VERNON PEACOCK, OF [facility], ; THEY WILL SCREEN FOR INPATIENT REHAB ADMISSION. THEY HAVE THE AVAILABILITY OF HEMODIALYSIS IN THEIR REHAB, BUT WILL NOT ACCEPT PERITONEAL DIALYSIS. CM FAXED REFERRAL TO [facility], . CM WAITING ADMISSION DETERMINATION FROM [facility]. SANJANA Hernández DCP- Discharge Planning Updated by [id number]: Phil Caruso on 04/04/19 5:[address] Patient Name: CARO JASSO Encounter No: [id number] : 1955 Primary Insurance: [facility] MEDICARE SOLUTIONS Anticipated DC Date: Planned Disposition: Inpatient Rehab External [facility] DCP follow-up note: CM RECEIVED ORDER FOR INPATIENT REHAB PRESCREENING, MET WITH PT'S DAUGHTER, HARRIETT YOUNG, IN ROOM. HARRIETT IS PT'S EMERGENCY CONTACT LISTED ON FACE SHEET AND REPORTS TO BE PT'S CAREGIVER AT HOME. PT IN DIALYSIS. CM HAD ALSO RECEIVED HANDWRITTEN NOTE INDICTATING PT WANTS REHAB IN [place]. HARRIETT REPORTS PT WANTS REFERRAL TO [facility] FOR INPATIENT REHAB. CM DISCUSSED HAVING A ALTERNATE PLAN IF DECLINED FOR INPATIENT REHAB. THEY HAVE DISCUSSED CARE HOME; CM PROVIDED LIST OF AVAILABLE CARE HOME FACILITIES WITHIN [address] OF [place]. HARRIETT WILL DISCUSS THIS WITH PT AND THEY WILL LET CM KNOW OF ALTERNATE PLAN FOR REHAB. CM TO SEND REFERRAL TO [facility] FOR INPATIENT REHAB SOON POSSIBLE. PT CONSIDERING CARE HOME FACILITY ALTERNATE REHAB PLAN IF DECLINED BY [facility]. Phil Caruso, CASE MANAGEMENT DCP- Discharge Planning Updated by [id number]: Kamini Rafael on 04/02/19 12:[address] I HAVE SPOKEN TO EDSON EWING, CLINICAL LIASON WITH MICHELLE ABOUT THIS PATIENT POTENTIALLY BEING A NEW START. THIS WAY SHE CAN MAKE CONTACT TO PRESTART THE PROCESS. PTS FIRST DIALYSIS WAS YESTERDAY. DCP- Discharge Planning Updated by [id number]: Olivia Madie on 03/29/19 12:[address] Patient Name: CARO JASSO Admission Status: Elective Accout number: [id number] Admission Date: 03-24-2019 : 1955 Admission Diagnosis: Attending: ELTON HODGE Current LOS: 5 Anticipated DC Date: Planned Disposition: Primary Insurance: [facility] MEDICARE SOLUTIONS Discharge Planning Comments: CM SPOKE WITH DAUGHTER ABOUT DC PLANNING/NEEDS. SHE STATES IS WAITING TO TALK TO THE DOCTOR BUT HAS RECIEVED BAD NEWS ON MOTHER'S PROGNOSIS. I HAVE MENTIONED REHAB AND HOSPICE. DAUGHTER WANTS TO THINK ABOUT IT. CM WILL FOLLOW AND ASSIST. Service Electrician: Olivia Ramachandran DCP- Discharge Planning Updated by [id number]: Kamini Rafael on 03/27/19 3:[address] MOSS WANTED THE PATIENT TRANSFERRED TO [facility] TO HER QUALITY CONTROL SUPERVISOR THIS AM. @ 0813, PLACED A CALL TO THE DEAF INTERPRETER, ADARSH, TO OBTAIN ADMIN APPROVAL TO PROCEED WITH TRANSFER. SE STATED THAT SHE WOULD HAVE TO CALL THE ADMIN MOUNTING MACHINE OPERATOR, BUT WAS CURRENTLY INDISPOSED AND UNABLE. IF I DON'T HEAR BACK FROM HERE, I WILL CALL BACK LATER. @0817, I SPOKE WITH THE PATIENT WHO IS WILLING FOR THE TRANSFER. @0821, I SPOKE WITH ALEN SAWYER APN FOR DR YATES. SHE HAS REQUESTED THAT I HAVE DR MOSS CALL AND DISCUSS THE TRANSFER WITH DR YATES. @0836, I SPOKE WITH DR MOSS AND MADE THIS REQUEST. SHE ASKED ME TO TEXT HER DR YATES'S NUMBER AND SHE WOULD CALL HER. SOON WE HUNG UP, I TEXT HER THE NUMBER. @9445, I PLACED A CALL TO ALEN TO SEE IF SHE KNEW WHEN DR YATES WOULD BE HERE AT THE HOSPITAL SHE STATED HE WAS HERE NOW. SHE SAID THAT DR MOSS DID NOT CALL AND TALK TO DR YATES ABOUT THE TRANSFER. SHE STATED THAT SHE WOULD TALK TO HIM AND LET ME KNOW, BUT SHE DID NOT FEEL THAT THE PATIENT WOULD TRANSFER. @3546, DR YATES AND VERÓNICA LOWRY ON THE FLOOR. THEY HAVE TALKED WITH THE PATIENT. THE PATIENT WILL REMAIN HERE FOR TREATMENT AND NOT TRANSFER. DCPIA - Discharge Planning Initial Assessment Updated by [id number]: Olivia Ramachandran on 03/29/19 12:11 pm * Is the patient Alert and Oriented? No * Preadmission Environment Home with Family * Other Equipment WALKER, WC, TRANSFER CHAIR, O2 NEBS * List name and contact numbers for known caregivers / representatives who currently or will assist patient after discharge: HARRIETT, DAUGHTER, * Community resources currently utilized Home Health * Please name any agencies selected above. [facility] * Has this patient been hospitalized within the prior 30 days at any hospital? Yes Coverage Notice Reviewer: [id number] Caruso Notice Issued Date-Time: 04/12/2019 16:10 Notice Type: Patient Choice Letter Notice Delivered To: Patient Relationship to Patient: Commercial Real Estate Manager Name: Delivery Method: HAND - Hand Delivered Kristyn Days: Prior Verbal Notification: Recipient Understood Notice: Yes Recipient Signature: Yes Med Rec Note Co-signed by Attending: Coverage Notice Comment: SNF IN [place] OR SNF IN [place] Reviewer: ELYSSA Caruso Notice Issued Date-Time: 04/10/2019 9:56 Notice Type: Patient Choice Letter Notice Delivered To: Patient Relationship to Patient: Commercial Real Estate Manager Name: Delivery Method: HAND - Hand Delivered Kristyn Days: Prior Verbal Notification: Recipient Understood Notice: Yes Recipient Signature: Yes Med Rec Note Co-signed by Attending: Coverage Notice Comment: 1 - [facility], 2 - [facility] Reviewer: [id number] Caruso Notice Issued Date-Time: 04/04/2019 18:45 Notice Type: Patient Choice Letter Notice Delivered To: Patient Relationship to Patient: Commercial Real Estate Manager Name: Delivery Method: HAND - Hand Delivered Kristyn Days: Prior Verbal Notification: Recipient Understood Notice: Yes Recipient Signature: Yes Med Rec Note Co-signed by Attending: Coverage Notice Comment: 1- [facility] 2- [facility] Last DP export: 04/13/19 8:00 a Patient Name: CARO JASSO Page [phone] at 0906 All edits/amendments must be made on the electronic document DICTATION DATE: 04/13/19905 ESTATE ADMINISTRATOR: ELVIRA 04/13/19905 RPT#: [id number] DC DATE: STATUS: ADM IN [facility] [address] [place] [address] END OF REPORT
--- NOTE | 2019-04-13 09:13 | MORECARE ---
CASE MANAGEMENT DISCHARGE SUMMARY PATIENT: CARO JASSO UNIT: [id number] ADM DATE: 03/24/19 AGE: 63 : 55 SEX: F ROOM/BED: D.2106 AUTHOR: KENNEY,DOC PHYSICIAN: REFERRING PHYSICIAN: ELTON HODGE MD DATE OF SERVICE: 04/13/19 Discharge Plan Patient Name: CARO JASSO Facility: [facility]:[place] : 1955 Planned Disposition: Prison Facility Anticipated Discharge Date: 04/11/19 Discharge Date: Expected LOS: 18 Initial Reviewer: [id number] Initial Review Date: 03/29/2019 Generated: 04/13/19 10:13 am Comments DCP- Discharge Planning Updated by [id number]: Phil Caruso on 04/13/19 8:[address] Patient Name: CARO JASSO Encounter No: [id number] : 1955 Primary Insurance: [facility] MEDICARE SOLUTIONS Anticipated DC Date: 04-11-2019 Planned Disposition: Prison Facility External Planned Provider: [facility], MEDICARE REHAB BED DCP follow-up note: CM RECEIVED MESSAGE FROM MADONNA OF [facility] INPATIENT [facility] WHO INFORMED CM THAT IT INSURANCE DECLINED [facility] IN[facility]IENT [facility], IT WOULD BE A WASTE OF TIME TO RESUBMIT BUT SHE WOULD BE HAPPY TO DO IT IF PT INSISTED. CM SPOKE TO PT IN ROOM WHO ASKED CM TO SPEAK TO HER PARTNER BOUCHRA AT [phone], TO ASSIST WITH DISCHARGE PLANNING. CM CALLED BOUCHRA AND PROVIDED ABOVE INFORMATION. BOUCHRA WANTS TO PROCEED WITH JAIL REFERRAL TO [facility]. IF DECLINED, SEEK SNF IN [place]. CM CALLED [facility], , SPOKE TO TUCKER WHO WILL SCREEN FOR ADMISSION. CM FAXED REFERRAL TO [facility] AT [phone]. PT HAS BEEN DECLINED BY INSURANCE FOR INPATIENT REHAB. PT HAS BEEN DECLINED BY [facility] AND [facility]. CM WAITING ADMISSION DETERMINATION FROM [facility]. Phil Caruso CASE MANAGEMENT DCP- Discharge Planning Updated by [id number]: Phil Caruso on 04/12/19 3:[address] Patient Name: CARO JASSO Encounter No: [id number] : 1955 Primary Insurance: [facility] MEDICARE SOLUTIONS Anticipated DC Date: 04-11-2019 Planned Disposition: Prison Facility External Planned Provider: [facility] RE[facility] DCP follow-up note: CM RECEIVED CALLF LEOBARDO [facility], THEY CANNOT MEET PT'S NEEDS. CM NOTIFIED PT OF DENIAL. PT STATES SHE HAS CALLED HER INSURANCE COMPANY AND SHE WAS TOLD THAT INPATIENT REHAB DID NOT INCLUDE ALL HER MEDICAL PROBLEMS FOR THE INSURANCE TO REVIEW FOR INPATIENT REHAB. PT WANTS CM TO RESUBMIT TO [facility] FOR INPATIENT REHAB. CM CALLED [facility] IN[facility], , LEFT MESSAGE FOR MADONNA OF ADMISSIONS ASKING FOR CONSIDERATION AND RESUBMISSION FOR INSURANCE AUTHORIZATION. CM FAXED REFERRAL TO [facility] INPATIENT [facility] AT [phone]. CM NOTIFIED PT AND ASKED WHAT HER SECOND CHOICE WILL BE SINCE DECLINED BY [facility] AND [facility]. CM RECEIVED PATIENT CHOICE LETTER FOR 1- ANY [facility] AND 2- ANY [place] [facility] IF PT IS DECLINED BY [facility] INPATIENT REH[facility]. PT STATES THAT [facility]PATIENT REHAB. CM WAITING ADMISSION DETERMINATION FROM [facility] INPAT[facility]. Phil Caruso, CASE MANAGEMENT DCP- Discharge Planning Updated by [id number]: Phil Caruso on 04/12/19 8:[address] Patient Name: CARO JASSO Encounter No: [id number] : 1955 Primary Insurance: [facility] MEDICARE SOLUTIONS Anticipated DC Date: 04-11-2019 Planned Disposition: Prison Facility External Planned Provider: [facility], MEDICARE REHAB BED DCP follow-up note: CM RECEIVED CALL FROM ANTWAN OF [facility], , THEY RECEIVED REFERRAL, WILL SCREEN FOR ADMISSION. IF PT NEEDS MINIMAL ASSISTANCE TO TRANSFER TO [facility], SKILLED NURSING STAFF WILL BE ABLE TO PROVIDE THIS ASSISTANCE. PT WILL HAVE TO BE ACCEPTED AT [facility] FOR THEM TO ACCEPT PT THEY WILL NOT TRANSPORT ANYWHERE OUTSIDE [facility] FOR DIALYSIS. ANTWAN WILL CALL WITH ADMISSION DETERMINATION AFTER SCREENING IS COMPLETED. ANABELLA WAITING ADMISSION DETERMINATION FOR REHAB FROM [facility]. Phil Caruso CASE MANAGEMENT DCP- Discharge Planning Updated by [id number]: Phil Caruso on 04/11/19 4:[address] Patient Name: CARO JASSO Encounter No: [id number] : 1955 Primary Insurance: [facility] MEDICARE SOLUTIONS Anticipated DC Date: 04-11-2019 Planned Disposition: Prison Facility External Planned Provider: [facility], MEDICARE REHAB BED DCP follow-up note: CM RECEIVED CALL FROM [facility], THEY WILL NOT ACCEPT PT. CM SPOKE TO PT WHO ASKED CM TO FAX REFERRAL TO HER SECOND CHOICE, [facility]. CHOICE PREVIOUSLY SIGNED. CM SPOKE TO EDSON OF [facility]IENT [facility] WHO INFORMED CM THAT PT WILL HAVE TO BE ABLE TO TRANSFER HERSELF FROM CHAIR TO BED OR HAVE SOMEONE THERE THAT WILL ASSIST WITH EVERY TRANSFER TO EVEN BE CONSIDERED AT THE [facility]. CM SPOKE TO PT WHO DECLINED PLACEMENT ANYWHERE ELSE OTHER THAN [facility]. PT INSISTED THAT SHE CAN TRANSFER HERSELF TO A CHAIR AND WILL DO IT WITH THERAPY. CM LEFT NOTE ON DRY ERASE BOARD OF NEED FOR DOCUMENATION THAT PT IS ABLE TO TRANSFER HERSELF. CM CALLED [facility] X[facility], , THERE WAS NO ANSWER. CM FAXED REFERRAL TO [facility] AT [phone]. CM SPOKE TO PT AFTER HER PD CATHETER WAS INSERTED. PT STILL WILLING FOR PLACEMENT AT [facility], STILL INSISTS THAT SHE CAN TRANSFER HERSELF IF THERAPY WILL WORK WITH HER STATING THEY HAVE ONLY SEEN HER ABOUT "3 TIMES". CM ASSURED PT THAT THERAPY WILL CONTINUE TO WORK WITH HER. PT STATES SHE THINKS THAT SHE WILL JUST BE ABLE TO GO HOME WITH PERITONEAL DIALYSIS. CM EXPLAINED THAT PT WILL HAVE TO TALK TO THE DOCTOR AND THAT CM UNDERSTOOD THAT PT WILL HAVE TO HAVE HEMODIALYSIS AND THAT PD IS A PROCESS AND TAKES TRAINING AND ARRANGEMENTS. PT NOW THINKS SHE WILL CAN HAVE PD AND GO HOME. ANABELLA WAITING ADMISSION DETERMINATION FOR REHAB FROM [facility]. Phil Caruso CASE ED DCP- Discharge Planning Updated by [id number]: Phil Caruso on 04/11/19 7:[address] Patient Name: CARO JASSO Encounter No: [id number] : 1955 Primary Insurance: [facility] MEDICARE SOLUTIONS Anticipated DC Date: 04-11-2019 Planned Disposition: Prison Facility External Planned Provider: [facility] BED DCP follow-up note: CM FAXED REFERRAL UPDATE TO [facility] AT [phone]. CM WAITING ADMISSION DETERMINATION FROM [facility] WELL INSURANCE DETERMINATION. RAYO TOUSSAINT IS WORKING ON OUTPATIENT DIALYSIS UNIT. SANJANA Hernández DCP- Discharge Planning Updated by [id number]: Phil Caruso on 04/10/19 3:[address] Patient Name: CARO JASSO Encounter No: [id number] : 1955 Primary Insurance: [facility] MEDICARE SOLUTIONS Anticipated DC Date: 04-11-2019 Planned Disposition: Prison Facility External Planned Provider: [facility] MEDICARE REHAB BED DCP follow-up note: CM MET WITH PT IN ROOM TO DISCUSS DISCHARGE PLANNING AND NEEDS. PT HAS REVIEWED LIST WITH FAMILY AND WOULD LIKE REFERRAL TO [facility] CHO[facility] AND [facility] SEC[facility] CHOICE. CHOICE FORM SIGNED. CM CALLED [facility], , SPOKE TO BIGG AND PROVIDED REFERRAL INFORMATION. CM FAXED REFERRAL TO [facility] AT [phone]. CM WAITING ADMISSION DETERMINATION FROM [facility] WELL INSURANCE DETERMINATION. RAYO TOUSSAINT IS WORKING ON OUTPATIENT DIALYSIS UNIT. Phil Caruso CASE MANAGEMENT Appended by Phil Caruso on 04/10/2019 16:10 GREENSKEEPER: CM RECEIVED CALL FROM [facility], , SPOKE TO BIGG WHO ASKED WHY PT IS ON ABILIFY. CM SPOKE TO PT IN ROOM, PT DENIES MENTAL ILLNESS OR PLACEMENT IN PSYCHIATRIC CARE IN THE PAST. PT THINKS IT MAY BE FOR DEMENTIAL. CM NOTIFIED BIGG. CM WAITING ADMISSION DETERMINATION FROM [facility] INSURANCE DETERMINATION. RAYO TOUSSAINT IS WORKING ON OUTPATIENT DIALYSIS UNIT. SANJANA Hernández DCP- Discharge Planning Updated by [id number]: Phil Caruso on 04/09/19 11:[address] Patient Name: CARO JASSO Encounter No: [id number] : 1955 Primary Insurance: [facility] MEDICARE SOLUTIONS Anticipated DC Date: 04-11-2019 Planned Disposition: Prison Facility External Planned Provider: TO BE DETERMINED DCP follow-up note: CM RECEIVED INPATIENT REHAB DENIAL FROM PT'S INSURANCE. CM MET WITH PT IN ROOM, PROVIDED COPY OF DENIAL AND READ REASON FOR DENIAL WITH SUGGESTION THAT REHAB COULD BE PROVIDED IN [facility] FACILITY. CM PROVIDED PT WITH LISTING OF [facility] FACLITIES WITHIN [place] OF [place] AT PT'S REQUEST FROM MEDICARE WEBSITE. CM PROVIDED CHOICE FORM. PT STATES SHE WANTS TO THINK ABOUT CHOICES AND WILL LET CM KNOW SOON POSSIBLE. COPY OF INPATIENT DENIAL PLACED IN CHART WITH PT'S SIGNATURE, DATE AND TIME OF PT'S RECEIPT. CM WENT BACK IN ROOM AFTER LUNCH, PT IS OUT OF ROOM IN DIALYSIS. CM TO FOLLOW UP WITH PT LATER REGARDING [facility] REHAB CHOICES. CM WAITING ON PT'S DECISION FOR [facility]AIL WELL CHOICES FOR SKILLED REHAB PLACEMENT. Phil Caruso, CASE MANAGEMENT DCP- Discharge Planning Updated by [id number]: Phil Caruso on 04/05/19 2:[address] Patient Name: CARO JASSO Encounter No: [id number] : 1955 Primary Insurance: [facility] MEDICARE SOLUTIONS Anticipated DC Date: Planned Disposition: Inpatient Rehab External [facility] follow-up note: CM NOTIFIED PT'S DAUGHTER IN ROOM OF REFERRAL BEING FAXED TO [facility]. CM RECEIVED PATIENT CHOICE LETTER FOR 1- [facility] AND 2- [facility] IF PT IS DECLINED BY [facility] INPATIENT REHAB. CM WAITING ADMISSION DETERMINATION FROM [facility]PAT[facility]. Phil Caruso CASE MANAGEMENT DCP- Discharge Planning Updated by [id number]: Phil Caruso on 04/05/19 12:[address] Patient Name: CARO JASSO Encounter No: [id number] : 1955 Primary Insurance: [facility] MEDICARE SOLUTIONS Anticipated DC Date: Planned Disposition: Inpatient Rehab External Planned Provider: [facility] DCP follow-up note: CM CALLED AND SPOKE TO VERNON PEACOCK, OF [facility] INPATIENT [facility], ; THEY WILL SCREEN FOR INPATIENT REHAB ADMISSION. THEY HAVE THE AVAILABILITY OF HEMODIALYSIS IN THEIR REHAB, BUT WILL NOT ACCEPT PERITONEAL DIALYSIS. CM FAXED REFERRAL TO [facility], . CM WAITING ADMISSION DETERMINATION FROM [facility]. Phil Caruso, CASE MANAGEMENT DCP- Discharge Planning Updated by [id number]: Phil Caruso on 04/04/19 5:[address] Patient Name: CARO JASSO Encounter No: [id number] : 1955 Primary Insurance: [facility] MEDICARE SOLUTIONS Anticipated DC Date: Planned Disposition: Inpatient Rehab External Planned Provider: [facility] DCP follow-up note: CM RECEIVED ORDER FOR INPATIENT REHAB PRESCREENING, MET WITH PT'S DAUGHTER, HARRIETT YOUNG, IN ROOM. HARRIETT IS PT'S EMERGENCY CONTACT LISTED ON FACE SHEET AND REPORTS TO BE PT'S CAREGIVER AT HOME. PT IN DIALYSIS. CM HAD ALSO RECEIVED HANDWRITTEN NOTE INDICTATING PT WANTS REHAB IN [place]. HARRIETT REPORTS PT WANTS REFERRAL TO [facility] FOR INPATIENT REHAB. CM DISCUSSED HAVING A ALTERNATE PLAN IF DECLINED FOR INPATIENT REHAB. THEY HAVE DISCUSSED JAIL; CM PROVIDED LIST OF AVAILABLE [facility] FACILITIES WITHIN [place] OF [place]. HARRIETT WILL DISCUSS THIS WITH PT AND THEY WILL LET CM KNOW OF ALTERNATE PLAN FOR REHAB. CM TO SEND REFERRAL TO [facility] FOR INPATIENT REHAB SOON POSSIBLE. PT CONSIDERING JAIL FACILITY ALTERNATE REHAB PLAN IF DECLINED BY [facility]. Phil Caruso CASE MANAGEMENT DCP- Discharge Planning Updated by [id number]: Tucker Hall on 04/02/19 12:[address] I HAVE SPOKEN TO EDSON EWING, CLINICAL LIASON WITH MICHELLE ABOUT THIS PATIENT POTENTIALLY BEING A NEW START. THIS WAY SHE CAN MAKE CONTACT TO PRESTART THE PROCESS. PTS FIRST DIALYSIS WAS YESTERDAY. DCP- Discharge Planning Updated by [id number]: Olivia Ramachandran on 03/29/19 12:[address] Patient Name: CARO JASSO Admission Status: Elective Accout number: [id number] Admission Date: 03-24-2019 : 1955 Admission Diagnosis: Attending: ELTON HODGE Current LOS: 5 Anticipated DC Date: Planned Disposition: Primary Insurance: [employer] MEDICARE SOLUTIONS Discharge Planning Comments: CM SPOKE WITH DAUGHTER ABOUT DC PLANNING/NEEDS. SHE STATES IS WAITING TO TALK TO THE DOCTOR BUT HAS RECIEVED BAD NEWS ON MOTHER'S PROGNOSIS. I HAVE MENTIONED REHAB AND HOSPICE. DAUGHTER WANTS TO THINK ABOUT IT. CM WILL FOLLOW AND ASSIST. Hand Launderer: Olivia Ramachandran DCP- Discharge Planning Updated by [id number]: Tucker Hall on 03/27/19 3:[address] MOSS WANTED THE PATIENT TRANSFERRED TO [facility] TO HER LEAD OXIDE MILL TENDER THIS AM. @ 0813, PLACED A CALL TO THE ENVIRONMENTAL ENGINEERING INTERN, ADARSH, TO OBTAIN ADMIN APPROVAL TO PROCEED WITH TRANSFER. SE STATED THAT SHE WOULD HAVE TO CALL THE ADMIN INFORMATION CLERK [employer], BUT WAS CURRENTLY INDISPOSED AND UNABLE. IF I DON'T HEAR BACK FROM HERE, I WILL CALL BACK LATER. @0817, I SPOKE WITH THE PATIENT WHO IS WILLING FOR THE TRANSFER. @0821, I SPOKE WITH ALEN SAWYER APN FOR DR YATES. SHE HAS REQUESTED THAT I HAVE DR MOSS CALL AND DISCUSS THE TRANSFER WITH DR YATES. @0836, I SPOKE WITH DR MOSS AND MADE THIS REQUEST. SHE ASKED ME TO TEXT HER DR YATES'S NUMBER AND SHE WOULD CALL HER. SOON WE HUNG UP, I TEXT HER THE NUMBER. @1334, I PLACED A CALL TO ALEN TO SEE IF SHE KNEW WHEN DR YATES WOULD BE HERE AT THE HOSPITAL SHE STATED HE WAS HERE NOW. SHE SAID THAT DR MOSS DID NOT CALL AND TALK TO DR YATES ABOUT THE TRANSFER. SHE STATED THAT SHE WOULD TALK TO HIM AND LET ME KNOW, BUT SHE DID NOT FEEL THAT THE PATIENT WOULD TRANSFER. @1426, DR YATES AND VERÓNICA LOWRY ON THE FLOOR. THEY HAVE TALKED WITH THE PATIENT. THE PATIENT WILL REMAIN HERE FOR TREATMENT AND NOT TRANSFER. DCPIA - Discharge Planning Initial Assessment Updated by [id number]: Olivia Ramachandran on 03/29/19 12:11 pm * Is the patient Alert and Oriented? No * Preadmission Environment Home with Family * Other Equipment WALKER, WC, TRANSFER CHAIR, O2 NEBS * List name and contact numbers for known caregivers / representatives who currently or will assist patient after discharge: HARRIETT, DAUGHTER, * Community resources currently utilized [facility] * Please name any agencies selected above. [facility] * Has this patient been hospitalized within the prior 30 days at any hospital? Yes Coverage Notice Reviewer: [id number] Caruso Notice Issued Date-Time: 04/12/2019 16:10 Notice Type: Patient Choice Letter Notice Delivered To: Patient Relationship to Patient: Linter Saw Sharpener Name: Delivery Method: HAND - Hand Delivered Kristyn Days: Prior Verbal Notification: Recipient Understood Notice: Yes Recipient Signature: Yes Med Rec Note Co-signed by Attending: Coverage Notice Comment: SNF IN [place] OR SNF IN [place] Reviewer: [id number] Caruso Notice Issued Date-Time: 04/10/2019 9:56 Notice Type: Patient Choice Letter Notice Delivered To: Patient Relationship to Patient: Linter Saw Sharpener Name: Delivery Method: HAND - Hand Delivered Kristyn Days: Prior Verbal Notification: Recipient Understood Notice: Yes Recipient Signature: Yes Med Rec Note Co-signed by Attending: Coverage Notice Comment: 1 - [facility], 2 - [facility] Reviewer: [id number] Caruso Notice Issued Date-Time: 04/04/2019 18:45 Notice Type: Patient Choice Letter Notice Delivered To: Patient Relationship to Patient: Linter Saw Sharpener Name: Delivery Method: HAND - Hand Delivered Kristyn Days: Prior Verbal Notification: Recipient Understood Notice: Yes Recipient Signature: Yes Med Rec Note Co-signed by Attending: Coverage Notice Comment: 1- [facility] 2- [facility] Last DP export: 04/13/19 8:06 a Patient Name: CARO JASSO Page [phone] at 0913 All edits/amendments must be made on the electronic document DICTATION DATE: 04/13/19912 ASSISTANT PROGRAM DIRECTOR: ELVIRA 04/13/19912 RPT#: [id number] DC DATE: STATUS: ADM IN [facility] [address] [place] [address] END OF REPORT
--- NOTE | 2019-04-13 10:37 | NUR ---
OT NOTE: PT REPORTED FEELING VERY WEAK TODAY. TREMORS NOTED IN B HANDS. STATES THAT SHE HAS VERY LITTLE APPETITE AND FEELS NAUSEATED WHEN SHE EATS. PERFOREMD BED MOB WITH MIN ASSIST AND EXT TIME. SIT TO STAND WITH MIN ASSIST AND USE OF WALKER; TRANSFERRED TO CHAIR WITH MIN ASSIST. SIMPLE GROOMING TASKS WITH SET UP; CHAPIN DE LUNA, OTR/L
--- NOTE | 2019-04-13 12:25 | NUR ---
BP 82/49. TESSA NOTIFIED AND LOOKING INTO THIS.
--- NOTE | 2019-04-13 13:09 | NUR ---
Nutrition Follow-up: Pt continues to report poor appetite/PO intake with N/V, early satiety. Discussed with IDT; to consult surgery re: N/V in pt with h/o gastric bypass. Pt agreed to try Nepro. Noted K+ wnl today but has been low; refusing to take oral supplements. Receiving potatoes with dinner tray. Has been requesting V8 juice; discussed alternatives (ie banana). Diet: Renal, potatoes with dinner tray Wt: 263.4# (noted wt yesterday was 278.8#; rec reweigh and will monitor) Last BM: 04/11 or 04/12 per pt Labs noted: K+ 3.8, Ca 8.2, PO4 2.1 Meds noted: Aysha Sendavidot -Continue current diet as tolerated. -Will work with pt to supplement K+ with food 2/2 refusing oral supplements. -Nepro sent with lunch today for pt to try. -Monitor wt trends. -RD following.
[2019-04-13 13:53] VITALS: BP 82/49
--- NOTE | 2019-04-13 15:37 | NUR ---
MANNUAL BP 138/70. PAIN MEDS GIVEN AT THIS TIME
[2019-04-13 18:40] VITALS: BP 91/36
--- NOTE | 2019-04-13 19:00 | NUR ---
PT CARE ASSUMED. BEDSIDE SHIFT REPORT COMPLETE. NO S/S OF DISTRESS NOTED AT THIS TIME. RR EVEN AND UNLABORED ON RA. NO NEEDS EXPRESSED AT THIS TIME. WILL CPOC.
[2019-04-13 20:00] VITALS: BP 106/44
[2019-04-13 22:38] VITALS: BP 104/46
--- NOTE | 2019-04-13 22:49 | NUR ---
VACUUM FURNACE OPERATOR REPORTS NOT BEING ABLE TO TAKE PTS BP WITH AUTOMATIC MACHINE. SILVANA BP TAKEN 104/45. WILL CTM WITH MAUNEL BP CUFF. NO FURTHER NEEDS EXPRESSED.
[2019-04-14] VITALS: BP 104/44
[2019-04-14 04:30] VITALS: BP 108/56
[2019-04-14 05:20] LABS: BASOPHILS 0.7 % (0-2); EOSINOPHILS 0 % (0-7); HEMATOCRIT 25.3 % (36.0-48.0); IMMATURE GRANULOCYTES 0.9 % (0-5); LYMPHOCYTES 15.4 % (15-50); MCH 26.8 pg (26.0-34.0); MCHC 31.6 g/dL (31.0-37.0); MCV 84.9 fL (80.0-100.0); MEAN PLATELET VOLUME 9.3 fL (7.4-10.4); MONOCYTES 8.3 % (2-11); NEUTROPHILS 74.7 % (40-80); PLATELET COUNT 189 10x3/uL (130-400); RBC 2.98 10x6/uL (4.00-5.40); RDW 19.5 % (11.5-14.5); WBC 6.9 10x3/uL (4.8-10.8)
[2019-04-14 05:34] LABS: ANION GAP 9.5 mmol/L (8-16); CALCIUM 8.4 mg/dL (8.5-10.1); CARBON DIOXIDE 30.3 mmol/L (21.0-32.0); CREATININE - SERUM 2.7 mg/dL (0.6-1.3); PHOSPHOROUS 2.5 mg/dL (2.5-4.9); POTASSIUM - SERUM 3.8 mmol/L (3.5-5.1)
--- NOTE | 2019-04-14 07:00 | NUR ---
RECEIVED REPORT. ASSUMED CARE OF PATIENT. PATIETN SITTING UP IN BED, PATIENT IS ALERT/AWAKE, ORIENTED AND UNDERSTANDS SHE IS NPO THIS AM FOR SWALLOWING STUDY. DENIES NEEDS AT THIS TIME. CALL LIGHT WITHIN REACH. NO DISTRESS.
[2019-04-14 08:21] VITALS: BP 127/45
--- NOTE | 2019-04-14 09:47 | NUR ---
PATIENT REMAINS OFF UNIT AT THIS TIME FOR SWALLOW EVALUATION IN NUCLEAR MEDICINE.
--- NOTE | 2019-04-14 10:22 | NUR ---
PATIENT IS BACK FROM RADIOLOGY AND NOW ABLE TO ADMINISTER MEDICATIONS AND DO PD FLUSH.
[2019-04-14 11:43] VITALS: BP 129/36
[2019-04-14 15:58] VITALS: BP 107/30
--- NOTE | 2019-04-14 16:41 | NUR ---
PROVIDED BEEF BROTH AND DIET [place] UPON REQUEST. NO DISTRESS. PATIENT IS WAITING HER TURN TO GO TO DIALYSIS.
--- NOTE | 2019-04-14 22:15 | NUR ---
PT RETURNED TO ROOM FROM DIALYSIS.
[2019-04-15] VITALS (7 sets, daily range): BP systolic 113–134; BP diastolic 43–82
--- NOTE | 2019-04-15 04:39 | NUR ---
22G PIV STARTED TO RIGHT FA X1 ATTEMPT.
[2019-04-15 04:48] LABS: BASOPHILS 0.6 % (0-2); EOSINOPHILS 0 % (0-7); HEMATOCRIT 24.2 % (36.0-48.0); HEMOGLOBIN 7.6 g/dL (12-16); IMMATURE GRANULOCYTES 0.5 % (0-5); LYMPHOCYTES 13.7 % (15-50); MCH 26.8 pg (26.0-34.0); MCHC 31.4 g/dL (31.0-37.0); MCV 85.2 fL (80.0-100.0); MEAN PLATELET VOLUME 9.2 fL (7.4-10.4); MONOCYTES 7.3 % (2-11); NEUTROPHILS 77.9 % (40-80); PLATELET COUNT 197 10x3/uL (130-400); RBC 2.84 10x6/uL (4.00-5.40); RDW 19.5 % (11.5-14.5); WBC 6.3 10x3/uL (4.8-10.8)
[2019-04-15 05:09] LABS: ANION GAP 8.3 mmol/L (8-16); CALCIUM 8.1 mg/dL (8.5-10.1); CARBON DIOXIDE 30.2 mmol/L (21.0-32.0); PHOSPHOROUS 1.9 mg/dL (2.5-4.9); POTASSIUM - SERUM 3.5 mmol/L (3.5-5.1)
[2019-04-15 05:10] LABS: CREATININE - SERUM 1.8 mg/dL (0.6-1.3)
--- NOTE | 2019-04-15 07:49 | NUR ---
RECEIVED REPORT. ASSUMED CARE OF PATIENT. PATIENT SITTING UP IN BED. CALL LIGHT WITHIN REACH. PATIENT INQUIRING ABOUT BLOOD TRANSFUSION TODAY DUE TO RESULT OF HER LAB THIS AM. NO INFORMATION AT THIS TIME TO PROVIDED. NO DISTRESS.
--- NOTE | 2019-04-15 07:59 | NUR ---
ALLERGY TO IODINE. PER , RADIOLOGIST, NEW ORDERS RECEIVED FOR BENADRYL 50MG IV X 1 AND THEY WILL BE ABLE TO SCAN HER.
--- NOTE | 2019-04-15 09:35 | NUR ---
patient back from ct scan at this time.
--- NOTE | 2019-04-15 12:00 | NUR ---
OOB TO CHAIR. NO DISTRESS. DENIES NEEDS AT THIS TIME. CALL LIGHT WITHIN REACH.
--- NOTE | 2019-04-15 14:58 | NUR ---
DRESSING CHANGED TO PD CATHETER. MEDICATED FOR PAIN WITH TYLENOL. PATIENT WAS BEING ASSISTED BACK TO THE BED FROM THE TOILET BY PHYSICAL THERAPIST, ANDRES, WHEN THE PATIENT BECAME WEAK AND WAS LOWERED TO THE FLOOR. PT THEN ASSISTED PATIENT UP AND BACK TO BED. NO VISIBLE INJURIES, ABLE TO MOVE ALL EXTREMITIES, DENIES INJURIES. NO DISTRESS. CALL LIGHT WITHIN REACH. AND AT BEDSIDE DURING DRESSING CHANGE TO PD CATH. NO DISTRESS.
--- NOTE | 2019-04-15 20:00 | NUR ---
ALERT RESTING IN BED, IV TO RIGHT AC AREA APPEARS RED AND SWELLING DC'D AT THIS TIME AND RESTARTED X 1 ATTEMPT 22G RIGHT WRIST, DENIES PAIN OR NEEDS AT THIS TIME, SEE SHIFT ASSESSMENT, CALL LIGHT IN REACH
--- NOTE | 2019-04-15 23:30 | NUR ---
CALL TO [facility] SANCHES BARBECUE COOK, PT REQUESTING SOMETHING FOR RESTLESS LEGS AND TO HELP HER REST, ORDER RECIEVED FOR MELATONIN
[2019-04-16 04:00] VITALS: BP 117/48; BP 120/60
[2019-04-16 06:14] LABS: BASOPHILS 0 % (0-2); EOSINOPHILS 0 % (0-7); HEMATOCRIT 23.1 % (36.0-48.0); IMMATURE GRANULOCYTES 0.3 % (0-5); LYMPHOCYTES 9.1 % (15-50); MCH 26.6 pg (26.0-34.0); MCHC 31.6 g/dL (31.0-37.0); MCV 84.3 fL (80.0-100.0); MEAN PLATELET VOLUME 9.4 fL (7.4-10.4); MONOCYTES 1.7 % (2-11); NEUTROPHILS 88.9 % (40-80); PLATELET COUNT 225 10x3/uL (130-400); RBC 2.74 10x6/uL (4.00-5.40); RDW 19.6 % (11.5-14.5); WBC 5.7 10x3/uL (4.8-10.8)
[2019-04-16 06:21] LABS: HEMOGLOBIN 7.3 g/dL (12-16)
[2019-04-16 06:31] LABS: ANION GAP 10.8 mmol/L (8-16); CALCIUM 8.3 mg/dL (8.5-10.1); CARBON DIOXIDE 27.7 mmol/L (21.0-32.0); CREATININE - SERUM 2.5 mg/dL (0.6-1.3); PHOSPHOROUS 2.6 mg/dL (2.5-4.9); POTASSIUM - SERUM 3.5 mmol/L (3.5-5.1)
[2019-04-16 08:00] VITALS: BP 123/56
--- NOTE | 2019-04-16 11:26 | NUR ---
OT NOTE: PT INITIALLY NOT WANTING TO GET OUT OF BED. STATED THAT SHE WAS VERY TIRED BECAUSE OF NO SLEEP LAST NIGHT. REPORTED THAT SHE WAS HAVING SHARP PAINS IN B LES AND THIS WAS WHY SHE WAS UNABLE TO SLEEP. PERFORMED BED MOB WITH MOD ASSIST TO GET TO EOB; PT VERY FEARFUL OF FALLING TODAY. EXPLAINED THAT THERAPY WOULD NOT LET HER FALL AND THERE WAS 2 OF US TO ASSIST HER. PT STOOD WITH MIN ASSIST; TRANSFERRED WITH WALKER WITH MIN ASSIST. SIMPLE GROOMING TASKS WITH SET UP; EXT ASSIST TO THOMAS SOCKS; SET UP WITH GOWN. CHAPIN DE LUNA, OTR/L
[2019-04-16 12:00] VITALS: BP 116/52
--- NOTE | 2019-04-16 14:07 | MORECARE ---
CASE MANAGEMENT DISCHARGE SUMMARY PATIENT: CARO JASSO UNIT: [id number] ADM DATE: 03/24/19 AGE: 63 : 55 SEX: F ROOM/BED: D.4996 AUTHOR: KENNEY,DOC PHYSICIAN: REFERRING PHYSICIAN: ELTON HODGE MD DATE OF SERVICE: 04/16/19 Discharge Plan Patient Name: CARO JASSO Facility: [facility]:[place] : 1955 Planned Disposition: Residential Facility Anticipated Discharge Date: 04/11/19 Discharge Date: Expected LOS: 18 Initial Reviewer: [id number] Initial Review Date: 03/29/2019 Generated: 04/16/19 3:07 pm Comments DCP- Discharge Planning Updated by [id number]: Phil Caruso on 04/16/19 1:[address] Patient Name: CARO JASSO Encounter No: [id number] : 1955 Primary Insurance: [facility] MED[facility] SOLUTIONS Anticipated DC Date: 04-11-2019 Planned Disposition: Residential Facility External Planned Provider: [facility], MEDICARE REHAB BED DCP follow-up note: CM CALLED [facility], , SPOKE TO TUCKER WHO WILL INFORMED CM THAT THEY ARE OUT OF INSURANCE NETWORK BUT THAT PT HAS THE SAME OUT OF NETWORK BENEFITS IN NETWORK; PT HAS 20 DAYS FOR REHAB. THEY WILL SCREEN FOR ADMISSION TODAY. CM FAXED REFERRAL UPDATE TO [facility] AT [phone]. CM SPOKE TO EDSON OF [facility], SHE HAS PT A CHAIR IN [facility], MWF, 1630 HOURS. EDSON WILL CHECK WITH DIALYSIS UNIT AND REQUEST EARLIER CHAIR TIME. PT HAS BEEN DECLINED BY INSURANCE FOR INPATIENT REHAB. PT HAS BEEN DECLINED BY [facility] AND [facility]. CM WAITING ADMISSION DETERMINATION FROM [facility]. CHAIR AT [facility] HAS BEEN SECURED FOR OUTPATIENT DIALYSIS. Phil Caruso CASE MANAGEMENT DCP- Discharge Planning Updated by [id number]: Phil Caruso on 04/13/19 8:[address] Patient Name: CARO JASSO Encounter No: [id number] : 1955 Primary Insurance: [facility] MED[facility] SOLUTIONS Anticipated DC Date: 04-11-2019 Planned Disposition: Residential Facility External Planned Provider: [facility], MEDICARE REHAB BED DCP follow-up note: CM RECEIVED MESSAGE FROM MADONNA OF [facility] INPATIENT REHAB WHO INFORMED CM THAT IT INSURANCE DECLINED [facility] INPATIENT [facility]HAB, IT WOULD BE A WASTE OF TIME TO RESUBMIT BUT SHE WOULD BE HAPPY TO DO IT IF PT INSISTED. CM SPOKE TO PT IN ROOM WHO ASKED CM TO SPEAK TO HER PARTNER BOUCHRA AT [phone], TO ASSIST WITH DISCHARGE PLANNING. CM CALLED BOUCHRA AND PROVIDED ABOVE INFORMATION. BOUCHRA WANTS TO PROCEED WITH [facility] REFERRAL TO [facility]. IF DECLINED, SEEK SNF IN [place]. CM CALLED [facility], , SPOKE TO TUCKER WHO WILL SCREEN FOR ADMISSION. CM FAXED REFERRAL TO [facility] AT [phone]. PT HAS BEEN DECLINED BY INSURANCE FOR INPATIENT REHAB. PT HAS BEEN DECLINED BY [facility] AND [facility] FACILITY. CM WAITING ADMISSION DETERMINATION FROM [facility]. Phil Caruso, CASE MANAGEMENT DCP- Discharge Planning Updated by [id number]: Phil Caruso on 04/12/19 3:[address] Patient Name: CARO JASSO Encounter No: [id number] : 1955 Primary Insurance: [facility] SOLUTIONS Anticipated DC Date: 04-11-2019 Planned Disposition: Residential Facility External Planned Provider: [facility] DCP follow-up note: CM RECEIVED CALLF [facility], THEY CANNOT MEET PT'S NEEDS. CM NOTIFIED PT OF DENIAL. PT STATES SHE HAS CALLED HER INSURANCE COMPANY AND SHE WAS TOLD THAT INPATIENT REHAB DID NOT INCLUDE ALL HER MEDICAL PROBLEMS FOR THE INSURANCE TO REVIEW FOR INPATIENT REHAB. PT WANTS CM TO RESUBMIT TO [facility] FOR INPATIENT REHAB. CM CALLED [facility] INPATIENT REH[facility], , LEFT MESSAGE FOR MADONNA OF ADMISSIONS ASKING FOR CONSIDERATION AND RESUBMISSION FOR INSURANCE AUTHORIZATION. CM FAXED REFERRAL TO [facility] INPATIENT [facility]HAB AT [phone]. CM NOTIFIED PT AND ASKED WHAT HER SECOND CHOICE WILL BE SINCE DECLINED BY [facility] AND [facility]. CM RECEIVED PATIENT CHOICE LETTER FOR 1- ANY [facility] AND 2- ANY [place] [facility] IF PT IS DECLINED BY [facility] INPATIENT REHAB. PT STATES THAT [facility] ALSO HAS INPATIENT REHAB. CM WAITING ADMISSION DETERMINATION FROM [facility] INPATIENT REHAB. Phil Caruso CASE MANAGEMENT DCP- Discharge Planning Updated by [id number]: Phil Caruso on 04/12/19 8:[address] Patient Name: CARO JASSO Encounter No: [id number] : 1955 Primary Insurance: [facility] SOLUTIONS Anticipated DC Date: 04-11-2019 Planned Disposition: Residential Facility External Planned Provider: [facility], MEDICARE REHAB BED DCP follow-up note: CM RECEIVED CALL FROM ANTWAN OF [facility], , THEY RECEIVED REFERRAL, WILL SCREEN FOR ADMISSION. IF PT NEEDS MINIMAL ASSISTANCE TO TRANSFER TO [facility], LONGTERM STAFF WILL BE ABLE TO PROVIDE THIS ASSISTANCE. PT WILL HAVE TO BE ACCEPTED AT [facility] FOR THEM TO ACCEPT PT THEY WILL NOT TRANSPORT ANYWHERE OUTSIDE [place] FOR DIALYSIS. ANTWAN WILL CALL WITH ADMISSION DETERMINATION AFTER SCREENING IS COMPLETED. CM WAITING ADMISSION DETERMINATION FOR REHAB FROM [facility]. SANJANA Hernández DCP- Discharge Planning Updated by [id number]: Phil Caruso on 04/11/19 4:[address] Patient Name: CARO JASSO Encounter No: [id number] : 1955 Primary Insurance: [facility] SOLUTIONS Anticipated DC Date: 04-11-2019 Planned Disposition: Residential Facility External Planned Provider: [facility], MEDICARE REHAB BED DCP follow-up note: CM RECEIVED CALL FROM [facility], THEY WILL NOT ACCEPT PT. CM SPOKE TO PT WHO ASKED CM TO FAX REFERRAL TO HER SECOND CHOICE, [facility]. CHOICE PREVIOUSLY SIGNED. CM SPOKE TO EDSON OF [facility] WHO INFORMED CM THAT PT WILL HAVE TO BE ABLE TO TRANSFER HERSELF FROM CHAIR TO BED OR HAVE SOMEONE THERE THAT WILL ASSIST WITH EVERY TRANSFER TO EVEN BE CONSIDERED AT THE [facility]. CM SPOKE TO PT WHO DECLINED PLACEMENT ANYWHERE ELSE OTHER THAN [place]. PT INSISTED THAT SHE CAN TRANSFER HERSELF TO A CHAIR AND WILL DO IT WITH THERAPY. CM LEFT NOTE ON DRY ERASE BOARD OF NEED FOR DOCUMENATION THAT PT IS ABLE TO TRANSFER HERSELF. CM CALLED [facility], , THERE WAS NO ANSWER. CM FAXED REFERRAL TO [facility] AT [phone]. CM SPOKE TO PT AFTER HER PD CATHETER WAS INSERTED. PT STILL WILLING FOR PLACEMENT AT [facility], STILL INSISTS THAT SHE CAN TRANSFER HERSELF IF THERAPY WILL WORK WITH HER STATING THEY HAVE ONLY SEEN HER ABOUT "3 TIMES". CM ASSURED PT THAT THERAPY WILL CONTINUE TO WORK WITH HER. PT STATES SHE THINKS THAT SHE WILL JUST BE ABLE TO GO HOME WITH PERITONEAL DIALYSIS. CM EXPLAINED THAT PT WILL HAVE TO TALK TO THE DOCTOR AND THAT CM UNDERSTOOD THAT PT WILL HAVE TO HAVE HEMODIALYSIS AND THAT PD IS A PROCESS AND TAKES TRAINING AND ARRANGEMENTS. PT NOW THINKS SHE WILL CAN HAVE PD AND GO HOME. CM WAITING ADMISSION DETERMINATION FOR REHAB FROM [facility]. SANJANA Hernández DCP- Discharge Planning Updated by [id number]: Phil Caruso on 04/11/19 7:[address] Patient Name: CARO JASSO Encounter No: [id number] : 1955 Primary Insurance: [facility] SOLUT[facility] Anticipated DC Date: 04-11-2019 Planned Disposition: Residential Facility External Planned Provider: [facility] B[facility] DCP follow-up note: CM FAXED REFERRAL UPDATE TO [facility] AT [phone]. CM WAITING ADMISSION DETERMINATION FROM [facility] WE[facility] INSURANCE DETERMINATION. RAYO TOUSSAINT IS WORKING ON OUTPATIENT DIALYSIS UNIT. SANJANA Hernández DCP- Discharge Planning Updated by [id number]: Phil Caruso on 04/10/19 3:[address] Patient Name: CARO JASSO Encounter No: [id number] : 1955 Primary Insurance: [facility] SOLUTIONS Anticipated DC Date: 04-11-2019 Planned Disposition: Residential Facility External Planned Provider: [facility] MEDICARE REHAB BED DCP follow-up note: CM MET WITH PT IN ROOM TO DISCUSS DISCHARGE PLANNING AND NEEDS. PT HAS REVIEWED LIST WITH FAMILY AND WOULD LIKE REFERRAL TO [facility] AND [facility] [facility]. CHOICE FORM SIGNED. CM CALLED [facility], , SPOKE TO BIGG AND PROVIDED REFERRAL INFORMATION. CM FAXED REFERRAL TO [facility] AT [phone]. CM WAITING ADMISSION DETERMINATION FROM [facility]ANCE DETERMINATION. EDSON OF [facility] IS WORKING ON OUTPATIENT DIALYSIS UNIT. Phil Caruso, CASE MANAGEMENT Appended by Phil Caruso on 04/10/2019 16:10 RADIO INTERFERENCE EXPERT: CM RECEIVED CALL FROM [facility], , SPOKE TO BIGG WHO ASKED WHY PT IS ON ABILIFY. CM SPOKE TO PT IN ROOM, PT DENIES MENTAL ILLNESS OR PLACEMENT IN PSYCHIATRIC CARE IN THE PAST. PT THINKS IT MAY BE FOR DEMENTIAL. CM NOTIFIED BIGG. CM WAITING ADMISSION DETERMINATION FROM [facility] DETERMINATION. EDSON OF [facility] IS WORKING ON OUTPATIENT DIALYSIS UNIT. SANJANA Hernández DCP- Discharge Planning Updated by [id number]: Phil Caruso on 04/09/19 11:[address] Patient Name: CARO JASSO Encounter No: [id number] : 1955 Primary Insurance: [facility] SOLUTIONS Anticipated DC Date: 04-11-2019 Planned Disposition: Residential Facility External Planned Provider: TO BE DETERMINED DCP follow-up note: CM RECEIVED INPATIENT REHAB DENIAL FROM PT'S INSURANCE. CM MET WITH PT IN ROOM, PROVIDED COPY OF DENIAL AND READ REASON FOR DENIAL WITH SUGGESTION THAT REHAB COULD BE PROVIDED IN [facility] FACILITY. CM PROVIDED PT WITH LISTING OF [facility] FACLITIES WITHIN [address] OF [place] AT PT'S REQUEST FROM MEDICARE WEBSITE. CM PROVIDED CHOICE FORM. PT STATES SHE WANTS TO THINK ABOUT CHOICES AND WILL LET CM KNOW SOON POSSIBLE. COPY OF INPATIENT DENIAL PLACED IN CHART WITH PT'S SIGNATURE, DATE AND TIME OF PT'S RECEIPT. CM WENT BACK IN ROOM AFTER LUNCH, PT IS OUT OF ROOM IN DIALYSIS. CM TO FOLLOW UP WITH PT LATER REGARDING [facility] RE[facility]AB CHOICES. CM WAITING ON PT'S DECISION FOR [facility] WELL CHOICES FOR SKILLED REHAB PLACEMENT. SANJANA Hernández DCP- Discharge Planning Updated by [id number]: Phil Caruso on 04/05/19 2:[address] Patient Name: CARO JASSO Encounter No: [id number] : 1955 Primary Insurance: [facility] SOLUTIONS Anticipated DC Date: Planned Disposition: Inpatient Rehab External Planned Provider:[facility] DCP follow-up note: CM NOTIFIED PT'S DAUGHTER IN ROOM OF REFERRAL BEING FAXED TO [facility]. CM RECEIVED PATIENT CHOICE LETTER FOR 1- [facility] AND 2- [facility] IF PT IS DECLINED BY [facility] INPATIENT REHAB. CM WAITING ADMISSION DETERMINATION FROM [facility] INPATIENT REH[facility]. SANJANA Hernández DCP- Discharge Planning Updated by [id number]: Phil Caruso on 04/05/19 12:[address] Patient Name: CARO JASSO Encounter No: [id number] : 1955 Primary Insurance: [facility] SOLUTIONS Anticipated DC Date: Planned Disposition: Inpatient Rehab External Planned Provider: [facility] DCP follow-up note: CM CALLED AND SPOKE TO VERNON PEACOCK, OF [facility] IN[facility]IENT REHAB, ; THEY WILL SCREEN FOR INPATIENT REHAB ADMISSION. THEY HAVE THE AVAILABILITY OF HEMODIALYSIS IN THEIR REHAB, BUT WILL NOT ACCEPT PERITONEAL DIALYSIS. CM FAXED REFERRAL TO [facility], . CM WAITING ADMISSION DETERMINATION FROM [facility]. SANJANA Hernández DCP- Discharge Planning Updated by [id number]: Phil Caruso on 04/04/19 5:[address] Patient Name: CARO JASSO Encounter No: [id number] : 1955 Primary Insurance: [facility] SOLUTIONS Anticipated DC Date: Planned Disposition: Inpatient Rehab External Planned Provider: [facility] DCP follow-up note: CM RECEIVED ORDER FOR INPATIENT REHAB PRESCREENING, MET WITH PT'S DAUGHTER, HARRIETT YOUNG, IN ROOM. HARRIETT IS PT'S EMERGENCY CONTACT LISTED ON FACE SHEET AND REPORTS TO BE PT'S CAREGIVER AT HOME. PT IN DIALYSIS. CM HAD ALSO RECEIVED HANDWRITTEN NOTE INDICTATING PT WANTS REHAB IN [place]. HARRIETT REPORTS PT WANTS REFERRAL TO [facility] FOR INPATIENT REHAB. CM DISCUSSED HAVING A ALTERNATE PLAN IF DECLINED FOR INPATIENT REHAB. THEY HAVE DISCUSSED [facility]; CM PROVIDED LIST OF AVAILABLE [facility] FACILITIES WITHIN [address] OF [place]. HARRIETT WILL DISCUSS THIS WITH PT AND THEY WILL LET CM KNOW OF ALTERNATE PLAN FOR REHAB. CM TO SEND REFERRAL TO [facility] FOR INPATIENT REHAB SOON POSSIBLE. PT CONSIDERING [facility] FACILITY ALTERNATE REHAB PLAN IF DECLINED BY [facility]. Phil Caruso, CASE MANAGEMENT DCP- Discharge Planning Updated by [id number]: Tucker Hall on 04/02/19 12:[address] I HAVE SPOKEN TO EDSON EWING, CLINICAL LIASON WITH [facility] ABOUT THIS PATIENT POTENTIALLY BEING A NEW START. THIS WAY SHE CAN MAKE CONTACT TO PRESTART THE PROCESS. [facility] WAS YESTERDAY. DCP- Discharge Planning Updated by [id number]: Olivia Ramachandran on 03/29/19 12:[address] Patient Name: CARO JASSO Admission Status: Elective Accout number: [id number] Admission Date: 03-24-2019 : 1955 Admission Diagnosis: Attending: ELTON HODGE Current LOS: 5 Anticipated DC Date: Planned Disposition: Primary Insurance: [facility] SOLUTIONS Discharge Planning Comments: CM SPOKE WITH DAUGHTER ABOUT DC PLANNING/NEEDS. SHE STATES IS WAITING TO TALK TO THE DOCTOR BUT HAS RECIEVED BAD NEWS ON MOTHER'S PROGNOSIS. I HAVE MENTIONED REHAB AND HOSPICE. DAUGHTER WANTS TO THINK ABOUT IT. CM WILL FOLLOW AND ASSIST. Radiology Manager: Olivia Ramachandran DCP- Discharge Planning Updated by [id number]: Tucker Hall on 03/27/19 3:[address] MOSS WANTED THE PATIENT TRANSFERRED TO [facility] TO HER PROCESS SAFETY MANAGEMENT ENGINEER THIS AM. @ 0813, PLACED A CALL TO THE SENIOR SOFTWARE QA ANALYST, ADARSH, TO OBTAIN ADMIN APPROVAL TO PROCEED WITH TRANSFER. [facility] STATED THAT SHE WOULD HAVE TO CALL THE ADMIN INSURANCE APPLICATION INVESTIGATOR, BUT WAS CURRENTLY INDISPOSED AND UNABLE. IF I DON'T HEAR BACK FROM HERE, I WILL CALL BACK LATER. @0817, I SPOKE WITH THE PATIENT WHO IS WILLING FOR THE TRANSFER. @0821, I SPOKE WITH ALEN SAWYER APN FOR DR YATES. SHE HAS REQUESTED THAT I HAVE DR MOSS CALL AND DISCUSS THE TRANSFER WITH DR YATES. @9884, I SPOKE WITH DR MOSS AND MADE THIS REQUEST. SHE ASKED ME TO TEXT HER DR YATES'S NUMBER AND SHE WOULD CALL HER. SOON WE HUNG UP, I TEXT HER THE NUMBER. @3617, I PLACED A CALL TO ALEN TO SEE IF SHE KNEW WHEN DR YATES WOULD BE HERE AT THE HOSPITAL SHE STATED HE WAS HERE NOW. SHE SAID THAT DR MOSS DID NOT CALL AND TALK TO DR YATES ABOUT THE TRANSFER. SHE STATED THAT SHE WOULD TALK TO HIM AND LET ME KNOW, BUT SHE DID NOT FEEL THAT THE PATIENT WOULD TRANSFER. @1121, DR YATES AND VERÓNICA LOWRY ON THE FLOOR. THEY HAVE TALKED WITH THE PATIENT. THE PATIENT WILL REMAIN HERE FOR TREATMENT AND NOT TRANSFER. DCPIA - Discharge Planning Initial Assessment Updated by [id number]: Olivia Ramachandran on 03/29/19 12:11 pm * Is the patient Alert and Oriented? No * Preadmission Environment Home with Family * Other Equipment WALKER, WC, TRANSFER CHAIR, O2 NEBS * List name and contact numbers for known caregivers / representatives who currently or will assist patient after discharge: HARRIETT, DAUGHTER, * Community resources currently utilized Home Health * Please name any agencies selected above. [facility] * Has this patient been hospitalized within the prior 30 days at any hospital? Yes Coverage Notice Reviewer: [id number] Caruso Notice Issued Date-Time: 04/04/2019 18:45 Notice Type: Patient Choice Letter Notice Delivered To: Patient Relationship to Patient: Basket Maker Name: Delivery Method: HAND - Hand Delivered Kristyn Days: Prior Verbal Notification: Recipient Understood Notice: Yes Recipient Signature: Yes Med Rec Note Co-signed by Attending: Coverage Notice Comment: 1- [facility] 2- [facility] Reviewer: [id number] Caruso Notice Issued Date-Time: 04/10/2019 9:56 Notice Type: Patient Choice Letter Notice Delivered To: Patient Relationship to Patient: Basket Maker Name: Delivery Method: HAND - Hand Delivered Kristyn Days: Prior Verbal Notification: Recipient Understood Notice: Yes Recipient Signature: Yes Med Rec Note Co-signed by Attending: Coverage Notice Comment: 1 - [facility], 2 - [facility] Reviewer: [id number] Caruso Notice Issued Date-Time: 04/12/2019 16:10 Notice Type: Patient Choice Letter Notice Delivered To: Patient Relationship to Patient: Basket Maker Name: Delivery Method: HAND - Hand Delivered Kristyn Days: Prior Verbal Notification: Recipient Understood Notice: Yes Recipient Signature: Yes Med Rec Note Co-signed by Attending: Coverage Notice Comment: SNF IN [place] OR SNF IN [facility] DP export: 04/13/19 8:13 a Patient Name: CARO JASSO Page [phone] at 1407 All edits/amendments must be made on the electronic document DICTATION DATE: 04/16/191406 MANUFACTURING FINANCE MANAGER: ELVIRA 04/16/191406 RPT#: [id number] DC DATE: STATUS: ADM IN [facility] [address] [place] [address] END OF REPORT
--- NOTE | 2019-04-16 14:57 | NUR ---
OT NOTE: PT COMPLETED BED MOB WITH MOD A TO MANAGE LE. PT COMPLETED BED TO CHAIR TSF WITH MAX A X2. PT COMPLETED FACE WASH WITH SET UP. PT COMPLETED GROOMING TASK IN CHAIR WITH SET UP. PT IS REQUIRING INCREASED PHYSICAL ASSIST WITH TRANSFERS. THANK YOU, TREVON MULTANI
--- NOTE | 2019-04-16 19:15 | NUR ---
EVENING ROUNDS COMPLETE. PT SITTING UP IN BED, AAOX4. NO SIGNS OF DISTRESS. PT DENIES ANY PAIN OR NEEDS AT THIS TIME. CL IN REACH, BED IN LOWEST POSITION.
[2019-04-16 20:00] VITALS: BP 110/55
--- NOTE | 2019-04-16 20:01 | NUR ---
DIALYSIS COORDINATOR: AT THIS TIME PATIENT HAS BEEN ACCEPTED AT [facility] ON A TUE/TUE/TUE @ 16:30 SCHEDULE. THE CLINIC STATES THIS IS THE ONLY SCHEDULE THEY HAVE AVAILABLE AT THIS TIME. PLEASE F/U WITH FLYNN PACHECO - DIALYSIS COORDINATOR - [phone] GOING FORWARD WITH THIS REFERAL. KYAW HARRISON.
[2019-04-17 00:30] VITALS: BP 109/45
[2019-04-17 04:00] VITALS: BP 124/58
[2019-04-17 05:08] LABS: BASOPHILS 0.1 % (0-2); EOSINOPHILS 0 % (0-7); HEMATOCRIT 24.5 % (36.0-48.0); HEMOGLOBIN 7.7 g/dL (12-16); IMMATURE GRANULOCYTES 0.7 % (0-5); LYMPHOCYTES 17.5 % (15-50); MCH 26.8 pg (26.0-34.0); MCHC 31.4 g/dL (31.0-37.0); MCV 85.4 fL (80.0-100.0); MEAN PLATELET VOLUME 9.2 fL (7.4-10.4); MONOCYTES 6.1 % (2-11); NEUTROPHILS 75.6 % (40-80); RBC 2.87 10x6/uL (4.00-5.40); RDW 19.8 % (11.5-14.5)
[2019-04-17 05:17] LABS: PLATELET COUNT 288 10x3/uL (130-400); WBC 7.2 10x3/uL (4.8-10.8)
[2019-04-17 05:27] LABS: ANION GAP 12.6 mmol/L (8-16); CALCIUM 8.2 mg/dL (8.5-10.1); PHOSPHOROUS 3.1 mg/dL (2.5-4.9); POTASSIUM - SERUM 3.6 mmol/L (3.5-5.1)
--- NOTE | 2019-04-17 07:54 | NUR ---
REPORT RECIEVED. PT SITTING SEMI FOWLERS IN BED. RR EVEN AND UNLABORED. SHE HAS A R WRIST PIV THAT IS SL, SHE ALSO HAS A R CHEST HEMOSPLIT. SHE HAS A BULL DRAINING URINE. BED LOCKED AND IN LOWEST POSITION, CALL LIGHT WITHIN REACH. WILL CTM
[2019-04-17 08:51] VITALS: BP 98/44
--- NOTE | 2019-04-17 09:31 | MORECARE ---
CASE MANAGEMENT DISCHARGE SUMMARY PATIENT: CARO JASSO UNIT: [id number] ADM DATE: 03/24/19 AGE: 63 : 55 SEX: F ROOM/BED: D.6536 AUTHOR: KENNEY,DOC PHYSICIAN: REFERRING PHYSICIAN: ELTON HODGE MD DATE OF SERVICE: 04/17/19 Discharge Plan Patient Name: CARO JASSO Facility: [facility]:[place] : 1955 Planned Disposition: Half-Way Facility Anticipated Discharge Date: 04/11/19 Discharge Date: Expected LOS: 18 Initial Reviewer: [id number] Initial Review Date: 03/29/2019 Generated: 04/17/19 10:31 am Comments DCP- Discharge Planning Updated by [id number]: Phil Caruso on 04/17/19 8:[address] Patient Name: CARO JASSO Encounter No: [id number] : 1955 Primary Insurance: [facility] [employer] Anticipated DC Date: 04-11-2019 Planned Disposition: Half-Way Facility External Planned Provider: [facility], MEDICARE REHAB BED DCP follow-up note: ON 04-16-19, CM ASSISTED PT WITH TYPING HER APPEAL LETTER TO HER INSURANCE COMPANY TO APPEAL HER INPATIENT REHAB DENIAL. CM FAXED THE APPEAL LETTER TO PT'S INSURANCE COMPANY, PROVIDED FAX CONFIRMATION AND LETTER BACK TO PT FOR HER RECORDS. ON 04-17-19, CM FAXED REFERRAL UPDATE TO [facility] AT [phone]. CM REVIEWED CHART, NOTE FROM EDSON OF PATIENT PATHWAYS, INDICATES PT HAS DIALYSIS CHAIR IN [facility], MWF, 1630 HOURS WITH NO OTHER TIME AVAILABLE. PT HAS BEEN DECLINED BY INSURANCE FOR INPATIENT REHAB; PT FILED APPEAL 04-16-19. PT HAS BEEN DECLINED BY [facility] AND [facility]F-WAY [facility]. CM WAITING ADMISSION DETERMINATION FROM [facility]. CHAIR AT [facility] HAS BEEN SECURED FOR OUTPATIENT DIALYSIS. Phil Caruso, CASE MANAGEMENT DCP- Discharge Planning Updated by [email or web address]: Phil Caruso on 04/16/19 1:[address] Patient Name: CARO JASSO Encounter No: [id number] : 1955 Primary Insurance: [facility] [employer] Anticipated DC Date: 04-11-2019 Planned Disposition: Half-Way Facility External Planned Provider: [facility], MEDICARE REHAB BED DCP follow-up note: CM CALLED [facility], , SPOKE TO TUCKER WHO WILL INFORMED CM THAT THEY ARE OUT OF INSURANCE NETWORK BUT THAT PT HAS THE SAME OUT OF NETWORK BENEFITS IN NETWORK; PT HAS 20 DAYS FOR REHAB. THEY WILL SCREEN FOR ADMISSION TODAY. CM FAXED REFERRAL UPDATE TO [facility] AT [phone]. CM SPOKE TO EDSON OF PATIENT PATHWAYS, SHE HAS PT A CHAIR IN [facility], MWF, 1630 HOURS. EDSON WILL CHECK WITH DIALYSIS UNIT AND REQUEST EARLIER CHAIR TIME. PT HAS BEEN DECLINED BY INSURANCE FOR INPATIENT REHAB. PT HAS BEEN DECLINED BY [facility] AND [facility]. CM WAITING ADMISSION DETERMINATION FROM [facility]. CHAIR AT [facility] HAS BEEN SECURED FOR OUTPATIENT DIALYSIS. Phil Caruso, CASE MANAGEMENT DCP- Discharge Planning Updated by [id number]: Phil Caruso on 04/13/19 8:[address] Patient Name: CARO JASSO Encounter No: [id number] : 1955 Primary Insurance: [facility] [employer] [employer] Anticipated DC Date: 04-11-2019 Planned Disposition: Half-Way Facility External Planned Provider: [facility], MEDICARE REHAB BED DCP follow-up note: CM RECEIVED MESSAGE FROM MADONNA OF [facility] WHO INFORMED CM THAT IT INSURANCE DECLINED [facility] IN[facility]IENT RE[facility], IT WOULD BE A WASTE OF TIME TO RESUBMIT BUT SHE WOULD BE HAPPY TO DO IT IF PT INSISTED. CM SPOKE TO PT IN ROOM WHO ASKED CM TO SPEAK TO HER PARTNER BOUCHRA AT [phone], TO ASSIST WITH DISCHARGE PLANNING. CM CALLED BOUCHRA AND PROVIDED ABOVE INFORMATION. BOUCHRA WANTS TO PROCEED WITH HALF-WAY REFERRAL TO [facility]. IF DECLINED, SEEK SNF IN [place]. CM CALLED [facility], , SPOKE TO TUCKER WHO WILL SCREEN FOR ADMISSION. CM FAXED REFERRAL TO [facility] AT [phone]. PT HAS BEEN DECLINED BY INSURANCE FOR INPATIENT REHAB. PT HAS BEEN DECLINED BY [facility] AND [facility] HALF-WAY FACILITY. CM WAITING ADMISSION DETERMINATION FROM [facility]. SANJANA Hernández DCP- Discharge Planning Updated by [id number]: Phil Caruso on 04/12/19 3:[address] Patient Name: CARO JASSO Encounter No: [id number] : 1955 Primary Insurance: [facility] [employer] [employer] Anticipated DC Date: 04-11-2019 Planned Disposition: Half-Way Facility External Planned Provider: [facility] DCP follow-up note: CM RECEIVED CALLF [facility], THEY CANNOT MEET PT'S NEEDS. CM NOTIFIED PT OF DENIAL. PT STATES SHE HAS CALLED HER INSURANCE COMPANY AND SHE WAS TOLD THAT INPATIENT REHAB DID NOT INCLUDE ALL HER MEDICAL PROBLEMS FOR THE INSURANCE TO REVIEW FOR INPATIENT REHAB. PT WANTS CM TO RESUBMIT TO [facility] FOR INPATIENT REHAB. CM CALLED [facility], , LEFT MESSAGE FOR MADONNA OF ADMISSIONS ASKING FOR CONSIDERATION AND RESUBMISSION FOR INSURANCE AUTHORIZATION. CM FAXED REFERRAL TO [facility] AT [phone]. CM NOTIFIED PT AND ASKED WHAT HER SECOND CHOICE WILL BE SINCE DECLINED BY [facility] AND [facility]. CM RECEIVED PATIENT CHOICE LETTER FOR 1- ANY [facility] AND 2- ANY [facility] [facility] IF PT IS DECLINED BY [facility] INPATIENT REH[facility]. PT STATES THAT [facility] ALSO HAS INPATIENT REHAB. CM WAITING ADMISSION DETERMINATION FROM [facility]. SANJANA Hernández DCP- Discharge Planning Updated by [id number]: Phil Caruso on 04/12/19 8:[address] Patient Name: CARO JASSO Encounter No: [id number] : 1955 Primary Insurance: [facility] [employer] Anticipated DC Date: 04-11-2019 Planned Disposition: Half-Way Facility External Planned Provider: [facility], MEDICARE REHAB BED DCP follow-up note: CM RECEIVED CALL FROM ANTWAN OF [facility], , THEY RECEIVED REFERRAL, WILL SCREEN FOR ADMISSION. IF PT NEEDS MINIMAL ASSISTANCE TO TRANSFER TO [facility], GROUP HOME STAFF WILL BE ABLE TO PROVIDE THIS ASSISTANCE. PT WILL HAVE TO BE ACCEPTED AT [facility] FOR THEM TO ACCEPT PT THEY WILL NOT TRANSPORT ANYWHERE OUTSIDE [place] FOR DIALYSIS. NAJMATATYANAMike WILL CALL WITH ADMISSION DETERMINATION AFTER SCREENING IS COMPLETED. ANABELLA WAITING ADMISSION DETERMINATION FOR REHAB FROM [facility]. Phil Caruso, CASE MANAGEMENT DCP- Discharge Planning Updated by [id number]: Phil Caruso on 04/11/19 4:[address] Patient Name: CARO JASSO Encounter No: [id number] : 1955 Primary Insurance: [facility] [employer] Anticipated DC Date: 04-11-2019 Planned Disposition: Half-Way Facility External Planned Provider: [facility] MEDICARE REHAB BED DCP follow-up note: CM RECEIVED CALL FROM [facility], THEY WILL NOT ACCEPT PT. ANABELLA SPOKE TO PT WHO ASKED CM TO FAX REFERRAL TO HER SECOND CHOICE, [facility] WITH [facility]. CHOICE PREVIOUSLY SIGNED. CM SPOKE TO EDSON OF [employer]IENT [employer] WHO INFORMED CM THAT PT WILL HAVE TO BE ABLE TO TRANSFER HERSELF FROM CHAIR TO BED OR HAVE SOMEONE THERE THAT WILL ASSIST WITH EVERY TRANSFER TO EVEN BE CONSIDERED AT THE [facility]. CM SPOKE TO PT WHO DECLINED PLACEMENT ANYWHERE ELSE OTHER THAN [place]. PT INSISTED THAT SHE CAN TRANSFER HERSELF TO A CHAIR AND WILL DO IT WITH THERAPY. CM LEFT NOTE ON DRY ERASE BOARD OF NEED FOR DOCUMENATION THAT PT IS ABLE TO TRANSFER HERSELF. CM CALLED [facility], , THERE WAS NO ANSWER. CM FAXED REFERRAL TO [facility] AT [phone]. CM SPOKE TO PT AFTER HER PD CATHETER WAS INSERTED. PT STILL WILLING FOR PLACEMENT AT [facility] WITH [facility], STILL INSISTS THAT SHE CAN TRANSFER HERSELF IF THERAPY WILL WORK WITH HER STATING THEY HAVE ONLY SEEN HER ABOUT "3 TIMES". CM ASSURED PT THAT THERAPY WILL CONTINUE TO WORK WITH HER. PT STATES SHE THINKS THAT SHE WILL JUST BE ABLE TO GO HOME WITH PERITONEAL DIALYSIS. CM EXPLAINED THAT PT WILL HAVE TO TALK TO THE DOCTOR AND THAT CM UNDERSTOOD THAT PT WILL HAVE TO HAVE HEMODIALYSIS AND THAT PD IS A PROCESS AND TAKES TRAINING AND ARRANGEMENTS. PT NOW THINKS SHE WILL CAN HAVE PD AND GO HOME. CM WAITING ADMISSION DETERMINATION FOR REHAB FROM [facility]. SANJANA Hernández DCP- Discharge Planning Updated by [id number]: Phil Caruso on 04/11/19 7:[address] Patient Name: CARO JASSO Encounter No: [id number] : 1955 Primary Insurance: [facility] [employer] [employer] Anticipated DC Date: 04-11-2019 Planned Disposition: Half-Way Facility External Planned Provider: [facility], MEDICARE REHAB BED DCP follow-up note: CM FAXED REFERRAL UPDATE TO [facility] AT [phone]. CM WAITING ADMISSION DETERMINATION FROM [facility] INSURANCE DETERMINATION. RAYO TOUSSAINT IS WORKING ON OUTPATIENT DIALYSIS UNIT. SANJANA Hernández DCP- Discharge Planning Updated by [id number]: Phil Caruso on 04/10/19 3:[address] Patient Name: CARO JASSO Encounter No: [id number] : 1955 Primary Insurance: [facility] [employer] [employer] Anticipated DC Date: 04-11-2019 Planned Disposition: Half-Way Facility External Planned Provider: [facility], MEDICARE REHAB BED DCP follow-up note: CM MET WITH PT IN ROOM TO DISCUSS DISCHARGE PLANNING AND NEEDS. PT HAS REVIEWED LIST WITH FAMILY AND WOULD LIKE REFERRAL TO [facility] FIRST CHOICE AND [facility] SECOND CHOICE. CHOICE FORM SIGNED. CM CALLED [facility], , SPOKE TO BIGG AND PROVIDED REFERRAL INFORMATION. CM FAXED REFERRAL TO [facility] AT [phone]. CM WAITING ADMISSION DETERMINATION FROM [facility] WELL INSURANCE DETERMINATION. RAYO TOUSSAINT IS WORKING ON OUTPATIENT DIALYSIS UNIT. Phil Caruso CASE MANAGEMENT Appended by Phil Caruso on 04/10/2019 16:10 CUSTOMER CARE ASSOCIATE: CM RECEIVED CALL FROM [facility], , SPOKE TO BIGG WHO ASKED WHY PT IS ON ABILIFY. CM SPOKE TO PT IN ROOM, PT DENIES MENTAL ILLNESS OR PLACEMENT IN PSYCHIATRIC CARE IN THE PAST. PT THINKS IT MAY BE FOR DEMENTIAL. CM NOTIFIED BIGG. CM WAITING ADMISSION DETERMINATION FROM [facility]ANCE DETERMINATION. RAYO TOUSSAINT IS WORKING ON OUTPATIENT DIALYSIS UNIT. SANJANA Hernández DCP- Discharge Planning Updated by [id number]: Phil Caruso on 04/09/19 11:[address] Patient Name: CARO JASSO Encounter No: [id number] : 1955 Primary Insurance: [employer] SOLUTIONS Anticipated DC Date: 04-11-2019 Planned Disposition: Half-Way Facility External Planned Provider: TO BE DETERMINED DCP follow-up note: CM RECEIVED INPATIENT REHAB DENIAL FROM PT'S INSURANCE. CM MET WITH PT IN ROOM, PROVIDED COPY OF DENIAL AND READ REASON FOR DENIAL WITH SUGGESTION THAT REHAB COULD BE PROVIDED IN HALF-WAY FACILITY. CM PROVIDED PT WITH LISTING OF HALF-WAY FACLITIES WITHIN [address] OF [place] AT PT'S REQUEST FROM MEDICARE WEBSITE. CM PROVIDED CHOICE FORM. PT STATES SHE WANTS TO THINK ABOUT CHOICES AND WILL LET CM KNOW SOON POSSIBLE. COPY OF INPATIENT DENIAL PLACED IN CHART WITH PT'S SIGNATURE, DATE AND TIME OF PT'S RECEIPT. CM WENT BACK IN ROOM AFTER LUNCH, PT IS OUT OF ROOM IN DIALYSIS. CM TO FOLLOW UP WITH PT LATER REGARDING HALF-WAY REHAB CHOICES. CM WAITING ON PT'S DECISION FOR HALF-WAY WELL CHOICES FOR SKILLED REHAB PLACEMENT. SANJANA Hernández DCP- Discharge Planning Updated by [id number]: Phil Caruso on 04/05/19 2:[address] Patient Name: CARO JASSO Encounter No: [id number] : 1955 Primary Insurance: [employer] MED[employer] SOLUTIONS Anticipated DC Date: Planned Disposition: Inpatient Rehab External Planned Provider:[facility] DCP follow-up note: CM NOTIFIED PT'S DAUGHTER IN ROOM OF REFERRAL BEING FAXED TO [facility]. CM RECEIVED PATIENT CHOICE LETTER FOR 1- [facility] AND 2- [facility] IF PT IS DECLINED BY [facility] INPATIENT REHAB. CM WAITING ADMISSION DETERMINATION FROM [facility]. SANJANA Hernández DCP- Discharge Planning Updated by [id number]: Phil Caruso on 04/05/19 12:[address] Patient Name: CRAO JASSO Encounter No: [id number] : 1955 Primary Insurance: [facility] [employer] [employer] Anticipated DC Date: Planned Disposition: Inpatient Rehab External Planned Provider: [facility] DCP follow-up note: CM CALLED AND SPOKE TO VERNON PEACOCK, OF [facility], ; THEY WILL SCREEN FOR INPATIENT REHAB ADMISSION. THEY HAVE THE AVAILABILITY OF HEMODIALYSIS IN THEIR REHAB, BUT WILL NOT ACCEPT PERITONEAL DIALYSIS. CM FAXED REFERRAL TO [facility], . CM WAITING ADMISSION DETERMINATION FROM [facility]. Phil Caruso CASE MANAGEMENT DCP- Discharge Planning Updated by [id number]: Phil Caruso on 04/04/19 5:[address] Patient Name: CARO JASSO Encounter No: [id number] : 1955 Primary Insurance: [facility] [employer] Anticipated DC Date: Planned Disposition: Inpatient Rehab External [facility] DCP follow-up note: CM RECEIVED ORDER FOR INPATIENT REHAB PRESCREENING, MET WITH PT'S DAUGHTER, HARRIETT YOUNG, IN ROOM. HARRIETT IS PT'S EMERGENCY CONTACT LISTED ON FACE SHEET AND REPORTS TO BE PT'S CAREGIVER AT HOME. PT IN DIALYSIS. CM HAD ALSO RECEIVED HANDWRITTEN NOTE INDICTATING PT WANTS REHAB IN [place]. HARRIETT REPORTS PT WANTS REFERRAL TO [facility] FOR INPATIENT REHAB. CM DISCUSSED HAVING A ALTERNATE PLAN IF DECLINED FOR INPATIENT REHAB. THEY HAVE DISCUSSED HALF-WAY; CM PROVIDED LIST OF AVAILABLE HALF-WAY FACILITIES WITHIN [address] OF [place]. HARRIETT WILL DISCUSS THIS WITH PT AND THEY WILL LET CM KNOW OF ALTERNATE PLAN FOR REHAB. CM TO SEND REFERRAL TO [facility] FOR INPATIENT REHAB SOON POSSIBLE. PT CONSIDERING HALF-WAY FACILITY ALTERNATE REHAB PLAN IF DECLINED BY [facility]. Phil Caruso, CASE MANAGEMENT DCP- Discharge Planning Updated by [id number]: Tucker Hall on 04/02/19 12:[address] I HAVE SPOKEN TO EDSON EWING, CLINICAL LIASON WITH MICHELLE ABOUT THIS PATIENT POTENTIALLY BEING A NEW START. THIS WAY SHE CAN MAKE CONTACT TO PRESTART THE PROCESS. PTS FIRST DIALYSIS WAS YESTERDAY. DCP- Discharge Planning Updated by [id number]: Olivia Ramachandran on 03/29/19 12:[address] Patient Name: CARO JASSO Admission Status: Elective Accout number: [id number] Admission Date: 03-24-2019 : 1955 Admission Diagnosis: Attending: ELTON HODGE Current LOS: 5 Anticipated DC Date: Planned Disposition: Primary Insurance: [facility] [employer] [employer] Discharge Planning Comments: CM SPOKE WITH DAUGHTER ABOUT DC PLANNING/NEEDS. SHE STATES IS WAITING TO TALK TO THE DOCTOR BUT HAS RECIEVED BAD NEWS ON MOTHER'S PROGNOSIS. I HAVE MENTIONED REHAB AND HOSPICE. DAUGHTER WANTS TO THINK ABOUT IT. CM WILL FOLLOW AND ASSIST. Salt Manager: Olivia Madie DCP- Discharge Planning Updated by [id number]: Tucker Rafael on 03/27/19 3:[address] MOSS WANTED THE PATIENT TRANSFERRED TO [facility] TO HER [employer] SENIOR OFFICER THIS AM. @ 0813, PLACED A CALL TO THE GENERAL INTERNAL MEDICINE DOCTOR, ADARSH, TO OBTAIN ADMIN APPROVAL TO PROCEED WITH TRANSFER. SE STATED THAT SHE WOULD HAVE TO CALL THE ADMIN BUSINESS INVESTOR, BUT WAS CURRENTLY INDISPOSED AND UNABLE. IF I DON'T HEAR BACK FROM HERE, I WILL CALL BACK LATER. @0817, I SPOKE WITH THE PATIENT WHO IS WILLING FOR THE TRANSFER. @0821, I SPOKE WITH ALEN SAWYER APN FOR DR YATES. SHE HAS REQUESTED THAT I HAVE DR MOSS CALL AND DISCUSS THE TRANSFER WITH DR YATES. @0836, I SPOKE WITH DR MOSS AND MADE THIS REQUEST. SHE ASKED ME TO TEXT HER DR YATES'S NUMBER AND SHE WOULD CALL HER. SOON WE HUNG UP, I TEXT HER THE NUMBER. @9544, I PLACED A CALL TO ALEN TO SEE IF SHE KNEW WHEN DR YATES WOULD BE HERE AT THE HOSPITAL SHE STATED HE WAS HERE NOW. SHE SAID THAT DR MOSS DID NOT CALL AND TALK TO DR YATES ABOUT THE TRANSFER. SHE STATED THAT SHE WOULD TALK TO HIM AND LET ME KNOW, BUT SHE DID NOT FEEL THAT THE PATIENT WOULD TRANSFER. @1528, DR YATES AND VERÓNICA LOWRY ON THE FLOOR. THEY HAVE TALKED WITH THE PATIENT. THE PATIENT WILL REMAIN HERE FOR TREATMENT AND NOT TRANSFER. DCPIA - Discharge Planning Initial Assessment Updated by [id number]: Olivia Ramachandran on 03/29/19 12:11 pm * Is the patient Alert and Oriented? No * Preadmission Environment Home with Family * Other Equipment WALKER, WC, TRANSFER CHAIR, O2 NEBS * List name and contact numbers for known caregivers / representatives who currently or will assist patient after discharge: SANDY LORENZANA, * Community resources currently utilized Home Health * Please name any agencies selected above. [facility] * Has this patient been hospitalized within the prior 30 days at any hospital? Yes Coverage Notice Reviewer: ELYSSA Caruso Notice Issued Date-Time: 04/04/2019 18:45 Notice Type: Patient Choice Letter Notice Delivered To: Patient Relationship to Patient: Commercial Pilot Name: Delivery Method: HAND - Hand Delivered Kristyn Days: Prior Verbal Notification: Recipient Understood Notice: Yes Recipient Signature: Yes Med Rec Note Co-signed by Attending: Coverage Notice Comment: 1- [facility] 2- [facility] Reviewer: ELYSSA Caruso Notice Issued Date-Time: 04/10/2019 9:56 Notice Type: Patient Choice Letter Notice Delivered To: Patient Relationship to Patient: Commercial Pilot Name: Delivery Method: HAND - Hand Delivered Kristyn Days: Prior Verbal Notification: Recipient Understood Notice: Yes Recipient Signature: Yes Med Rec Note Co-signed by Attending: Coverage Notice Comment: 1 - [facility], 2 - [facility] Reviewer: ELYSSA Caruso Notice Issued Date-Time: 04/12/2019 16:10 Notice Type: Patient Choice Letter Notice Delivered To: Patient Relationship to Patient: Commercial Pilot Name: Delivery Method: HAND - Hand Delivered Kristyn Days: Prior Verbal Notification: Recipient Understood Notice: Yes Recipient Signature: Yes Med Rec Note Co-signed by Attending: Coverage Notice Comment: SNF IN [place] OR SNF IN [place] Last DP export: 04/16/19 1:07 Patient Name: CARO JASSO Page [id number] at 0931 All edits/amendments must be made on the electronic document DICTATION DATE: 04/17/19930 HAUL CANE BRAKEMAN: ELVIRA 04/17/19930 RPT#: [id number] DC DATE: STATUS: ADM IN [facility] [address] [place] [address] END OF REPORT
--- NOTE | 2019-04-17 13:40 | NUR ---
Nutrition Follow-up: Per chart review, noted GES showed gastroparesis and started on Reglan; per GI, EGD on Tue if still admitted. Pt reports increased appetite and decreased nausea. States she ate >50% of breakfast this AM. Diet liberalized per renal. Diet: Regular, Low Residual for gastroparesis Wt: 271# Last BM: 04/16 Labs noted: Na 133, K+ 3.6, PO4 3.1 Meds noted: Reglan, Miralax, Megace, Senokot -Continue current diet as tolerated. -Offer nutrition supplements. -RD following.
--- NOTE | 2019-04-17 15:15 | NUR ---
Rehab Note- Received call from Vanessa with [facility] requesting updated clinicals to be faxed d/t appeals- faxed at this time to [phone], also phone contact for Vanessa is [phone]. Will continue to follow at this time d/t patient appeals process with [facility] for inpatient acute rehab stay. La Nena Ghotra RN Clinical Liaison, [facility] Rehab
--- NOTE | 2019-04-17 15:55 | NUR ---
RESTING IN BED WITH EYES OPEN. TOLERATED DIALYSIS WELL. NO DISTRESS.
--- NOTE | 2019-04-17 16:21 | NUR ---
OT NOTE: PT COMPLETED BUE AROM EXS. PT COMPLETED FACE/HAND HYGIENE WITH SETUP. PT COMPLETED BED MOB TASK WITH MOD A. THANK YOU, TREVON MULTANI
--- NOTE | 2019-04-17 17:00 | MORECARE ---
CASE MANAGEMENT DISCHARGE SUMMARY PATIENT: CARO JASSO UNIT: [id number] ADM DATE: 03/24/19 AGE: 63 : 55 SEX: F ROOM/BED: D.8796 AUTHOR: KENNEY,DOC PHYSICIAN: REFERRING PHYSICIAN: ELTON HODGE MD DATE OF SERVICE: 04/17/19 Discharge Plan Patient Name: CARO JASSO Facility: [facility]:[place] : 1955 Planned Disposition: [facility] Facility Anticipated Discharge Date: 04/18/19 Discharge Date: Expected LOS: 25 Initial Reviewer: [id number] Initial Review Date: 03/29/2019 Generated: 04/17/19 6:00 pm Comments DCP- Discharge Planning Updated by [id number]: Phil Caruso on 04/17/19 8:[address] Patient Name: CARO JASSO Encounter No: [id number] : 1955 Primary Insurance: [facility] MEDIC[facility] SOLUTIONS Anticipated DC Date: 04-11-2019 Planned Disposition: [facility] Facility External Planned Provider: [facility], MEDICARE REHAB BED DCP follow-up note: ON 04-16-19, CM ASSISTED PT WITH TYPING HER APPEAL LETTER TO HER INSURANCE COMPANY TO APPEAL HER INPATIENT REHAB DENIAL. CM FAXED THE APPEAL LETTER TO PT'S INSURANCE COMPANY, PROVIDED FAX CONFIRMATION AND LETTER BACK TO PT FOR HER RECORDS. ON 04-17-19, CM FAXED REFERRAL UPDATE TO [facility] AT [phone]. CM REVIEWED CHART, NOTE FROM EDSON OF PATIENT PATHWAYS, INDICATES PT HAS DIALYSIS CHAIR IN [facility], MWF, 1630 HOURS WITH NO OTHER TIME AVAILABLE. PT HAS BEEN DECLINED BY INSURANCE FOR INPATIENT REHAB; PT FILED APPEAL 04-16-19. PT HAS BEEN DECLINED BY [facility] AND [facility]. CM WAITING ADMISSION DETERMINATION FROM [facility]. CHAIR AT [facility] HAS BEEN SECURED FOR OUTPATIENT DIALYSIS. Phil Caruso, CASE MANAGEMENT DCP- Discharge Planning Updated by [id number]: Phil Caruso on 04/16/19 1:[address] Patient Name: CARO JASSO Encounter No: [id number] : 1955 Primary Insurance: [facility] MEDIC[facility] SOLUTIONS Anticipated DC Date: 04-11-2019 Planned Disposition: [facility] Facility External Planned Provider: [facility], MEDICARE REHAB BED DCP follow-up note: CM CALLED [facility], , SPOKE TO TUCKER WHO WILL INFORMED CM THAT THEY ARE OUT OF INSURANCE NETWORK BUT THAT PT HAS THE SAME OUT OF NETWORK BENEFITS IN NETWORK; PT HAS 20 DAYS FOR REHAB. THEY WILL SCREEN FOR ADMISSION TODAY. CM FAXED REFERRAL UPDATE TO [facility] AT [phone]. CM SPOKE TO EDSON OF PATIENT PATHWAYS, SHE HAS PT A CHAIR IN [facility], MWF, 1630 HOURS. EDSON WILL CHECK WITH DIALYSIS UNIT AND REQUEST EARLIER CHAIR TIME. PT HAS BEEN DECLINED BY INSURANCE FOR INPATIENT REHAB. PT HAS BEEN DECLINED BY [facility] AND [facility]. CM WAITING ADMISSION DETERMINATION FROM [facility]. CHAIR AT [facility] HAS BEEN SECURED FOR OUTPATIENT DIALYSIS. Phil Caruso, CASE MANAGEMENT DCP- Discharge Planning Updated by [id number]: Phil Caruso on 04/13/19 8:[address] Patient Name: CARO JASSO Encounter No: [id number] : 1955 Primary Insurance: [facility] MEDIC[facility] SOLUTIONS Anticipated DC Date: 04-11-2019 Planned Disposition: [facility] Facility External Planned Provider: [facility], MEDICARE REHAB BED DCP follow-up note: CM RECEIVED MESSAGE FROM MADONNA OF [facility] WHO INFORMED CM THAT IT INSURANCE DECLINED [facility] INPATIENT REHAB, IT WOULD BE A WASTE OF TIME TO RESUBMIT BUT SHE WOULD BE HAPPY TO DO IT IF PT INSISTED. CM SPOKE TO PT IN ROOM WHO ASKED CM TO SPEAK TO HER PARTNER BOUCHRA AT [phone], TO ASSIST WITH DISCHARGE PLANNING. CM CALLED BOUCHRA AND PROVIDED ABOVE INFORMATION. BOUCHRA WANTS TO PROCEED WITH [facility] REFERRAL TO [facility]. IF DECLINED, SEEK SNF IN [place]. CM CALLED [facility], , SPOKE TO TUCKER WHO WILL SCREEN FOR ADMISSION. CM FAXED REFERRAL TO [facility] AT [phone]. PT HAS BEEN DECLINED BY INSURANCE FOR INPATIENT REHAB. PT HAS BEEN DECLINED BY [facility] AND [facility] FACILITY. CM WAITING ADMISSION DETERMINATION FROM [facility]. SANJANA Hernández DCP- Discharge Planning Updated by [id number]: Phil Caruso on 04/12/19 3:[address] Patient Name: CARO JASSO Encounter No: [id number] : 1955 Primary Insurance: [facility] MEDIC[facility] SOLUTIONS Anticipated DC Date: 04-11-2019 Planned Disposition: [facility] Facility External Planned Provider: [facility] DCP follow-up note: CM RECEIVED CALLF [facility], THEY CANNOT MEET PT'S NEEDS. CM NOTIFIED PT OF DENIAL. PT STATES SHE HAS CALLED HER INSURANCE COMPANY AND SHE WAS TOLD THAT INPATIENT REHAB DID NOT INCLUDE ALL HER MEDICAL PROBLEMS FOR THE INSURANCE TO REVIEW FOR INPATIENT REHAB. PT WANTS CM TO RESUBMIT TO [facility] FOR INPATIENT REHAB. CM CALLED [facility], , LEFT MESSAGE FOR MADONNA OF ADMISSIONS ASKING FOR CONSIDERATION AND RESUBMISSION FOR INSURANCE AUTHORIZATION. CM FAXED REFERRAL TO [facility] AT [phone]. CM NOTIFIED PT AND ASKED WHAT HER SECOND CHOICE WILL BE SINCE DECLINED BY [facility] AND [facility]. CM RECEIVED PATIENT CHOICE LETTER FOR 1- ANY [facility] AND 2- ANY [place] [facility] [facility] IF PT IS DECLINED BY [facility] INPATIENT REHAB. PT STATES THAT [facility] ALSO HAS INPATIENT REHAB. CM WAITING ADMISSION DETERMINATION FROM [facility]. SANJANA Hernández DCP- Discharge Planning Updated by [id number]: Phil Caruso on 04/12/19 8:[address] Patient Name: CARO JASSO Encounter No: [id number] : 1955 Primary Insurance: [facility] MEDIC[facility] SOLUTIONS Anticipated DC Date: 04-11-2019 Planned Disposition: [facility] Facility External Planned Provider: [facility], MEDICARE REHAB BED DCP follow-up note: CM RECEIVED CALL FROM ANTWAN OF [facility], , THEY RECEIVED REFERRAL, WILL SCREEN FOR ADMISSION. IF PT NEEDS MINIMAL ASSISTANCE TO TRANSFER TO [facility], [place] STAFF WILL BE ABLE TO PROVIDE THIS ASSISTANCE. PT WILL HAVE TO BE ACCEPTED AT [facility] FOR THEM TO ACCEPT PT THEY WILL NOT TRANSPORT ANYWHERE OUTSIDE [place] FOR DIALYSIS. NAJMATATYANAMike WILL CALL WITH ADMISSION DETERMINATION AFTER SCREENING IS COMPLETED. ANABELLA WAITING ADMISSION DETERMINATION FOR REHAB FROM [facility]. Phil Caruso, CASE MANAGEMENT DCP- Discharge Planning Updated by [id number]: Phil Caruso on 04/11/19 4:[address] Patient Name: CARO JASSO Encounter No: [id number] : 1955 Primary Insurance: [facility] MEDIC[facility] SOLUTIONS Anticipated DC Date: 04-11-2019 Planned Disposition: [facility] Facility External Planned Provider: [facility] MEDICARE REHAB BED DCP follow-up note: CM RECEIVED CALL FROM [facility], THEY WILL NOT ACCEPT PT. ANABELLA SPOKE TO PT WHO ASKED CM TO FAX REFERRAL TO HER SECOND CHOICE, [facility]. CHOICE PREVIOUSLY SIGNED. CM SPOKE TO EDSON OF PATIENT PATHWAYS WHO INFORMED CM THAT PT WILL HAVE TO BE ABLE TO TRANSFER HERSELF FROM CHAIR TO BED OR HAVE SOMEONE THERE THAT WILL ASSIST WITH EVERY TRANSFER TO EVEN BE CONSIDERED AT THE [facility]. CM SPOKE TO PT WHO DECLINED PLACEMENT ANYWHERE ELSE OTHER THAN [facility]. PT INSISTED THAT SHE CAN TRANSFER HERSELF TO A CHAIR AND WILL DO IT WITH THERAPY. CM LEFT NOTE ON DRY ERASE BOARD OF NEED FOR DOCUMENATION THAT PT IS ABLE TO TRANSFER HERSELF. CM CALLED [facility], , THERE WAS NO ANSWER. CM FAXED REFERRAL TO [facility] AT [phone]. CM SPOKE TO PT AFTER HER PD CATHETER WAS INSERTED. PT STILL WILLING FOR PLACEMENT AT [facility], STILL INSISTS THAT SHE CAN TRANSFER HERSELF IF THERAPY WILL WORK WITH HER STATING THEY HAVE ONLY SEEN HER ABOUT "3 TIMES". CM ASSURED PT THAT THERAPY WILL CONTINUE TO WORK WITH HER. PT STATES SHE THINKS THAT SHE WILL JUST BE ABLE TO GO HOME WITH PERITONEAL DIALYSIS. CM EXPLAINED THAT PT WILL HAVE TO TALK TO THE DOCTOR AND THAT CM UNDERSTOOD THAT PT WILL HAVE TO HAVE HEMODIALYSIS AND THAT PD IS A PROCESS AND TAKES TRAINING AND ARRANGEMENTS. PT NOW THINKS SHE WILL CAN HAVE PD AND GO HOME. CM WAITING ADMISSION DETERMINATION FOR REHAB FROM [facility]. SANJANA Hernández DCP- Discharge Planning Updated by [id number]: Phil Caruso on 04/11/19 7:[address] Patient Name: CARO JASSO Encounter No: [id number] : 1955 Primary Insurance: [facility] MEDIC[facility] SOLUTIONS Anticipated DC Date: 04-11-2019 Planned Disposition: [facility] Facility External Planned Provider: [facility], MEDICARE REHAB BED DCP follow-up note: CM FAXED REFERRAL UPDATE TO [facility] AT [phone]. CM WAITING ADMISSION DETERMINATION FROM [facility]ANCE DETERMINATION. RAYO TOUSSAINT IS WORKING ON OUTPATIENT DIALYSIS UNIT. SANJANA Hernández DCP- Discharge Planning Updated by [id number]: Phil Caruso on 04/10/19 3:[address] Patient Name: CARO JASSO Encounter No: [id number] : 1955 Primary Insurance: [facility] MED[facility] SOLUTIONS Anticipated DC Date: 04-11-2019 Planned Disposition: [facility] Facility External Planned Provider: [facility], MEDICARE REHAB BED DCP follow-up note: CM MET WITH PT IN ROOM TO DISCUSS DISCHARGE PLANNING AND NEEDS. PT HAS REVIEWED LIST WITH FAMILY AND WOULD LIKE REFERRAL TO [facility] AND [facility]. CHOICE FORM SIGNED. CM CALLED [facility], , SPOKE TO BIGG AND PROVIDED REFERRAL INFORMATION. CM FAXED REFERRAL TO [facility] AT [phone]. CM WAITING ADMISSION DETERMINATION FROM [facility] INSURANCE DETERMINATION. RAYO TOUSSAINT IS WORKING ON OUTPATIENT DIALYSIS UNIT. Phil Caruso CASE MANAGEMENT Appended by Phil Caruso on 04/10/2019 16:10 BLOW DOWN HELPER: CM RECEIVED CALL FROM [facility], , SPOKE TO BIGG WHO ASKED WHY PT IS ON ABILIFY. CM SPOKE TO PT IN ROOM, PT DENIES MENTAL ILLNESS OR PLACEMENT IN PSYCHIATRIC CARE IN THE PAST. PT THINKS IT MAY BE FOR DEMENTIAL. CM NOTIFIED BIGG. CM WAITING ADMISSION DETERMINATION FROM [facility] DETERMINATION. RAYO TOUSSAINT IS WORKING ON OUTPATIENT DIALYSIS UNIT. SANJANA Hernández DCP- Discharge Planning Updated by [id number]: Phil Caruso on 04/09/19 11:[address] Patient Name: CARO JASSO Encounter No: [id number] : 1955 Primary Insurance: [employer] MEDICARE SOLUTIONS Anticipated DC Date: 04-11-2019 Planned Disposition: [facility] Facility External Planned Provider: TO BE DETERMINED DCP follow-up note: CM RECEIVED INPATIENT REHAB DENIAL FROM PT'S INSURANCE. CM MET WITH PT IN ROOM, PROVIDED COPY OF DENIAL AND READ REASON FOR DENIAL WITH SUGGESTION THAT REHAB COULD BE PROVIDED IN [facility] FACILITY. CM PROVIDED PT WITH LISTING OF [facility] FACLITIES [place]IN [place] OF [place] AT PT'S REQUEST FROM MEDICARE WEBSITE. CM PROVIDED CHOICE FORM. PT STATES SHE WANTS TO THINK ABOUT CHOICES AND WILL LET CM KNOW SOON POSSIBLE. COPY OF INPATIENT DENIAL PLACED IN CHART WITH PT'S SIGNATURE, DATE AND TIME OF PT'S RECEIPT. CM WENT BACK IN ROOM AFTER LUNCH, PT IS OUT OF ROOM IN DIALYSIS. CM TO FOLLOW UP WITH PT LATER REGARDING [facility] REHAB CHOICES. CM WAITING ON PT'S DECISION FOR [facility] WELL CHOICES FOR SKILLED REHAB PLACEMENT. SANJANA Hernández DCP- Discharge Planning Updated by [id number]: Phil Caruso on 04/05/19 2:[address] Patient Name: CARO JASSO Encounter No: [id number] : 1955 Primary Insurance: C MEDICARE SOLUTIONS Anticipated DC Date: Planned Disposition: Inpatient Rehab External Planned Provider:[facility] DCP follow-up note: CM NOTIFIED PT'S DAUGHTER IN ROOM OF REFERRAL BEING FAXED TO [facility]. CM RECEIVED PATIENT CHOICE LETTER FOR 1- [facility] AND 2- [facility] IF PT IS DECLINED BY [facility] INPATIENT REH[facility]. CM WAITING ADMISSION DETERMINATION FROM [facility]. SANJANA Hernández DCP- Discharge Planning Updated by [id number]: Phil Caruso on 04/05/19 12:[address] Patient Name: CARO JASSO Encounter No: [id number] : 1955 Primary Insurance: [facility] MEDIC[facility] SOLUTIONS Anticipated DC Date: Planned Disposition: Inpatient Rehab External Planned Provider: [facility] DCP follow-up note: CM CALLED AND SPOKE TO VERNON PEACOCK, OF [facility], ; THEY WILL SCREEN FOR INPATIENT REHAB ADMISSION. THEY HAVE THE AVAILABILITY OF HEMODIALYSIS IN THEIR REHAB, BUT WILL NOT ACCEPT PERITONEAL DIALYSIS. CM FAXED REFERRAL TO [facility], . CM WAITING ADMISSION DETERMINATION FROM [facility]. Phil Caruso CASE MANAGEMENT DCP- Discharge Planning Updated by [id number]: Phil Caruso on 04/04/19 5:[address] Patient Name: CARO JASSO Encounter No: [id number] : 1955 Primary Insurance: [facility] MEDICARE SOLUTIONS Anticipated DC Date: Planned Disposition: Inpatient Rehab External [facility] DCP follow-up note: CM RECEIVED ORDER FOR INPATIENT REHAB PRESCREENING, MET WITH PT'S DAUGHTER, HARRIETT YOUNG, IN ROOM. HARRIETT IS PT'S EMERGENCY CONTACT LISTED ON FACE SHEET AND REPORTS TO BE PT'S CAREGIVER AT HOME. PT IN DIALYSIS. CM HAD ALSO RECEIVED HANDWRITTEN NOTE INDICTATING PT WANTS REHAB IN [place]. HARRIETT REPORTS PT WANTS REFERRAL TO [facility] FOR INPATIENT REHAB. CM DISCUSSED HAVING A ALTERNATE PLAN IF DECLINED FOR INPATIENT REHAB. THEY HAVE DISCUSSED [facility]; CM PROVIDED LIST OF AVAILABLE [facility] FACILITIES WITHIN [address] OF [place]. HARRIETT WILL DISCUSS THIS WITH PT AND THEY WILL LET CM KNOW OF ALTERNATE PLAN FOR REHAB. CM TO SEND REFERRAL TO [facility] FOR INPATIENT REHAB SOON POSSIBLE. PT CONSIDERING [facility] FACILITY ALTERNATE REHAB PLAN IF DECLINED BY [facility]. Phil Caruso, CASE MANAGEMENT DCP- Discharge Planning Updated by [id number]: Tucker Hall on 04/02/19 12:[address] I HAVE SPOKEN TO EDSON EWING, CLINICAL LIASON WITH MICHELLE ABOUT THIS PATIENT POTENTIALLY BEING A NEW START. THIS WAY SHE CAN MAKE CONTACT TO PRESTART THE PROCESS. PTS [facility] WAS YESTERDAY. DCP- Discharge Planning Updated by [id number]: Olivia Ramachandran on 03/29/19 12:[address] Patient Name: CARO JASSO Admission Status: Elective Accout number: [id number] Admission Date: 03-24-2019 : 1955 Admission Diagnosis: Attending: ELTON HODGE Current LOS: 5 Anticipated DC Date: Planned Disposition: Primary Insurance: [facility] MEDICARE SOLUTIONS Discharge Planning Comments: CM SPOKE WITH DAUGHTER ABOUT DC PLANNING/NEEDS. SHE STATES IS WAITING TO TALK TO THE DOCTOR BUT HAS RECIEVED BAD NEWS ON MOTHER'S PROGNOSIS. I HAVE MENTIONED REHAB AND HOSPICE. DAUGHTER WANTS TO THINK ABOUT IT. CM WILL FOLLOW AND ASSIST. Supervisor Liquid Yeast: Olivia Madie DCP- Discharge Planning Updated by [id number]: Tucker Rafael on 03/27/19 3:[address] MOSS WANTED THE PATIENT TRANSFERRED TO [facility] TO HER TELEGRAPH INSPECTOR THIS AM. @ 0813, PLACED A CALL TO THE ELEVATOR OPERATOR SERVICE, ADARSH, TO OBTAIN ADMIN APPROVAL TO PROCEED WITH TRANSFER. SE STATED THAT SHE WOULD HAVE TO CALL THE ADMIN PIPELINE INSPECTOR, BUT WAS CURRENTLY INDISPOSED AND UNABLE. IF I DON'T HEAR BACK FROM HERE, I WILL CALL BACK LATER. @0817, I SPOKE WITH THE PATIENT WHO IS WILLING FOR THE TRANSFER. @0821, I SPOKE WITH ALEN SAWYER APN FOR DR YATES. SHE HAS REQUESTED THAT I HAVE DR MOSS CALL AND DISCUSS THE TRANSFER WITH DR YATES. @0836, I SPOKE WITH DR MOSS AND MADE THIS REQUEST. SHE ASKED ME TO TEXT HER DR YATES'S NUMBER AND SHE WOULD CALL HER. SOON WE HUNG UP, I TEXT HER THE NUMBER. @7724, I PLACED A CALL TO ALEN TO SEE IF SHE KNEW WHEN DR YATES WOULD BE HERE AT THE HOSPITAL SHE STATED HE WAS HERE NOW. SHE SAID THAT DR MOSS DID NOT CALL AND TALK TO DR YATES ABOUT THE TRANSFER. SHE STATED THAT SHE WOULD TALK TO HIM AND LET ME KNOW, BUT SHE DID NOT FEEL THAT THE PATIENT WOULD TRANSFER. @6835, DR YATES AND VERÓNICA LOWRY ON THE FLOOR. THEY HAVE TALKED WITH THE PATIENT. THE PATIENT WILL REMAIN HERE FOR TREATMENT AND NOT TRANSFER. DCPIA - Discharge Planning Initial Assessment Updated by [id number]: Olivia Ramachandran on 03/29/19 12:11 pm * Is the patient Alert and Oriented? No * Preadmission Environment Home with Family * Other Equipment WALKER, WC, TRANSFER CHAIR, O2 NEBS * List name and contact numbers for known caregivers / representatives who currently or will assist patient after discharge: SANDY LORENZANA, * Community resources currently utilized Home Health * Please name any agencies selected above. [facility] * Has this patient been hospitalized within the prior 30 days at any hospital? Yes Coverage Notice Reviewer: ELYSSA Caruso Notice Issued Date-Time: 04/04/2019 18:45 Notice Type: Patient Choice Letter Notice Delivered To: Patient Relationship to Patient: Funeral Service Manager Name: Delivery Method: HAND - Hand Delivered Kristyn Days: Prior Verbal Notification: Recipient Understood Notice: Yes Recipient Signature: Yes Med Rec Note Co-signed by Attending: Coverage Notice Comment: 1- [facility] 2- [facility] Reviewer: ELYSSA Caruso Notice Issued Date-Time: 04/10/2019 9:56 Notice Type: Patient Choice Letter Notice Delivered To: Patient Relationship to Patient: Funeral Service Manager Name: Delivery Method: HAND - Hand Delivered Kristyn Days: Prior Verbal Notification: Recipient Understood Notice: Yes Recipient Signature: Yes Med Rec Note Co-signed by Attending: Coverage Notice Comment: 1 - [facility], 2 - [facility] Reviewer: ELYSAS Caruso Notice Issued Date-Time: 04/12/2019 16:10 Notice Type: Patient Choice Letter Notice Delivered To: Patient Relationship to Patient: Funeral Service Manager Name: Delivery Method: HAND - Hand Delivered Kristyn Days: Prior Verbal Notification: Recipient Understood Notice: Yes Recipient Signature: Yes Med Rec Note Co-signed by Attending: Coverage Notice Comment: SNF IN [place] OR SNF IN [place] Last DP export: 04/17/19 8:31 Patient Name: CARO JASSO Page [id number] at 1700 All edits/amendments must be made on the electronic document DICTATION DATE: 04/17/19 170 ICU CLERK: ELVIRA 04/17/191699 RPT#: [id number] DC DATE: STATUS: ADM IN [facility] [address] [place] [address] END OF REPORT
[2019-04-17 17:05] VITALS: BP 110/54
--- NOTE | 2019-04-17 17:08 | MORECARE ---
CASE MANAGEMENT DISCHARGE SUMMARY PATIENT: CARO JASSO UNIT: [id number] ADM DATE: 03/24/19 AGE: 63 : 55 SEX: F ROOM/BED: D.5576 AUTHOR: KENNEY,DOC PHYSICIAN: REFERRING PHYSICIAN: ELTON HODGE MD DATE OF SERVICE: 04/17/19 Discharge Plan Patient Name: CARO JASSO Facility: [facility]:[place] : 1955 Planned Disposition: [facility] Facility Anticipated Discharge Date: 04/18/19 Discharge Date: Expected LOS: 25 Initial Reviewer: [id number] Initial Review Date: 03/29/2019 Generated: 04/17/19 6:07 pm Comments DCP- Discharge Planning Updated by [id number]: Phil Caruso on 04/17/19 8:[address] Patient Name: CARO JASSO Encounter No: [id number] : 1955 Primary Insurance: [facility] MEDICARE SOLUTIONS Anticipated DC Date: 04-11-2019 Planned Disposition: Mcc Facility External Planned Provider: [facility], MEDICARE REHAB BED DCP follow-up note: ON 04-16-19, CM ASSISTED PT WITH TYPING HER APPEAL LETTER TO HER INSURANCE COMPANY TO APPEAL HER INPATIENT REHAB DENIAL. CM FAXED THE APPEAL LETTER TO PT'S INSURANCE COMPANY, PROVIDED FAX CONFIRMATION AND LETTER BACK TO PT FOR HER RECORDS. ON 04-17-19, CM FAXED REFERRAL UPDATE TO [facility] AT [phone]. CM REVIEWED CHART, NOTE FROM EDSON OF PATIENT PATHWAYS, INDICATES PT HAS DIALYSIS CHAIR IN [facility], MWF, 1630 HOURS WITH NO OTHER TIME AVAILABLE. PT HAS BEEN DECLINED BY INSURANCE FOR INPATIENT REHAB; PT FILED APPEAL 04-16-19. PT HAS BEEN DECLINED BY [facility] AND [facility]USTODIAL [facility]. CM WAITING ADMISSION DETERMINATION FROM [facility]. CHAIR AT [facility] HAS BEEN SECURED FOR OUTPATIENT DIALYSIS. Phil Caruso, CASE MANAGEMENT DCP- Discharge Planning Updated by [id number]: Phil Caruso on 04/16/19 1:[address] Patient Name: CARO JASSO Encounter No: [id number] : 1955 Primary Insurance: [facility] MEDICARE SOLUTIONS Anticipated DC Date: 04-11-2019 Planned Disposition: Mcc Facility External Planned Provider: [facility], MEDICARE REHAB BED DCP follow-up note: CM CALLED [facility], , SPOKE TO TUCKER WHO WILL INFORMED CM THAT THEY ARE OUT OF INSURANCE NETWORK BUT THAT PT HAS THE SAME OUT OF NETWORK BENEFITS IN NETWORK; PT HAS 20 DAYS FOR REHAB. THEY WILL SCREEN FOR ADMISSION TODAY. CM FAXED REFERRAL UPDATE TO [facility] AT [phone]. CM SPOKE TO EDSON OF PATIENT PATHWAYS, SHE HAS PT A CHAIR IN [facility], MWF, 1630 HOURS. EDSON WILL CHECK WITH DIALYSIS UNIT AND REQUEST EARLIER CHAIR TIME. PT HAS BEEN DECLINED BY INSURANCE FOR INPATIENT REHAB. PT HAS BEEN DECLINED BY [facility]. CM WAITING ADMISSION DETERMINATION FROM [facility]. CHAIR AT [facility] HAS BEEN SECURED FOR OUTPATIENT DIALYSIS. Phil Caruso, CASE MANAGEMENT DCP- Discharge Planning Updated by [id number]: Phil Caruso on 04/13/19 8:[address] Patient Name: CARO JASSO Encounter No: [id number] : 1955 Primary Insurance: [facility] MEDICARE SOLUTIONS Anticipated DC Date: 04-11-2019 Planned Disposition: Mcc Facility External Planned Provider: [facility], MEDICARE REHAB BED DCP follow-up note: CM RECEIVED MESSAGE FROM MADONNA OF [facility] INPATIENT REHAB WHO INFORMED CM THAT IT INSURANCE DECLINED [facility] INPATIENT REHAB, IT WOULD BE A WASTE OF TIME TO RESUBMIT BUT SHE WOULD BE HAPPY TO DO IT IF PT INSISTED. CM SPOKE TO PT IN ROOM WHO ASKED CM TO SPEAK TO HER PARTNER BOUCHRA AT [phone], TO ASSIST WITH DISCHARGE PLANNING. CM CALLED BOUCHRA AND PROVIDED ABOVE INFORMATION. BOUCHRA WANTS TO PROCEED WITH CUSTODIAL REFERRAL TO [facility]. IF DECLINED, SEEK SNF IN [place]. CM CALLED [facility], , SPOKE TO TUCKER WHO WILL SCREEN FOR ADMISSION. CM FAXED REFERRAL TO [facility] AT [phone]. PT HAS BEEN DECLINED BY INSURANCE FOR INPATIENT REHAB. PT HAS BEEN DECLINED BY [facility] CUSTODIAL FACILITY. CM WAITING ADMISSION DETERMINATION FROM [facility]. SANJANA Hernández DCP- Discharge Planning Updated by [id number]: Phil Caruso on 04/12/19 3:[address] Patient Name: CARO JASSO Encounter No: [id number] : 1955 Primary Insurance: [facility] MEDICARE SOLUTIONS Anticipated DC Date: 04-11-2019 Planned Disposition: Mcc Facility External Planned Provider: [facility] DCP follow-up note: CM RECEIVED CALLF [facility], THEY CANNOT MEET PT'S NEEDS. CM NOTIFIED PT OF DENIAL. PT STATES SHE HAS CALLED HER INSURANCE COMPANY AND SHE WAS TOLD THAT INPATIENT REHAB DID NOT INCLUDE ALL HER MEDICAL PROBLEMS FOR THE INSURANCE TO REVIEW FOR INPATIENT REHAB. PT WANTS CM TO RESUBMIT TO [facility] FOR INPATIENT REHAB. CM CALLED [facility] INPATIENT REH[facility], , LEFT MESSAGE FOR MADONNA OF ADMISSIONS ASKING FOR CONSIDERATION AND RESUBMISSION FOR INSURANCE AUTHORIZATION. CM FAXED REFERRAL TO [facility] AT [phone]. CM NOTIFIED PT AND ASKED WHAT HER SECOND CHOICE WILL BE SINCE DECLINED BY [facility] AND [facility]. CM RECEIVED PATIENT CHOICE LETTER FOR 1- ANY [facility] AND 2- ANY [facility] IF PT IS DECLINED BY [facility] INPATIENT REHAB. PT STATES THAT [facility] ALSO HAS INPATIENT REHAB. CM WAITING ADMISSION DETERMINATION FROM [facility] INPATIENT RE[facility]. SANJANA Hernández DCP- Discharge Planning Updated by [id number]: Phil Caruso on 04/12/19 8:[address] Patient Name: CARO JASSO Encounter No: [id number] : 1955 Primary Insurance: [facility] MEDICARE SOLUTIONS Anticipated DC Date: 04-11-2019 Planned Disposition: Mcc Facility External Planned Provider: [facility], MEDICARE REHAB BED DCP follow-up note: CM RECEIVED CALL FROM ANTWAN OF [facility], , THEY RECEIVED REFERRAL, WILL SCREEN FOR ADMISSION. IF PT NEEDS MINIMAL ASSISTANCE TO TRANSFER TO [facility], [facility] STAFF WILL BE ABLE TO PROVIDE THIS ASSISTANCE. PT WILL HAVE TO BE ACCEPTED AT [facility] FOR THEM TO ACCEPT PT THEY WILL NOT TRANSPORT ANYWHERE OUTSIDE [place] FOR DIALYSIS. NAJMATATYANAMike WILL CALL WITH ADMISSION DETERMINATION AFTER SCREENING IS COMPLETED. ANABELLA WAITING ADMISSION DETERMINATION FOR REHAB FROM [facility]. Phil Caruso, CASE MANAGEMENT DCP- Discharge Planning Updated by [id number]: Phil Caruso on 04/11/19 4:[address] Patient Name: CARO JASSO Encounter No: [id number] : 1955 Primary Insurance: [facility] MEDICARE SOLUTIONS Anticipated DC Date: 04-11-2019 Planned Disposition: Mcc Facility External Planned Provider: [facility] MEDICARE REHAB BED DCP follow-up note: CM RECEIVED CALL FROM [facility], THEY WILL NOT ACCEPT PT. ANABELLA SPOKE TO PT WHO ASKED CM TO FAX REFERRAL TO HER SECOND CHOICE, [facility]. CHOICE PREVIOUSLY SIGNED. CM SPOKE TO EDSON OF PATIENT PATHWAYS WHO INFORMED CM THAT PT WILL HAVE TO BE ABLE TO TRANSFER HERSELF FROM CHAIR TO BED OR HAVE SOMEONE THERE THAT WILL ASSIST WITH EVERY TRANSFER TO EVEN BE CONSIDERED AT THE [facility]. CM SPOKE TO PT WHO DECLINED PLACEMENT ANYWHERE ELSE OTHER THAN [place]. PT INSISTED THAT SHE CAN TRANSFER HERSELF TO A CHAIR AND WILL DO IT WITH THERAPY. CM LEFT NOTE ON DRY ERASE BOARD OF NEED FOR DOCUMENATION THAT PT IS ABLE TO TRANSFER HERSELF. CM CALLED [facility], , THERE WAS NO ANSWER. CM FAXED REFERRAL TO [facility] AT [phone]. CM SPOKE TO PT AFTER HER PD CATHETER WAS INSERTED. PT STILL WILLING FOR PLACEMENT AT [facility], STILL INSISTS THAT SHE CAN TRANSFER HERSELF IF THERAPY WILL WORK WITH HER STATING THEY HAVE ONLY SEEN HER ABOUT "3 TIMES". CM ASSURED PT THAT THERAPY WILL CONTINUE TO WORK WITH HER. PT STATES SHE THINKS THAT SHE WILL JUST BE ABLE TO GO HOME WITH PERITONEAL DIALYSIS. CM EXPLAINED THAT PT WILL HAVE TO TALK TO THE DOCTOR AND THAT CM UNDERSTOOD THAT PT WILL HAVE TO HAVE HEMODIALYSIS AND THAT PD IS A PROCESS AND TAKES TRAINING AND ARRANGEMENTS. PT NOW THINKS SHE WILL CAN HAVE PD AND GO HOME. CM WAITING ADMISSION DETERMINATION FOR REHAB FROM [facility]. SANJANA Heránndez DCP- Discharge Planning Updated by [id number]: Phil Caruso on 04/11/19 7:[address] Patient Name: CARO JASSO Encounter No: [id number] : 1955 Primary Insurance: [facility] MEDICARE SOLUTIONS Anticipated DC Date: 04-11-2019 Planned Disposition: Mcc Facility External Planned Provider: [facility], MEDICARE REHAB BED DCP follow-up note: CM FAXED REFERRAL UPDATE TO [facility] AT [phone]. CM WAITING ADMISSION DETERMINATION FROM [facility] DETERMINATION. RAYO TOUSSAINT IS WORKING ON OUTPATIENT DIALYSIS UNIT. SANJANA Hernández DCP- Discharge Planning Updated by [id number]: Phil Caruso on 04/10/19 3:[address] Patient Name: CARO JASSO Encounter No: [id number] : 1955 Primary Insurance: [facility] MEDICARE SOLUTIONS Anticipated DC Date: 04-11-2019 Planned Disposition: Mcc Facility External Planned Provider: [facility], MEDICARE REHAB BED DCP follow-up note: CM MET WITH PT IN ROOM TO DISCUSS DISCHARGE PLANNING AND NEEDS. PT HAS REVIEWED LIST WITH FAMILY AND WOULD LIKE REFERRAL TO [facility] AT FIRST CHOICE AND [facility] SECOND CHOICE. CHOICE FORM SIGNED. CM CALLED [facility], , SPOKE TO BIGG AND PROVIDED REFERRAL INFORMATION. CM FAXED REFERRAL TO [facility] AT [phone]. CM WAITING ADMISSION DETERMINATION FROM [facility] INSURANCE DETERMINATION. RAYO TOUSSAINT IS WORKING ON OUTPATIENT DIALYSIS UNIT. Phil Caruso CASE MANAGEMENT Appended by Phil Caruso on 04/10/2019 16:10 [employer]: CM RECEIVED CALL FROM [facility], , SPOKE TO BIGG WHO ASKED WHY PT IS ON ABILIFY. CM SPOKE TO PT IN ROOM, PT DENIES MENTAL ILLNESS OR PLACEMENT IN PSYCHIATRIC CARE IN THE PAST. PT THINKS IT MAY BE FOR DEMENTIAL. CM NOTIFIED BIGG. CM WAITING ADMISSION DETERMINATION FROM [facility] DETERMINATION. RAYO TOUSSAINT IS WORKING ON OUTPATIENT DIALYSIS UNIT. SANJANA Hernández DCP- Discharge Planning Updated by [id number]: Phil Caruso on 04/09/19 11:[address] Patient Name: CARO JASSO Encounter No: [id number] : 1955 Primary Insurance: [employer] MEDICARE SOLUTIONS Anticipated DC Date: 04-11-2019 Planned Disposition: Mcc Facility External Planned Provider: TO BE DETERMINED DCP follow-up note: CM RECEIVED INPATIENT REHAB DENIAL FROM PT'S INSURANCE. CM MET WITH PT IN ROOM, PROVIDED COPY OF DENIAL AND READ REASON FOR DENIAL WITH SUGGESTION THAT REHAB COULD BE PROVIDED IN CUSTODIAL FACILITY. CM PROVIDED PT WITH LISTING OF CUSTODIAL FACLITIES WITHIN [address] OF [place] AT PT'S REQUEST FROM MEDICARE WEBSITE. CM PROVIDED CHOICE FORM. PT STATES SHE WANTS TO THINK ABOUT CHOICES AND WILL LET CM KNOW SOON POSSIBLE. COPY OF INPATIENT DENIAL PLACED IN CHART WITH PT'S SIGNATURE, DATE AND TIME OF PT'S RECEIPT. CM WENT BACK IN ROOM AFTER LUNCH, PT IS OUT OF ROOM IN DIALYSIS. CM TO FOLLOW UP WITH PT LATER REGARDING CUSTODIAL REHAB CHOICES. CM WAITING ON PT'S DECISION FOR CUSTODIAL WELL CHOICES FOR SKILLED REHAB PLACEMENT. SANJANA Hernández DCP- Discharge Planning Updated by [id number]: Phil Caruso on 04/05/19 2:[address] Patient Name: CARO JASSO Encounter No: [id number] : 1955 Primary Insurance: C MEDICARE SOLUTIONS Anticipated DC Date: Planned Disposition: Inpatient Rehab External Planned Provider:[facility] IN[facility] DCP follow-up note: CM NOTIFIED PT'S DAUGHTER IN ROOM OF REFERRAL BEING FAXED TO [facility] INPATIENT REHAB. CM RECEIVED PATIENT CHOICE LETTER FOR 1- [facility] AND 2- [facility] IF PT IS DECLINED BY [facility] INPATIENT REHAB. CM WAITING ADMISSION DETERMINATION FROM [facility] INPAT[facility]. SANJANA Hernández DCP- Discharge Planning Updated by [id number]: Phil Caruso on 04/05/19 12:[address] Patient Name: CARO JASSO Encounter No: [id number] : 1955 Primary Insurance: [facility] MEDICARE SOLUTIONS Anticipated DC Date: Planned Disposition: Inpatient Rehab External Planned Provider: [facility] IN[facility] DCP follow-up note: CM CALLED AND SPOKE TO VERNON PEACOCK, OF [facility] INPATIENT [facility], ; THEY WILL SCREEN FOR INPATIENT REHAB ADMISSION. THEY HAVE THE AVAILABILITY OF HEMODIALYSIS IN THEIR REHAB, BUT WILL NOT ACCEPT PERITONEAL DIALYSIS. CM FAXED REFERRAL TO [facility], . CM WAITING ADMISSION DETERMINATION FROM [facility]. Phil Caruso CASE MANAGEMENT DCP- Discharge Planning Updated by [id number]: Phil Caruso on 04/04/19 5:[address] Patient Name: CARO JASSO Encounter No: [id number] : 1955 Primary Insurance: [facility] MEDICARE SOLUTIONS Anticipated DC Date: Planned Disposition: Inpatient Rehab [facility] DCP follow-up note: CM RECEIVED ORDER FOR INPATIENT REHAB PRESCREENING, MET WITH PT'S DAUGHTER, HARRIETT YOUNG, IN ROOM. HARRIETT IS PT'S EMERGENCY CONTACT LISTED ON FACE SHEET AND REPORTS TO BE PT'S CAREGIVER AT HOME. PT IN DIALYSIS. CM HAD ALSO RECEIVED HANDWRITTEN NOTE INDICTATING PT WANTS REHAB IN [place]. HARRIETT REPORTS PT WANTS REFERRAL TO [facility] FOR INPATIENT REHAB. CM DISCUSSED HAVING A ALTERNATE PLAN IF DECLINED FOR INPATIENT REHAB. THEY HAVE DISCUSSED CUSTODIAL; CM PROVIDED LIST OF AVAILABLE CUSTODIAL FACILITIES WITHIN [address] OF [place]. HARRIETT WILL DISCUSS THIS WITH PT AND THEY WILL LET CM KNOW OF ALTERNATE PLAN FOR REHAB. CM TO SEND REFERRAL TO [facility] FOR INPATIENT REHAB SOON POSSIBLE. PT CONSIDERING CUSTODIAL FACILITY ALTERNATE REHAB PLAN IF DECLINED BY [facility]. Phil Caruso, CASE MANAGEMENT DCP- Discharge Planning Updated by [id number]: Tucker Hall on 04/02/19 12:[address] I HAVE SPOKEN TO EDSON EWING, CLINICAL LIASON WITH MICHELLE ABOUT THIS PATIENT POTENTIALLY BEING A NEW START. THIS WAY SHE CAN MAKE CONTACT TO PRESTART THE PROCESS. PTS FIRST DIALYSIS WAS YESTERDAY. DCP- Discharge Planning Updated by [id number]: Olivia Ramachandran on 03/29/19 12:[address] Patient Name: CARO JASSO Admission Status: Elective Accout number: [id number] Admission Date: 03-24-2019 : 1955 Admission Diagnosis: Attending: ELTON HODGE Current LOS: 5 Anticipated DC Date: Planned Disposition: Primary Insurance: [facility] MEDICARE SOLUTIONS Discharge Planning Comments: CM SPOKE WITH DAUGHTER ABOUT DC PLANNING/NEEDS. SHE STATES IS WAITING TO TALK TO THE DOCTOR BUT HAS RECIEVED BAD NEWS ON MOTHER'S PROGNOSIS. I HAVE MENTIONED REHAB AND HOSPICE. DAUGHTER WANTS TO THINK ABOUT IT. CM WILL FOLLOW AND ASSIST. Tape Deck Installer: Olivia Madie DCP- Discharge Planning Updated by [id number]: Tucker aRfael on 03/27/19 3:[address] MOSS WANTED THE PATIENT TRANSFERRED TO [facility] TO HER ELECTORATE OFFICER THIS AM. @ 0813, PLACED A CALL TO THE KNITTING MACHINE FIXER HEAD, ADARSH, TO OBTAIN ADMIN APPROVAL TO PROCEED WITH TRANSFER. SE STATED THAT SHE WOULD HAVE TO CALL THE ADMIN RESEARCH ENVIRONMENTAL ENGINEER, BUT WAS CURRENTLY INDISPOSED AND UNABLE. IF I DON'T HEAR BACK FROM HERE, I WILL CALL BACK LATER. @0817, I SPOKE WITH THE PATIENT WHO IS WILLING FOR THE TRANSFER. @0821, I SPOKE WITH ALEN SAWYER APN FOR DR YATES. SHE HAS REQUESTED THAT I HAVE DR MOSS CALL AND DISCUSS THE TRANSFER WITH DR YATES. @0836, I SPOKE WITH DR MOSS AND MADE THIS REQUEST. SHE ASKED ME TO TEXT HER DR YATES'S NUMBER AND SHE WOULD CALL HER. SOON WE HUNG UP, I TEXT HER THE NUMBER. @8624, I PLACED A CALL TO ALEN TO SEE IF SHE KNEW WHEN DR YATES WOULD BE HERE AT THE HOSPITAL SHE STATED HE WAS HERE NOW. SHE SAID THAT DR MOSS DID NOT CALL AND TALK TO DR YATES ABOUT THE TRANSFER. SHE STATED THAT SHE WOULD TALK TO HIM AND LET ME KNOW, BUT SHE DID NOT FEEL THAT THE PATIENT WOULD TRANSFER. @2767, DR YATES AND VERÓNICA LOWRY ON THE FLOOR. THEY HAVE TALKED WITH THE PATIENT. THE PATIENT WILL REMAIN HERE FOR TREATMENT AND NOT TRANSFER. DCPIA - Discharge Planning Initial Assessment Updated by [id number]: Olivia Ramachandran on 03/29/19 12:11 pm * Is the patient Alert and Oriented? No * Preadmission Environment Home with Family * Other Equipment WALKER, WC, TRANSFER CHAIR, O2 NEBS * List name and contact numbers for known caregivers / representatives who currently or will assist patient after discharge: SANDY LORENZANA, * Community resources currently utilized Home Health * Please name any agencies selected above. [facility] * Has this patient been hospitalized within the prior 30 days at any hospital? Yes External Providers External Provider: MATTHEW Billingsley Next Contact Date: 04/17/2019 Service Request Date: Service Type: Resolution: Reviewer: Comments: Coverage Notice Reviewer: [email or web address] Caruso Notice Issued Date-Time: 04/12/2019 16:10 Notice Type: Patient Choice Letter Notice Delivered To: Patient Relationship to Patient: Vmware Consultant Name: Delivery Method: HAND - Hand Delivered Kristyn Days: Prior Verbal Notification: Recipient Understood Notice: Yes Recipient Signature: Yes Med Rec Note Co-signed by Attending: Coverage Notice Comment: SNF IN [place] OR SNF IN [place] Reviewer: ELYSSA Caruso Notice Issued Date-Time: 04/10/2019 9:56 Notice Type: Patient Choice Letter Notice Delivered To: Patient Relationship to Patient: Vmware Consultant Name: Delivery Method: HAND - Hand Delivered Kristyn Days: Prior Verbal Notification: Recipient Understood Notice: Yes Recipient Signature: Yes Med Rec Note Co-signed by Attending: Coverage Notice Comment: 1 - [facility], 2 - [facility] Reviewer: [id number] Caruso Notice Issued Date-Time: 04/04/2019 18:45 Notice Type: Patient Choice Letter Notice Delivered To: Patient Relationship to Patient: Vmware Consultant Name: Delivery Method: HAND - Hand Delivered Kristyn Days: Prior Verbal Notification: Recipient Understood Notice: Yes Recipient Signature: Yes Med Rec Note Co-signed by Attending: Coverage Notice Comment: 1- [facility] 2- [facility] Last DP export: 04/17/19 4:00 Patient Name: CARO JASSO Page [phone] at 1708 All edits/amendments must be made on the electronic document DICTATION DATE: 04/17/191706 POST GRADUATE INTERNSHIP: ELVIRA 04/17/191706 RPT#: [id number] DC DATE: STATUS: ADM IN [facility] [address] [place] [address] END OF REPORT
--- NOTE | 2019-04-17 17:15 | MORECARE ---
CASE MANAGEMENT DISCHARGE SUMMARY PATIENT: CARO JASSO UNIT: [id number] ADM DATE: 03/24/19 AGE: 63 : 55 SEX: F ROOM/BED: D.7486 AUTHOR: KENNEY,DOC PHYSICIAN: REFERRING PHYSICIAN: ELTON HODGE MD DATE OF SERVICE: 04/17/19 Discharge Plan Patient Name: CARO JASSO Facility: [facility] : 1955 Planned Disposition: Senior Care Facility Anticipated Discharge Date: 04/18/19 Discharge Date: Expected LOS: 25 Initial Reviewer: [id number] Initial Review Date: 03/29/2019 Generated: 04/17/19 6:15 pm Comments DCP- Discharge Planning Updated by [id number]: Phil Caruso on 04/17/19 4:[address] Patient Name: CARO JASSO Encounter No: [id number] : 1955 Primary Insurance: [facility] MED[facility] SOLUTIONS Anticipated DC Date: 04-18-2019 Planned Disposition: Senior Care Facility External Planned Provider:[facility], MEDICARE REHAB BED DCP follow-up note: KHAI OF NURSING CONSULTS MET WITH PT IN DIALYSIS TO ASSESS FOR REHAB ADMISSION. KHAI INFORMED CM THAT PT NEEDS LIDIA DUE TO DIAGNOSIS OF MAJOR DEPRESSION. CM COMPLETED LIDIA SCREENING WITH PT'S ASSISTANCE, OBTAINED PHYSICIAN SIGNATURE. CM FAXED LIDIA SCREENING TO [facility] AT [phone]. PT HAS BEEN DECLINED BY INSURANCE FOR INPATIENT REHAB; PT FILED APPEAL 04-16-19. PT HAS BEEN DECLINED BY [facility] AND [facility]. CM WAITING LIDIA DETERMINATION TO ENTER JAIL FACILITY. CM WAITING ADMISSION DETERMINATION FROM [facility]. CHAIR AT [facility] HAS BEEN SECURED FOR OUTPATIENT DIALYSIS. Phil Caruso CASE ED DCP- Discharge Planning Updated by [id number]: Phil Caruso on 04/17/19 8:[address] Patient Name: CARO JASSO Encounter No: [id number] : 1955 Primary Insurance: [facility] MEDIC[facility] SOLUTIONS Anticipated DC Date: 04-11-2019 Planned Disposition: Senior Care Facility External Planned Provider: [facility], MEDICARE REHAB BED DCP follow-up note: ON 04-16-19, CM ASSISTED PT WITH TYPING HER APPEAL LETTER TO HER INSURANCE COMPANY TO APPEAL HER INPATIENT REHAB DENIAL. CM FAXED THE APPEAL LETTER TO PT'S INSURANCE COMPANY, PROVIDED FAX CONFIRMATION AND LETTER BACK TO PT FOR HER RECORDS. ON 04-17-19, CM FAXED REFERRAL UPDATE TO [facility] AT [phone]. CM REVIEWED CHART, NOTE FROM EDSON OF PATIENT PATHWAYS, INDICATES PT HAS DIALYSIS CHAIR IN [facility], MWF, 1630 HOURS WITH NO OTHER TIME AVAILABLE. PT HAS BEEN DECLINED BY INSURANCE FOR INPATIENT REHAB; PT FILED APPEAL 04-16-19. PT HAS BEEN DECLINED BY [facility] AND [facility]. CM WAITING ADMISSION DETERMINATION FROM [facility]. CHAIR AT [facility] HAS BEEN SECURED FOR OUTPATIENT DIALYSIS. Phil Caruso CASE MANAGEMENT DCP- Discharge Planning Updated by [id number]: Phil Carsuo on 04/16/19 1:[address] Patient Name: CARO JASSO Encounter No: [id number] : 1955 Primary Insurance: [facility] MEDIC[facility] SOLUTIONS Anticipated DC Date: 04-11-2019 Planned Disposition: Senior Care Facility External Planned Provider: [facility], MEDICARE REHAB BED DCP follow-up note: CM CALLED [facility], , SPOKE TO TUCKER WHO WILL INFORMED CM THAT THEY ARE OUT OF INSURANCE NETWORK BUT THAT PT HAS THE SAME OUT OF NETWORK BENEFITS IN NETWORK; PT HAS 20 DAYS FOR REHAB. THEY WILL SCREEN FOR ADMISSION TODAY. CM FAXED REFERRAL UPDATE TO [facility] AT [phone]. CM SPOKE TO EDSON OF PATIENT PATHWAYS, SHE HAS PT A CHAIR IN [facility], MWF, 1630 HOURS. EDSON WILL CHECK WITH DIALYSIS UNIT AND REQUEST EARLIER CHAIR TIME. PT HAS BEEN DECLINED BY INSURANCE FOR INPATIENT REHAB. [facility]. CM WAITING ADMISSION DETERMINATION FROM [facility]. CHAIR AT [facility] HAS BEEN SECURED FOR OUTPATIENT DIALYSIS. Phil Caruso CASE MANAGEMENT DCP- Discharge Planning Updated by [id number]: Phil Caruso on 04/13/19 8:[address] Patient Name: CARO JASSO Encounter No: [id number] : 1955 Primary Insurance: [facility] MEDIC[facility] SOLUTIONS Anticipated DC Date: 04-11-2019 Planned Disposition: Senior Care Facility External Planned Provider: [facility], MEDICARE REHAB BED DCP follow-up note: CM RECEIVED MESSAGE FROM MADONNA OF [facility] WHO INFORMED CM THAT IT INSURANCE DECLINED [facility] INPATIENT REHAB, IT WOULD BE A WASTE OF TIME TO RESUBMIT BUT SHE WOULD BE HAPPY TO DO IT IF PT INSISTED. CM SPOKE TO PT IN ROOM WHO ASKED CM TO SPEAK TO HER PARTNER BOUCHRA AT [phone], TO ASSIST WITH DISCHARGE PLANNING. CM CALLED BOUCHRA AND PROVIDED ABOVE INFORMATION. BOUCHRA WANTS TO PROCEED WITH JAIL REFERRAL TO [facility]. IF DECLINED, SEEK SNF IN [place]. CM CALLED [facility], , SPOKE TO TUCKER WHO WILL SCREEN FOR ADMISSION. CM FAXED REFERRAL TO [facility] AT [phone]. PT HAS BEEN DECLINED BY INSURANCE FOR INPATIENT REHAB. PT HAS BEEN DECLINED BY [facility] AND [facility]. CM WAITING ADMISSION DETERMINATION FROM [facility]. Phil Caruso, CASE MANAGEMENT DCP- Discharge Planning Updated by [id number]: Phil Caruso on 04/12/19 3:[address] Patient Name: CARO JASSO Encounter No: [id number] : 1955 Primary Insurance: [facility] MEDIC[facility] SOLUTIONS Anticipated DC Date: 04-11-2019 Planned Disposition: Senior Care Facility External Planned Provider: [facility] DCP follow-up note: CM RECEIVED CALLF [facility], THEY CANNOT MEET PT'S NEEDS. CM NOTIFIED PT OF DENIAL. PT STATES SHE HAS CALLED HER INSURANCE COMPANY AND SHE WAS TOLD THAT INPATIENT REHAB DID NOT INCLUDE ALL HER MEDICAL PROBLEMS FOR THE INSURANCE TO REVIEW FOR INPATIENT REHAB. PT WANTS CM TO RESUBMIT TO [facility] FOR INPATIENT REHAB. CM CALLED [facility], , LEFT MESSAGE FOR MADONNA OF ADMISSIONS ASKING FOR CONSIDERATION AND RESUBMISSION FOR INSURANCE AUTHORIZATION. CM FAXED REFERRAL TO [facility] INPATIENT [facility] AT [phone]. CM NOTIFIED PT AND ASKED WHAT HER SECOND CHOICE WILL BE SINCE DECLINED BY [facility] AND [facility]. CM RECEIVED PATIENT CHOICE LETTER FOR 1- ANY [facility] AND 2- ANY [place] [facility] IF PT IS DECLINED BY [facility] INPATIENT REHAB. PT STATES THAT [facility] ALSO HAS INPATIENT REHAB. CM WAITING ADMISSION DETERMINATION FROM [facility]. Phil Caruso CASE MANAGEMENT DCP- Discharge Planning Updated by [id number]: Phil Caruso on 04/12/19 8:[address] Patient Name: CARO JASSO Encounter No: [id number] : 1955 Primary Insurance: [facility] MEDIC[facility] SOLUTIONS Anticipated DC Date: 04-11-2019 Planned Disposition: Senior Care Facility External Planned Provider: [facility], MEDICARE REHAB BED DCP follow-up note: CM RECEIVED CALL FROM ANTWAN OF [facility], , THEY RECEIVED REFERRAL, WILL SCREEN FOR ADMISSION. IF PT NEEDS MINIMAL ASSISTANCE TO TRANSFER TO [facility], SNF STAFF WILL BE ABLE TO PROVIDE THIS ASSISTANCE. PT WILL HAVE TO BE ACCEPTED AT [facility] FOR THEM TO ACCEPT PT THEY WILL NOT TRANSPORT ANYWHERE OUTSIDE [place] FOR DIALYSIS. ANTWAN WILL CALL WITH ADMISSION DETERMINATION AFTER SCREENING IS COMPLETED. CM WAITING ADMISSION DETERMINATION FOR REHAB FROM [facility]. Phil Caruso CASE ED DCP- Discharge Planning Updated by [id number]: Phil Caruso on 04/11/19 4:[address] Patient Name: CARO JASSO Encounter No: [id number] : 1955 Primary Insurance: [facility] SOLUTIONS Anticipated DC Date: 04-11-2019 Planned Disposition: Senior Care Facility External Planned Provider: [facility], MEDICARE REHAB BED DCP follow-up note: CM RECEIVED CALL FROM [facility], THEY WILL NOT ACCEPT PT. CM SPOKE TO PT WHO ASKED CM TO FAX REFERRAL TO HER SECOND CHOICE, [facility]. CHOICE PREVIOUSLY SIGNED. CM SPOKE TO EDSON OF PATIENT PATHWAYS WHO INFORMED CM THAT PT WILL HAVE TO BE ABLE TO TRANSFER HERSELF FROM CHAIR TO BED OR HAVE SOMEONE THERE THAT WILL ASSIST WITH EVERY TRANSFER TO EVEN BE CONSIDERED AT THE [facility]. CM SPOKE TO PT WHO DECLINED PLACEMENT ANYWHERE ELSE OTHER THAN [place]. PT INSISTED THAT SHE CAN TRANSFER HERSELF TO A CHAIR AND WILL DO IT WITH THERAPY. CM LEFT NOTE ON DRY ERASE BOARD OF NEED FOR DOCUMENATION THAT PT IS ABLE TO TRANSFER HERSELF. CM CALLED [facility], , THERE WAS NO ANSWER. CM FAXED REFERRAL TO [facility] AT [phone]. CM SPOKE TO PT AFTER HER PD CATHETER WAS INSERTED. PT STILL WILLING FOR PLACEMENT AT [facility], STILL INSISTS THAT SHE CAN TRANSFER HERSELF IF THERAPY WILL WORK WITH HER STATING THEY HAVE ONLY SEEN HER ABOUT "3 TIMES". CM ASSURED PT THAT THERAPY WILL CONTINUE TO WORK WITH HER. PT STATES SHE THINKS THAT SHE WILL JUST BE ABLE TO GO HOME WITH PERITONEAL DIALYSIS. CM EXPLAINED THAT PT WILL HAVE TO TALK TO THE DOCTOR AND THAT CM UNDERSTOOD THAT PT WILL HAVE TO HAVE HEMODIALYSIS AND THAT PD IS A PROCESS AND TAKES TRAINING AND ARRANGEMENTS. PT NOW THINKS SHE WILL CAN HAVE PD AND GO HOME. ANABELLA WAITING ADMISSION DETERMINATION FOR REHAB FROM [facility]. Phil Caruso CASE ED DCP- Discharge Planning Updated by [id number]: Phil Caruso on 04/11/19 7:[address] Patient Name: CARO JASSO Encounter No: [id number] : 1955 Primary Insurance: [facility] SOLUTIONS Anticipated DC Date: 04-11-2019 Planned Disposition: Senior Care Facility External Planned Provider: [facility] BED DCP follow-up note: CM FAXED REFERRAL UPDATE TO [facility] AT [phone]. CM WAITING ADMISSION DETERMINATION FROM [facility] WELL INSURANCE DETERMINATION. RAYO TOUSSAINT IS WORKING ON OUTPATIENT DIALYSIS UNIT. SANJANA Hernández DCP- Discharge Planning Updated by [id number]: Phil Caruso on 04/10/19 3:[address] Patient Name: CARO JASSO Encounter No: [id number] : 1955 Primary Insurance: [facility] SOLUTIONS Anticipated DC Date: 04-11-2019 Planned Disposition: Senior Care Facility External Planned Provider: [facility] MEDICARE REHAB BED DCP follow-up note: CM MET WITH PT IN ROOM TO DISCUSS DISCHARGE PLANNING AND NEEDS. PT HAS REVIEWED LIST WITH FAMILY AND WOULD LIKE REFERRAL TO [facility] CHO[facility] AND [facility]. CHOICE FORM SIGNED. CM CALLED [facility], , SPOKE TO BIGG AND PROVIDED REFERRAL INFORMATION. CM FAXED REFERRAL TO [facility] AT [phone]. CM WAITING ADMISSION DETERMINATION FROM [facility] INSURANCE DETERMINATION. RAYO TOUSSAINT IS WORKING ON OUTPATIENT DIALYSIS UNIT. Phil Caruso, CASE MANAGEMENT Appended by Phil Caruso on 04/10/2019 16:10 FINANCE PROFESSOR: CM RECEIVED CALL FROM [facility], , SPOKE TO BIGG WHO ASKED WHY PT IS ON ABILIFY. CM SPOKE TO PT IN ROOM, PT DENIES MENTAL ILLNESS OR PLACEMENT IN PSYCHIATRIC CARE IN THE PAST. PT THINKS IT MAY BE FOR DEMENTIAL. CM NOTIFIED BIGG. CM WAITING ADMISSION DETERMINATION FROM [facility] INSURANCE DETERMINATION. RAYO TOUSSAINT IS WORKING ON OUTPATIENT DIALYSIS UNIT. Phil Caruso, CASE MANAGEMENT DCP- Discharge Planning Updated by [id number]: Phil Caruso on 04/09/19 11:[address] Patient Name: CARO JASSO Encounter No: [id number] : 1955 Primary Insurance: [facility] MEDIC[facility] SOLUTIONS Anticipated DC Date: 04-11-2019 Planned Disposition: Senior Care Facility External Planned Provider: TO BE DETERMINED DCP follow-up note: CM RECEIVED INPATIENT REHAB DENIAL FROM PT'S INSURANCE. CM MET WITH PT IN ROOM, PROVIDED COPY OF DENIAL AND READ REASON FOR DENIAL WITH SUGGESTION THAT REHAB COULD BE PROVIDED IN [facility] FACILITY. CM PROVIDED PT WITH LISTING OF JAIL FACLITIES WITHIN [address] OF [place] AT PT'S REQUEST FROM MEDICARE WEBSITE. CM PROVIDED CHOICE FORM. PT STATES SHE WANTS TO THINK ABOUT CHOICES AND WILL LET CM KNOW SOON POSSIBLE. COPY OF INPATIENT DENIAL PLACED IN CHART WITH PT'S SIGNATURE, DATE AND TIME OF PT'S RECEIPT. CM WENT BACK IN ROOM AFTER LUNCH, PT IS OUT OF ROOM IN DIALYSIS. CM TO FOLLOW UP WITH PT LATER REGARDING JAIL REHAB CHOICES. CM WAITING ON PT'S DECISION FOR JAIL WELL CHOICES FOR SKILLED REHAB PLACEMENT. SANJANA Hernández DCP- Discharge Planning Updated by [id number]: Phil Caruso on 04/05/19 2:[address] Patient Name: CARO JASSO Encounter No: [id number] : 1955 Primary Insurance: [facility] MED[facility] SOLUTIONS Anticipated DC Date: Planned Disposition: Inpatient Rehab External Planned Provider:[facility] DCP follow-up note: CM NOTIFIED PT'S DAUGHTER IN ROOM OF REFERRAL BEING FAXED TO [facility]. CM RECEIVED PATIENT CHOICE LETTER FOR 1- [facility] AND 2- [facility] IF PT IS DECLINED BY [facility]. CM WAITING ADMISSION DETERMINATION FROM [facility]. SANJANA Hernández DCP- Discharge Planning Updated by [id number]: Phil Caruso on 04/05/19 12:[address] Patient Name: CARO JASSO Encounter No: [id number] : 1955 Primary Insurance: [facility] MEDIC[facility] SOLUTIONS Anticipated DC Date: Planned Disposition: Inpatient Rehab External Planned Provider: [facility] DCP follow-up note: CM CALLED AND SPOKE TO VERNON PEACOCK, OF [facility], ; THEY WILL SCREEN FOR INPATIENT REHAB ADMISSION. THEY HAVE THE AVAILABILITY OF HEMODIALYSIS IN THEIR REHAB, BUT WILL NOT ACCEPT PERITONEAL DIALYSIS. CM [facility], . CM WAITING ADMISSION DETERMINATION FROM [facility]. SANJANA Hernández DCP- Discharge Planning Updated by [id number]: Phil Caruso on 04/04/19 5:[address] Patient Name: CARO JASSO Encounter No: [id number] : 1955 Primary Insurance: [facility] MED[facility] SOLUTIONS Anticipated DC Date: Planned Disposition: Inpatient Rehab External Planned Provider[facility] DCP follow-up note: CM RECEIVED ORDER FOR INPATIENT REHAB PRESCREENING, MET WITH PT'S DAUGHTER, HARRIETT YOUNG, IN ROOM. HARRIETT IS PT'S EMERGENCY CONTACT LISTED ON FACE SHEET AND REPORTS TO BE PT'S CAREGIVER AT HOME. PT IN DIALYSIS. CM HAD ALSO RECEIVED HANDWRITTEN NOTE INDICTATING PT WANTS REHAB IN [place]. HARRIETT REPORTS PT WANTS REFERRAL TO [facility] FOR INPATIENT REHAB. CM DISCUSSED HAVING A ALTERNATE PLAN IF DECLINED FOR INPATIENT REHAB. THEY HAVE DISCUSSED JAIL; CM PROVIDED LIST OF AVAILABLE JAIL FACILITIES [place]IN [address] [place] OF [place]. HARRIETT WILL DISCUSS THIS WITH PT AND THEY WILL LET CM KNOW OF ALTERNATE PLAN FOR REHAB. CM TO SEND REFERRAL TO [facility] FOR INPATIENT REHAB SOON POSSIBLE. PT CONSIDERING JAIL FACILITY ALTERNATE REHAB PLAN IF DECLINED BY [facility]. Phil Caruso, CASE MANAGEMENT DCP- Discharge Planning Updated by [id number]: Tucker Hall on 04/02/19 12:[address] I HAVE SPOKEN TO EDSON EWING, CLINICAL LIASON [facility] ABOUT THIS PATIENT POTENTIALLY BEING A NEW START. THIS WAY SHE CAN MAKE CONTACT TO PRESTART THE PROCESS. PTS FIRST DIALYSIS WAS YESTERDAY. DCP- Discharge Planning Updated by [id number]: Olivia Ramachandran on 03/29/19 12:[address] Patient Name: CARO JASSO Admission Status: Elective Accout number: [id number] Admission Date: 03-24-2019 : 1955 Admission Diagnosis: Attending: ELTON HODGE Current LOS: 5 Anticipated DC Date: Planned Disposition: Primary Insurance: [facility] MEDIC[facility] SOLUTIONS Discharge Planning Comments: CM SPOKE WITH DAUGHTER ABOUT DC PLANNING/NEEDS. SHE STATES IS WAITING TO TALK TO THE DOCTOR BUT HAS RECIEVED BAD NEWS ON MOTHER'S PROGNOSIS. I HAVE MENTIONED REHAB AND HOSPICE. DAUGHTER WANTS TO THINK ABOUT IT. CM WILL FOLLOW AND ASSIST. Pet Care Worker: Olivia Ramachandran DCP- Discharge Planning Updated by [id number]: Tucker Hall on 03/27/19 3:[address] MOSS WANTED THE PATIENT TRANSFERRED TO [facility] TO HER RADIOLOGIST THIS AM. @ 0813, PLACED A CALL TO THE DOBIE MAN, ADARSH, TO OBTAIN ADMIN APPROVAL TO PROCEED WITH TRANSFER. SE STATED THAT SHE WOULD HAVE TO CALL THE ADMIN CHAIN BUILDER LOOM CONTROL, BUT WAS CURRENTLY INDISPOSED AND UNABLE. IF I DON'T HEAR BACK FROM HERE, I WILL CALL BACK LATER. @0817, I SPOKE WITH THE PATIENT WHO IS WILLING FOR THE TRANSFER. @0821, I SPOKE WITH ALEN SAWYER APN FOR DR YATES. SHE HAS REQUESTED THAT I HAVE DR MOSS CALL AND DISCUSS THE TRANSFER WITH DR YATES. @0836, I SPOKE WITH DR MOSS AND MADE THIS REQUEST. SHE ASKED ME TO TEXT HER DR YATES'S NUMBER AND SHE WOULD CALL HER. SOON WE HUNG UP, I TEXT HER THE NUMBER. @1334, I PLACED A CALL TO ALEN TO SEE IF SHE KNEW WHEN DR YATES WOULD BE HERE AT THE HOSPITAL SHE STATED HE WAS HERE NOW. SHE SAID THAT DR MOSS DID NOT CALL AND TALK TO DR YATES ABOUT THE TRANSFER. SHE STATED THAT SHE WOULD TALK TO HIM AND LET ME KNOW, BUT SHE DID NOT FEEL THAT THE PATIENT WOULD TRANSFER. @1426, DR YATES AND VERÓNICA LOWRY ON THE FLOOR. THEY HAVE TALKED WITH THE PATIENT. THE PATIENT WILL REMAIN HERE FOR TREATMENT AND NOT TRANSFER. DCPIA - Discharge Planning Initial Assessment Updated by [id number]: Olivia Ramachandran on 03/29/19 12:11 pm * Is the patient Alert and Oriented? No * Preadmission Environment Home with Family * Other Equipment WALKER, WC, TRANSFER CHAIR, O2 NEBS * List name and contact numbers for known caregivers / representatives who currently or will assist patient after discharge: HARRIETT, DAUGHTER, * Community resources currently utilized Home Health * Please name any agencies selected above. [facility] * Has this patient been hospitalized within the prior 30 days at any hospital? Yes Coverage Notice Reviewer: [id number] Liyah Caruso Notice Issued Date-Time: 04/04/2019 18:45 Notice Type: Patient Choice Letter Notice Delivered To: Patient Relationship to Patient: Cook Station Name: Delivery Method: HAND - Hand Delivered Kristyn Days: Prior Verbal Notification: Recipient Understood Notice: Yes Recipient Signature: Yes Med Rec Note Co-signed by Attending: Coverage Notice Comment: 1- [facility] 2- [facility] Reviewer: [id number] Liyah Caruso Notice Issued Date-Time: 04/10/2019 9:56 Notice Type: Patient Choice Letter Notice Delivered To: Patient Relationship to Patient: Cook Station Name: Delivery Method: HAND - Hand Delivered Kristyn Days: Prior Verbal Notification: Recipient Understood Notice: Yes Recipient Signature: Yes Med Rec Note Co-signed by Attending: Coverage Notice Comment: 1 - [facility], 2 - [facility] Reviewer: [id number] - Phil Caruso Notice Issued Date-Time: 04/12/2019 16:10 Notice Type: Patient Choice Letter Notice Delivered To: Patient Relationship to Patient: Cook Station Name: Delivery Method: HAND - Hand Delivered Kristyn Days: Prior Verbal Notification: Recipient Understood Notice: Yes Recipient Signature: Yes Med Rec Note Co-signed by Attending: Coverage Notice Comment: SNF IN [place] OR SNF IN [place] Last DP export: 04/17/19 4:07 Patient Name: CARO JASSO Page [id number] at 1715 All edits/amendments must be made on the electronic document DICTATION DATE: 04/17/191714 [employer] LEADER: ELVIRA 04/17/191714 RPT#: [id number] DC DATE: STATUS: ADM IN [facility] [address] [place] [address] END OF REPORT
--- NOTE | 2019-04-17 19:38 | NUR ---
REPORT RECEIVED, WILL CONTINUE POC. PATIENT IS AAOX4, LYING IN SEMI-FOWLERS POSITION. NO S/S OF DISTRESS OBSERVED, RR EVEN AND UNLABORED ON 2L O2 VIA NC. PATIENT DENIES NEEDS AT THIS TIME. CL IN REACH, BED LOCKED AND LOWERED. WILL CTM.
[2019-04-17 20:00] VITALS: BP 108/52
[2019-04-18] VITALS (7 sets, daily range): BP systolic 92–120; BP diastolic 36–64
--- NOTE | 2019-04-18 02:50 | NUR ---
I have reviewed this patient and I concur with the Shift Assessment completed by the Licensed Practical Nurse today this shift.
--- NOTE | 2019-04-18 08:08 | MORECARE ---
CASE MANAGEMENT DISCHARGE SUMMARY PATIENT: CARO JASSO UNIT: [id number] ADM DATE: 03/24/19 AGE: 63 : 55 SEX: F ROOM/BED: D.6276 AUTHOR: KENNEY,DOC PHYSICIAN: REFERRING PHYSICIAN: ELTON HODGE MD DATE OF SERVICE: 04/18/19 Discharge Plan Patient Name: CARO JASSO Facility: [facility] : 1955 Planned Disposition: Shelter Facility Anticipated Discharge Date: 04/18/19 Discharge Date: Expected LOS: 25 Initial Reviewer: [id number] Initial Review Date: 03/29/2019 Generated: 04/18/19 9:08 am Comments DCP- Discharge Planning Updated by [id number]: Phil Caruso on 04/17/19 4:[address] Patient Name: CARO JASSO Encounter No: [id number] : 1955 Primary Insurance: [facility] MEDIC[facility] SOLUTIONS Anticipated DC Date: 04-18-2019 Planned Disposition: Shelter Facility External Planned Provider:[facility], MEDICARE REHAB BED DCP follow-up note: KHAI OF NURSING CONSULTS MET WITH PT IN DIALYSIS TO ASSESS FOR REHAB ADMISSION. KHAI INFORMED CM THAT PT NEEDS LIDIA DUE TO DIAGNOSIS OF MAJOR DEPRESSION. CM COMPLETED LIDIA SCREENING WITH PT'S ASSISTANCE, OBTAINED PHYSICIAN SIGNATURE. CM FAXED LIDIA SCREENING TO [employer] AT [phone]. PT HAS BEEN DECLINED BY INSURANCE FOR INPATIENT REHAB; PT FILED APPEAL 04-16-19. PT HAS BEEN DECLINED BY [facility] AND [facility] LONGTERM FACILITY. CM WAITING LIDIA DETERMINATION TO ENTER LONGTERM FACILITY. CM WAITING ADMISSION DETERMINATION FROM [facility]. CHAIR AT [facility] HAS BEEN SECURED FOR OUTPATIENT DIALYSIS. Phil Caruso CASE ED DCP- Discharge Planning Updated by [id number]: Phil Caruso on 04/17/19 8:[address] Patient Name: CARO JASSO Encounter No: [id number] : 1955 Primary Insurance: [facility] MEDIC[facility] SOLUTIONS Anticipated DC Date: 04-11-2019 Planned Disposition: Shelter Facility External Planned Provider: [facility], MEDICARE REHAB BED DCP follow-up note: ON 04-16-19, CM ASSISTED PT WITH TYPING HER APPEAL LETTER TO HER INSURANCE COMPANY TO APPEAL HER INPATIENT REHAB DENIAL. CM FAXED THE APPEAL LETTER TO PT'S INSURANCE COMPANY, PROVIDED FAX CONFIRMATION AND LETTER BACK TO PT FOR HER RECORDS. ON 04-17-19, CM FAXED REFERRAL UPDATE TO [facility] AT [phone]. CM REVIEWED CHART, NOTE FROM EDSON OF PATIENT PATHWAYS, INDICATES PT HAS DIALYSIS CHAIR IN [facility], MWF, 1630 HOURS WITH NO OTHER TIME AVAILABLE. PT HAS BEEN DECLINED BY INSURANCE FOR INPATIENT REHAB; PT FILED APPEAL 04-16-19. PT HAS BEEN DECLINED BY [facility] AND [facility]. CM WAITING ADMISSION DETERMINATION FROM [facility]. CHAIR AT [facility] HAS BEEN SECURED FOR OUTPATIENT DIALYSIS. Phil Caruso CASE MANAGEMENT DCP- Discharge Planning Updated by [id number]: Phil Caruso on 04/16/19 1:[address] Patient Name: CARO JASSO Encounter No: [id number] : 1955 Primary Insurance: [facility] MEDIC[facility] SOLUTIONS Anticipated DC Date: 04-11-2019 Planned Disposition: Shelter Facility External Planned Provider: [facility], MEDICARE REHAB BED DCP follow-up note: CM CALLED [facility], , SPOKE TO TUCKER WHO WILL INFORMED CM THAT THEY ARE OUT OF INSURANCE NETWORK BUT THAT PT HAS THE SAME OUT OF NETWORK BENEFITS IN NETWORK; PT HAS 20 DAYS FOR REHAB. THEY WILL SCREEN FOR ADMISSION TODAY. CM FAXED REFERRAL UPDATE TO [facility] AT [phone]. CM SPOKE TO EDSON OF PATIENT PATHWAYS, SHE HAS PT A CHAIR IN [facility], MWF, 1630 HOURS. EDSON WILL CHECK WITH DIALYSIS UNIT AND REQUEST EARLIER CHAIR TIME. PT HAS BEEN DECLINED BY INSURANCE FOR INPATIENT REHAB. [facility] LONG[facility]M [facility]. CM WAITING ADMISSION DETERMINATION FROM [facility]. [facility]IR AT [facility] HAS BEEN SECURED FOR OUTPATIENT DIALYSIS. Phil Caruso CASE MANAGEMENT DCP- Discharge Planning Updated by [id number]: Phil Caruso on 04/13/19 8:[address] Patient Name: CARO JASSO Encounter No: [id number] : 1955 Primary Insurance: [facility] MEDIC[facility] SOLUTIONS Anticipated DC Date: 04-11-2019 Planned Disposition: Shelter Facility External Planned Provider: [facility], MEDICARE REHAB BED DCP follow-up note: CM RECEIVED MESSAGE FROM MADONNA OF [facility] WHO INFORMED CM THAT IT INSURANCE DECLINED [facility] IN[facility]IENT RE[facility], IT WOULD BE A WASTE OF TIME TO RESUBMIT BUT SHE WOULD BE HAPPY TO DO IT IF PT INSISTED. CM SPOKE TO PT IN ROOM WHO ASKED CM TO SPEAK TO HER PARTNER BOUCHRA AT [phone], TO ASSIST WITH DISCHARGE PLANNING. CM CALLED BOUCHRA AND PROVIDED ABOVE INFORMATION. BOUCHRA WANTS TO PROCEED WITH LONGTERM REFERRAL TO [facility]. IF DECLINED, SEEK SNF IN [place]. CM CALLED [facility], , SPOKE TO TUCKER WHO WILL SCREEN FOR ADMISSION. CM FAXED REFERRAL TO [facility] AT [phone]. PT HAS BEEN DECLINED BY INSURANCE FOR INPATIENT REHAB. PT HAS BEEN DECLINED BY [facility] AND [facility] LONGTERM [facility]. CM WAITING [facility] Phil Caruso, CASE MANAGEMENT DCP- Discharge Planning Updated by [id number]: Phil Caruso on 04/12/19 3:[address] Patient Name: CARO JASSO Encounter No: [id number] : 1955 Primary Insurance: [facility] MEDIC[facility] SOLUTIONS Anticipated DC Date: 04-11-2019 Planned Disposition: Shelter Facility External Planned Provider: [facility] DCP follow-up note: CM RECEIVED CALLF [facility], THEY CANNOT MEET PT'S NEEDS. CM NOTIFIED PT OF DENIAL. PT STATES SHE HAS CALLED HER INSURANCE COMPANY AND SHE WAS TOLD THAT INPATIENT REHAB DID NOT INCLUDE ALL HER MEDICAL PROBLEMS FOR THE INSURANCE TO REVIEW FOR INPATIENT REHAB. PT WANTS CM TO RESUBMIT TO [facility] FOR INPATIENT REHAB. CM CALLED [facility], , LEFT MESSAGE FOR MADONNA OF ADMISSIONS ASKING FOR CONSIDERATION AND RESUBMISSION FOR INSURANCE AUTHORIZATION. CM FAXED REFERRAL TO [facility] AT [phone]. CM NOTIFIED PT AND ASKED WHAT HER SECOND CHOICE WILL BE SINCE DECLINED BY [facility] AND [facility]. CM RECEIVED PATIENT CHOICE LETTER FOR 1- ANY [facility] AND 2- ANY [facility] IF PT IS DECLINED BY [facility] INPATIENT REHAB[facility] PT STATES THAT [facility] ALSO HAS INPATIENT REHAB. CM WAITING ADMISSION DETERMINATION FROM [facility]. Phil Caruso CASE MANAGEMENT DCP- Discharge Planning Updated by [id number]: Phil Caruso on 04/12/19 8:[address] Patient Name: CARO JASSO Encounter No: [id number] : 1955 Primary Insurance: [facility] MED[facility] SOLUTIONS Anticipated DC Date: 04-11-2019 Planned Disposition: Shelter Facility External Planned Provider: [facility], MEDICARE REHAB BED DCP follow-up note: CM RECEIVED CALL FROM ANTWAN OF [facility], , THEY RECEIVED REFERRAL, WILL SCREEN FOR ADMISSION. IF PT NEEDS MINIMAL ASSISTANCE TO TRANSFER TO [place], LONG-TERM STAFF WILL BE ABLE TO PROVIDE THIS ASSISTANCE. PT WILL HAVE TO BE ACCEPTED AT [facility] FOR THEM TO ACCEPT PT THEY WILL NOT TRANSPORT ANYWHERE OUTSIDE [place] FOR DIALYSIS. ANTWAN WILL CALL WITH ADMISSION DETERMINATION AFTER SCREENING IS COMPLETED. CM WAITING ADMISSION DETERMINATION FOR REHAB FROM [facility]. Phil Caruso CASE ED DCP- Discharge Planning Updated by [id number]: Phil Caruso on 04/11/19 4:[address] Patient Name: CARO JASSO Encounter No: [id number] : 1955 Primary Insurance: [facility] SOLUTIONS Anticipated DC Date: 04-11-2019 Planned Disposition: Shelter Facility External Planned Provider: [facility], MEDICARE REHAB BED DCP follow-up note: CM RECEIVED CALL FROM [facility], THEY WILL NOT ACCEPT PT. CM SPOKE TO PT WHO ASKED CM TO FAX REFERRAL TO HER SECOND CHOICE, [facility]. CHOICE PREVIOUSLY SIGNED. CM SPOKE TO EDSON OF PATIENT PATHWAYS WHO INFORMED CM THAT PT WILL HAVE TO BE ABLE TO TRANSFER HERSELF FROM CHAIR TO BED OR HAVE SOMEONE THERE THAT WILL ASSIST WITH EVERY TRANSFER TO EVEN BE CONSIDERED AT THE [facility]. CM SPOKE TO PT WHO DECLINED PLACEMENT ANYWHERE ELSE OTHER THAN [place]. PT INSISTED THAT SHE CAN TRANSFER HERSELF TO A CHAIR AND WILL DO IT WITH THERAPY. CM LEFT NOTE ON DRY ERASE BOARD OF NEED FOR DOCUMENATION THAT PT IS ABLE TO TRANSFER HERSELF. CM CALLED [facility], , THERE WAS NO ANSWER. CM FAXED REFERRAL TO [facility] AT [phone]. CM SPOKE TO PT AFTER HER PD CATHETER WAS INSERTED. PT STILL WILLING FOR PLACEMENT AT [facility], STILL INSISTS THAT SHE CAN TRANSFER HERSELF IF THERAPY WILL WORK WITH HER STATING THEY HAVE ONLY SEEN HER ABOUT "3 TIMES". CM ASSURED PT THAT THERAPY WILL CONTINUE TO WORK WITH HER. PT STATES SHE THINKS THAT SHE WILL JUST BE ABLE TO GO HOME WITH PERITONEAL DIALYSIS. CM EXPLAINED THAT PT WILL HAVE TO TALK TO THE DOCTOR AND THAT CM UNDERSTOOD THAT PT WILL HAVE TO HAVE HEMODIALYSIS AND THAT PD IS A PROCESS AND TAKES TRAINING AND ARRANGEMENTS. PT NOW THINKS SHE WILL CAN HAVE PD AND GO HOME. ANABELLA WAITING ADMISSION DETERMINATION FOR REHAB FROM [facility]. Phil Caruso CASE ED DCP- Discharge Planning Updated by [id number]: Phil Caruso on 04/11/19 7:[address] Patient Name: CARO JASSO Encounter No: [id number] : 1955 Primary Insurance: [facility] SOLUTIONS Anticipated DC Date: 04-11-2019 Planned Disposition: Shelter Facility External Planned Provider: [facility] MEDICARE REHAB BED DCP follow-up note: CM FAXED REFERRAL UPDATE TO [facility] AT [phone]. CM WAITING ADMISSION DETERMINATION FROM [facility] INSURANCE DETERMINATION. RAYO TOUSSAINT IS WORKING ON OUTPATIENT DIALYSIS UNIT. SANJANA Hernández DCP- Discharge Planning Updated by [id number]: Phil Caruso on 04/10/19 3:[address] Patient Name: CARO JASSO Encounter No: [id number] : 1955 Primary Insurance: [facility] SOLUTIONS Anticipated DC Date: 04-11-2019 Planned Disposition: Shelter Facility External Planned Provider: [facility] MEDICARE REHAB BED DCP follow-up note: CM MET WITH PT IN ROOM TO DISCUSS DISCHARGE PLANNING AND NEEDS. PT HAS REVIEWED LIST WITH FAMILY AND WOULD LIKE REFERRAL TO [facility] AND [facility]OND [facility]. CHOICE FORM SIGNED. CM CALLED [facility], , SPOKE TO BIGG AND PROVIDED REFERRAL INFORMATION. CM FAXED REFERRAL TO [facility] AT [phone]. CM WAITING ADMISSION DETERMINATION FROM [facility] INSURANCE DETERMINATION. RAYO TOUSSAINT IS WORKING ON OUTPATIENT DIALYSIS UNIT. 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 CM SPOKE TO PT IN ROOM, PT DENIES MENTAL ILLNESS OR PLACEMENT IN PSYCHIATRIC CARE IN THE PAST. PT THINKS IT MAY BE FOR DEMENTIAL. CM NOTIFIED BIGG. CM WAITING ADMISSION DETERMINATION FROM [facility] INS[facility]ANCE DETERMINATION. RAYO TOUSSAINT IS WORKING ON OUTPATIENT DIALYSIS UNIT. Phil Caruso, CASE MANAGEMENT DCP- Discharge Planning Updated by [id number]: Phil Caruso on 04/09/19 11:[address] Patient Name: CARO JASSO Encounter No: [id number] : 1955 Primary Insurance: [facility] SOLUTIONS Anticipated DC Date: 04-11-2019 Planned Disposition: Shelter Facility External Planned Provider: TO BE DETERMINED DCP follow-up note: CM RECEIVED INPATIENT REHAB DENIAL FROM PT'S INSURANCE. CM MET WITH PT IN ROOM, PROVIDED COPY OF DENIAL AND READ REASON FOR DENIAL WITH SUGGESTION THAT REHAB COULD BE PROVIDED IN LONGTERM FACILITY. CM PROVIDED PT WITH LISTING OF LONGTERM FACLITIES WITHIN [address] OF [place] AT PT'S REQUEST FROM MEDICARE WEBSITE. CM PROVIDED CHOICE FORM. PT STATES SHE WANTS TO THINK ABOUT CHOICES AND WILL LET CM KNOW SOON POSSIBLE. COPY OF INPATIENT DENIAL PLACED IN CHART WITH PT'S SIGNATURE, DATE AND TIME OF PT'S RECEIPT. CM WENT BACK IN ROOM AFTER LUNCH, PT IS OUT OF ROOM IN DIALYSIS. CM TO FOLLOW UP WITH PT LATER REGARDING LONGTERM REHAB CHOICES. CM WAITING ON PT'S DECISION FOR LONGTERM WELL CHOICES FOR SKILLED REHAB PLACEMENT. SANJANA Hernández DCP- Discharge Planning Updated by [id number]: Phil Caruso on 04/05/19 2:[address] Patient Name: CARO JASSO Encounter No: [id number] : 1955 Primary Insurance: [facility] SOLUTIONS Anticipated DC Date: Planned Disposition: Inpatient Rehab External Planned Provider:[facility] DCP follow-up note: CM NOTIFIED PT'S DAUGHTER IN ROOM OF REFERRAL BEING FAXED TO [facility]. CM RECEIVED PATIENT CHOICE LETTER FOR 1- [facility] AND 2- [facility] IF PT IS DECLINED BY [facility]. CM WAITING ADMISSION DETERMINATION FROM [facility]. SANJANA Hernández DCP- Discharge Planning Updated by [id number]: Phil Caruso on 04/05/19 12:[address] Patient Name: CARO JASSO Encounter No: [id number] : 1955 Primary Insurance: [facility] MEDIC[facility] SOLUTIONS Anticipated DC Date: Planned Disposition: Inpatient Rehab External Planned Provider: [facility] DCP follow-up note: CM CALLED AND SPOKE TO VERNON PEACOCK, OF [facility], ; THEY WILL SCREEN FOR INPATIENT REHAB ADMISSION. THEY HAVE THE AVAILABILITY OF HEMODIALYSIS IN THEIR REHAB, BUT WILL NOT ACCEPT PERITONEAL DIALYSIS. [facility] . CM WAITING ADMISSION DETERMINATION FROM [facility]. SANJANA Hernández DCP- Discharge Planning Updated by [id number]: Phil Caruso on 04/04/19 5:[address] Patient Name: CARO JASSO Encounter No: [id number] : 1955 Primary Insurance: [facility] MED[facility] SOLUTIONS Anticipated DC Date: Planned Disposition: Inpatient Rehab External [facility] DCP follow-up note: CM RECEIVED ORDER FOR INPATIENT REHAB PRESCREENING, MET WITH PT'S DAUGHTER, HARRIETT YOUNG, IN ROOM. HARRIETT IS PT'S EMERGENCY CONTACT LISTED ON FACE SHEET AND REPORTS TO BE PT'S CAREGIVER AT HOME. PT IN DIALYSIS. CM HAD ALSO RECEIVED HANDWRITTEN NOTE INDICTATING PT WANTS REHAB IN [place]. HARRIETT REPORTS PT WANTS REFERRAL TO [facility] FOR INPATIENT REHAB. CM DISCUSSED HAVING A ALTERNATE PLAN IF DECLINED FOR INPATIENT REHAB. THEY HAVE DISCUSSED LONGTERM; CM PROVIDED LIST OF AVAILABLE LONGTERM FACILITIES WITHIN [address] OF [place]. HARRIETT WILL DISCUSS THIS WITH PT AND THEY WILL LET CM KNOW OF ALTERNATE PLAN FOR REHAB. CM TO SEND REFERRAL TO [facility] FOR INPATIENT REHAB SOON POSSIBLE. PT CONSIDERING LONGTERM FACILITY ALTERNATE REHAB PLAN IF DECLINED BY [facility]. Phil Caruso, CASE MANAGEMENT DCP- Discharge Planning Updated by [id number]: Tucker Hall on 04/02/19 12:[address] I HAVE SPOKEN TO EDSON EWING, CLINICAL LIASON WITH [facility] ABOUT THIS PATIENT POTENTIALLY BEING A NEW START. THIS WAY SHE CAN MAKE CONTACT TO PRESTART THE PROCESS. PTS FIRST DIALYSIS WAS YESTERDAY. DCP- Discharge Planning Updated by [id number]: Olivia Ramachandran on 03/29/19 12:[address] Patient Name: CARO JASSO Admission Status: Elective Accout number: [id number] Admission Date: 03-24-2019 : 1955 Admission Diagnosis: Attending: ELTON HODGE Current LOS: 5 Anticipated DC Date: Planned Disposition: Primary Insurance: [facility] MED[facility] SOLUTIONS Discharge Planning Comments: CM SPOKE WITH DAUGHTER ABOUT DC PLANNING/NEEDS. SHE STATES IS WAITING TO TALK TO THE DOCTOR BUT HAS RECIEVED BAD NEWS ON MOTHER'S PROGNOSIS. I HAVE MENTIONED REHAB AND HOSPICE. DAUGHTER WANTS TO THINK ABOUT IT. CM WILL FOLLOW AND ASSIST. Senior Attorney: Olivia Ramachandran DCP- Discharge Planning Updated by [id number]: Tucker Hall on 03/27/19 3:[address] MOSS WANTED THE PATIENT TRANSFERRED TO [facility] TO HER [employer]LE SCHOOL COUNSELOR THIS AM. @ 0813, PLACED A CALL TO THE SAND WORKER, ADARSH, TO OBTAIN ADMIN APPROVAL TO PROCEED WITH TRANSFER. SE STATED THAT SHE WOULD HAVE TO CALL THE ADMIN ENTRY LEVEL ADMINISTRATIVE ASSISTANT, BUT WAS CURRENTLY INDISPOSED AND UNABLE. IF I DON'T HEAR BACK FROM HERE, I WILL CALL BACK LATER. @0817, I SPOKE WITH THE PATIENT WHO IS WILLING FOR THE TRANSFER. @0821, I SPOKE WITH ALEN SAWYER APN FOR DR YTAES. SHE HAS REQUESTED THAT I HAVE DR OMSS CALL AND DISCUSS THE TRANSFER WITH DR YATES. @0836, I SPOKE WITH DR MOSS AND MADE THIS REQUEST. SHE ASKED ME TO TEXT HER DR YATES'S NUMBER AND SHE WOULD CALL HER. SOON WE HUNG UP, I TEXT HER THE NUMBER. @1334, I PLACED A CALL TO ALEN TO SEE IF SHE KNEW WHEN DR YATES WOULD BE HERE AT THE HOSPITAL SHE STATED HE WAS HERE NOW. SHE SAID THAT DR MOSS DID NOT CALL AND TALK TO DR YATES ABOUT THE TRANSFER. SHE STATED THAT SHE WOULD TALK TO HIM AND LET ME KNOW, BUT SHE DID NOT FEEL THAT THE PATIENT WOULD TRANSFER. @6706, DR YATES AND VERÓNICA LOWRY ON THE FLOOR. THEY HAVE TALKED WITH THE PATIENT. THE PATIENT WILL REMAIN HERE FOR TREATMENT AND NOT TRANSFER. DCPIA - Discharge Planning Initial Assessment Updated by [id number]: Olivia Ramachandran on 03/29/19 12:11 pm * Is the patient Alert and Oriented? No * Preadmission Environment Home with Family * Other Equipment WALKER, WC, TRANSFER CHAIR, O2 NEBS * List name and contact numbers for known caregivers / representatives who currently or will assist patient after discharge: HARRIETT, DAUGHTER, * Community resources currently utilized Home Health * Please name any agencies selected above. [facility] * Has this patient been hospitalized within the prior 30 days at any hospital? Yes External Providers External Provider: OTHER-OTHER Next Contact Date: 04/18/2019 Service Request Date: Service Type: Resolution: Reviewer: Comments: Coverage Notice Reviewer: [email or web address] Liyah Caruso Notice Issued Date-Time: 04/04/2019 18:45 Notice Type: Patient Choice Letter Notice Delivered To: Patient Relationship to Patient: Senior Planning Analyst Name: Delivery Method: HAND - Hand Delivered Kristyn Days: Prior Verbal Notification: Recipient Understood Notice: Yes Recipient Signature: Yes Med Rec Note Co-signed by Attending: Coverage Notice Comment: 1- [facility] 2- [facility] Reviewer: [id number] Liyah Caruso Notice Issued Date-Time: 04/10/2019 9:56 Notice Type: Patient Choice Letter Notice Delivered To: Patient Relationship to Patient: Senior Planning Analyst Name: Delivery Method: HAND - Hand Delivered Kristyn Days: Prior Verbal Notification: Recipient Understood Notice: Yes Recipient Signature: Yes Med Rec Note Co-signed by Attending: Coverage Notice Comment: 1 - [facility], 2 - [facility] Reviewer: [id number] - Phil Caruso Notice Issued Date-Time: 04/12/2019 16:10 Notice Type: Patient Choice Letter Notice Delivered To: Patient Relationship to Patient: Senior Planning Analyst Name: Delivery Method: HAND - Hand Delivered Kristyn Days: Prior Verbal Notification: Recipient Understood Notice: Yes Recipient Signature: Yes Med Rec Note Co-signed by Attending: Coverage Notice Comment: SNF IN [place] OR SNF IN [place] Last DP export: 04/17/19 4:15 Patient Name: CARO JASSO Page [id number] at 0808 All edits/amendments must be made on the electronic document DICTATION DATE: 04/18/19807 PUNCHER AND FASTENER: ELVIRA 04/18/19 0808 RPT#: [id number] DC DATE: STATUS: ADM IN [facility] [address] [place] [address] END OF REPORT
--- NOTE | 2019-04-18 08:29 | MORECARE ---
CASE MANAGEMENT DISCHARGE SUMMARY PATIENT: CARO JASSO UNIT: [id number] ADM DATE: 03/24/19 AGE: 63 : 55 SEX: F ROOM/BED: D.2106 AUTHOR: KENNEY,DOC PHYSICIAN: REFERRING PHYSICIAN: ELTON HODGE MD DATE OF SERVICE: 04/18/19 Discharge Plan Patient Name: CARO JASSO Facility: [facility]:[place] : 1955 Planned Disposition: Alf Facility Anticipated Discharge Date: 04/18/19 Discharge Date: Expected LOS: 25 Initial Reviewer: [id number] Initial Review Date: 03/29/2019 Generated: 04/18/19 9:28 am Comments DCP- Discharge Planning Updated by [id number]: Phil Caruso on 04/18/19 7:[address] Patient Name: CARO JASSO Encounter No: [id number] : 1955 Primary Insurance: [facility] MEDICARE SOLUTIONS Anticipated DC Date: 04-18-2019 Planned Disposition: Alf Facility External Planned Provider: [facility], MEDICARE REHAB BED DCP follow-up note: CM RECEIVED TELEPHONE MESSAGE FROM DOUGLAS OF [facility] MEDICARE SOLUTIONS APPEALS, ; SHE HAS RECEIVED PT'S REQUEST FOR FAST APPEAL AND REQUESTED CLINICAL UPDATES FOR PAST THREE DAYS. CM FAXED REQUESTED INFORMATION TO [facility] APPEAL AT [phone]. CM ALSO FAXED REFERRAL TO [facility] INPATIENT [facility], , REQUESTED INPATIENT REHAB PRESCREENING FROM [place] AND NOTIFIED OF APPEAL PROCESS BEING ACTIVE. PT HAS BEEN DECLINED BY INSURANCE FOR INPATIENT REHAB; PT FILED APPEAL 04-16-19. PT HAS BEEN DECLINED BY [facility] AND [facility]. CM WAITING [facility] DETERMINATION TO ENTER [facility]. CM WAITING ADMISSION DETERMINATION FROM [facility]. CHAIR [facility] HAS BEEN SECURED FOR OUTPATIENT DIALYSIS. Phil Caruso, CASE MANAGEMENT DCP- Discharge Planning Updated by [id number]: Phil Caruso on 04/17/19 4:[address] Patient Name: CARO JASSO Encounter No: [id number] : 1955 Primary Insurance: [facility] MEDICARE SOLUTIONS Anticipated DC Date: 04-18-2019 Planned Disposition: Alf Facility External Planned Provider:[facility], MEDICARE REHAB BED DCP follow-up note: KHAI OF [facility] MET WITH PT IN DIALYSIS TO ASSESS FOR REHAB ADMISSION. KHAI INFORMED CM THAT PT NEEDS LIDIA DUE TO DIAGNOSIS OF MAJOR DEPRESSION. CM COMPLETED LIDIA SCREENING WITH PT'S ASSISTANCE, OBTAINED PHYSICIAN SIGNATURE. CM FAXED LIDIA SCREENING TO [facility] AT [phone]. PT HAS BEEN DECLINED BY INSURANCE FOR INPATIENT REHAB; PT FILED APPEAL 04-16-19. PT HAS BEEN DECLINED BY [facility]. CM WAITING [facility]IA DETERMINATION TO ENTER [facility]. CM WAITING ADMISSION DETERMINATION FROM [facility]. CHAIR AT [facility] HAS BEEN SECURED FOR OUTPATIENT DIALYSIS. Phil Caruso, CASE MANAGEMENT DCP- Discharge Planning Updated by [id number]: Phil Caruso on 04/17/19 8:[address] Patient Name: CARO JASSO Encounter No: [id number] : 1955 Primary Insurance: [facility] MEDICARE SOLUTIONS Anticipated DC Date: 04-11-2019 Planned Disposition: Alf Facility External Planned Provider: [facility], MEDICARE REHAB BED DCP follow-up note: ON 04-16-19, CM ASSISTED PT WITH TYPING HER APPEAL LETTER TO HER INSURANCE COMPANY TO APPEAL HER INPATIENT REHAB DENIAL. CM FAXED THE APPEAL LETTER TO PT'S INSURANCE COMPANY, PROVIDED FAX CONFIRMATION AND LETTER BACK TO PT FOR HER RECORDS. ON 04-17-19, CM FAXED REFERRAL UPDATE TO [facility] AT [phone]. CM REVIEWED CHART, NOTE FROM EDSON OF [facility]IENT PATHWAYS, INDICATES PT HAS DIALYSIS CHAIR IN [facility], MWF, 1630 HOURS WITH NO OTHER TIME AVAILABLE. PT HAS BEEN DECLINED BY INSURANCE FOR INPATIENT REHAB; PT FILED APPEAL 04-16-19. PT HAS BEEN DECLINED BY [facility]. CM WAITING ADMISSION DETERMINATION FROM [facility]. CHAIR AT [facility] HAS BEEN SECURED FOR OUTPATIENT DIALYSIS. Phil Caruso, CASE MANAGEMENT DCP- Discharge Planning Updated by [id number]: Phil Caruso on 04/16/19 1:[address] Patient Name: CARO JASSO Encounter No: [id number] : 1955 Primary Insurance: [facility] MEDICARE SOLUTIONS Anticipated DC Date: 04-11-2019 Planned Disposition: Alf Facility External Planned Provider: [facility], MEDICARE REHAB BED DCP follow-up note: CM CALLED [facility], , SPOKE TO TUCKER WHO WILL INFORMED CM THAT THEY ARE OUT OF INSURANCE NETWORK BUT THAT PT HAS THE SAME OUT OF NETWORK BENEFITS IN NETWORK; PT HAS 20 DAYS FOR REHAB. THEY WILL SCREEN FOR ADMISSION TODAY. CM FAXED REFERRAL UPDATE TO [facility] AT [phone]. CM SPOKE TO EDSON OF [facility]IENT [facility], SHE HAS PT A CHAIR IN [facility], MWF, 1630 HOURS. EDSON WILL CHECK WITH DIALYSIS UNIT AND REQUEST EARLIER CHAIR TIME. PT HAS BEEN DECLINED BY INSURANCE FOR INPATIENT REHAB. PT HAS BEEN DECLINED BY [facility] AND [facility]. CM WAITING ADMISSION DETERMINATION FROM [facility]. CHAIR AT [facility] HAS BEEN SECURED FOR OUTPATIENT DIALYSIS. Phil Caruso, CASE MANAGEMENT DCP- Discharge Planning Updated by [id number]: Phil Caruso on 04/13/19 8:[address] Patient Name: CARO JASSO Encounter No: [id number] : 1955 Primary Insurance: [facility] MEDICARE SOLUTIONS Anticipated DC Date: 04-11-2019 Planned Disposition: Alf Facility External Planned Provider: [facility], MEDICARE REHAB BED DCP follow-up note: CM RECEIVED MESSAGE FROM MADONNA OF [facility] INPATIENT REH[facility] WHO INFORMED CM THAT IT INSURANCE DECLINED [facility] INPATIENT REHAB, IT WOULD BE A WASTE OF TIME TO RESUBMIT BUT SHE WOULD BE HAPPY TO DO IT IF PT INSISTED. CM SPOKE TO PT IN ROOM WHO ASKED CM TO SPEAK TO HER PARTNER BOUCHRA AT [phone], TO ASSIST WITH DISCHARGE PLANNING. CM CALLED BOUCHRA AND PROVIDED ABOVE INFORMATION. BOUCHRA WANTS TO PROCEED WITH [facility] REFERRAL TO [facility]. IF DECLINED, SEEK SNF IN [place]. CM CALLED [facility], , SPOKE TO TUCKER WHO WILL SCREEN FOR ADMISSION. CM FAXED REFERRAL TO [facility] AT [phone]. PT HAS BEEN DECLINED BY INSURANCE FOR INPATIENT REHAB. PT HAS BEEN DECLINED BY [facility] AND [facility]. CM WAITING ADMISSION DETERMINATION FROM [facility]. SANJANA Hernández DCP- Discharge Planning Updated by [id number]: Phil Caruso on 04/12/19 3:[address] Patient Name: CARO JASSO Encounter No: [id number] : 1955 Primary Insurance: [facility] MEDICARE SOLUTIONS Anticipated DC Date: 04-11-2019 Planned Disposition: Alf Facility External Planned Provider: [facility] DCP follow-up note: CM RECEIVED CALLF [facility], THEY CANNOT MEET PT'S NEEDS. CM NOTIFIED PT OF DENIAL. PT STATES SHE HAS CALLED HER INSURANCE COMPANY AND SHE WAS TOLD THAT INPATIENT REHAB DID NOT INCLUDE ALL HER MEDICAL PROBLEMS FOR THE INSURANCE TO REVIEW FOR INPATIENT REHAB. PT WANTS CM TO RESUBMIT TO [facility] FOR INPATIENT REHAB. CM CALLED [facility], , LEFT MESSAGE FOR MADONNA OF ADMISSIONS ASKING FOR CONSIDERATION AND RESUBMISSION FOR INSURANCE AUTHORIZATION. CM FAXED REFERRAL TO [facility] AT [phone]. CM NOTIFIED PT AND ASKED WHAT HER SECOND CHOICE WILL BE SINCE DECLINED BY [facility] AND Y[facility]IFER. CM RECEIVED PATIENT CHOICE LETTER FOR 1- ANY [facility] AND 2- ANY [place] [facility] IF PT IS DECLINED BY [facility] INPATIENT REHAB. PT STATES THAT [facility] ALSO HAS INPATIENT REHAB. CM WAITING ADMISSION DETERMINATION FROM [facility] INPATIENT RE[facility]. SANJANA Hernández DCP- Discharge Planning Updated by [id number]: Phil Caruso on 04/12/19 8:[address] Patient Name: CARO JASSO Encounter No: [id number] : 1955 Primary Insurance: [facility] MEDICARE SOLUTIONS Anticipated DC Date: 04-11-2019 Planned Disposition: Alf Facility External Planned Provider: [facility], MEDICARE REHAB BED DCP follow-up note: CM RECEIVED CALL FROM ANTWAN OF [facility], , THEY RECEIVED REFERRAL, WILL SCREEN FOR ADMISSION. IF PT NEEDS MINIMAL ASSISTANCE TO TRANSFER TO [facility] CHAIR, HALFWAY STAFF WILL BE ABLE TO PROVIDE THIS ASSISTANCE. PT WILL HAVE TO BE ACCEPTED AT [facility] FOR THEM TO ACCEPT PT THEY WILL NOT TRANSPORT ANYWHERE OUTSIDE [place] FOR DIALYSIS. ANTWAN WILL CALL WITH ADMISSION DETERMINATION AFTER SCREENING IS COMPLETED. ANABELLA WAITING ADMISSION DETERMINATION FOR REHAB FROM [facility]. Phil Caruso, CASE MANAGEMENT DCP- Discharge Planning Updated by [id number]: Phil Caruso on 04/11/19 4:[address] Patient Name: CARO JASSO Encounter No: [id number] : 1955 Primary Insurance: [facility] MEDICARE SOLUTIONS Anticipated DC Date: 04-11-2019 Planned Disposition: Alf Facility External Planned Provider: [facility], MEDICARE REHAB BED DCP follow-up note: CM RECEIVED CALL FROM [facility], THEY WILL NOT ACCEPT PT. ANABELLA SPOKE TO PT WHO ASKED CM TO FAX REFERRAL TO HER SECOND CHOICE, [facility]. CHOICE PREVIOUSLY SIGNED. CM SPOKE TO EDSON OF [facility] WHO INFORMED CM THAT PT WILL HAVE TO BE ABLE TO TRANSFER HERSELF FROM CHAIR TO BED OR HAVE SOMEONE THERE THAT WILL ASSIST WITH EVERY TRANSFER TO EVEN BE CONSIDERED AT THE [facility]. CM SPOKE TO PT WHO DECLINED PLACEMENT ANYWHERE ELSE OTHER THAN [place]. PT INSISTED THAT SHE CAN TRANSFER HERSELF TO A CHAIR AND WILL DO IT WITH THERAPY. CM LEFT NOTE ON DRY ERASE BOARD OF NEED FOR DOCUMENATION THAT PT IS ABLE TO TRANSFER HERSELF. CM CALLED [facility], , THERE WAS NO ANSWER. CM FAXED REFERRAL TO [facility] AT [phone]. CM SPOKE TO PT AFTER HER PD CATHETER WAS INSERTED. PT STILL WILLING FOR PLACEMENT AT [facility], STILL INSISTS THAT SHE CAN TRANSFER HERSELF IF THERAPY WILL WORK WITH HER STATING THEY HAVE ONLY SEEN HER ABOUT "3 TIMES". CM ASSURED PT THAT THERAPY WILL CONTINUE TO WORK WITH HER. PT STATES SHE THINKS THAT SHE WILL JUST BE ABLE TO GO HOME WITH PERITONEAL DIALYSIS. CM EXPLAINED THAT PT WILL HAVE TO TALK TO THE DOCTOR AND THAT CM UNDERSTOOD THAT PT WILL HAVE TO HAVE HEMODIALYSIS AND THAT PD IS A PROCESS AND TAKES TRAINING AND ARRANGEMENTS. PT NOW THINKS SHE WILL CAN HAVE PD AND GO HOME. CM WAITING ADMISSION DETERMINATION FOR REHAB FROM [facility]. SANJANA Hernández DCP- Discharge Planning Updated by [id number]: Phil Caruso on 04/11/19 7:[address] Patient Name: CARO JASSO Encounter No: [id number] : 1955 Primary Insurance: [facility] MEDIC[facility] SOLUTIONS Anticipated DC Date: 04-11-2019 Planned Disposition: Alf Facility External Planned Provider: [facility] MEDICARE REHAB BED DCP follow-up note: CM FAXED REFERRAL UPDATE TO [facility] AT [phone]. CM WAITING ADMISSION DETERMINATION FROM [facility] WELL INSURANCE DETERMINATION. RAYO TOUSSAINT IS WORKING ON OUTPATIENT DIALYSIS UNIT. SANJANA Hernández DCP- Discharge Planning Updated by [id number]: Phil Caruso on 04/10/19 3:[address] Patient Name: CARO JASSO Encounter No: [id number] : 1955 Primary Insurance: [facility] MEDICARE SOLUTIONS Anticipated DC Date: 04-11-2019 Planned Disposition: Alf Facility External Planned Provider: [facility] MEDICARE REHAB BED DCP follow-up note: CM MET WITH PT IN ROOM TO DISCUSS DISCHARGE PLANNING AND NEEDS. PT HAS REVIEWED LIST WITH FAMILY AND WOULD LIKE REFERRAL TO [facility] CHO[facility] AND [facility] SECOND CHOICE. CHOICE FORM SIGNED. CM CALLED [facility], , SPOKE TO BIGG AND PROVIDED REFERRAL INFORMATION. CM FAXED REFERRAL TO [facility] AT [phone]. CM WAITING ADMISSION DETERMINATION FROM [facility] WELL INSURANCE DETERMINATION. RAYO TOUSSAINT IS WORKING ON OUTPATIENT DIALYSIS UNIT. Phil Caruso CASE MANAGEMENT Appended by Phil Caruso on 04/10/2019 16:10 VARITYPIST: CM RECEIVED CALL FROM [facility], , SPOKE TO BIGG WHO ASKED WHY PT IS ON ABILIFY. CM SPOKE TO PT IN ROOM, PT DENIES MENTAL ILLNESS OR PLACEMENT IN PSYCHIATRIC CARE IN THE PAST. PT THINKS IT MAY BE FOR DEMENTIAL. CM NOTIFIED BIGG. CM WAITING ADMISSION DETERMINATION FROM [facility] WELL INSURANCE DETERMINATION. EDSON OF [facility] IS WORKING ON OUTPATIENT DIALYSIS UNIT. SANJANA Hernández DCP- Discharge Planning Updated by [id number]: Phil Caruso on 04/09/19 11:[address] Patient Name: CARO JASSO Encounter No: [id number] : 1955 Primary Insurance: [facility] MEDICARE SOLUTIONS Anticipated DC Date: 04-11-2019 Planned Disposition: Alf Facility External Planned Provider: TO BE DETERMINED DCP follow-up note: CM RECEIVED INPATIENT REHAB DENIAL FROM PT'S INSURANCE. CM MET WITH PT IN ROOM, PROVIDED COPY OF DENIAL AND READ REASON FOR DENIAL WITH SUGGESTION THAT REHAB COULD BE PROVIDED IN [facility]. CM PROVIDED PT WITH LISTING OF [facility] FACLITIES [place] [address] [place] [place] AT PT'S REQUEST FROM MEDICARE WEBSITE. CM PROVIDED CHOICE FORM. PT STATES SHE WANTS TO THINK ABOUT CHOICES AND WILL LET CM KNOW SOON POSSIBLE. COPY OF INPATIENT DENIAL PLACED IN CHART WITH PT'S SIGNATURE, DATE AND TIME OF PT'S RECEIPT. CM WENT BACK IN ROOM AFTER LUNCH, PT IS OUT OF ROOM IN DIALYSIS. CM TO FOLLOW UP WITH PT LATER REGARDING [facility] RE[facility] CHOICES. CM WAITING ON PT'S DECISION FOR [facility] WELL CHOICES FOR SKILLED REHAB PLACEMENT. SANJANA Hernández DCP- Discharge Planning Updated by [id number]: Phil Caruso on 04/05/19 2:[address] Patient Name: CARO JASSO Encounter No: [id number] : 1955 Primary Insurance: [facility] MEDICARE SOLUTIONS Anticipated DC Date: Planned Disposition: Inpatient Rehab External Planned Provider:[facility] DCP follow-up note: CM NOTIFIED PT'S DAUGHTER IN ROOM OF REFERRAL BEING FAXED TO [facility]. CM RECEIVED PATIENT CHOICE LETTER FOR 1- [facility] AND 2- [facility] IF PT IS DECLINED BY [facility] INPATIENT REHAB. CM WAITING ADMISSION DETERMINATION FROM [facility] INPATIENT [facility]. SANJANA Hernández DCP- Discharge Planning Updated by [id number]: Phil Caruso on 04/05/19 12:[address] Patient Name: CARO JASSO Encounter No: [id number] : 1955 Primary Insurance: [facility] MEDICARE SOLUTIONS Anticipated DC Date: Planned Disposition: Inpatient Rehab External Planned Provider: [facility] DCP follow-up note: CM CALLED AND SPOKE TO VERNON PEACOCK, OF [facility]IENT [facility], ; THEY WILL SCREEN FOR INPATIENT REHAB ADMISSION. THEY HAVE THE AVAILABILITY OF HEMODIALYSIS IN THEIR REHAB, BUT WILL NOT ACCEPT PERITONEAL DIALYSIS. CM FAXED REFERRAL TO [facility], . CM WAITING [facility]. Phil Caruso, CASE MANAGEMENT DCP- Discharge Planning Updated by [id number]: Phil Caruso on 04/04/19 5:[address] Patient Name: CARO JASSO Encounter No: [id number] : 1955 Primary Insurance: [facility] MEDICARE SOLUTIONS Anticipated DC Date: Planned Disposition: Inpatient Rehab External Planned Provider: [facility] DCP follow-up note: CM RECEIVED ORDER FOR INPATIENT REHAB PRESCREENING, MET WITH PT'S DAUGHTER, HARRIETT YOUNG, IN ROOM. HARRIETT IS PT'S EMERGENCY CONTACT LISTED ON FACE SHEET AND REPORTS TO BE PT'S CAREGIVER AT HOME. PT IN DIALYSIS. CM HAD ALSO RECEIVED HANDWRITTEN NOTE INDICTATING PT WANTS REHAB IN [place]. HARRIETT REPORTS PT WANTS REFERRAL TO [facility] FOR INPATIENT REHAB. CM DISCUSSED HAVING A ALTERNATE PLAN IF DECLINED FOR INPATIENT REHAB. THEY HAVE DISCUSSED [facility]; CM PROVIDED LIST OF AVAILABLE [facility] FACILITIES [place]IN [address] OF [place]. HARRIETT WILL DISCUSS THIS WITH PT AND THEY WILL LET CM KNOW OF ALTERNATE PLAN FOR REHAB. CM TO SEND REFERRAL TO [facility] FOR INPATIENT REHAB SOON POSSIBLE. PT CONSIDERING [facility] FAC[facility] ALTERNATE REHAB PLAN IF DECLINED BY [facility]. Phil Caruso, CASE MANAGEMENT DCP- Discharge Planning Updated by [id number]: Tucker Hall on 04/02/19 12:[address] I HAVE SPOKEN TO EDSON EWING, CLINICAL LIASON WITH MICHELLE ABOUT THIS PATIENT POTENTIALLY BEING A NEW START. THIS WAY SHE CAN MAKE CONTACT TO PRESTART THE PROCESS. PTS FIRST DIALYSIS WAS YESTERDAY. DCP- Discharge Planning Updated by [id number]: Olivia Ramachandran on 03/29/19 12:[address] Patient Name: CARO JASSO Admission Status: Elective Accout number: [id number] Admission Date: 03-24-2019 : 1955 Admission Diagnosis: Attending: ELTON HODGE Current LOS: 5 Anticipated DC Date: Planned Disposition: Primary Insurance: [facility] MEDICARE SOLUTIONS Discharge Planning Comments: CM SPOKE WITH DAUGHTER ABOUT DC PLANNING/NEEDS. SHE STATES IS WAITING TO TALK TO THE DOCTOR BUT HAS RECIEVED BAD NEWS ON MOTHER'S PROGNOSIS. I HAVE MENTIONED REHAB AND HOSPICE. DAUGHTER WANTS TO THINK ABOUT IT. CM WILL FOLLOW AND ASSIST. Ldr Rn: Olivia Ramachandran DCP- Discharge Planning Updated by [id number]: Tucker Hall on 03/27/19 3:[address] MOSS WANTED THE PATIENT TRANSFERRED TO [facility] TO HER COLLECTIONS OFFICER THIS AM. @ 0813, PLACED A CALL TO THE BUS REPAIR SUPERVISOR, ADARSH, TO OBTAIN ADMIN APPROVAL TO PROCEED WITH TRANSFER. SE STATED THAT SHE WOULD HAVE TO CALL THE ADMIN MANAGER OF EMPLOYEE RELATIONS, BUT WAS CURRENTLY INDISPOSED AND UNABLE. IF I DON'T HEAR BACK FROM HERE, I WILL CALL BACK LATER. @0817, I SPOKE WITH THE PATIENT WHO IS WILLING FOR THE TRANSFER. @0821, I SPOKE WITH ALEN SAWYER APN FOR DR YATES. SHE HAS REQUESTED THAT I HAVE DR MOSS CALL AND DISCUSS THE TRANSFER WITH DR YATES. @0836, I SPOKE WITH DR MOSS AND MADE THIS REQUEST. SHE ASKED ME TO TEXT HER DR YATES'S NUMBER AND SHE WOULD CALL HER. SOON WE HUNG UP, I TEXT HER THE NUMBER. @1334, I PLACED A CALL TO ALEN TO SEE IF SHE KNEW WHEN DR YATES WOULD BE HERE AT THE HOSPITAL SHE STATED HE WAS HERE NOW. SHE SAID THAT DR MOSS DID NOT CALL AND TALK TO DR YATES ABOUT THE TRANSFER. SHE STATED THAT SHE WOULD TALK TO HIM AND LET ME KNOW, BUT SHE DID NOT FEEL THAT THE PATIENT WOULD TRANSFER. @1426, DR YATES AND VERÓNICA LOWRY ON THE FLOOR. THEY HAVE TALKED WITH THE PATIENT. THE PATIENT WILL REMAIN HERE FOR TREATMENT AND NOT TRANSFER. DCPIA - Discharge Planning Initial Assessment Updated by [id number]: Olivia Ramachandran on 03/29/19 12:11 pm * Is the patient Alert and Oriented? No * Preadmission Environment Home with Family * Other Equipment WALKER, WC, TRANSFER CHAIR, O2 NEBS * List name and contact numbers for known caregivers / representatives who currently or will assist patient after discharge: SANDY LORENZANA, * Community resources currently utilized Home Health * Please name any agencies selected above. [facility] * Has this patient been hospitalized within the prior 30 days at any hospital? Yes Coverage Notice Reviewer: [id number] Caruso Notice Issued Date-Time: 04/12/2019 16:10 Notice Type: Patient Choice Letter Notice Delivered To: Patient Relationship to Patient: Ophthalmology Surgical Technician Name: Delivery Method: HAND - Hand Delivered Kristyn Days: Prior Verbal Notification: Recipient Understood Notice: Yes Recipient Signature: Yes Med Rec Note Co-signed by Attending: Coverage Notice Comment: SNF IN [place] OR SNF IN [place] Reviewer: ELYSSA Caruso Notice Issued Date-Time: 04/10/2019 9:56 Notice Type: Patient Choice Letter Notice Delivered To: Patient Relationship to Patient: Ophthalmology Surgical Technician Name: Delivery Method: HAND - Hand Delivered Kristyn Days: Prior Verbal Notification: Recipient Understood Notice: Yes Recipient Signature: Yes Med Rec Note Co-signed by Attending: Coverage Notice Comment: 1 - [facility], 2 - [facility] Reviewer: ELYSSA Caruso Notice Issued Date-Time: 04/04/2019 18:45 Notice Type: Patient Choice Letter Notice Delivered To: Patient Relationship to Patient: Ophthalmology Surgical Technician Name: Delivery Method: HAND - Hand Delivered Kristyn Days: Prior Verbal Notification: Recipient Understood Notice: Yes Recipient Signature: Yes Med Rec Note Co-signed by Attending: Coverage Notice Comment: 1- [facility] 2- [facility] Last DP export: 04/18/19 7:08 Patient Name: CARO JASSO Page [id number] at 0829 All edits/amendments must be made on the electronic document DICTATION DATE: 04/18/19827 NET SOFTWARE ARCHITECT: ELVIRA 04/18/19827 RPT#: [id number] DC DATE: STATUS: ADM IN [facility] [address] [place] [address] END OF REPORT
--- NOTE | 2019-04-18 09:30 | NUR ---
RIGHT CHEST HEMOSPLIT DRESSING CHANGE DONE USING STERILE TECHNIQUE.
--- NOTE | 2019-04-18 09:54 | NUR ---
PT TAKEN FOR EGD VIA BED.
--- NOTE | 2019-04-18 09:59 | NUR ---
MIXER OPERATOR RAW SALT WAS SUPPOSSED TO GIVE RETACRIT INJECTION. SHE DID NOT GET TO IT IN TIME DO WITH HER INSTRUCTOR BEFORE PT LEFT FOR PROCEDURE. WILL GIVE WHEN SHE RETURNS FROM PROCEDURE.
--- NOTE | 2019-04-18 10:21 | NUR ---
GI LAB CALLED AND STATED DR. HOBBS DID AN EGD WITH TIVA AND DID ONE GASTRIC BIOPSY. 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 THEY STATED THEY GAVE PROPOFOL AND DR. HOBBS DID NOT ELOY A REASON TO WHY PT IS HAVING ADBOMINAL PAIN OR POSITIVE OCCULT STOOL.
--- NOTE | 2019-04-18 10:35 | NUR ---
PT RETURNED FROM PROCEDURE. ALERT AND ORIENTED. ON ROOM AIR. VS STABLE. GLOBAL TECHNICAL WRITER TO GO AHEAD AND GIVE AM MEDS. WILL CONTINUE TO MONITOR. BED LOW. CL IN REACH.
--- NOTE | 2019-04-18 10:45 | NUR ---
REMOVED PD CATH DRESSING AND LOWER ABDOMINAL INCISION DRESSING WITH LUCINA JUNIORAUTOMATIC THREAD WINDER NURSE. CLENASED AROUND PD SITE AND LOWER ABDOMINAL INCISION WITH WOUND CLEASNER AND PATTED DRY WITH 4X4'S. THIS NURSE PLACED A BIO PATCH AND TEGADERM OVER PD CATH SITE. LUCINA JUNIOR PLACED MEPILEX ABSORB AG OVER INCISION. PT TOLERATED WELL.
--- NOTE | 2019-04-18 13:11 | NUR ---
OT NOTE: BED MOB WITH MOD ASSIST; ABLE TO TAKE A FEW STEPS TO CHAIR WITH WALKER AND MIN ASSIST..PT REMAINS VERY FEARFUL OF FALLING; ALL GROOMING AND FEEDING TASKS WITH SET UP; PT REFUSED TO AMBULATE TO BATHROOM SHE FELT SHE WOULD FALL. CHAPIN DE LUNA, OTR/L
--- NOTE | 2019-04-18 14:32 | MORECARE ---
CASE MANAGEMENT DISCHARGE SUMMARY PATIENT: CARO JASSO UNIT: [id number] ADM DATE: 03/24/19 AGE: 63 : 55 SEX: F ROOM/BED: D.2106 AUTHOR: KENNEY,DOC PHYSICIAN: REFERRING PHYSICIAN: ELTON HODGE MD DATE OF SERVICE: 04/18/19 Discharge Plan Patient Name: CARO JASSO Facility: [facility]:[place] : 1955 Planned Disposition: Correction Facility Anticipated Discharge Date: 04/18/19 Discharge Date: Expected LOS: 25 Initial Reviewer: [id number] Initial Review Date: 03/29/2019 Generated: 04/18/19 3:32 pm Comments DCP- Discharge Planning Updated by [id number]: Phil Caruso on 04/18/19 1:[address] Patient Name: CARO JASSO Encounter No: [id number] : 1955 Primary Insurance: [facility] MEDICARE SOLUTIONS Anticipated DC Date: 04-18-2019 Planned Disposition: Correction Facility External Planned Provider: [facility], MEDICARE REHAB BED DCP follow-up note: CM RECEIVED [facility]IA RESPONSE, PT IS NON PASSR AND MAY ENTER [facility] FACILITY. CM NOTIFIED KHAI OF [facility], . CM FAXED LIDIA RESPONSE LETTER [facility] AT [phone]. CM SPOKE TO PT IN ROOM WHO IS IN AGREEEMENT WITH PLAN TO DISCHARGE TO REHAB AT [facility]. IMPORTANT MESSAGE FROM MEDICARE PROVIDED AND EXPLAINED. PT HAS BEEN DECLINED BY INSURANCE FOR INPATIENT REHAB; PT FILED APPEAL 04-16-19. PT HAS BEEN DECLINED BY [facility] AND [facility] FAC[facility]. CM WAITING ADMISSION DET[facility]ATION [facility] HAS BEEN SECURED FOR OUTPATIENT DIALYSIS. Phil Caruso CASE ED DCP- Discharge Planning Updated by [id number]: Phli Caruso on 04/18/19 7:[address] Patient Name: CARO JASSO Encounter No: [id number] : 1955 Primary Insurance: [facility] MEDICARE SOLUTIONS Anticipated DC Date: 04-18-2019 Planned Disposition: Correction Facility External Planned Provider: [facility], MEDICARE REHAB BED DCP follow-up note: CM RECEIVED TELEPHONE MESSAGE FROM DOUGLAS OF [facility] MEDICARE SOLUTIONS APPEALS, ; SHE HAS RECEIVED PT'S REQUEST FOR FAST APPEAL AND REQUESTED CLINICAL UPDATES FOR PAST THREE DAYS. CM FAXED REQUESTED INFORMATION TO [facility] APPEAL AT [phone]. CM ALSO FAXED REFERRAL TO [facility], , REQUESTED INPATIENT REHAB PRESCREENING FROM [facility] AND NOTIFIED OF APPEAL PROCESS BEING ACTIVE. PT HAS BEEN DECLINED BY INSURANCE FOR INPATIENT REHAB; PT FILED APPEAL 04-16-19. PT HAS BEEN DECLINED BY [facility] AND [facility]. CM WAITING LIDIA DETERMINATION TO ENTER J[facility] FACILITY. CM WAITING ADMISSION DETERMINATION FROM [facility]. [facility]IR AT [facility] HAS BEEN SECURED FOR OUTPATIENT DIALYSIS. Phil Caruso CASE MANAGEMENT DCP- Discharge Planning Updated by [id number]: Phil Caruso on 04/17/19 4:[address] Patient Name: CARO JASSO Encounter No: [id number] : 1955 Primary Insurance: [facility] MEDICARE SOLUTIONS Anticipated DC Date: 04-18-2019 Planned Disposition: Correction Facility External Planned Provider:[facility], MEDICARE REHAB BED DCP follow-up note: KHAI OF [facility] MET WITH PT IN DIALYSIS TO ASSESS FOR REHAB ADMISSION. KHAI INFORMED CM THAT PT NEEDS L[facility]IA DUE TO DIAGNOSIS OF MAJOR DEPRESSION. CM COMPLETED LIDIA SCREENING WITH PT'S ASSISTANCE, OBTAINED PHYSICIAN SIGNATURE. CM FAXED LIDIA SCREENING TO [facility] AT [phone]. PT HAS BEEN DECLINED BY INSURANCE FOR INPATIENT REHAB; PT FILED APPEAL 04-16-19. PT HAS BEEN DECLINED BY [facility]. CM WAITING LIDIA DETERMINATION TO ENTER [facility] FACILITY. CM WAITING ADMISSION DETERMINATION FROM [facility]. [facility] HAS BEEN SECURED FOR OUTPATIENT DIALYSIS. Phil Caruso CASE MANAGEMENT DCP- Discharge Planning Updated by [id number]: Phil Caruso on 04/17/19 8:[address] Patient Name: CARO JASSO Encounter No: [id number] : 1955 Primary Insurance: [facility] MEDICARE SOLUTIONS Anticipated DC Date: 04-11-2019 Planned Disposition: Correction Facility External Planned Provider: [facility], MEDICARE REHAB BED DCP follow-up note: ON 04-16-19, CM ASSISTED PT WITH TYPING HER APPEAL LETTER TO HER INSURANCE COMPANY TO APPEAL HER INPATIENT REHAB DENIAL. CM FAXED THE APPEAL LETTER TO PT'S INSURANCE COMPANY, PROVIDED FAX CONFIRMATION AND LETTER BACK TO PT FOR HER RECORDS. ON 04-17-19, CM FAXED REFERRAL UPDATE TO [facility] AT [phone]. CM REVIEWED CHART, NOTE FROM EDSON OF [facility]IENT [facility], INDICATES PT HAS DIALYSIS CHAIR IN [facility], MWF, 1630 HOURS WITH NO OTHER TIME AVAILABLE. PT HAS BEEN DECLINED BY INSURANCE FOR INPATIENT REHAB; PT FILED APPEAL 04-16-19. PT HAS BEEN DECLINED BY [facility] AND [facility]. CM WAITING ADMISSION DETERMINATION FROM [facility]. [facility]IR AT [facility] HAS BEEN SECURED FOR OUTPATIENT DIALYSIS. Phil Caruso, CASE MANAGEMENT DCP- Discharge Planning Updated by [id number]: Phil Caruso on 04/16/19 1:[address] Patient Name: CARO JASSO Encounter No: [id number] : 1955 Primary Insurance: [facility] MEDICARE SOLUTIONS Anticipated DC Date: 04-11-2019 Planned Disposition: Correction Facility External Planned Provider: [facility], MEDICARE REHAB BED DCP follow-up note: CM CALLED [facility], , SPOKE TO TUCKER WHO WILL INFORMED CM THAT THEY ARE OUT OF INSURANCE NETWORK BUT THAT PT HAS THE SAME OUT OF NETWORK BENEFITS IN NETWORK; PT HAS 20 DAYS FOR REHAB. THEY WILL SCREEN FOR ADMISSION TODAY. CM FAXED REFERRAL UPDATE TO [facility] AT [phone]. CM SPOKE TO EDSON OF [facility], SHE HAS PT A CHAIR IN [facility], MWF, 1630 HOURS. EDSON WILL CHECK WITH DIALYSIS UNIT AND REQUEST EARLIER CHAIR TIME. PT HAS BEEN DECLINED BY INSURANCE FOR INPATIENT REHAB. PT HAS BEEN DECLINED BY [facility]. CM WAITING ADMISSION DETERMINATION FROM [facility]. [facility] AT [facility] HAS BEEN SECURED FOR OUTPATIENT DIALYSIS. SANJANA Hernández DCP- Discharge Planning Updated by [id number]: Phil Caruso on 04/13/19 8:[address] Patient Name: CARO JASSO Encounter No: [id number] : 1955 Primary Insurance: [facility] MEDICARE SOLUTIONS Anticipated DC Date: 04-11-2019 Planned Disposition: Correction Facility External Planned Provider: [facility], MEDICARE REHAB BED DCP follow-up note: CM RECEIVED MESSAGE FROM MADONNA OF [facility] WHO INFORMED CM THAT IT INSURANCE DECLINED [facility] INPATIENT REHAB, IT WOULD BE A WASTE OF TIME TO RESUBMIT BUT SHE WOULD BE HAPPY TO DO IT IF PT INSISTED. CM SPOKE TO PT IN ROOM WHO ASKED CM TO SPEAK TO HER PARTNER BOUCHRA AT [phone], TO ASSIST WITH DISCHARGE PLANNING. CM CALLED BOUCHRA AND PROVIDED ABOVE INFORMATION. BOUCHRA WANTS TO PROCEED WITH JAIL REFERRAL TO [facility]. IF DECLINED, SEEK SNF IN [place]. CM CALLED [facility], , SPOKE TO TUCKER WHO WILL SCREEN FOR ADMISSION. CM FAXED REFERRAL TO [facility] AT [phone]. PT HAS BEEN DECLINED BY INSURANCE FOR INPATIENT REHAB. PT HAS BEEN DECLINED BY [facility] AND [facility]. CM WAITING ADMISSION DETERMINATION FROM [facility]. SANJANA Hernández DCP- Discharge Planning Updated by [id number]: Phil Caruso on 04/12/19 3:[address] Patient Name: CARO JASSO Encounter No: [id number] : 1955 Primary Insurance: [facility] MEDICARE SOLUTIONS Anticipated DC Date: 04-11-2019 Planned Disposition: Correction Facility External Planned Provider: [facility] DCP follow-up note: CM RECEIVED CALLF [facility], THEY CANNOT MEET PT'S NEEDS. CM NOTIFIED PT OF DENIAL. PT STATES SHE HAS CALLED HER INSURANCE COMPANY AND SHE WAS TOLD THAT INPATIENT REHAB DID NOT INCLUDE ALL HER MEDICAL PROBLEMS FOR THE INSURANCE TO REVIEW FOR INPATIENT REHAB. PT WANTS CM TO RESUBMIT TO [facility] FOR INPATIENT REHAB. CM CALLED [facility], , LEFT MESSAGE FOR MADONNA OF ADMISSIONS ASKING FOR CONSIDERATION AND RESUBMISSION FOR INSURANCE AUTHORIZATION. CM FAXED REFERRAL TO [facility] AT [phone]. CM NOTIFIED PT AND ASKED WHAT HER SECOND CHOICE WILL BE SINCE DECLINED BY [facility] AND [facility]. CM RECEIVED PATIENT CHOICE LETTER FOR 1- ANY [facility] AND 2- ANY [facility] IF PT IS DECLINED BY [facility]. PT STATES THAT [facility] ALSO HAS INPATIENT REHAB. CM WAITING ADMISSION DETERMINATION FROM [facility]. Phil Caruso, CASE MANAGEMENT DCP- Discharge Planning Updated by [id number]: Phil Caruso on 04/12/19 8:[address] Patient Name: CARO JASSO Encounter No: [id number] : 1955 Primary Insurance: [facility] MEDICARE SOLUTIONS Anticipated DC Date: 04-11-2019 Planned Disposition: Correction Facility External Planned Provider: [facility], MEDICARE REHAB BED DCP follow-up note: CM RECEIVED CALL FROM ANTWAN OF [facility], , THEY RECEIVED REFERRAL, WILL SCREEN FOR ADMISSION. IF PT NEEDS MINIMAL ASSISTANCE TO TRANSFER TO [facility], GROUP HOME STAFF WILL BE ABLE TO PROVIDE THIS ASSISTANCE. PT WILL HAVE TO BE ACCEPTED AT [facility] FOR THEM TO ACCEPT PT THEY WILL NOT TRANSPORT ANYWHERE OUTSIDE [place] FOR DIALYSIS. ANTWAN WILL CALL WITH ADMISSION DETERMINATION AFTER SCREENING IS COMPLETED. CM WAITING ADMISSION DETERMINATION FOR REHAB FROM [facility]. Phil Caruso, CASE MANAGEMENT DCP- Discharge Planning Updated by [id number]: Phil Caruso on 04/11/19 4:[address] Patient Name: CARO JASSO Encounter No: [id number] : 1955 Primary Insurance: [facility] MEDICARE SOLUTIONS Anticipated DC Date: 04-11-2019 Planned Disposition: Correction Facility External Planned Provider: [facility], MEDICARE REHAB BED DCP follow-up note: CM RECEIVED CALL FROM [facility], THEY WILL NOT ACCEPT PT. CM SPOKE TO PT WHO ASKED CM TO FAX REFERRAL TO HER SECOND CHOICE, [facility]. CHOICE PREVIOUSLY SIGNED. CM SPOKE TO EDSON OF [facility] WHO INFORMED CM THAT PT WILL HAVE TO BE ABLE TO TRANSFER HERSELF FROM CHAIR TO BED OR HAVE SOMEONE THERE THAT WILL ASSIST WITH EVERY TRANSFER TO EVEN BE CONSIDERED AT THE [facility]. CM SPOKE TO PT WHO DECLINED PLACEMENT ANYWHERE ELSE OTHER THAN [facility]. PT INSISTED THAT SHE CAN TRANSFER HERSELF TO A CHAIR AND WILL DO IT WITH THERAPY. CM LEFT NOTE ON DRY ERASE BOARD OF NEED FOR DOCUMENATION THAT PT IS ABLE TO TRANSFER HERSELF. CM CALLED [facility], , THERE WAS NO ANSWER. CM FAXED REFERRAL TO [facility] AT [phone]. CM SPOKE TO PT AFTER HER PD CATHETER WAS INSERTED. PT STILL WILLING FOR PLACEMENT AT [facility], STILL INSISTS THAT SHE CAN TRANSFER HERSELF IF THERAPY WILL WORK WITH HER STATING THEY HAVE ONLY SEEN HER ABOUT "3 TIMES". CM ASSURED PT THAT THERAPY WILL CONTINUE TO WORK WITH HER. PT STATES SHE THINKS THAT SHE WILL JUST BE ABLE TO GO HOME WITH PERITONEAL DIALYSIS. CM EXPLAINED THAT PT WILL HAVE TO TALK TO THE DOCTOR AND THAT CM UNDERSTOOD THAT PT WILL HAVE TO HAVE HEMODIALYSIS AND THAT PD IS A PROCESS AND TAKES TRAINING AND ARRANGEMENTS. PT NOW THINKS SHE WILL CAN HAVE PD AND GO HOME. ANABELLA WAITING ADMISSION DETERMINATION FOR REHAB FROM [facility]. SANJANA Hernández DCP- Discharge Planning Updated by [id number]: Phil Caruso on 04/11/19 7:[address] Patient Name: CARO JASSO Encounter No: [id number] : 1955 Primary Insurance: [facility] MEDICARE SOLUTIONS Anticipated DC Date: 04-11-2019 Planned Disposition: Correction Facility External Planned Provider: [facility], MEDICARE REHAB BED DCP follow-up note: CM FAXED REFERRAL UPDATE TO [facility] AT [phone]. CM WAITING ADMISSION DETERMINATION FROM [facility] WELL INSURANCE DETERMINATION. EDSON HARVEY [facility] IS WORKING ON OUTPATIENT DIALYSIS UNIT. SANJANA Hernández DCP- Discharge Planning Updated by [id number]: Phil Caruso on 04/10/19 3:[address] Patient Name: CARO JASSO Encounter No: [id number] : 1955 Primary Insurance: [facility] MEDICARE SOLUTIONS Anticipated DC Date: 04-11-2019 Planned Disposition: Correction Facility External Planned Provider: [facility] MEDICARE REHAB BED DCP follow-up note: CM MET WITH PT IN ROOM TO DISCUSS DISCHARGE PLANNING AND NEEDS. PT HAS REVIEWED LIST WITH FAMILY AND WOULD LIKE REFERRAL TO [facility]. CHOICE FORM SIGNED. CM CALLED [facility], , SPOKE TO BIGG AND PROVIDED REFERRAL INFORMATION. CM FAXED REFERRAL TO [facility] AT [phone]. CM WAITING ADMISSION DETERMINATION FROM [facility] INSURANCE DETERMINATION. EDSON HARVEY [facility] IS WORKING ON OUTPATIENT DIALYSIS UNIT. Phil Caruso, CASE MANAGEMENT Appended by Phil Caruso on 04/10/2019 16:10 HOLE DIGGER: CM RECEIVED CALL FROM [facility], , SPOKE TO BIGG WHO ASKED WHY PT IS ON ABILIFY. CM SPOKE TO PT IN ROOM, PT DENIES MENTAL ILLNESS OR PLACEMENT IN PSYCHIATRIC CARE IN THE PAST. PT THINKS IT MAY BE FOR DEMENTIAL. CM NOTIFIED BIGG. CM WAITING ADMISSION DETERMINATION FROM [facility] INSURANCE DETERMINATION. EDSON HARVEY [facility] IS WORKING ON OUTPATIENT DIALYSIS UNIT. Phil Caruso, CASE MANAGEMENT DCP- Discharge Planning Updated by [id number]: Phil Caruso on 04/09/19 11:[address] Patient Name: CARO JASSO Encounter No: [id number] : 1955 Primary Insurance: [facility] MEDICARE SOLUTIONS Anticipated DC Date: 04-11-2019 Planned Disposition: Correction Facility External Planned Provider: TO BE DETERMINED DCP follow-up note: CM RECEIVED INPATIENT REHAB DENIAL FROM PT'S INSURANCE. CM MET WITH PT IN ROOM, PROVIDED COPY OF DENIAL AND READ REASON FOR DENIAL WITH SUGGESTION THAT REHAB COULD BE PROVIDED IN [facility] FACILITY. CM PROVIDED PT WITH LISTING OF JAIL FACLITIES WITHIN [place] OF [place] AT PT'S REQUEST FROM MEDICARE WEBSITE. CM PROVIDED CHOICE FORM. PT STATES SHE WANTS TO THINK ABOUT CHOICES AND WILL LET CM KNOW SOON POSSIBLE. COPY OF INPATIENT DENIAL PLACED IN CHART WITH PT'S SIGNATURE, DATE AND TIME OF PT'S RECEIPT. CM WENT BACK IN ROOM AFTER LUNCH, PT IS OUT OF ROOM IN DIALYSIS. CM TO FOLLOW UP WITH PT LATER REGARDING [facility]AIL REHAB CHOICES. CM WAITING ON PT'S DECISION FOR [facility] WELL CHOICES FOR SKILLED REHAB PLACEMENT. SANJANA Hernández DCP- Discharge Planning Updated by [id number]: Phil Caruso on 04/05/19 2:[address] Patient Name: CARO JASSO Encounter No: [id number] : 1955 Primary Insurance: [facility] MEDICARE SOLUTIONS Anticipated DC Date: Planned Disposition: Inpatient Rehab External Planned Provider:[facility] DCP follow-up note: CM NOTIFIED PT'S DAUGHTER IN ROOM OF REFERRAL BEING FAXED TO [facility]. CM RECEIVED PATIENT CHOICE LETTER FOR 1- [facility] AND 2- [facility] IF [facility]. CM WAITING ADMISSION DETERMINATION FROM [facility]. SANJANA Hernández DCP- Discharge Planning Updated by [id number]: Phil Caruso on 04/05/19 12:[address] Patient Name: CARO JASSO Encounter No: [id number] : 1955 Primary Insurance: [facility] MEDICARE SOLUTIONS Anticipated DC Date: Planned Disposition: Inpatient Rehab External Planned Provider: [facility] DCP follow-up note: CM CALLED AND SPOKE TO VERNON PEACOCK, OF [facility], ; THEY WILL SCREEN FOR INPATIENT REHAB ADMISSION. THEY HAVE THE AVAILABILITY OF HEMODIALYSIS IN THEIR REHAB, BUT WILL NOT ACCEPT PERITONEAL DIALYSIS. [facility], . CM WAITING ADMISSION DETERMINATION FROM [facility]. SANJANA Hernández DCP- Discharge Planning Updated by [id number]: Phil Caruso on 04/04/19 5:[address] Patient Name: CARO JASSO Encounter No: [id number] : 1955 Primary Insurance: [facility] MEDICARE SOLUTIONS Anticipated DC Date: Planned Disposition: Inpatient Rehab External Planned Provider: [facility] DCP follow-up note: CM RECEIVED ORDER FOR INPATIENT REHAB PRESCREENING, MET WITH PT'S DAUGHTER, HARRIETT YOUNG, IN ROOM. HARRIETT IS PT'S EMERGENCY CONTACT LISTED ON FACE SHEET AND REPORTS TO BE PT'S CAREGIVER AT HOME. PT IN DIALYSIS. CM HAD ALSO RECEIVED HANDWRITTEN NOTE INDICTATING PT WANTS REHAB IN [place]. HARRIETT REPORTS PT WANTS REFERRAL TO [facility] FOR INPATIENT REHAB. CM DISCUSSED HAVING A ALTERNATE PLAN IF DECLINED FOR INPATIENT REHAB. THEY HAVE DISCUSSED JAIL; CM PROVIDED LIST OF AVAILABLE JAIL FACILITIES WITHIN [place] OF [place]. HARRIETT WILL DISCUSS THIS WITH PT AND THEY WILL LET CM KNOW OF ALTERNATE PLAN FOR REHAB. CM TO SEND REFERRAL TO [facility] FOR INPATIENT REHAB SOON POSSIBLE. PT CONSIDERING [facility] FACILITY ALTERNATE REHAB PLAN IF DECLINED BY [facility]. Phil Caruso, CASE MANAGEMENT DCP- Discharge Planning Updated by [id number]: Tucker Hall on 04/02/19 12:[address] I HAVE SPOKEN TO EDSON EWING, CLINICAL LIASON WITH [facility] ABOUT THIS PATIENT POTENTIALLY BEING A NEW START. THIS WAY SHE CAN MAKE CONTACT TO PRESTART THE PROCESS. PTS FIRST DIALYSIS WAS YESTERDAY. DCP- Discharge Planning Updated by [id number]: Olivia Ramachandran on 03/29/19 12:[address] Patient Name: CARO JASSO Admission Status: Elective Accout number: [id number] Admission Date: 03-24-2019 : 1955 Admission Diagnosis: Attending: ELTON HODGE Current LOS: 5 Anticipated DC Date: Planned Disposition: Primary Insurance: [facility] MEDICARE SOLUTIONS Discharge Planning Comments: CM SPOKE WITH DAUGHTER ABOUT DC PLANNING/NEEDS. SHE STATES IS WAITING TO TALK TO THE DOCTOR BUT HAS RECIEVED BAD NEWS ON MOTHER'S PROGNOSIS. I HAVE MENTIONED REHAB AND HOSPICE. DAUGHTER WANTS TO THINK ABOUT IT. CM WILL FOLLOW AND ASSIST. Electrification Adviser: Olivia Ramachandran DCP- Discharge Planning Updated by [id number]: Tucker Hall on 03/27/19 3:[address] MOSS WANTED THE PATIENT TRANSFERRED TO [facility] TO HER PRODUCT COORDINATOR THIS AM. @ 0813, PLACED A CALL TO THE HVAC REFRIGERATION TECHNICIAN, ADARSH, TO OBTAIN ADMIN APPROVAL TO PROCEED WITH TRANSFER. YOSHI STATED THAT SHE WOULD HAVE TO CALL THE ADMIN COMPLAINT INSPECTOR, BUT WAS CURRENTLY INDISPOSED AND UNABLE. IF I DON'T HEAR BACK FROM HERE, I WILL CALL BACK LATER. @0817, I SPOKE WITH THE PATIENT WHO IS WILLING FOR THE TRANSFER. @0821, I SPOKE WITH ALEN SAWYER APN FOR DR YATES. SHE HAS REQUESTED THAT I HAVE DR MOSS CALL AND DISCUSS THE TRANSFER WITH DR YATES. @0836, I SPOKE WITH DR MOSS AND MADE THIS REQUEST. SHE ASKED ME TO TEXT HER DR YATES'S NUMBER AND SHE WOULD CALL HER. SOON WE HUNG UP, I TEXT HER THE NUMBER. @1334, I PLACED A CALL TO ALEN TO SEE IF SHE KNEW WHEN DR YATES WOULD BE HERE AT THE HOSPITAL SHE STATED HE WAS HERE NOW. SHE SAID THAT DR MOSS DID NOT CALL AND TALK TO DR YATES ABOUT THE TRANSFER. SHE STATED THAT SHE WOULD TALK TO HIM AND LET ME KNOW, BUT SHE DID NOT FEEL THAT THE PATIENT WOULD TRANSFER. @1426, DR YATES AND VERÓNICA LOWRY ON THE FLOOR. THEY HAVE TALKED WITH THE PATIENT. THE PATIENT WILL REMAIN HERE FOR TREATMENT AND NOT TRANSFER. DCPIA - Discharge Planning Initial Assessment Updated by [id number]: Olivia Madie on 03/29/19 12:11 pm * Is the patient Alert and Oriented? No * Preadmission Environment Home with Family * Other Equipment WALKER, WC, TRANSFER CHAIR, O2 NEBS * List name and contact numbers for known caregivers / representatives who currently or will assist patient after discharge: HARRIETT, DAUGHTER, * Community resources currently utilized Home Health * Please name any agencies selected above. [facility] * Has this patient been hospitalized within the prior 30 days at any hospital? Yes Coverage Notice Reviewer: [id number] Liyah Caruso Notice Issued Date-Time: 04/04/2019 18:45 Notice Type: Patient Choice Letter Notice Delivered To: Patient Relationship to Patient: Electrotyper Helper Name: Delivery Method: HAND - Hand Delivered Kristyn Days: Prior Verbal Notification: Recipient Understood Notice: Yes Recipient Signature: Yes Med Rec Note Co-signed by Attending: Coverage Notice Comment: 1- [facility] 2- [facility] Reviewer: [id number] Liyah Caruso Notice Issued Date-Time: 04/10/2019 9:56 Notice Type: Patient Choice Letter Notice Delivered To: Patient Relationship to Patient: Electrotyper Helper Name: Delivery Method: HAND - Hand Delivered Kristyn Days: Prior Verbal Notification: Recipient Understood Notice: Yes Recipient Signature: Yes Med Rec Note Co-signed by Attending: Coverage Notice Comment: 1 - [facility], 2 - [facility] Reviewer: [id number] Liyah Caruso Notice Issued Date-Time: 04/12/2019 16:10 Notice Type: Patient Choice Letter Notice Delivered To: Patient Relationship to Patient: Electrotyper Helper Name: Delivery Method: HAND - Hand Delivered Kristyn Days: Prior Verbal Notification: Recipient Understood Notice: Yes Recipient Signature: Yes Med Rec Note Co-signed by Attending: Coverage Notice Comment: SNF IN [place] OR SNF IN [place] Reviewer: [id number] Liyah Caruso Notice Issued Date-Time: 04/18/2019 14:20 Notice Type: IM Discharge Notice Notice Delivered To: Patient Relationship to Patient: Electrotyper Helper Name: Delivery Method: HAND - Hand Delivered Kristyn Days: Prior Verbal Notification: Recipient Understood Notice: Yes Recipient Signature: Yes Med Rec Note Co-signed by Attending: Coverage Notice Comment: Last DP export: 04/18/19 7:29 Patient Name: CARO JASSO Page [id number] at 1432 All edits/amendments must be made on the electronic document DICTATION DATE: 04/18/19 1432 VENEER DEPARTMENT MANAGER: ELVIRA 04/18/19 143 RPT#: [id number] DC DATE: STATUS: ADM IN [facility] [address] [place] [address] END OF REPORT
--- NOTE | 2019-04-18 15:44 | NUR ---
OT NOTE: PT COMPLETED SIDE ROLLING WITH SIDE RAIL WITH MOD A. PT COMPLETED BUE AROM EXS. PT COMPLETED FACE AND HAND HYGIENE WITH SET UP. THANK YOU,TREVON MULTANI
--- NOTE | 2019-04-18 17:34 | NUR ---
CONCUR WITH MAIL SERVICE COORDINATOR ASSESSMENT OF THIS PATIENT.
--- NOTE | 2019-04-18 19:21 | NUR ---
REPORT RECEIVED, WILL CONTINUE POC. PATIENT IS AAOX4, IN SEMI-FOWLERS POSITION. NO S/S OF DISTRESS OBSERVED, RR EVEN AND UNLABORED ON 2L O2 VIA NC. IV TO RT WRIST IS INFILTRATED, IV REMOVED WITH CATH TIP INTACT. WILL RESITE TO CONTINUE IRON INFUSION. PATIENT DENIES FURTHER NEEDS. CL IN REACH, BED LOCKED AND LOWERED. WILL CTM.
--- NOTE | 2019-04-18 19:40 | NUR ---
ATTEMPTED TO START NEW IV, WAS UNSUCCESSFUL. WILL HAVE ANOTHER NURSE ATTEMPT.
--- NOTE | 2019-04-19 02:01 | NUR ---
I have reviewed this patient and I concur with the Shift Assessment completed by the Licensed Practical Nurse today this shift.
[2019-04-19 04:56] VITALS: BP 138/95
--- NOTE | 2019-04-19 05:09 | NUR ---
22G IV TO LT BREAST X1 ATTEMPT. GOOD BLOOD RETURN, FLUSHED WITH EASE. PATIENT TOLERATED WELL.
--- NOTE | 2019-04-19 07:30 | NUR ---
REPORT RECEIVED. WILL CONTINUE WITH POC. PT CURRENTLY LYING SEMI FOWLERS. CALL LIGHT W/I REACH. PT IS AAO AND UP WITH PT. RR EVEN AND UNLABORED ON 2L 02. L.CHEST PIV IS SALINE LOCKED. R.CHEST HEMESPLIT LOCKED. BULL IN PLACE AND DRAINING URINE. PT DENIES ANY NEEDS AT THIS TIME. NO S/S OF DISTRESS NOTED. WILL CTM.
--- NOTE | 2019-04-19 09:58 | NUR ---
PT TRANSFERED TO DIALYSIS. WILL CTM.
--- NOTE | 2019-04-19 12:16 | NUR ---
OT NOTE: PERFORMED BED MOB WITH MOD ASSIST. SOB WITH SUPINE TO SIT AND STATIC SITTING. TRANSFERRED FROM BED OT CHAIR WITH WALKER AND CGA. PRACTICED SIT TO STAND EXS TO IMPROVE TRICEP STRENGTH X 5 REPS. TOLERATED STANDING APPROX 15-30 SECS EACH TIME. PT EXTREMELY FATIGUED FOLLOWING EXS. CHAPIN DE LUNA, OTR/L
[2019-04-19 12:20] VITALS: BP 117/48
--- NOTE | 2019-04-19 12:21 | MORECARE ---
CASE MANAGEMENT DISCHARGE SUMMARY PATIENT: CARO JASSO UNIT: [id number] ADM DATE: 03/24/19 AGE: 63 : 55 SEX: F ROOM/BED: D.2106 AUTHOR: KENNEY,DOC PHYSICIAN: REFERRING PHYSICIAN: ELTON HODGE MD DATE OF SERVICE: 04/19/19 Discharge Plan Patient Name: CARO JASSO Facility[facility]:[place] : 1955 Planned Disposition: [facility] Facility Anticipated Discharge Date: 04/18/19 Discharge Date: Expected LOS: 25 Initial Reviewer: [id number] Initial Review Date: 03/29/2019 Generated: 04/19/19 1:21 pm Comments DCP- Discharge Planning Updated by [id number]: Phil Caruso on 04/18/19 1:[address] Patient Name: CARO JASSO Encounter No: [id number] : 1955 Primary Insurance: [facility] MEDICARE SOLUTIONS Anticipated DC Date: 04-18-2019 Planned Disposition: [facility] Facility External Planned Provider: [facility], MEDICARE REHAB BED DCP follow-up note: CM RECEIVED LIDIA RESPONSE, PT IS NON PASSR AND MAY ENTER SENIOR LIVING FACILITY. CM NOTIFIED KHAI OF [facility], . CM FAXED LIDIA RESPONSE LETTER WITH [facility] AT [phone]. CM SPOKE TO PT IN ROOM WHO IS IN AGREEEMENT WITH PLAN TO DISCHARGE TO REHAB AT [facility]. IMPORTANT MESSAGE FROM MEDICARE PROVIDED AND EXPLAINED. PT HAS BEEN DECLINED BY INSURANCE FOR INPATIENT REHAB; PT FILED APPEAL 04-16-19. PT HAS BEEN DECLINED BY [facility] AND [facility] FACILITY. CM WAITING ADMISSION [facility]ATION [facility] CHAIR AT [facility] HAS BEEN SECURED FOR OUTPATIENT DIALYSIS. Phil Caruso CASE ED DCP- Discharge Planning Updated by [id number]: Phil Caruso on 04/18/19 7:[address] Patient Name: CARO JASSO Encounter No: [id number] : 1955 Primary Insurance: [facility] MEDICARE SOLUTIONS Anticipated DC Date: 04-18-2019 Planned Disposition: [facility] Facility External Planned Provider: [facility], MEDICARE REHAB BED DCP follow-up note: CM RECEIVED TELEPHONE MESSAGE FROM DOUGLAS OF [facility] MEDICARE SOLUTIONS APPEALS, ; SHE HAS RECEIVED PT'S REQUEST FOR FAST APPEAL AND REQUESTED CLINICAL UPDATES FOR PAST THREE DAYS. CM FAXED REQUESTED INFORMATION TO [facility] APPEAL AT [phone]. CM ALSO FAXED REFERRAL TO [facility] INPATIENT RE[facility], , REQUESTED INPATIENT REHAB PRESCREENING FROM [facility] AND NOTIFIED OF APPEAL PROCESS BEING ACTIVE. PT HAS BEEN DECLINED BY INSURANCE FOR INPATIENT REHAB; PT FILED APPEAL 04-16-19. PT HAS BEEN DECLINED BY [facility] AND [facility]IOR [facility]IVING [facility]. CM WAITING LIDIA DETERMINATION TO ENTER SENIOR LIVING FACILITY. CM WAITING ADMISSION DETERMINATION FROM [facility]. CHAIR AT [facility] HAS BEEN SECURED FOR OUTPATIENT DIALYSIS. Phil Caruso CASE MANAGEMENT DCP- Discharge Planning Updated by [id number]: Phil Caruso on 04/17/19 4:[address] Patient Name: CARO JASSO Encounter No: [id number] : 1955 Primary Insurance: [facility] MEDICARE SOLUTIONS Anticipated DC Date: 04-18-2019 Planned Disposition: [facility] Facility External Planned Provider:[facility], MEDICARE REHAB BED DCP follow-up note: KHAI OF [facility] MET WITH PT IN DIALYSIS TO ASSESS FOR REHAB ADMISSION. KHAI INFORMED CM THAT PT NEEDS LIDIA DUE TO DIAGNOSIS OF MAJOR DEPRESSION. CM COMPLETED LIDIA SCREENING WITH PT'S ASSISTANCE, OBTAINED PHYSICIAN SIGNATURE. CM FAXED LIDIA SCREENING TO [facility] AT [phone]. PT HAS BEEN DECLINED BY INSURANCE FOR INPATIENT REHAB; PT FILED APPEAL 04-16-19. PT HAS BEEN DECLINED BY [facility] L[facility]. CM WAITING L[facility]IA DETERMINATION TO ENTER SENIOR LIVING FACILITY. CM WAITING ADMISSION DETERMINATION FROM [facility]. CHAIR AT [facility] HAS BEEN SECURED FOR OUTPATIENT DIALYSIS. Phil Caruso CASE MANAGEMENT DCP- Discharge Planning Updated by [id number]: Phil Caruso on 04/17/19 8:[address] Patient Name: CARO JASSO Encounter No: [id number] : 1955 Primary Insurance: [facility] MEDICARE SOLUTIONS Anticipated DC Date: 04-11-2019 Planned Disposition: [facility] Facility External Planned Provider: [facility], MEDICARE REHAB BED DCP follow-up note: ON 04-16-19, CM ASSISTED PT WITH TYPING HER APPEAL LETTER TO HER INSURANCE COMPANY TO APPEAL HER INPATIENT REHAB DENIAL. CM FAXED THE APPEAL LETTER TO PT'S INSURANCE COMPANY, PROVIDED FAX CONFIRMATION AND LETTER BACK TO PT FOR HER RECORDS. ON 04-17-19, CM FAXED REFERRAL UPDATE TO [facility] AT [phone]. CM REVIEWED CHART, NOTE FROM EDSON OF [facility], INDICATES PT HAS DIALYSIS CHAIR IN [facility], MWF, 1630 HOURS WITH NO OTHER TIME AVAILABLE. PT HAS BEEN DECLINED BY INSURANCE FOR INPATIENT REHAB; PT FILED APPEAL 04-16-19. PT HAS BEEN DECLINED BY [facility] AND [facility]. CM WAITING ADMISSION DETERMINATION FROM [facility]. CHAIR AT [facility] HAS BEEN SECURED FOR OUTPATIENT DIALYSIS. Phil Caruso, CASE MANAGEMENT DCP- Discharge Planning Updated by [id number]: Phil Caruso on 04/16/19 1:[address] Patient Name: CARO JASSO Encounter No: [id number] : 1955 Primary Insurance: [facility] MEDICARE SOLUTIONS Anticipated DC Date: 04-11-2019 Planned Disposition: [facility] Facility External Planned Provider: [facility], MEDICARE REHAB BED DCP follow-up note: CM CALLED [facility], , SPOKE TO TUCKER WHO WILL INFORMED CM THAT THEY ARE OUT OF INSURANCE NETWORK BUT THAT PT HAS THE SAME OUT OF NETWORK BENEFITS IN NETWORK; PT HAS 20 DAYS FOR REHAB. THEY WILL SCREEN FOR ADMISSION TODAY. CM FAXED REFERRAL UPDATE TO [facility] AT [phone]. CM SPOKE TO EDSON OF [facility], SHE HAS PT A CHAIR IN [facility], MWF, 1630 HOURS. EDSON WILL CHECK WITH DIALYSIS UNIT AND REQUEST EARLIER CHAIR TIME. PT HAS BEEN DECLINED BY INSURANCE FOR INPATIENT REHAB. PT HAS BEEN DECLINED BY [facility] AND [facility]. CM WAITING ADMISSION DETERMINATION FROM [facility]. CHAIR AT [facility] HAS BEEN SECURED FOR OUTPATIENT DIALYSIS. SANJANA Hernández DCP- Discharge Planning Updated by [id number]: Phil Caruso on 04/13/19 8:[address] Patient Name: CARO JASSO Encounter No: [id number] : 1955 Primary Insurance: [facility] MEDICARE SOLUTIONS Anticipated DC Date: 04-11-2019 Planned Disposition: [facility] Facility External Planned Provider: [facility], MEDICARE REHAB BED DCP follow-up note: CM RECEIVED MESSAGE FROM MADONNA OF [facility] INPATIENT REHAB WHO INFORMED CM THAT IT INSURANCE DECLINED [facility] INPATIENT REHAB, IT WOULD BE A WASTE OF TIME TO RESUBMIT BUT SHE WOULD BE HAPPY TO DO IT IF PT INSISTED. CM SPOKE TO PT IN ROOM WHO ASKED CM TO SPEAK TO HER PARTNER BOUCHRA AT [phone], TO ASSIST WITH DISCHARGE PLANNING. CM CALLED BOUCHRA AND PROVIDED ABOVE INFORMATION. BOUCHRA WANTS TO PROCEED WITH SENIOR LIVING REFERRAL TO [facility]. IF DECLINED, SEEK SNF IN [place]. CM CALLED [facility], , SPOKE TO TUCKER WHO WILL SCREEN FOR ADMISSION. CM FAXED REFERRAL TO [facility] AT [phone]. PT HAS BEEN DECLINED BY INSURANCE FOR INPATIENT REHAB. PT HAS BEEN DECLINED BY [facility] AND [facility]. CM WAITING ADMISSION DETERMINATION FROM [facility]. SANJANA Hernández DCP- Discharge Planning Updated by [id number]: Phil Caruso on 04/12/19 3:[address] Patient Name: CARO JASSO Encounter No: [id number] : 1955 Primary Insurance: [facility] MEDICARE SOLUTIONS Anticipated DC Date: 04-11-2019 Planned Disposition: [facility] Facility External Planned Provider: [facility] DCP follow-up note: CM RECEIVED CALLF ROM [facility], THEY CANNOT MEET PT'S NEEDS. CM NOTIFIED PT OF DENIAL. PT STATES SHE HAS CALLED HER INSURANCE COMPANY AND SHE WAS TOLD THAT INPATIENT REHAB DID NOT INCLUDE ALL HER MEDICAL PROBLEMS FOR THE INSURANCE TO REVIEW FOR INPATIENT REHAB. PT WANTS CM TO RESUBMIT TO [facility] FOR INPATIENT REHAB. CM CALLED [facility] INPATIENT REH[facility], , LEFT MESSAGE FOR MADONNA OF ADMISSIONS ASKING FOR CONSIDERATION AND RESUBMISSION FOR INSURANCE AUTHORIZATION. CM FAXED REFERRAL TO [facility] INPATIENT REHAB AT [phone]. CM NOTIFIED PT AND ASKED WHAT HER SECOND CHOICE WILL BE SINCE DECLINED BY [facility] AND [facility]. CM RECEIVED PATIENT CHOICE LETTER FOR 1- ANY [facility] AND 2- ANY [place] [facility] IF PT IS DECLINED BY [facility] INPATIENT REHAB. PT STATES THAT [facility] ALSO HAS INPATIENT REHAB. CM WAITING ADMISSION DETERMINATION FROM [facility] INPATIENT REHAB. Phil Caruso, CASE MANAGEMENT DCP- Discharge Planning Updated by [id number]: Phil Caruso on 04/12/19 8:[address] Patient Name: CARO JASSO Encounter No: [id number] : 1955 Primary Insurance: [facility] MEDICARE SOLUTIONS Anticipated DC Date: 04-11-2019 Planned Disposition: [facility] Facility External Planned Provider: [facility], MEDICARE REHAB BED DCP follow-up note: CM RECEIVED CALL FROM ANTWAN OF [facility], , THEY RECEIVED REFERRAL, WILL SCREEN FOR ADMISSION. IF PT NEEDS MINIMAL ASSISTANCE TO TRANSFER TO [facility], LONG TERM STAFF WILL BE ABLE TO PROVIDE THIS ASSISTANCE. PT WILL HAVE TO BE ACCEPTED AT [facility] FOR THEM TO ACCEPT PT THEY WILL NOT TRANSPORT ANYWHERE OUTSIDE [place] FOR DIALYSIS. ANTWAN WILL CALL WITH ADMISSION DETERMINATION AFTER SCREENING IS COMPLETED. CM WAITING ADMISSION DETERMINATION FOR REHAB FROM [facility]. Phil Caruso, CASE MANAGEMENT DCP- Discharge Planning Updated by [id number]: Phil Caruso on 04/11/19 4:[address] Patient Name: CARO JASSO Encounter No: [id number] : 1955 Primary Insurance: [facility] MEDICARE SOLUTIONS Anticipated DC Date: 04-11-2019 Planned Disposition: [facility] Facility External Planned Provider: [facility], MEDICARE REHAB BED DCP follow-up note: CM RECEIVED CALL FROM [facility], THEY WILL NOT ACCEPT PT. CM SPOKE TO PT WHO ASKED CM TO FAX REFERRAL TO HER SECOND CHOICE, [facility]. CHOICE PREVIOUSLY SIGNED. CM SPOKE TO EDSON OF [facility] WHO INFORMED CM THAT PT WILL HAVE TO BE ABLE TO TRANSFER HERSELF FROM CHAIR TO BED OR HAVE SOMEONE THERE THAT WILL ASSIST WITH EVERY TRANSFER TO EVEN BE CONSIDERED AT THE [place] [facility]. CM SPOKE TO PT WHO DECLINED PLACEMENT ANYWHERE ELSE OTHER THAN [place]. PT INSISTED THAT SHE CAN TRANSFER HERSELF TO A CHAIR AND WILL DO IT WITH THERAPY. CM LEFT NOTE ON DRY ERASE BOARD OF NEED FOR DOCUMENATION THAT PT IS ABLE TO TRANSFER HERSELF. CM CALLED [facility] X[facility], , THERE WAS NO ANSWER. CM FAXED REFERRAL TO [facility] AT [phone]. CM SPOKE TO PT AFTER HER PD CATHETER WAS INSERTED. PT STILL WILLING FOR PLACEMENT AT [facility], STILL INSISTS THAT SHE CAN TRANSFER HERSELF IF THERAPY WILL WORK WITH HER STATING THEY HAVE ONLY SEEN HER ABOUT "3 TIMES". CM ASSURED PT THAT THERAPY WILL CONTINUE TO WORK WITH HER. PT STATES SHE THINKS THAT SHE WILL JUST BE ABLE TO GO HOME WITH PERITONEAL DIALYSIS. CM EXPLAINED THAT PT WILL HAVE TO TALK TO THE DOCTOR AND THAT CM UNDERSTOOD THAT PT WILL HAVE TO HAVE HEMODIALYSIS AND THAT PD IS A PROCESS AND TAKES TRAINING AND ARRANGEMENTS. PT NOW THINKS SHE WILL CAN HAVE PD AND GO HOME. ANABELLA WAITING ADMISSION DETERMINATION FOR REHAB FROM [facility]. SANJANA Hernández DCP- Discharge Planning Updated by [id number]: Phil Caruso on 04/11/19 7:[address] Patient Name: CARO JASSO Encounter No: [id number] : 1955 Primary Insurance: [facility] MEDICARE SOLUTIONS Anticipated DC Date: 04-11-2019 Planned Disposition: [facility] External Planned Provider: [facility] MEDICARE REHAB BED DCP follow-up note: CM FAXED REFERRAL UPDATE TO [facility] AT [phone]. CM WAITING ADMISSION DETERMINATION FROM [facility] WELL INSURANCE DETERMINATION. EDSON HARVEY [facility] IS WORKING ON OUTPATIENT DIALYSIS UNIT. SANJANA Hernández DCP- Discharge Planning Updated by [id number]: Phil Caruso on 04/10/19 3:[address] Patient Name: CARO JASSO Encounter No: [id number] : 1955 Primary Insurance: [facility] MEDICARE SOLUTIONS Anticipated DC Date: 04-11-2019 Planned Disposition: [facility] External Planned Provider: [facility] MED[facility]ARE REHAB BED DCP follow-up note: CM MET WITH PT IN ROOM TO DISCUSS DISCHARGE PLANNING AND NEEDS. PT HAS REVIEWED LIST WITH FAMILY AND WOULD LIKE REFERRAL TO [facility]. CHOICE FORM SIGNED. CM CALLED [facility], , SPOKE TO BIGG AND PROVIDED REFERRAL INFORMATION. CM FAXED REFERRAL TO [facility] AT [phone]. CM WAITING ADMISSION DETERMINATION FROM [facility] WELL INSURANCE DETERMINATION. EDSON HARVEY [facility] IS WORKING ON OUTPATIENT DIALYSIS UNIT. Phil Caruso, CASE MANAGEMENT Appended by Phil Caruso on 04/10/2019 16:10 OIL DISPATCHER: CM RECEIVED CALL FROM [facility], , SPOKE TO BIGG WHO ASKED WHY PT IS ON ABILIFY. CM SPOKE TO PT IN ROOM, PT DENIES MENTAL ILLNESS OR PLACEMENT IN PSYCHIATRIC CARE IN THE PAST. PT THINKS IT MAY BE FOR DEMENTIAL. CM NOTIFIED BIGG. CM WAITING ADMISSION DETERMINATION FROM [facility] INSURANCE DETERMINATION. EDSON HARVEY [facility] IS WORKING ON OUTPATIENT DIALYSIS UNIT. Phil Caruso, CASE MANAGEMENT DCP- Discharge Planning Updated by [id number]: Phil Caruso on 04/09/19 11:[address] Patient Name: CARO JASSO Encounter No: [id number] : 1955 Primary Insurance: [facility] MEDICARE SOLUTIONS Anticipated DC Date: 04-11-2019 Planned Disposition: [facility] External Planned Provider: TO BE DETERMINED DCP follow-up note: CM RECEIVED INPATIENT REHAB DENIAL FROM PT'S INSURANCE. CM MET WITH PT IN ROOM, PROVIDED COPY OF DENIAL AND READ REASON FOR DENIAL WITH SUGGESTION THAT REHAB COULD BE PROVIDED IN SENIOR LIVING FACILITY. CM PROVIDED PT WITH LISTING OF SENIOR LIVING FACLITIES WITHIN [address] MILES OF [place] AT PT'S REQUEST FROM MEDICARE WEBSITE. CM PROVIDED CHOICE FORM. PT STATES SHE WANTS TO THINK ABOUT CHOICES AND WILL LET CM KNOW SOON POSSIBLE. COPY OF INPATIENT DENIAL PLACED IN CHART WITH PT'S SIGNATURE, DATE AND TIME OF PT'S RECEIPT. CM WENT BACK IN ROOM AFTER LUNCH, PT IS OUT OF ROOM IN DIALYSIS. CM TO FOLLOW UP WITH PT LATER REGARDING SENIOR LIVING REHAB CHOICES. CM WAITING ON PT'S DECISION FOR SENIOR LIVING WELL CHOICES FOR SKILLED REHAB PLACEMENT. SANJANA Hernández DCP- Discharge Planning Updated by [id number]: Phil Caruso on 04/05/19 2:[address] Patient Name: CARO JASSO Encounter No: [id number] : 1955 Primary Insurance: [facility] MEDICARE SOLUTIONS Anticipated DC Date: Planned Disposition: Inpatient Rehab External Planned Provider:[facility] DCP follow-up note: CM NOTIFIED PT'S DAUGHTER IN ROOM OF REFERRAL BEING FAXED TO [facility]. CM RECEIVED PATIENT CHOICE LETTER FOR 1- [facility] AND 2- [facility] IF [facility]. CM WAITING ADMISSION DETERMINATION FROM [facility]. SANJANA Hernández DCP- Discharge Planning Updated by [id number]: Phil Caruso on 04/05/19 12:[address] Patient Name: CARO JASSO Encounter No: [id number] : 1955 Primary Insurance: [facility] MEDICARE SOLUTIONS Anticipated DC Date: Planned Disposition: Inpatient Rehab External Planned Provider: [facility] DCP follow-up note: CM CALLED AND SPOKE TO VERNON PEACOCK, OF [facility] INPATIENT REHAB, ; THEY WILL SCREEN FOR INPATIENT REHAB ADMISSION. THEY HAVE THE AVAILABILITY OF HEMODIALYSIS IN THEIR REHAB, BUT WILL NOT ACCEPT PERITONEAL DIALYSIS. CM [facility], . CM WAITING ADMISSION DETERMINATION FROM [facility]. SANJANA Hernández DCP- Discharge Planning Updated by [id number]: Phil Caruso on 04/04/19 5:[address] Patient Name: CARO JASSO Encounter No: [id number] : 1955 Primary Insurance: [facility] MEDICARE SOLUTIONS Anticipated DC Date: Planned Disposition: Inpatient Rehab External Planned Provider: [facility] DCP follow-up note: CM RECEIVED ORDER FOR INPATIENT REHAB PRESCREENING, MET WITH PT'S DAUGHTER, HARRIETT YOUNG, IN ROOM. HARRIETT IS PT'S EMERGENCY CONTACT LISTED ON FACE SHEET AND REPORTS TO BE PT'S CAREGIVER AT HOME. PT IN DIALYSIS. CM HAD ALSO RECEIVED HANDWRITTEN NOTE INDICTATING PT WANTS REHAB IN [place]. HARRIETT REPORTS PT WANTS REFERRAL TO [facility] FOR INPATIENT REHAB. CM DISCUSSED HAVING A ALTERNATE PLAN IF DECLINED FOR INPATIENT REHAB. THEY HAVE DISCUSSED SENIOR LIVING; CM PROVIDED LIST OF AVAILABLE SENIOR LIVING FACILITIES WITHIN [address]ES OF [place]. HARRIETT WILL DISCUSS THIS WITH PT AND THEY WILL LET CM KNOW OF ALTERNATE PLAN FOR REHAB. CM TO SEND REFERRAL TO [facility] FOR INPATIENT REHAB SOON POSSIBLE. PT CONSIDERING SENIOR LIVING FACILITY ALTERNATE REHAB PLAN IF DECLINED BY [facility]. Phil Caruso, CASE MANAGEMENT DCP- Discharge Planning Updated by [id number]: Tucker Hall on 04/02/19 12:[address] I HAVE SPOKEN TO EDSON EWING, CLINICAL LIASON WITH [facility] ABOUT THIS PATIENT POTENTIALLY BEING A NEW START. THIS WAY SHE CAN MAKE CONTACT TO PRESTART THE PROCESS. PTS FIRST DIALYSIS WAS YESTERDAY. DCP- Discharge Planning Updated by [id number]: Olivia Ramachandran on 03/29/19 12:[address] Patient Name: CARO JASSO Admission Status: Elective Accout number: [id number] Admission Date: 03-24-2019 : 1955 Admission Diagnosis: Attending: ELTON HODGE Current LOS: 5 Anticipated DC Date: Planned Disposition: Primary Insurance: [facility] MEDICARE SOLUTIONS Discharge Planning Comments: CM SPOKE WITH DAUGHTER ABOUT DC PLANNING/NEEDS. SHE STATES IS WAITING TO TALK TO THE DOCTOR BUT HAS RECIEVED BAD NEWS ON MOTHER'S PROGNOSIS. I HAVE MENTIONED REHAB AND HOSPICE. DAUGHTER WANTS TO THINK ABOUT IT. CM WILL FOLLOW AND ASSIST. Machine Plaster Mixer: Olivia Ramachandran DCP- Discharge Planning Updated by [id number]: Tucker Hall on 03/27/19 3:[address] MOSS WANTED THE PATIENT TRANSFERRED TO [facility] TO HER CONCIERGE THIS AM. @ 0813, PLACED A CALL TO THE ASSOCIATE PROFESSOR OF MEDICINE, ADARSH, TO OBTAIN ADMIN APPROVAL TO PROCEED WITH TRANSFER. YOSHI STATED THAT SHE WOULD HAVE TO CALL THE ADMIN EXTRACT PULLER, BUT WAS CURRENTLY INDISPOSED AND UNABLE. IF I DON'T HEAR BACK FROM HERE, I WILL CALL BACK LATER. @0817, I SPOKE WITH THE PATIENT WHO IS WILLING FOR THE TRANSFER. @0821, I SPOKE WITH ALEN SAWYER APN FOR DR YATES. SHE HAS REQUESTED THAT I HAVE DR MOSS CALL AND DISCUSS THE TRANSFER WITH DR YATES. @0836, I SPOKE WITH DR MOSS AND MADE THIS REQUEST. SHE ASKED ME TO TEXT HER DR YATES'S NUMBER AND SHE WOULD CALL HER. SOON WE HUNG UP, I TEXT HER THE NUMBER. @1334, I PLACED A CALL TO ALEN TO SEE IF SHE KNEW WHEN DR YATES WOULD BE HERE AT THE HOSPITAL SHE STATED HE WAS HERE NOW. SHE SAID THAT DR MOSS DID NOT CALL AND TALK TO DR YATES ABOUT THE TRANSFER. SHE STATED THAT SHE WOULD TALK TO HIM AND LET ME KNOW, BUT SHE DID NOT FEEL THAT THE PATIENT WOULD TRANSFER. @7536, DR YATES AND VERÓNICA LOWRY ON THE FLOOR. THEY HAVE TALKED WITH THE PATIENT. THE PATIENT WILL REMAIN HERE FOR TREATMENT AND NOT TRANSFER. DCPIA - Discharge Planning Initial Assessment Updated by [id number]: Phil Caruso on 04/19/19 12:17 pm * Is the patient Alert and Oriented? No * Preadmission Environment Home with Family * Other Equipment WALKER, WC, TRANSFER CHAIR, O2 NEBS * List name and contact numbers for known caregivers / representatives who currently or will assist patient after discharge: HARRIETT, DAUGHTER, BOUCHRA BUSH, LIFE PARTNER, * Community resources currently utilized Home Health * Please name any agencies selected above. [facility] * Has this patient been hospitalized within the prior 30 days at any hospital? Yes Coverage Notice Reviewer: [id number] Liyah Caruso Notice Issued Date-Time: 04/04/2019 18:45 Notice Type: Patient Choice Letter Notice Delivered To: Patient Relationship to Patient: Supervisor Floor Assembly Name: Delivery Method: HAND - Hand Delivered Kristyn Days: Prior Verbal Notification: Recipient Understood Notice: Yes Recipient Signature: Yes Med Rec Note Co-signed by Attending: Coverage Notice Comment: 1- [facility] 2- [facility] Reviewer: [id number] Liyah Caruso Notice Issued Date-Time: 04/10/2019 9:56 Notice Type: Patient Choice Letter Notice Delivered To: Patient Relationship to Patient: Supervisor Floor Assembly Name: Delivery Method: HAND - Hand Delivered Kristyn Days: Prior Verbal Notification: Recipient Understood Notice: Yes Recipient Signature: Yes Med Rec Note Co-signed by Attending: Coverage Notice Comment: 1 - [facility], 2 - [facility] Reviewer: [id number] Liyah aCruso Notice Issued Date-Time: 04/12/2019 16:10 Notice Type: Patient Choice Letter Notice Delivered To: Patient Relationship to Patient: Supervisor Floor Assembly Name: Delivery Method: HAND - Hand Delivered Kristyn Days: Prior Verbal Notification: Recipient Understood Notice: Yes Recipient Signature: Yes Med Rec Note Co-signed by Attending: Coverage Notice Comment: SNF IN [place] OR SNF IN [place] Reviewer: [id number] Liyah Caruso Notice Issued Date-Time: 04/18/2019 14:20 Notice Type: IM Discharge Notice Notice Delivered To: Patient Relationship to Patient: Supervisor Floor Assembly Name: Delivery Method: HAND - Hand Delivered Kristyn Days: Prior Verbal Notification: Recipient Understood Notice: Yes Recipient Signature: Yes Med Rec Note Co-signed by Attending: Coverage Notice Comment: Last DP export: 04/18/19 1:32 Patient Name: CARO JASSO Page [id number] at 1221 All edits/amendments must be made on the electronic document DICTATION DATE: 04/19/19 1221 MUNICIPAL ENGINEER: [email or web address] 04/19/19 1221 RPT#: [id number] DC DATE: STATUS: ADM IN [facility] [address] [place] [address] END OF REPORT
[2019-04-19] MEDS ORDERED: CHRONULAC30 ML PO (12:36)
[2019-04-19] MEDS ORDERED: ELAVIL25 MG PO (12:36)
[2019-04-19] MEDS ORDERED: MIRALAX17 GM PO (12:37)
[2019-04-19] MEDS ORDERED: MEGACE40 MG PO (12:37)
[2019-04-19] MEDS ORDERED: FOLIC ACID1 MG PO (12:37)
[2019-04-19 13:02] LABS: HEMATOCRIT 24.1 % (36.0-48.0); LYMPHOCYTES 13.3 % (15-50); MCH 28.2 pg (26.0-34.0); MCHC 33.2 g/dL (31.0-37.0); MCV 84.9 fL (80.0-100.0); MEAN PLATELET VOLUME 8.6 fL (7.4-10.4); NEUTROPHILS 75.2 % (40-80); PLATELET COUNT 272 10x3/uL (130-400); RBC 2.84 10x6/uL (4.00-5.40); RDW 20.5 % (11.5-14.5); WBC 6.2 10x3/uL (4.8-10.8)
--- NOTE | 2019-04-19 14:35 | MORECARE ---
CASE MANAGEMENT DISCHARGE SUMMARY PATIENT: CARO JASSO UNIT: [id number] ADM DATE: 03/24/19 AGE: 63 : 55 SEX: F ROOM/BED: D.2106 AUTHOR: KENNEY,DOC PHYSICIAN: REFERRING PHYSICIAN: ELTON HODGE MD DATE OF SERVICE: 04/19/19 Discharge Plan Patient Name: CARO JASSO Facility: [facility]:[place] : 1955 Planned Disposition: [facility] Facility Anticipated Discharge Date: 04/19/19 Discharge Date: Expected LOS: 26 Initial Reviewer: [id number] Initial Review Date: 03/29/2019 Generated: 04/19/19 3:35 pm Comments DCP- Discharge Planning Updated by [id number]: Phil Caruso on 04/18/19 1:[address] Patient Name: CARO JASSO Encounter No: [id number] : 1955 Primary Insurance: [facility] MEDICARE SOLUTIONS Anticipated DC Date: 04-18-2019 Planned Disposition: [facility] Facility External Planned Provider: [facility], MEDICARE REHAB BED DCP follow-up note: CM RECEIVED [facility] RESPONSE, PT IS NON PASSR AND MAY ENTER [facility]. CM NOTIFIED KHAI OF [facility], . CM FAXED [facility] RESPONSE LETTER WITH [facility] AT [phone]. CM SPOKE TO PT IN ROOM WHO IS IN AGREEEMENT WITH PLAN TO DISCHARGE TO REHAB AT [facility]. IMPORTANT MESSAGE FROM MEDICARE PROVIDED AND EXPLAINED. PT HAS BEEN DECLINED BY INSURANCE FOR INPATIENT REHAB; PT FILED APPEAL 04-16-19. PT HAS BEEN DECLINED BY [facility] AND [facility]. CM WAITING [facility]. [facility] AT [facility] HAS BEEN SECURED FOR OUTPATIENT DIALYSIS. Phil Caruso CASE ED DCP- Discharge Planning Updated by [id number]: Phil Caruso on 04/18/19 7:[address] Patient Name: CARO JASSO Encounter No: [id number] : 1955 Primary Insurance: [facility] MEDIC[facility] SOLUTIONS Anticipated DC Date: 04-18-2019 Planned Disposition: [facility] Facility External Planned Provider: [facility], MEDICARE REHAB BED DCP follow-up note: CM RECEIVED TELEPHONE MESSAGE FROM DOUGLAS OF [facility] MEDICARE SOLUTIONS APPEALS, ; SHE HAS RECEIVED PT'S REQUEST FOR FAST APPEAL AND REQUESTED CLINICAL UPDATES FOR PAST THREE DAYS. CM FAXED REQUESTED INFORMATION TO [facility] APPEAL AT [phone]. CM ALSO FAXED REFERRAL TO [facility] INPATIENT REH[facility], , REQUESTED INPATIENT REHAB PRESCREENING FROM [facility] AND NOTIFIED OF APPEAL PROCESS BEING ACTIVE. PT HAS BEEN DECLINED BY INSURANCE FOR INPATIENT REHAB; PT FILED APPEAL 04-16-19. PT HAS BEEN DECLINED BY [facility] AND [facility]. CM WAITING [facility]IA DETERMINATION TO ENTER [facility]. CM WAITING ADMISSION DETERMINATION FROM [facility]. CHAIR AT [facility] HAS BEEN SECURED FOR OUTPATIENT DIALYSIS. Phil Caruso CASE MANAGEMENT DCP- Discharge Planning Updated by [id number]: Phil Caruso on 04/17/19 4:[address] Patient Name: CARO JASSO Encounter No: [id number] : 1955 Primary Insurance: [facility] MEDIC[facility] SOLUTIONS Anticipated DC Date: 04-18-2019 Planned Disposition: [facility] Facility External Planned Provider:[facility], MEDICARE REHAB BED DCP follow-up note: KHAI OF [facility] MET WITH PT IN DIALYSIS TO ASSESS FOR REHAB ADMISSION. KHAI INFORMED CM THAT PT NEEDS LIDIA DUE TO DIAGNOSIS OF MAJOR DEPRESSION. CM COMPLETED LIDIA SCREENING WITH PT'S ASSISTANCE, OBTAINED PHYSICIAN SIGNATURE. CM FAXED LIDIA SCREENING TO [facility] AT [phone]. PT HAS BEEN DECLINED BY INSURANCE FOR INPATIENT REHAB; PT FILED APPEAL 04-16-19. PT HAS BEEN DECLINED BY [facility]. CM WAITING L[facility]IA DETERMINATION TO ENTER [facility]. CM WAITING ADMISSION DETERMINATION FROM [facility]. CH[facility]IR AT [facility] HAS BEEN SECURED FOR OUTPATIENT DIALYSIS. Phil Caruso CASE MANAGEMENT DCP- Discharge Planning Updated by [id number]: Phil Caruso on 04/17/19 8:[address] Patient Name: CARO JASSO Encounter No: [id number] : 1955 Primary Insurance: [facility] MEDIC[facility] SOLUTIONS Anticipated DC Date: 04-11-2019 Planned Disposition: [facility] Facility External Planned Provider: [facility], MEDICARE REHAB BED DCP follow-up note: ON 04-16-19, CM ASSISTED PT WITH TYPING HER APPEAL LETTER TO HER INSURANCE COMPANY TO APPEAL HER INPATIENT REHAB DENIAL. CM FAXED THE APPEAL LETTER TO PT'S INSURANCE COMPANY, PROVIDED FAX CONFIRMATION AND LETTER BACK TO PT FOR HER RECORDS. ON 04-17-19, CM FAXED REFERRAL UPDATE TO [facility] AT [phone]. CM REVIEWED CHART, NOTE FROM EDSON OF [facility], INDICATES PT HAS DIALYSIS CHAIR IN [facility], MWF, 1630 HOURS WITH NO OTHER TIME AVAILABLE. PT HAS BEEN DECLINED BY INSURANCE FOR INPATIENT REHAB; PT FILED APPEAL 04-16-19. PT HAS BEEN DECLINED BY [facility] AND [facility]. CM WAITING ADMISSION DETERMINATION FROM [facility]. CH[facility]IR AT [facility] HAS BEEN SECURED FOR OUTPATIENT DIALYSIS. Phil Caruso, CASE MANAGEMENT DCP- Discharge Planning Updated by [id number]: Phil Caruso on 04/16/19 1:[address] Patient Name: CARO JASSO Encounter No: [id number] : 1955 Primary Insurance: [facility] MEDIC[facility] SOLUTIONS Anticipated DC Date: 04-11-2019 Planned Disposition: [facility] Facility External Planned Provider: [facility], MEDICARE REHAB BED DCP follow-up note: CM CALLED [facility], , SPOKE TO TUCKER WHO WILL INFORMED CM THAT THEY ARE OUT OF INSURANCE NETWORK BUT THAT PT HAS THE SAME OUT OF NETWORK BENEFITS IN NETWORK; PT HAS 20 DAYS FOR REHAB. THEY WILL SCREEN FOR ADMISSION TODAY. CM FAXED REFERRAL UPDATE TO [facility] AT [phone]. CM SPOKE TO EDSON OF [facility], SHE HAS PT A CHAIR IN [facility], MWF, 1630 HOURS. EDSON WILL CHECK WITH DIALYSIS UNIT AND REQUEST EARLIER CHAIR TIME. PT HAS BEEN DECLINED BY INSURANCE FOR INPATIENT REHAB. PT HAS BEEN DECLINED BY [facility] AND [facility]. CM WAITING ADMISSION DETERMINATION FROM [facility]. CH[facility] AT [facility] HAS BEEN SECURED FOR OUTPATIENT DIALYSIS. SANJANA Hernández DCP- Discharge Planning Updated by [id number]: Phil Caruso on 04/13/19 8:[address] Patient Name: CARO JASSO Encounter No: [id number] : 1955 Primary Insurance: [facility] MEDIC[facility] SOLUTIONS Anticipated DC Date: 04-11-2019 Planned Disposition: [facility] Facility External Planned Provider: [facility], MEDICARE REHAB BED DCP follow-up note: CM RECEIVED MESSAGE FROM MADONNA OF [facility] INPATIENT REHAB WHO INFORMED CM THAT IT INSURANCE DECLINED [facility] INPATIENT REHAB, IT WOULD BE A WASTE OF TIME TO RESUBMIT BUT SHE WOULD BE HAPPY TO DO IT IF PT INSISTED. CM SPOKE TO PT IN ROOM WHO ASKED CM TO SPEAK TO HER PARTNER BOUCHRA AT [phone], TO ASSIST WITH DISCHARGE PLANNING. CM CALLED BOUCHRA AND PROVIDED ABOVE INFORMATION. BOUCHRA WANTS TO PROCEED WITH [facility] REFERRAL TO [facility]. IF DECLINED, SEEK SNF IN [place]. CM CALLED [facility], , SPOKE TO TUCKER WHO WILL SCREEN FOR ADMISSION. CM FAXED REFERRAL TO [facility] AT [phone]. PT HAS BEEN DECLINED BY INSURANCE FOR INPATIENT REHAB. PT HAS BEEN DECLINED BY [facility] AND [facility]. CM WAITING ADMISSION DETERMINATION FROM [facility]. SANJANA Hernández DCP- Discharge Planning Updated by [id number]: Phil Caruso on 04/12/19 3:[address] Patient Name: CARO JASSO Encounter No: [id number] : 1955 Primary Insurance: [facility] MEDIC[facility] SOLUTIONS Anticipated DC Date: 04-11-2019 Planned Disposition: [facility] Facility External Planned Provider: [facility] DCP follow-up note: CM RECEIVED CALLF [facility], THEY CANNOT MEET PT'S NEEDS. CM NOTIFIED PT OF DENIAL. PT STATES SHE HAS CALLED HER INSURANCE COMPANY AND SHE WAS TOLD THAT INPATIENT REHAB DID NOT INCLUDE ALL HER MEDICAL PROBLEMS FOR THE INSURANCE TO REVIEW FOR INPATIENT REHAB. PT WANTS CM TO RESUBMIT TO [facility] FOR INPATIENT REHAB. CM CALLED [facility] INPATIENT REH[facility], , LEFT MESSAGE FOR MADONNA OF ADMISSIONS ASKING FOR CONSIDERATION AND RESUBMISSION FOR INSURANCE AUTHORIZATION. CM FAXED REFERRAL TO [facility] INPATIENT REHAB AT [phone]. CM NOTIFIED PT AND ASKED WHAT HER SECOND CHOICE WILL BE SINCE DECLINED BY [facility] AND [facility]. CM RECEIVED PATIENT CHOICE LETTER FOR 1- ANY [facility] AND 2- ANY [place] [facility] IF PT IS DECLINED BY [facility] INPATIENT REHAB. PT STATES THAT [facility] ALSO HAS INPATIENT REHAB. CM WAITING ADMISSION DETERMINATION FROM [facility] INPATIENT REHAB. Phil Caruso, CASE MANAGEMENT DCP- Discharge Planning Updated by [id number]: Phil Caruso on 04/12/19 8:[address] Patient Name: CARO JASSO Encounter No: [id number] : 1955 Primary Insurance: [facility] MEDIC[facility] SOLUTIONS Anticipated DC Date: 04-11-2019 Planned Disposition: [facility] Facility External Planned Provider: [facility], MEDICARE REHAB BED DCP follow-up note: CM RECEIVED CALL FROM ANTWAN OF [facility], , THEY RECEIVED REFERRAL, WILL SCREEN FOR ADMISSION. IF PT NEEDS MINIMAL ASSISTANCE TO TRANSFER TO [facility], JAIL STAFF WILL BE ABLE TO PROVIDE THIS ASSISTANCE. PT WILL HAVE TO BE ACCEPTED AT [facility] FOR THEM TO ACCEPT PT THEY WILL NOT TRANSPORT ANYWHERE OUTSIDE [place] FOR DIALYSIS. ANTWAN WILL CALL WITH ADMISSION DETERMINATION AFTER SCREENING IS COMPLETED. CM WAITING ADMISSION DETERMINATION FOR REHAB FROM [facility]. Phil Caruso, CASE MANAGEMENT DCP- Discharge Planning Updated by [id number]: Phil Caruso on 04/11/19 4:[address] Patient Name: CARO JASSO Encounter No: [id number] : 1955 Primary Insurance: [facility] MEDIC[facility] SOLUTIONS Anticipated DC Date: 04-11-2019 Planned Disposition: [facility] Facility External Planned Provider: [facility], MEDICARE REHAB BED DCP follow-up note: CM RECEIVED CALL FROM [facility], THEY WILL NOT ACCEPT PT. CM SPOKE TO PT WHO ASKED CM TO FAX REFERRAL TO [facility] CHOICE PREVIOUSLY SIGNED. CM SPOKE TO EDSON OF [facility] WHO INFORMED CM THAT PT WILL HAVE TO BE ABLE TO TRANSFER HERSELF FROM CHAIR TO BED OR HAVE SOMEONE THERE THAT WILL ASSIST WITH EVERY TRANSFER TO EVEN BE CONSIDERED AT THE [facility]. CM SPOKE TO PT WHO DECLINED PLACEMENT ANYWHERE ELSE OTHER THAN [place]. PT INSISTED THAT SHE CAN TRANSFER HERSELF TO A CHAIR AND WILL DO IT WITH THERAPY. CM LEFT NOTE ON DRY ERASE BOARD OF NEED FOR DOCUMENATION THAT PT IS ABLE TO TRANSFER HERSELF. CM CALLED [facility], , THERE WAS NO ANSWER. CM FAXED REFERRAL TO [facility] AT [phone]. CM SPOKE TO PT AFTER HER PD CATHETER WAS INSERTED. PT STILL WILLING FOR PLACEMENT AT [facility], STILL INSISTS THAT SHE CAN TRANSFER HERSELF IF THERAPY WILL WORK WITH HER STATING THEY HAVE ONLY SEEN HER ABOUT "3 TIMES". CM ASSURED PT THAT THERAPY WILL CONTINUE TO WORK WITH HER. PT STATES SHE THINKS THAT SHE WILL JUST BE ABLE TO GO HOME WITH PERITONEAL DIALYSIS. CM EXPLAINED THAT PT WILL HAVE TO TALK TO THE DOCTOR AND THAT CM UNDERSTOOD THAT PT WILL HAVE TO HAVE HEMODIALYSIS AND THAT PD IS A PROCESS AND TAKES TRAINING AND ARRANGEMENTS. PT NOW THINKS SHE WILL CAN HAVE PD AND GO HOME. ANABELLA WAITING ADMISSION DETERMINATION FOR REHAB FROM [facility]. SANJANA Hernández DCP- Discharge Planning Updated by [id number]: Phil Caruso on 04/11/19 7:[address] Patient Name: CARO JASSO Encounter No: [id number] : 1955 Primary Insurance: [facility] MEDIC[facility] SOLUTIONS Anticipated DC Date: 04-11-2019 Planned Disposition: [facility] Facility External Planned Provider: [facility], MEDICARE REHAB BED DCP follow-up note: CM FAXED REFERRAL UPDATE TO [facility] AT [phone]. CM WAITING ADMISSION DETERMINATION FROM [facility] WELL INSURANCE DETERMINATION. EDSON HARVEY [facility] IS WORKING ON OUTPATIENT DIALYSIS UNIT. SANJANA Hernández DCP- Discharge Planning Updated by [id number]: Phil Caruso on 04/10/19 3:[address] Patient Name: CARO JASSO Encounter No: [id number] : 1955 Primary Insurance: [facility] MEDIC[facility] SOLUTIONS Anticipated DC Date: 04-11-2019 Planned Disposition: [facility] Facility External Planned Provider: [facility], MEDICARE REHAB BED DCP follow-up note: CM MET WITH PT IN ROOM TO DISCUSS DISCHARGE PLANNING AND NEEDS. PT HAS REVIEWED LIST WITH FAMILY AND WOULD LIKE REFERRAL TO [facility]. CHOICE FORM SIGNED. CM CALLED [facility], , SPOKE TO BIGG AND PROVIDED REFERRAL INFORMATION. CM FAXED REFERRAL TO [facility] AT [phone]. CM WAITING ADMISSION DETERMINATION FROM [facility] INSURANCE DETERMINATION. EDSON HARVEY [facility] IS WORKING ON OUTPATIENT DIALYSIS UNIT. Phil Caruso, CASE MANAGEMENT Appended by Phil Caruso on 04/10/2019 16:10 SAFETY OFFICER: CM RECEIVED CALL FROM [facility], , SPOKE TO BIGG WHO ASKED WHY PT IS ON ABILIFY. CM SPOKE TO PT IN ROOM, PT DENIES MENTAL ILLNESS OR PLACEMENT IN PSYCHIATRIC CARE IN THE PAST. PT THINKS IT MAY BE FOR DEMENTIAL. CM NOTIFIED BIGG. CM WAITING ADMISSION DETERMINATION FROM [facility] INSURANCE DETERMINATION. EDSON HARVEY [facility] IS WORKING ON OUTPATIENT DIALYSIS UNIT. Phil Caruso, CASE MANAGEMENT DCP- Discharge Planning Updated by [id number]: Phil Caruso on 04/09/19 11:[address] Patient Name: CARO JASSO Encounter No: [id number] : 1955 Primary Insurance: [facility] MEDICARE SOLUTIONS Anticipated DC Date: 04-11-2019 Planned Disposition: [facility] Facility External Planned Provider: TO BE DETERMINED DCP follow-up note: CM RECEIVED INPATIENT REHAB DENIAL FROM PT'S INSURANCE. CM MET WITH PT IN ROOM, PROVIDED COPY OF DENIAL AND READ REASON FOR DENIAL WITH SUGGESTION THAT REHAB COULD BE PROVIDED IN [facility]. CM PROVIDED PT WITH LISTING OF [facility] FACLITIES WITHIN [address] OF [place] AT PT'S REQUEST FROM MEDICARE WEBSITE. CM PROVIDED CHOICE FORM. PT STATES SHE WANTS TO THINK ABOUT CHOICES AND WILL LET CM KNOW SOON POSSIBLE. COPY OF INPATIENT DENIAL PLACED IN CHART WITH PT'S SIGNATURE, DATE AND TIME OF PT'S RECEIPT. CM WENT BACK IN ROOM AFTER LUNCH, PT IS OUT OF ROOM IN DIALYSIS. CM TO FOLLOW UP WITH PT LATER REGARDING [facility] RE[facility]AB CHOICES. CM WAITING ON PT'S DECISION FOR [facility] WELL CHOICES FOR SKILLED REHAB PLACEMENT. SANJANA Hernández DCP- Discharge Planning Updated by [id number]: Phil Caruso on 04/05/19 2:[address] Patient Name: CARO JASSO Encounter No: [id number] : 1955 Primary Insurance: [facility] MEDICARE SOLUTIONS Anticipated DC Date: Planned Disposition: Inpatient Rehab External Planned Provider:[facility] DCP follow-up note: CM NOTIFIED PT'S DAUGHTER IN ROOM OF REFERRAL BEING FAXED TO [facility]. CM RECEIVED PATIENT CHOICE LETTER FOR 1- [facility] AND 2- [facility]. CM WAITING ADMISSION DETERMINATION FROM [facility]. SANJANA Hernández DCP- Discharge Planning Updated by [id number]: Phil Caruso on 04/05/19 12:[address] Patient Name: CARO JASSO Encounter No: [id number] : 1955 Primary Insurance: [facility] MEDIC[facility] SOLUTIONS Anticipated DC Date: Planned Disposition: Inpatient Rehab External Planned Provider: [facility] DCP follow-up note: CM CALLED AND SPOKE TO VERNON PEACOCK, OF [facility] INPATIENT REH[facility], ; THEY WILL SCREEN FOR INPATIENT REHAB ADMISSION. THEY HAVE THE AVAILABILITY OF HEMODIALYSIS IN THEIR REHAB, BUT WILL NOT ACCEPT PERITONEAL DIALYSIS. [facility], . CM WAITING ADMISSION DETERMINATION FROM [facility]. SANJANA Hernández DCP- Discharge Planning Updated by [id number]: Phil Caruso on 04/04/19 5:[address] Patient Name: CARO JASSO Encounter No: [id number] : 1955 Primary Insurance: [facility] MEDICARE SOLUTIONS Anticipated DC Date: Planned Disposition: Inpatient Rehab External Planned Provider: [facility] DCP follow-up note: CM RECEIVED ORDER FOR INPATIENT REHAB PRESCREENING, MET WITH PT'S DAUGHTER, HARRIETT YOUNG, IN ROOM. HARRIETT IS PT'S EMERGENCY CONTACT LISTED ON FACE SHEET AND REPORTS TO BE PT'S CAREGIVER AT HOME. PT IN DIALYSIS. CM HAD ALSO RECEIVED HANDWRITTEN NOTE INDICTATING PT WANTS REHAB IN [place]. HARRIETT REPORTS PT WANTS REFERRAL TO [facility] FOR INPATIENT REH[facility]. CM DISCUSSED HAVING A ALTERNATE PLAN IF DECLINED FOR INPATIENT REHAB. THEY HAVE DISCUSSED [facility]; CM PROVIDED LIST OF AVAILABLE [facility] FACILITIES WITHIN [address] OF [place]. HARRIETT WILL DISCUSS THIS WITH PT AND THEY WILL LET CM KNOW OF ALTERNATE PLAN FOR REHAB. CM TO SEND REFERRAL TO [facility] FOR INPATIENT REHAB SOON POSSIBLE. PT CONSIDERING [facility] ALTERNATE REHAB PLAN IF DECLINED BY [facility]. Phil Caruso, CASE MANAGEMENT DCP- Discharge Planning Updated by [id number]: Tucker Hall on 04/02/19 12:[address] I HAVE SPOKEN TO EDSON EWING, CLINICAL LIASON WITH [facility] ABOUT THIS PATIENT POTENTIALLY BEING A NEW START. THIS WAY SHE CAN MAKE CONTACT TO PRESTART THE PROCESS. PTS [facility] WAS YESTERDAY. DCP- Discharge Planning Updated by [id number]: Olivia Ramachandran on 03/29/19 12:[address] Patient Name: CARO JASSO Admission Status: Elective Accout number: [id number] Admission Date: 03-24-2019 : 1955 Admission Diagnosis: Attending: ELTON HODGE Current LOS: 5 Anticipated DC Date: Planned Disposition: Primary Insurance: [facility] MEDICARE SOLUTIONS Discharge Planning Comments: CM SPOKE WITH DAUGHTER ABOUT DC PLANNING/NEEDS. SHE STATES IS WAITING TO TALK TO THE DOCTOR BUT HAS RECIEVED BAD NEWS ON MOTHER'S PROGNOSIS. I HAVE MENTIONED REHAB AND HOSPICE. DAUGHTER WANTS TO THINK ABOUT IT. CM WILL FOLLOW AND ASSIST. Restorative Care Technician: Olivia Ramachandran DCP- Discharge Planning Updated by [id number]: Tucker Hall on 03/27/19 3:[address] MOSS WANTED THE PATIENT TRANSFERRED TO [facility] TO HER ETL INFORMATICA ARCHITECT THIS AM. @ 0813, PLACED A CALL TO THE SEED TECHNICIAN, ADARSH, TO OBTAIN ADMIN APPROVAL TO PROCEED WITH TRANSFER. YOSHI STATED THAT SHE WOULD HAVE TO CALL THE ADMIN BRAND ACTIVATION MANAGER, BUT WAS CURRENTLY INDISPOSED AND UNABLE. IF I DON'T HEAR BACK FROM HERE, I WILL CALL BACK LATER. @0817, I SPOKE WITH THE PATIENT WHO IS WILLING FOR THE TRANSFER. @0821, I SPOKE WITH ALEN SAWYER APN FOR DR YATES. SHE HAS REQUESTED THAT I HAVE DR MOSS CALL AND DISCUSS THE TRANSFER WITH DR YATES. @0836, I SPOKE WITH DR MOSS AND MADE THIS REQUEST. SHE ASKED ME TO TEXT HER DR YATES'S NUMBER AND SHE WOULD CALL HER. SOON WE HUNG UP, I TEXT HER THE NUMBER. @1334, I PLACED A CALL TO ALEN TO SEE IF SHE KNEW WHEN DR YATES WOULD BE HERE AT THE HOSPITAL SHE STATED HE WAS HERE NOW. SHE SAID THAT DR MOSS DID NOT CALL AND TALK TO DR YATES ABOUT THE TRANSFER. SHE STATED THAT SHE WOULD TALK TO HIM AND LET ME KNOW, BUT SHE DID NOT FEEL THAT THE PATIENT WOULD TRANSFER. @3386, DR YATES AND VERÓNICA LOWRY ON THE FLOOR. THEY HAVE TALKED WITH THE PATIENT. THE PATIENT WILL REMAIN HERE FOR TREATMENT AND NOT TRANSFER. DCPIA - Discharge Planning Initial Assessment Updated by [id number]: Phil Caruso on 04/19/19 12:17 pm * Is the patient Alert and Oriented? No * Preadmission Environment Home with Family * Other Equipment WALKER, WC, TRANSFER CHAIR, O2 NEBS * List name and contact numbers for known caregivers / representatives who currently or will assist patient after discharge: HARRIETT, DAUGHTER, BOUCHRA BUSH, LIFE PARTNER, * Community resources currently utilized Home Health * Please name any agencies selected above. [facility] * Has this patient been hospitalized within the prior 30 days at any hospital? Yes Coverage Notice Reviewer: [id number] Liyah Caruso Notice Issued Date-Time: 04/04/2019 18:45 Notice Type: Patient Choice Letter Notice Delivered To: Patient Relationship to Patient: Home Health Travel Ot Name: Delivery Method: HAND - Hand Delivered Kristyn Days: Prior Verbal Notification: Recipient Understood Notice: Yes Recipient Signature: Yes Med Rec Note Co-signed by Attending: Coverage Notice Comment: 1- [facility] 2- [facility] Reviewer: [id number] Liyah Caruso Notice Issued Date-Time: 04/10/2019 9:56 Notice Type: Patient Choice Letter Notice Delivered To: Patient Relationship to Patient: Home Health Travel Ot Name: Delivery Method: HAND - Hand Delivered Kristyn Days: Prior Verbal Notification: Recipient Understood Notice: Yes Recipient Signature: Yes Med Rec Note Co-signed by Attending: Coverage Notice Comment: 1 - [facility], 2 - [facility] Reviewer: [id number] Liyah Caruso Notice Issued Date-Time: 04/12/2019 16:10 Notice Type: Patient Choice Letter Notice Delivered To: Patient Relationship to Patient: Home Health Travel Ot Name: Delivery Method: HAND - Hand Delivered Kristyn Days: Prior Verbal Notification: Recipient Understood Notice: Yes Recipient Signature: Yes Med Rec Note Co-signed by Attending: Coverage Notice Comment: SNF IN [place] OR SNF IN [place] Reviewer: [id number] Liyah Caruso Notice Issued Date-Time: 04/18/2019 14:20 Notice Type: IM Discharge Notice Notice Delivered To: Patient Relationship to Patient: Home Health Travel Ot Name: Delivery Method: HAND - Hand Delivered Kristyn Days: Prior Verbal Notification: Recipient Understood Notice: Yes Recipient Signature: Yes Med Rec Note Co-signed by Attending: Coverage Notice Comment: Last DP export: 04/19/19 11:21 Patient Name: CARO JASSO Page [id number] at 1435 All edits/amendments must be made on the electronic document DICTATION DATE: 04/19/19 1435 NURSE TRANSITIONAL: ELVIRA 04/19/19 1435 RPT#: [id number] DC DATE: STATUS: ADM IN [facility] [address] [place] [address] END OF REPORT
--- NOTE | 2019-04-19 14:52 | MORECARE ---
CASE MANAGEMENT DISCHARGE SUMMARY PATIENT: CARO JASSO UNIT: [id number] ADM DATE: 03/24/19 AGE: 63 : 55 SEX: F ROOM/BED: D.2106 AUTHOR: DALE MOULTON PHYSICIAN: REFERRING PHYSICIAN: ELTON HODGE MD DATE OF SERVICE: 04/19/19 Discharge Plan Patient Name: CARO JASSO Facility[facility] : 1955 Planned Disposition: Jail Facility Anticipated Discharge Date: 04/19/19 Discharge Date: Expected LOS: 26 Initial Reviewer: [id number] Initial Review Date: 03/29/2019 Generated: 04/19/19 3:51 pm Comments DCP- Discharge Planning Updated by [id number]: Phil Caruso on 04/19/19 1:[address] Patient Name: CARO JASSO Encounter No: [id number] : 1955 Primary Insurance: [facility] MEDICARE SOLUTIONS Anticipated DC Date: 04-19-2019 Planned Disposition: Jail Facility External Planned Provider: [facility], MEDICARE REHAB BED DCP follow-up note: CM RECEIVED CALL FROM TUCKER OF [facility], THEY WILL ACCEPT PT TODAY. TRANSPORT ARRANGED FOR 2PM. [facility] RECEIVED AUTH ON TUESDAY. CM CALLED PT'S PARTNER, BOUCHRA, NOTIFIED AND IN AGREEMENT WITH DISCHARGE TO [facility]. CM NOTIFIED PT IN ROOM. CM CALLED AND NOTIFIED MADONNA OF [facility] INPATIENT REHAB. CM NOTIFIED VERÓNICA SAWYER, RECEIVED DISCHARGE ORDERS. CM FAXED DISCHARGE INFORMATION TO [facility] AT [phone]. [facility] NOTIFIED. PERSONAL FINANCE INSTRUCTOR NOTIFIED. CM CALLED FLYNN OF [facility], LEFT DETAILED MESSAGE NOTIFYING THAT PT WILL NEED TO START OUTPATIENT DILAYSIS IN [place] TOMORROW. NURSE REPORT TO BE CALLED TO [facility], . [facility] TO ARRANGE DISK GRINDER FOR 2PM TODAY. Phil Caruso, CASE MANAGEMENT DCP- Discharge Planning Updated by [id number]: Phil Caruso on 04/18/19 1:[address] Patient Name: CARO JASSO Encounter No: [id number] : 1955 Primary Insurance: [facility] MEDICARE SOLUTIONS Anticipated DC Date: 04-18-2019 Planned Disposition: Jail Facility External Planned Provider: [facility], MEDICARE REHAB BED DCP follow-up note: CM RECEIVED LIDIA RESPONSE, PT IS NON PASSR AND MAY ENTER PENITENTIARY FACILITY. CM NOTIFIED KHAI OF [facility] [facility], . CM FAXED [facility] RESP[facility] [phone]. CM SPOKE TO PT IN ROOM WHO IS IN AGREEEMENT WITH PLAN TO DISCHARGE TO REHAB AT [facility]. IMPORTANT MESSAGE FROM MEDICARE PROVIDED AND EXPLAINED. PT HAS BEEN DECLINED BY INSURANCE FOR INPATIENT REHAB; PT FILED APPEAL 04-16-19. PT HAS BEEN DECLINED BY [facility]. CM WAITING ADMISSION DETERMINATION FROM [facility]. CH[facility]IR AT [facility] HAS BEEN SECURED FOR OUTPATIENT DIALYSIS. Phil Caruso, CASE MANAGEMENT DCP- Discharge Planning Updated by [id number]: Phil Caruso on 04/18/19 7:[address] Patient Name: CARO JASSO Encounter No: [id number] : 1955 Primary Insurance: [facility] MEDIC[facility] SOLUTIONS Anticipated DC Date: 04-18-2019 Planned Disposition: Jail Facility External Planned Provider: [facility], MEDICARE REHAB BED DCP follow-up note: CM RECEIVED TELEPHONE MESSAGE FROM DOUGLAS OF [facility] MEDICARE SOLUTIONS APPEALS, ; SHE HAS RECEIVED PT'S REQUEST FOR FAST APPEAL AND REQUESTED CLINICAL UPDATES FOR PAST THREE DAYS. CM FAXED REQUESTED INFORMATION TO [facility] APPEAL AT [phone]. CM ALSO FAXED REFERRAL TO [facility], , REQUESTED INPATIENT REHAB PRESCREENING FROM MADONNA AND NOTIFIED OF APPEAL PROCESS BEING ACTIVE. PT HAS BEEN DECLINED BY INSURANCE FOR INPATIENT REHAB; PT FILED APPEAL 04-16-19. PT HAS BEEN DECLINED BY [facility]. CM WAITING LIDIA DETERMINATION TO ENTER PENITENTIARY FACILITY. CM WAITING ADMISSION DETERMINATION FROM [facility]. [facility] AT [facility] HAS BEEN SECURED FOR OUTPATIENT DIALYSIS. Phil Caruso CASE MANAGEMENT DCP- Discharge Planning Updated by [id number]: Phil Caruso on 04/17/19 4:[address] Patient Name: CARO JASSO Encounter No: [id number] : 1955 Primary Insurance: [facility] MEDIC[facility] SOLUTIONS Anticipated DC Date: 04-18-2019 Planned Disposition: Jail Facility External Planned Provider:[facility], MEDICARE REHAB BED DCP follow-up note: KHAI OF [facility] MET WITH PT IN DIALYSIS TO ASSESS FOR REHAB ADMISSION. KHAI INFORMED CM THAT PT NEEDS LIDIA DUE TO DIAGNOSIS OF MAJOR DEPRESSION. CM COMPLETED LIDIA SCREENING WITH PT'S ASSISTANCE, OBTAINED PHYSICIAN SIGNATURE. CM FAXED LIDIA SCREENING TO [facility] AT [phone]. PT HAS BEEN DECLINED BY INSURANCE FOR INPATIENT REHAB; PT FILED APPEAL 04-16-19. PT HAS BEEN DECLINED BY [facility] PENITENTIARY FACILITY. CM WAITING LIDIA DETERMINATION TO ENTER PENITENTIARY FACILITY. CM WAITING ADMISSION DETERMINATION FROM [facility]. CH[facility]IR AT [facility] [facility] HAS BEEN SECURED FOR OUTPATIENT DIALYSIS. Phil Caruso CASE MANAGEMENT DCP- Discharge Planning Updated by [id number]: Phil Caruso on 04/17/19 8:[address] Patient Name: CARO JASSO Encounter No: [id number] : 1955 Primary Insurance: [facility] MEDIC[facility] SOLUTIONS Anticipated DC Date: 04-11-2019 Planned Disposition: Jail Facility External Planned Provider: [facility], MEDICARE REHAB BED DCP follow-up note: ON 04-16-19, CM ASSISTED PT WITH TYPING HER APPEAL LETTER TO HER INSURANCE COMPANY TO APPEAL HER INPATIENT REHAB DENIAL. CM FAXED THE APPEAL LETTER TO PT'S INSURANCE COMPANY, PROVIDED FAX CONFIRMATION AND LETTER BACK TO PT FOR HER RECORDS. ON 04-17-19, CM FAXED REFERRAL UPDATE TO [facility] AT [phone]. CM REVIEWED CHART, NOTE FROM EDSON OF [facility], INDICATES PT HAS DIALYSIS CHAIR IN [facility] DIALYSIS, MWF, 1630 HOURS WITH NO OTHER TIME AVAILABLE. PT HAS BEEN DECLINED BY INSURANCE FOR INPATIENT REHAB; PT FILED APPEAL 04-16-19. PT HAS BEEN DECLINED BY [facility] AND [facility] PENITENTIARY [facility]. CM WAITING ADMISSION DETERMINATION FROM [facility]. CHAIR AT [facility] [facility] HAS BEEN SECURED FOR OUTPATIENT DIALYSIS. Phil Caruso CASE MANAGEMENT DCP- Discharge Planning Updated by [id number]: Phil Caruso on 04/16/19 1:[address] Patient Name: CARO JASSO Encounter No: [id number] : 1955 Primary Insurance: [facility] MEDIC[facility] SOLUTIONS Anticipated DC Date: 04-11-2019 Planned Disposition: Jail Facility External Planned Provider: [facility], MEDICARE REHAB BED DCP follow-up note: CM CALLED [facility], , SPOKE TO TUCKER WHO WILL INFORMED CM THAT THEY ARE OUT OF INSURANCE NETWORK BUT THAT PT HAS THE SAME OUT OF NETWORK BENEFITS IN NETWORK; PT HAS 20 DAYS FOR REHAB. THEY WILL SCREEN FOR ADMISSION TODAY. CM FAXED REFERRAL UPDATE TO [facility] AT [phone]. CM SPOKE TO EDSON OF [facility], SHE HAS PT A CHAIR IN [facility] DIALYSIS, MWF, 1630 HOURS. EDSON WILL CHECK WITH DIALYSIS UNIT AND REQUEST EARLIER CHAIR TIME. PT HAS BEEN DECLINED BY INSURANCE FOR INPATIENT REHAB. PT HAS BEEN DECLINED BY [facility]. CM WAITING ADMISSION DETERMINATION FROM [facility]. [facility]IR AT [place] [facility] HAS BEEN SECURED FOR OUTPATIENT DIALYSIS. Phil Caruso CASE MANAGEMENT DCP- Discharge Planning Updated by [id number]: Phil Caruso on 04/13/19 8:[address] Patient Name: CARO JASSO Encounter No: [id number] : 1955 Primary Insurance: [facility] MEDIC[facility] SOLUTIONS Anticipated DC Date: 04-11-2019 Planned Disposition: Jail Facility External Planned Provider: [facility], MEDICARE REHAB BED DCP follow-up note: CM RECEIVED MESSAGE FROM MADONNA OF [facility] IN[facility] WHO INFORMED CM THAT IT INSURANCE DECLINED THE [facility] INPATIENT REHAB, IT WOULD BE A WASTE OF TIME TO RESUBMIT BUT SHE WOULD BE HAPPY TO DO IT IF PT INSISTED. CM SPOKE TO PT IN ROOM WHO ASKED CM TO SPEAK TO HER PARTNER BOUCHRA AT [phone], TO ASSIST WITH DISCHARGE PLANNING. CM CALLED BOUCHRA AND PROVIDED ABOVE INFORMATION. BOUCHRA WANTS TO PROCEED WITH PENITENTIARY REFERRAL TO [facility]. IF DECLINED, SEEK SNF IN [place]. CM CALLED [facility], , SPOKE TO TUCKER WHO WILL SCREEN FOR ADMISSION. CM FAXED REFERRAL TO [facility] AT [phone]. PT HAS BEEN DECLINED BY INSURANCE FOR INPATIENT REHAB. PT HAS BEEN DECLINED BY [facility]ENITENTIARY FACILITY. CM WAITING ADMISSION DETERMINATION FROM [facility]. SANJANA Hernández DCP- Discharge Planning Updated by [id number]: Phil Caruso on 04/12/19 3:[address] Patient Name: CARO JASSO Encounter No: [id number] : 1955 Primary Insurance: [facility] MEDIC[facility] SOLUTIONS Anticipated DC Date: 04-11-2019 Planned Disposition: Jail Facility External Planned Provider: [facility] DCP follow-up note: CM RECEIVED CALLF [facility], THEY CANNOT MEET PT'S NEEDS. CM NOTIFIED PT OF DENIAL. PT STATES SHE HAS CALLED HER INSURANCE COMPANY AND SHE WAS TOLD THAT INPATIENT REHAB DID NOT INCLUDE ALL HER MEDICAL PROBLEMS FOR THE INSURANCE TO REVIEW FOR INPATIENT REHAB. PT WANTS CM TO RESUBMIT TO [facility] FOR INPATIENT REHAB. CM CALLED [facility], , LEFT MESSAGE FOR MADONNA OF ADMISSIONS ASKING FOR CONSIDERATION AND RESUBMISSION FOR INSURANCE AUTHORIZATION. CM FAXED REFERRAL TO [facility] INPATIENT REHAB AT [phone]. CM NOTIFIED PT AND ASKED WHAT HER SECOND CHOICE WILL BE SINCE DECLINED BY [facility]. CM RECEIVED PATIENT CHOICE LETTER FOR 1- ANY [facility] AND 2- ANY [place] [facility] IF PT IS DECLINED BY [facility] INPATIENT REH[facility]. PT STATES THAT COUNT INCLUDES THE [facility] ALSO HAS INPATIENT REHAB. CM WAITING ADMISSION DETERMINATION FROM [facility] INPATIENT RE[facility]. SANJANA Hernández DCP- Discharge Planning Updated by [id number]: Phil Caruso on 04/12/19 8:[address] Patient Name: CARO JASSO Encounter No: [id number] : 1955 Primary Insurance: [facility] MED[facility] SOLUTIONS Anticipated DC Date: 04-11-2019 Planned Disposition: Jail Facility External Planned Provider: [facility], MEDICARE REHAB BED DCP follow-up note: CM RECEIVED CALL FROM ANTWAN OF [facility], , THEY RECEIVED REFERRAL, WILL SCREEN FOR ADMISSION. IF PT NEEDS MINIMAL ASSISTANCE TO TRANSFER TO [facility], LONGTERM STAFF WILL BE ABLE TO PROVIDE THIS ASSISTANCE. PT WILL HAVE TO BE ACCEPTED AT [facility] FOR THEM TO ACCEPT PT THEY WILL NOT TRANSPORT ANYWHERE OUTSIDE [place] FOR DIALYSIS. ANTW[facility] WILL CALL WITH ADMISSION DETERMINATION AFTER SCREENING IS COMPLETED. ANABELLA WAITING ADMISSION DETERMINATION FOR REHAB FROM [facility]. Phil Caruso, CASE MANAGEMENT DCP- Discharge Planning Updated by [id number]: Phil Caruso on 04/11/19 4:[address] Patient Name: CARO JASSO Encounter No: [id number] : 1955 Primary Insurance: [facility] MED[facility] SOLUTIONS Anticipated DC Date: 04-11-2019 Planned Disposition: Jail Facility External Planned Provider: [facility], MEDICARE REHAB BED DCP follow-up note: CM RECEIVED CALL FROM [facility], THEY WILL NOT ACCEPT PT. ANABELLA SPOKE TO PT WHO ASKED CM TO FAX REFERRAL TO HER SECOND CHOICE, [facility]. CHOICE PREVIOUSLY SIGNED. ANABELLA SPOKE TO EDSON OF [facility] WHO INFORMED CM THAT PT WILL HAVE TO BE ABLE TO TRANSFER HERSELF FROM CHAIR TO BED OR HAVE SOMEONE THERE THAT WILL ASSIST WITH EVERY TRANSFER TO EVEN BE CONSIDERED AT THE [place] [facility]. CM SPOKE TO PT WHO DECLINED PLACEMENT ANYWHERE ELSE OTHER THAN [place]. PT INSISTED THAT SHE CAN TRANSFER HERSELF TO A CHAIR AND WILL DO IT WITH THERAPY. CM LEFT NOTE ON DRY ERASE BOARD OF NEED FOR DOCUMENATION THAT PT IS ABLE TO TRANSFER HERSELF. ANABELLA CALLED [facility], , THERE WAS NO ANSWER. CM FAXED REFERRAL TO [facility] AT [phone]. ANABELLA SPOKE TO PT AFTER HER PD CATHETER WAS INSERTED. PT STILL WILLING FOR PLACEMENT AT [facility], STILL INSISTS THAT SHE CAN TRANSFER HERSELF IF THERAPY WILL WORK WITH HER STATING THEY HAVE ONLY SEEN HER ABOUT "3 TIMES". CM ASSURED PT THAT THERAPY WILL CONTINUE TO WORK WITH HER. PT STATES SHE THINKS THAT SHE WILL JUST BE ABLE TO GO HOME WITH PERITONEAL DIALYSIS. CM EXPLAINED THAT PT WILL HAVE TO TALK TO THE DOCTOR AND THAT CM UNDERSTOOD THAT PT WILL HAVE TO HAVE HEMODIALYSIS AND THAT PD IS A PROCESS AND TAKES TRAINING AND ARRANGEMENTS. PT NOW THINKS SHE WILL CAN HAVE PD AND GO HOME. CM WAITING ADMISSION DETERMINATION FOR REHAB FROM [facility]. SANJANA Hernández DCP- Discharge Planning Updated by [id number]: Phil Caruso on 04/11/19 7:[address] Patient Name: CARO JASSO Encounter No: [id number] : 1955 Primary Insurance: [facility] MED[facility] SOLUTIONS Anticipated DC Date: 04-11-2019 Planned Disposition: Jail Facility External Planned Provider: [facility], MEDICARE REHAB BED DCP follow-up note: CM FAXED REFERRAL UPDATE TO [facility] AT [phone]. CM WAITING ADMISSION DETERMINATION FROM [facility] WELL INSURANCE DETERMINATION. EDSON [facility] IS WORKING ON OUTPATIENT DIALYSIS UNIT. SANJANA Hernández DCP- Discharge Planning Updated by [id number]: Phil Caruso on 04/10/19 3:[address] Patient Name: CARO JASSO Encounter No: [id number] : 1955 Primary Insurance: [facility] MED[facility] SOLUTIONS Anticipated DC Date: 04-11-2019 Planned Disposition: Jail Facility External Planned Provider: [facility], MEDICARE REHAB BED DCP follow-up note: CM MET WITH PT IN ROOM TO DISCUSS DISCHARGE PLANNING AND NEEDS. PT HAS REVIEWED LIST WITH FAMILY AND WOULD LIKE REFERRAL TO [facility] AND [facility] CHO[facility]. CHOICE FORM SIGNED. CM CALLED [facility], , SPOKE TO BIGG AND PROVIDED REFERRAL INFORMATION. CM FAXED REFERRAL TO [facility] AT [phone]. CM WAITING ADMISSION DETERMINATION FROM [facility] INSURANCE DETERMINATION. EDSON [facility] IS WORKING ON OUTPATIENT DIALYSIS UNIT. 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 CM SPOKE TO PT IN ROOM, PT DENIES MENTAL ILLNESS OR PLACEMENT IN PSYCHIATRIC CARE IN THE PAST. PT THINKS IT MAY BE FOR DEMENTIAL. CM NOTIFIED BIGG. CM WAITING ADMISSION DETERMINATION FROM [facility] INSURANCE DETERMINATION. EDSON OF [facility] IS WORKING ON OUTPATIENT DIALYSIS UNIT. SANJANA Hernández DCP- Discharge Planning Updated by [id number]: Phil Caruso on 04/09/19 11:[address] Patient Name: CARO JASSO Encounter No: [id number] : 1955 Primary Insurance: [facility] MED[facility] SOLUTIONS Anticipated DC Date: 04-11-2019 Planned Disposition: Jail Facility External Planned Provider: TO BE DETERMINED DCP follow-up note: CM RECEIVED INPATIENT REHAB DENIAL FROM PT'S INSURANCE. CM MET WITH PT IN ROOM, PROVIDED COPY OF DENIAL AND READ REASON FOR DENIAL WITH SUGGESTION THAT REHAB COULD BE PROVIDED IN PENITENTIARY FACILITY. CM PROVIDED PT WITH LISTING OF PENITENTIARY FACLITIES WITHIN [address] OF [place] AT PT'S REQUEST FROM MEDICARE WEBSITE. CM PROVIDED CHOICE FORM. PT STATES SHE WANTS TO THINK ABOUT CHOICES AND WILL LET CM KNOW SOON POSSIBLE. COPY OF INPATIENT DENIAL PLACED IN CHART WITH PT'S SIGNATURE, DATE AND TIME OF PT'S RECEIPT. CM WENT BACK IN ROOM AFTER LUNCH, PT IS OUT OF ROOM IN DIALYSIS. CM TO FOLLOW UP WITH PT LATER REGARDING PENITENTIARY REHAB CHOICES. CM WAITING ON PT'S DECISION FOR PENITENTIARY WELL CHOICES FOR SKILLED REHAB PLACEMENT. SANJANA Hernández DCP- Discharge Planning Updated by [id number]: Phil Caruso on 04/05/19 2:[address] Patient Name: CARO JASSO Encounter No: [id number] : 1955 Primary Insurance: [facility] MED[facility] SOLUTIONS Anticipated DC Date: Planned Disposition: Inpatient Rehab External Planned Provider:[facility] DCP follow-up note: CM NOTIFIED PT'S DAUGHTER IN ROOM OF REFERRAL BEING FAXED TO [facility] INPATIENT RE[facility]. CM RECEIVED PATIENT CHOICE LETTER FOR 1- [facility] AND 2- [facility] IF PT IS DECLINED BY [facility] INPATIENT REH[facility]. CM WAITING ADMISSION DETERMINATION FROM [facility] INPATIENT REH[facility]. SANJANA Hernández DCP- Discharge Planning Updated by [id number]: Phil Caruso on 04/05/19 12:[address] Patient Name: CARO JASSO Encounter No: [id number] : 1955 Primary Insurance: [facility] MED[facility] SOLUTIONS Anticipated DC Date: Planned Disposition: Inpatient Rehab External [facility] DCP follow-up note: CM CALLED AND SPOKE TO VERNON PEACOCK, OF [facility] INPATIENT REH[facility], ; THEY WILL SCREEN FOR INPATIENT REHAB ADMISSION. THEY HAVE THE AVAILABILITY OF HEMODIALYSIS IN THEIR REHAB, BUT WILL NOT ACCEPT PERITONEAL DIALYSIS. CM FAXED REFERRAL TO [facility], . CM WAITING ADMISSION DETERMINATION FROM [facility] INPATIENT RE[facility]. SANJANA Hernández DCP- Discharge Planning Updated by [id number]: Phil Caruso on 04/04/19 5:[address] Patient Name: CARO JASSO Encounter No: [id number] : 1955 Primary Insurance: [facility] MEDICARE SOLUTIONS Anticipated DC Date: Planned Disposition: Inpatient Rehab External [facility] DCP follow-up note: CM RECEIVED ORDER FOR INPATIENT REHAB PRESCREENING, MET WITH PT'S DAUGHTER, HARRIETT YOUNG, IN ROOM. HARRIETT IS PT'S EMERGENCY CONTACT LISTED ON FACE SHEET AND REPORTS TO BE PT'S CAREGIVER AT HOME. PT IN DIALYSIS. CM HAD ALSO RECEIVED HANDWRITTEN NOTE INDICTATING PT WANTS REHAB IN [place]. HARRIETT REPORTS PT WANTS REFERRAL TO [facility] FOR [facility]PATIENT RE[facility]. CM DISCUSSED HAVING A ALTERNATE PLAN IF DECLINED FOR INPATIENT REHAB. THEY HAVE DISCUSSED PENITENTIARY; CM PROVIDED LIST OF AVAILABLE PENITENTIARY FACILITIES WITHIN [address] OF [place]. HARRIETT WILL DISCUSS THIS WITH PT AND THEY WILL LET CM KNOW OF ALTERNATE PLAN FOR REHAB. CM TO SEND REFERRAL TO [facility] FOR INPATIENT REHAB SOON POSSIBLE. PT CONSIDERING PENITENTIARY FACILITY ALTERNATE REHAB PLAN IF DECLINED BY [facility]. Phil Shady, CASE MANAGEMENT DCP- Discharge Planning Updated by [id number]: Tucker Hall on 04/02/19 12:[address] I HAVE SPOKEN TO EDSON EWING, CLINICAL LIASON WITH MICHELLE ABOUT THIS PATIENT POTENTIALLY BEING A NEW START. THIS WAY SHE CAN MAKE CONTACT TO PRESTART THE PROCESS. PTS FIRST DIALYSIS WAS YESTERDAY. DCP- Discharge Planning Updated by [id number]: Olivia Ramachandran on 03/29/19 12:[address] Patient Name: CARO JASSO Admission Status: Elective Accout number: [id number] Admission Date: 03-24-2019 : 1955 Admission Diagnosis: Attending: ELTON HODGE Current LOS: 5 Anticipated DC Date: Planned Disposition: Primary Insurance: [facility] MEDICARE SOLUTIONS Discharge Planning Comments: CM SPOKE WITH DAUGHTER ABOUT DC PLANNING/NEEDS. SHE STATES IS WAITING TO TALK TO THE DOCTOR BUT HAS RECIEVED BAD NEWS ON MOTHER'S PROGNOSIS. I HAVE MENTIONED REHAB AND HOSPICE. DAUGHTER WANTS TO THINK ABOUT IT. CM WILL FOLLOW AND ASSIST. Pastry Wrapper: Olivia Ramachandran DCP- Discharge Planning Updated by [id number]: Tucker Hall on 03/27/19 3:[address] MOSS WANTED THE PATIENT TRANSFERRED TO [facility] TO HER CSW THIS AM. @ 0813, PLACED A CALL TO THE FINANCE BROKER, ADARSH, TO OBTAIN ADMIN APPROVAL TO PROCEED WITH TRANSFER. YOSHI STATED THAT SHE WOULD HAVE TO CALL THE ADMIN SAFETY ENGINEER [employer], BUT WAS CURRENTLY INDISPOSED AND UNABLE. IF I DON'T HEAR BACK FROM HERE, I WILL CALL BACK LATER. @0817, I SPOKE WITH THE PATIENT WHO IS WILLING FOR THE TRANSFER. @0821, I SPOKE WITH ALEN SAWYER APN FOR DR YATES. SHE HAS REQUESTED THAT I HAVE DR MOSS CALL AND DISCUSS THE TRANSFER WITH DR YATES. @0836, I SPOKE WITH DR MOSS AND MADE THIS REQUEST. SHE ASKED ME TO TEXT HER DR YATES'S NUMBER AND SHE WOULD CALL HER. SOON WE HUNG UP, I TEXT HER THE NUMBER. @9729, I PLACED A CALL TO ALEN TO SEE IF SHE KNEW WHEN DR YATES WOULD BE HERE AT THE HOSPITAL SHE STATED HE WAS HERE NOW. SHE SAID THAT DR MOSS DID NOT CALL AND TALK TO DR YATES ABOUT THE TRANSFER. SHE STATED THAT SHE WOULD TALK TO HIM AND LET ME KNOW, BUT SHE DID NOT FEEL THAT THE PATIENT WOULD TRANSFER. @2502, DR YATES AND VERÓNICA LOWRY ON THE FLOOR. THEY HAVE TALKED WITH THE PATIENT. THE PATIENT WILL REMAIN HERE FOR TREATMENT AND NOT TRANSFER. DCPIA - Discharge Planning Initial Assessment Updated by [email or web address]: Phil Caruso on 04/19/19 12:17 pm * Is the patient Alert and Oriented? No * Preadmission Environment Home with Family * Other Equipment WALKER, WC, TRANSFER CHAIR, O2 NEBS * List name and contact numbers for known caregivers / representatives who currently or will assist patient after discharge: HARRIETT, DAUGHTER, BOUCHRA BUSH, LIFE PARTNER, * Community resources currently utilized Home Health * Please name any agencies selected above. [facility] * Has this patient been hospitalized within the prior 30 days at any hospital? Yes Coverage Notice Reviewer: ELYSSA Caruso Notice Issued Date-Time: 04/04/2019 18:45 Notice Type: Patient Choice Letter Notice Delivered To: Patient Relationship to Patient: Assistant Office Manager Name: Delivery Method: HAND - Hand Delivered Kristyn Days: Prior Verbal Notification: Recipient Understood Notice: Yes Recipient Signature: Yes Med Rec Note Co-signed by Attending: Coverage Notice Comment: 1- [facility] 2- [facility] Reviewer: ELYSSA Caruso Notice Issued Date-Time: 04/10/2019 9:56 Notice Type: Patient Choice Letter Notice Delivered To: Patient Relationship to Patient: Assistant Office Manager Name: Delivery Method: HAND - Hand Delivered Kristyn Days: Prior Verbal Notification: Recipient Understood Notice: Yes Recipient Signature: Yes Med Rec Note Co-signed by Attending: Coverage Notice Comment: 1 - [facility], 2 - [facility] Reviewer: [id number] Caruso Notice Issued Date-Time: 04/12/2019 16:10 Notice Type: Patient Choice Letter Notice Delivered To: Patient Relationship to Patient: Assistant Office Manager Name: Delivery Method: HAND - Hand Delivered Kristyn Days: Prior Verbal Notification: Recipient Understood Notice: Yes Recipient Signature: Yes Med Rec Note Co-signed by Attending: Coverage Notice Comment: SNF IN [place] OR SNF IN [place] Reviewer: ELYSSA Caruso Notice Issued Date-Time: 04/18/2019 14:20 Notice Type: IM Discharge Notice Notice Delivered To: Patient Relationship to Patient: Assistant Office Manager Name: Delivery Method: HAND - Hand Delivered Kristyn Days: Prior Verbal Notification: Recipient Understood Notice: Yes Recipient Signature: Yes Med Rec Note Co-signed by Attending: Coverage Notice Comment: Last DP export: 04/19/19 1:35 Patient Name: CARO JASSO Page 36920 at 1452 All edits/amendments must be made on the electronic document DICTATION DATE: 04/19/191450 HOME MANAGEMENT SUPERVISOR: ELVIRA 04/19/19 145 RPT#: [id number] DC DATE: STATUS: ADM IN [facility] [address] [place] [address] END OF REPORT
--- NOTE | 2019-04-19 15:00 | NUR ---
OT NOTE: PT COMPLETED BED MOB WITH MIN/MOD A WITH SIDE RAILS. PT COMPLETED BUE AROM EXS. PT COMPELTED UB HYGIENE TASKS WITH SET UP-MIN A. DWAYNE SHAIKH, TREVON MULTANI
--- NOTE | 2019-04-19 15:41 | NUR ---
PT DISCHARGED TO [facility] VIA WHEELCHAIR AND TRANSPORT. PIV REMOVED WITH CATHETER TIP FULLY INTACT. TELEMETRY REMOVED AND RETURNED. PT SIGNED PROPER DISCHARGE INSTRUCTIONS AND REMOVED ALL VALUABLES FROM THE ROOM.
--- NOTE | 2019-04-19 15:57 | NUR ---
Rehab Note- Received a call from Keesha with [facility] inquiring on when the patient had admitted to our acute inpatient rehab unit? Explained that the patient was in the appeals process and that she was still in the acute hospital and that I had faxed updated clinicals on 04/17 to Vanessa for the appeals process and that myself nor Sammy her CM in the acute hospital had not heard a word from [facility]. Keesha stated that she had been approved with the appeal with an overtrun of the denial for inpatient acute rehab and that she would fax us the approval to [phone]. Now spoke with ANABELLA Christianson and stated that the SNF in [place] had received an Auth on Tuesday and the patient had been discharged to that facility today. Thank you for this referral! La Nena Ghotra RN Clinical Liaison, [facility]
--- NOTE | 2019-04-19 16:51 | OP ---
PATIENT NAME: CARO SCHAFER MEDICAL RECORD: [id number] :55 LOCATION:D. D.2106 ADMISSION DATE:03/24/19 SURGEON: CHARLEE WILSON MD DATE OF OPERATION: 04/11/2019 REFERRED BY: Jean Castellon MD PREOPERATIVE DIAGNOSES: End-stage renal disease, morbid obesity, pulmonary hypertension, and dependence on dialysis. POSTOPERATIVE DIAGNOSES: End-stage renal disease, morbid obesity, pulmonary hypertension, and dependence on dialysis. OPERATION PERFORMED: Implantation of peritoneal dialysis catheter with intraoperative ultrasound guidance. PREOPERATIVE NOTE: Ms. Schafer is a massive, super obese woman with diabetes, hypertension, coronary artery disease, COPD, pulmonary hypertension, and end-stage renal disease. She started dialysis in the last week with a catheter. She has had first a temporary catheter and then more recently a tunneled dialysis catheter was implanted and now she is returned to the operating room for implantation of a peritoneal dialysis catheter, which is to be done under local anesthesia with TIVA using ultrasound guidance instead of laparoscopy. DESCRIPTION OF THE PROCEDURE: With the patient under TIVA, she was placed in supine position and the abdomen prepped and draped in a sterile manner. I chose a size large adult dual cuff Merit Flex-Neck classic coil catheter and measured on the abdominal wall and decided on a site for incision just to the left of the lower abdominal midline approximately an inch and a half below the level of the umbilicus. A transverse incision was made and carried down to the rectus sheath. Hemostasis was obtained with electrocautery. Of course, the wound was infiltrated with 1% lidocaine. A pursestring suture of 0 Vicryl was placed in the anterior rectus sheath and the rectus sheath was infiltrated with 0.25% Marcaine with epinephrine. An introducer needle was then inserted with ultrasound guidance and directed obliquely into the peritoneal cavity. There was a return of clear ascitic fluid and a guidewire was then advanced under fluoroscopy. The guidewire passed into the pelvis and crossed the midline. I then inserted the catheter and injected contrast to demonstrate that we were not intraluminal with external bowel seen. The catheter was then removed after placing an Amplatz stiff wire directed towards the pelvis and a 14 peel-away introducer sheath was inserted and then the catheter was placed over the wire and advanced into the lower abdomen. I was unable to place it fully within the pelvis as I had hoped, did the best I thought I could do manipulating it with the Amplatz wire and with removal of the wire and the peel-away sheath, I tied the pursestring suture and then irrigated through the catheter and noted that I could return saline. The catheter was then placed in a subcutaneous tunnel with exit site in the left upper quadrant. The wound was irrigated with Ancef and gentamicin solution, infiltrated further with Marcaine and closed with interrupted 3-0 Vicryl and running intracuticular 4-0 Stratafix and Dermabond glue. It was dressed with Maxorb Ag, Tegaderm, and Cavilon skin prep. A chlorhexidine BioPatch was placed around the catheter at the exit site and further sterile dressings were applied. The transfer set was attached and I was then able to run in approximately 700 cc of saline and siphoned it back out by lowering the bag to the floor and I was content that this was a good catheter function. The catheter was subsequently clamped and capped and the patient OPERATIVE REPORT [id number] CARO SCHAFER awakened from her TIVA and taken to the recovery room. Blood loss during the operation was insignificant, less than 5 cc. None was replaced. Sponges, instruments, and needles were accounted for. No drain was used and no surgical specimen was submitted for histopathology. TRANSINT:[id number] Voice Confirmation ID: [id number] DOCUMENT ID: [id number] cc: [facility] [phone] CHARLEE WILSON MD at 1651 CC: JEAN CASTELLON and CHRISTIANA ANGELO [id number] DICTATION DATE: 04/18/191652 HOME HEALTH CLINICIAN: 04/19/19 0219 DIS IN 04/19/19 [facility] [address] [place] [address]
== END 2019-04-19 15:42 | DRG 291 ==
LOC: D.M2 12:13 → D.ICU 15:32 → D.M2 04-01 10:20 → D.SDCHOLD 04-13 15:04 → D.M2 04-13 15:08
PROVIDERS: Anesthesiology; Emergency Medicine; Family Medicine; Internal Medicine; Internal Medicine Gastroenterology; Internal Medicine Nephrology; Surgery; ADMIT Family Medicine; ATTEND Family Medicine
PROC: 05H633Z Insertion of Infusion Device into Left Subclavian Vein, Percutaneous Approach (ICD-10-PCS; 2019-03-31)
PROC: 02H633Z Insertion of Infusion Device into Right Atrium, Percutaneous Approach (ICD-10-PCS; 2019-04-05)
PROC: 0JH63XZ Insertion of Tunneled Vascular Access Device into Chest Subcutaneous Tissue and Fascia, Percutaneous Approach (ICD-10-PCS; principal; 2019-04-05 14:00)
PROC: 0WHG33Z Insertion of Infusion Device into Peritoneal Cavity, Percutaneous Approach (ICD-10-PCS; 2019-04-11)
PROC: 0DB78ZX Excision of Stomach, Pylorus, Via Natural or Artificial Opening Endoscopic, Diagnostic (ICD-10-PCS; 2019-04-18)
DX: I13.0 Hypertensive heart and chronic kidney disease with heart failure and stage 1 through stage 4 chronic kidney disease, or unspecified chronic kidney disease (principal); I50.33 Acute on chronic diastolic (congestive) heart failure; J96.01 Acute respiratory failure with hypoxia; G92 Toxic encephalopathy; N17.9 Acute kidney failure, unspecified; E87.1 Hypo-osmolality and hyponatremia; Z68.43 Body mass index [BMI] 50.0-59.9, adult; N18.4 Chronic kidney disease, stage 4 (severe); N39.0 Urinary tract infection, site not specified; J44.9 Chronic obstructive pulmonary disease, unspecified; I25.10 Atherosclerotic heart disease of native coronary artery without angina pectoris; K21.9 Gastro-esophageal reflux disease without esophagitis; D63.1 Anemia in chronic kidney disease; I50.811 Acute right heart failure; D50.9 Iron deficiency anemia, unspecified; I27.20 Pulmonary hypertension, unspecified; E78.5 Hyperlipidemia, unspecified; M32.9 Systemic lupus erythematosus, unspecified; Z66 Do not resuscitate; E66.01 Morbid (severe) obesity due to excess calories; Z87.891 Personal history of nicotine dependence; Z98.84 Bariatric surgery status; K31.84 Gastroparesis; B96.5 Pseudomonas (aeruginosa) (mallei) (pseudomallei) as the cause of diseases classified elsewhere

== ENCOUNTER 2019-05-17 14:51 | Inpatient (IN) | payer MEDICARE ==
[~2019-05-17] VITALS: Ht 154.9 cm; Wt 100.2 kg
--- NOTE | ~2019-05-17 | OP ---
PATIENT NAME: CARO SCHAFER MEDICAL RECORD: [id number] :55 LOCATION:D. D.2132 ADMISSION DATE:05/17/19 SURGEON: CHARLEE WILSON MD DATE OF OPERATION: 05/18/2019 PREOPERATIVE DIAGNOSIS: Infected wound hematoma, status postop implantation of peritoneal dialysis catheter. OTHER DIAGNOSES: End-stage renal disease, dependence on hemodialysis. Super morbid obesity, hypertension, pulmonary hypertension, COPD, coronary artery disease, and host of others. OPERATION PERFORMED: Abdominal wound exploration with evacuation of hematoma and sharp debridement of wound and application of wound VAC device and installation of saline via peritoneal dialysis catheter. SURGEON: Charlee Wilson MD ANESTHESIA: General with LMA per HOME HEALTH LPN. PREOPERATIVE NOTE: Ms. Schafer is chronically ill, super obese 63-year-old white female patient who had a peritoneal dialysis catheter implanted about 6 weeks ago. She has been flushed a few times, but has not yet been used for dialysis. The patient had been receiving rehabilitation in a [facility], but has just recently been released to her home and presented to me in my office yesterday with a draining infected wound. She had been already placed on oral as well as IV antibiotics and dialysis. This incision is the incision which was used to cut down to expose the rectus sheath for placement of her peritoneal dialysis catheter. It is quite likely that the peritoneal dialysis catheter is infected at the depths of this wound, although externally it does not appear to be so. It is at the external exit site. PROCEDURE IN DETAIL: The abdominal wound was opened bluntly with finger dissection technique. Margins were sharply debrided with pickups and scissors. Cultures were obtained for aerobic and anaerobic organisms. There was no odor, although the hematoma was definitely purulent. There was some fat necrosis. The wound measured 8 x 7 x 2 cm. It was irrigated vigorously with saline and I found somewhat to my surprise that the peritoneal dialysis catheter was not exposed within this incision. I am sure it is very close and it could be exposed easily by overly aggressive debridement but at this point, I think the catheter might possibly be safe or at least salvageable. The catheter was attached to a bag of 1000 cc of saline which ran into the abdomen very easily and we then with a bag on the floor, the fluid was suctioned out also quite satisfactorily, so I see that the catheter itself is functional. The catheter was then heparin locked and capped. A wound VAC dressing was applied to the incision using silver impregnated cabrera foam and settings of a negative 125 continuous suction were established and an excellent raise and obtained. A chlorhexidine Biopatch dressing was then applied to the catheter at its exit site, which was then covered with a Tegaderm and then the catheter was coiled up and covered with a 4 x 4 Medipore. The patient at that point was awakened and taken to the recovery room. Blood loss during the operation had indeed been trivial 2 cc. None was replaced. Sponges, instruments, and needles were accounted for. No surgical specimen was submitted for histopathology. PLAN: The patient will obviously need to continue on systemic antibiotics and OPERATIVE REPORT [id number] CARO SCHAFER will need wound VAC wound care. She will need to stay in the hospital until that is all arranged and set up for her home with home health and of course that she is accepting of this treatment plan. If in the next few weeks, the catheter should become exposed in the wound, it will need to be removed. It would definitely need to be removed. Note, the patient has not had signs or evidence of peritonitis which I find encouraging and I do not think that there is any evidence of the deep cuff infection. TRANSINT:[id number] Voice Confirmation ID: [id number] DOCUMENT ID: [id number] CHARLEE WILSON MD CC: ELEUTERIO ROSEN RN, CT CASTELLON and CHRISTIANA ANGELO [phone] DICTATION DATE: 05/18/19 1359 REGISTER OF DEEDS: 05/18/192033 DIS IN 05/19/19 [facility] [address] [place] [address]
[~2019-05-17 14:51] MED LIST: ABILIFY10 MG PO; ADEMPAS 1 MG PO; ALBUTEROL SULF8.5 GM INH; ALPHAGAN 0.2%5 ML EACH EYE; AMIODARONE HCL200 MG PO; AMITRIPTYLINE150 MG PO; ATARAX 25 MG TA25 MG PO; BAYER CHEWABLE81 MG PO; BUMEX2 MG PO; CHRONULAC30 ML PO; ELAVIL25 MG PO; EPIPEN 2-P0.3 MG/0.3 IM; FOLIC ACID1 MG PO; HYDROCODON-ACE1 EA10 PO; HYDROXYCHLOROQUINE PO; INDERAL 40 MG T40 MG PO; LEVOTHYROXINE125 MCG PO; LEXAPRO20 MG PO; MECLIZINE HCL25 MG PO; MEGACE40 MG PO; METOLAZONE5 MG PO; MIRALAX17 GM PO; OMEPRAZOLE40 MG PO; OPSUMIT 10 MG; RESTASIS 0.05% EACH EYE; SENNA S TABLET1 TAB PO; SYMBICORT 16010.2 GM INH; TESSALON PERLE100 MG PO; TOPAMAX100 MG PO; XALATAN 0.0052.5 ML EACH EYE; ZOCOR20 MG PO; ZOFRAN8 MG PO
[2019-05-17] MEDS ORDERED: AMITRIPTYLINE150 MG PO (15:45)
[2019-05-17 17:09] LABS: BASOPHILS 1.2 % (0-2); EOSINOPHILS 4.1 % (0-7); HEMATOCRIT 26.7 % (36.0-48.0); HEMOGLOBIN 8.2 g/dL (12-16); IMMATURE GRANULOCYTES 0.4 % (0-5); LYMPHOCYTES 21.2 % (15-50); MCH 29.5 pg (26.0-34.0); MCHC 30.7 g/dL (31.0-37.0); MEAN PLATELET VOLUME 8.4 fL (7.4-10.4); MONOCYTES 6.9 % (2-11); NEUTROPHILS 66.2 % (40-80); PLATELET COUNT 349 10x3/uL (130-400); RBC 2.78 10x6/uL (4.00-5.40); RDW 21.4 % (11.5-14.5); WBC 6.8 10x3/uL (4.8-10.8)
[2019-05-17 17:18] LABS: INR 1.08 (0.85-1.17); PROTIME 13.5 SECONDS (11.6-15.0)
[2019-05-17 17:26] LABS: ANION GAP 13.5 mmol/L (8-16); CALCIUM 9.1 mg/dL (8.5-10.1); CARBON DIOXIDE 25.7 mmol/L (21.0-32.0); CREATININE - SERUM 1.9 mg/dL (0.6-1.3); POTASSIUM - SERUM 4.2 mmol/L (3.5-5.1)
[2019-05-17 17:49] VITALS: BP 135/39
[2019-05-17 20:30] VITALS: BP 105/32
--- NOTE | 2019-05-17 22:00 | NUR ---
PT STATES SHE ALWAYS TAKES HER ELAVIL AND RESTORIL @NIGHT. CALLED AND NOTIFIED VERÓNICA ZARATE. SHE ORDERED TO RESTART BOTH MEDS. PIV STARTED ON PT'S L.FA 22G X1 STICK. PT TOLERATE WELL. VSS, AAOX3, NO S/S OF DISTRESS. WILL CTM.
--- NOTE | 2019-05-17 22:38 | NUR ---
RESTORIL NOT ON PT'S MED LIST FROM HOME. SO RESTORIL NOT STARTED. ELAVIL STARTED AT THIS TIME. AWAITING FERRY TERMINAL SUPERVISOR TO HELP PULL MED.
[2019-05-18 04:30] VITALS: BP 113/51
[2019-05-18 04:37] VITALS: BP 119/74; BMI 41.8
[2019-05-18 09:39] VITALS: BP 111/45
--- NOTE | 2019-05-18 11:28 | NUR ---
SCD'S PLACED ON PT.
--- NOTE | 2019-05-18 11:31 | NUR ---
EKG DONE AND PLACED IN CHART.
--- NOTE | 2019-05-18 11:52 | NUR ---
PT LEFT FOR SX VIA BED.
[2019-05-18 14:05] VITALS: BP 106/52
--- NOTE | 2019-05-18 14:05 | NUR ---
PT RETURNED FROM SX WITH LOWER ABDOMINAL WOUND VAC. PD CATH WAS NOT REMOVED. PT LYING IN BED. ON ROOM AIR. ALERT AND ORIENTED. LEFT WRIST 22G IV SL. VS STABLE. PT TO GO TO DIALYSIS AFTER SHE EATS HER LUNCH TRAY. PT STATES SHE HAS NO FURTHER NEEDS AT THIS TIME. BED LOW. CL IN REACH.
[2019-05-18 14:16] VITALS: Ht 154.9 cm; Wt 100.2 kg
--- NOTE | 2019-05-18 14:44 | NUR ---
PT TAKEN TO DIALYSIS VIA BED.
--- NOTE | 2019-05-18 15:02 | NUR ---
DIALYSIS TO CHANGE RIGHT CHEST HEMOSPLIT DRESSING.
--- NOTE | 2019-05-18 15:08 | NUR ---
SPOKE WITH MINAL BYRD AND NOTIFIED HER THAT PT IS BACK FROM SX AND THAT PT HAD A WOUND VAC PLACED AND NEEDS HOME HELATH PER DR. WILSON'S NOTE. SHE STATE TO PUT IN A CASE MAANGEMENT CONSULT AND TO TELL [place] TELEGRAPH INSPECTOR. I VERBALIZED UNDERSTANDING. SPOKE WITH [place] CLAUDIO AND HE STATES HE IS AWAR LANE IS WORKING ON IT. I VERBALIZED UNDERSTANDING.
--- NOTE | 2019-05-18 15:59 | MORECARE ---
CASE MANAGEMENT DISCHARGE SUMMARY PATIENT: CARO JASSO UNIT: [id number] ADM DATE: 05/17/19 AGE: 63 : 55 SEX: F ROOM/BED: D.2132 AUTHOR: DALE MOULTON PHYSICIAN: REFERRING PHYSICIAN: CT CASTELLON MD DATE OF SERVICE: 05/18/19 Discharge Plan Patient Name: CARO JASSO [facility] [facility] 1955 Planned Disposition: Home with Home Health Anticipated Discharge Date: 05/19/19 Discharge Date: Expected LOS: 2 Initial Reviewer: [email or web address] Initial Review Date: 05/18/2019 Generated: 05/18/19 4:59 pm External Providers External Provider: OTHER-OTHER Next Contact Date: 05/18/2019 Service Request Date: Service Type: Resolution: Reviewer: Comments: External Provider: [facility] Next Contact Date: 05/18/2019 Service Request Date: Service Type: Resolution: Reviewer: Comments: Patient Name: CARO JASSO Page [phone] at 1559 All edits/amendments must be made on the electronic document DICTATION DATE: 05/18/191558 SALES AND MARKETING AGENT: ELVIRA 05/18/191558 RPT#: [id number] DC DATE: STATUS: ADM IN [facility] [address] [place] [address] END OF REPORT
--- NOTE | 2019-05-18 16:01 | NUR ---
I have reviewed this patient and I concur with the Shift Assessment completed by the Licensed Practical Nurse today this shift.
--- NOTE | 2019-05-18 16:15 | MORECARE ---
CASE MANAGEMENT DISCHARGE SUMMARY PATIENT: CARO JASSO UNIT: [id number] ADM DATE: 05/17/19 AGE: 63 : 55 SEX: F ROOM/BED: D.5020 AUTHOR: KENNEY,DOC PHYSICIAN: REFERRING PHYSICIAN: CT CASTELLON MD DATE OF SERVICE: 05/18/19 Discharge Plan Patient Name: CARO JASSO Facility: [facility]:[place] : 1955 Planned Disposition: Home with Home Health Anticipated Discharge Date: 05/19/19 Discharge Date: Expected LOS: 2 Initial Reviewer: [email or web address] Initial Review Date: 05/18/2019 Generated: 05/18/19 5:15 pm Comments DCP- Discharge Planning Updated by [id number]: Phil Caruso on 05/18/19 3:[address] Patient Name: CARO JASSO Admission Status: Elective Accout number: [id number] Admission Date: 05-17-2019 : 1955 Admission Diagnosis: Attending: CT CASTELLON Current LOS: 1 Anticipated DC Date: 05-19-2019 Planned Disposition: Home with Home Health Primary Insurance: [facility] MEDICARE SOLUTIONS PLANNED EXTERNAL PROVIDER: [facility] Discharge Planning Comments: CM RECEIVED ORDERS FOR HOME HEALTH AND WOUND VAC DRESSING CHANGES. CM MET WITH PT'S PARTNER IN ROOM TO DISCUSS DISCHARGE PLANNING AND NEEDS. PT STILL NOT BACK FROM PROCEDURE. PT LIVING AT HOME DEPENDENTLY WITH LIFE PARTNER WHO IS ASSISTING WITH EVERYTHING EXCEPT EATING AT THIS TIME. PT HAS NEBULIZER, HOME AND PORTABLE OXYGEN, WALKER, WHEELCHAIR AND TRANSFER CHAIR; PROVIDER IS MARGARITA. PT HAS HOME HEALTH WITH [facility]. CM DISCUSSED AVAILABILITY OF HOME HEALTH, REHAB SERVICES AND MEDICAL EQUIPMENT. LIFE PARTNER WANTS [facility] TO CONTINUE FOR VAC DRESSING CHANGES. CHOICE SIGNED. CHOICE SIGNED FOR [facility] PT'S PARTNER DOES NOT WANT TO USE ANY OTHER MEDICAL EQUIPMENT PROVIDER FOR VAC. SIGNIFICANT OTHER TO PICK PT UP FOR DISCHARGE HOME TOMORROW. CM CALLED [facility], , SPOKE TO YVAN AND INFORMED HER OF ORDER, READ ORDER TO YVAN AND INFORMED HER THAT WOUND IS NOT ABANDONED DILALYSIS SITE BUT IS NOT BEING USED CURRENTLY. AFTER CHECKING WITH HER DIRECTOR, YVAN CALLED AND ACCEPTED FOR RESUMPTION ON TUESDAY FOR WOUND VAC CHANGES MWF. CM FAXED REFERRAL INFORMATION TO [facility] AT [phone]. CM NOTIFIED BABATUNDE OF [facility], . CM FAXED REFERRAL FOR WOUND VAC TO [facility] AT [phone]. CM WAITING WOUND VAC APPROVAL FROM [facility] FOR DELIVERY OF PORTABLE TO ROOM FROM [facility] ST[facility] IN HOSPITAL. FAX DISCHARGE INFORMATION TO [facility] AT [phone]. Insights Strategist: Phil Caruso DCPIA - Discharge Planning Initial Assessment Updated by [id number]: Phil Caruso on 05/18/19 4:01 pm * How many steps to enter\exit or inside your home? NONE * PCP DR. ANTONIO FERNANDEZ, [facility] * Pharmacy [facility] * Preadmission Environment Home with Family * ADLs Partial Dependent * Partial ADLs (Assistance needed) Ambulation Bathing Dressing Medication Management Toileting Transfers * Equipment Nebulizer Other Oxygen Walker Wheelchair * Other Equipment TRANSFER CHAIR HOME AND PORTABLE OXYGEN [facility] - MEDICAL EQUIPMENT PROVIDER * List name and contact numbers for known caregivers / representatives who currently or will assist patient after discharge: ALICIA BUSH, PARTNER, * Verbal permission to speak to the caregivers and representatives has been obtained from the patient. N/A * Community resources currently utilized Home Health * Please name any agencies selected above. [facility] * Additional services required to return to the preadmission environment? Yes * Can the patient safely return to the preadmission environment? Yes * Has this patient been hospitalized within the prior 30 days at any hospital? No Coverage Notice Reviewer: [id number] - Phil Caruso Notice Issued Date-Time: 05/18/2019 15:29 Notice Type: Patient Choice Letter Notice Delivered To: Other Relationship to Patient: Life Partner Equine Vet Name: JOSEPHINE BUSH Delivery Method: HAND - Hand Delivered Kristyn Days: Prior Verbal Notification: Recipient Understood Notice: Yes Recipient Signature: Yes Med Rec Note Co-signed by Attending: Coverage Notice Comment: [facility] V[facility] Last DP export: 05/18/19 2:59 Patient Name: CARO JASSO Page [id number] at 1615 All edits/amendments must be made on the electronic document DICTATION DATE: 05/18/191614 MONTESSORI PARAPROFESSIONAL: ELVIRA 05/18/191614 RPT#: [id number] DC DATE: STATUS: ADM IN [facility] [address] [place] [address] END OF REPORT
[2019-05-18 17:52] VITALS: BP 190/73
--- NOTE | 2019-05-18 19:15 | NUR ---
REPORT RECEIVED, WILL CONTINUE POC. PATIENT IS AAOX4, UP WITH ASSIST. PATIENT JUST GOT BACK FROM DIALYSIS, SITTING UP IN BED EATING DINNER. FAMILY AT BEDSIDE. NO S/S OF DISTRESS OBSERVED, RR EVEN AND UNLABORED ON ROOM AIR. RT CHEST HEMOSPLIT, DRSG C/D/I. PIV TO LT WRIST, PATENT, SL, DRSG C/D/I. FRESH CUP OF ICE GIVEN. PATIENT DENIES FURTHER NEEDS AT THIS TIME. CL IN REACH, BED LOCKED AND LOWERED. WILL CTM.
[2019-05-18 20:00] VITALS: BP 94/32
[2019-05-19] VITALS: BP 97/45
--- NOTE | 2019-05-19 02:19 | NUR ---
I have reviewed this patient and I concur with the Shift Assessment completed by the Licensed Practical Nurse today this shift.
[2019-05-19 04:00] VITALS: BP 110/38
[2019-05-19 05:13] LABS: BASOPHILS 2.3 % (0-2); EOSINOPHILS 6.3 % (0-7); HEMOGLOBIN 7.9 g/dL (12-16); IMMATURE GRANULOCYTES 0.5 % (0-5); LYMPHOCYTES 21.4 % (15-50); MCH 29.5 pg (26.0-34.0); MCHC 30.4 g/dL (31.0-37.0); MEAN PLATELET VOLUME 8.6 fL (7.4-10.4); MONOCYTES 7.7 % (2-11); NEUTROPHILS 61.8 % (40-80); PLATELET COUNT 310 10x3/uL (130-400); RBC 2.68 10x6/uL (4.00-5.40); RDW 21.8 % (11.5-14.5); WBC 5.7 10x3/uL (4.8-10.8)
[2019-05-19 05:30] LABS: ANION GAP 9.9 mmol/L (8-16); CALCIUM 8.7 mg/dL (8.5-10.1); CARBON DIOXIDE 27.7 mmol/L (21.0-32.0); CREATININE - SERUM 1.8 mg/dL (0.6-1.3); POTASSIUM - SERUM 3.6 mmol/L (3.5-5.1); VANCOMYCIN - RANDOM 9.8 ug/mL (10.0-20.0)
--- NOTE | 2019-05-19 07:19 | NUR ---
PT AWAKE AND ORIENTED, AT BEDSIDE. PT STATES SHE'S HOPING TO GO HOME TODAY AND THAT SHE FEELS NO PAIN FROM HER I&D, WHICH SHE FINDS ODD. REQUESTS BUISCUITS/GRAVY AND PAREDES FOR BREAKFAST, WILL ACCOMIDATE WITHIN HER DIET PERAMETERS. NO COMPLAINTS/CONCERNS AT THIS TIME, ALL QUESTIONS ANSWERED TO THE BEST OF MY ABILITY. CL IN REACH, SRX2.
[2019-05-19 09:05] VITALS: BP 103/48
[2019-05-19] MEDS ORDERED: LEVOFLOXACIN500 MG PO (11:19)
[2019-05-19 12:41] VITALS: BP 118/39
--- NOTE | 2019-05-19 15:29 | NUR ---
PT REFUSING ORDERED UNIT OF BLOOD, WANTS TO GO HOME BRIAN. WOUND VAC IN ROOM
--- NOTE | 2019-05-19 16:15 | MORECARE ---
CASE MANAGEMENT DISCHARGE SUMMARY PATIENT: CARO JASSO UNIT: [id number] ADM DATE: 05/17/19 AGE: 63 : 55 SEX: F ROOM/BED: D.6688 AUTHOR: KENNEY,DOC PHYSICIAN: REFERRING PHYSICIAN: CT CASTELLON MD DATE OF SERVICE: 05/19/19 Discharge Plan Patient Name: CARO JASSO Facility: [facility]:[place] : 1955 Planned Disposition: Home with Home Health Anticipated Discharge Date: 05/19/19 Discharge Date: Expected LOS: 2 Initial Reviewer: [email or web address] Initial Review Date: 05/18/2019 Generated: 05/19/19 5:15 pm Comments DCP- Discharge Planning Updated by [email or web address]: Mariana Coulter on 05/19/19 3:[address] CM contacted Rochelle with [facility] @[phone], to inform that patient is discharging home today and will require wound vac dressing changes M-W-. DC instructions and med rec faxed to [phone]. DCP- Discharge Planning Updated by [email or web address]: Phil Caruso on 05/18/19 3:[address] Patient Name: CARO JASSO Admission Status: Elective Accout number: [id number] Admission Date: 05-17-2019 : 1955 Admission Diagnosis: Attending: CT CASTELLON Current LOS: 1 Anticipated DC Date: 05-19-2019 Planned Disposition: Home with Home Health Primary Insurance: [facility] MEDICARE SOLUTIONS PLANNED EXTERNAL PROVIDER: [facility] Discharge Planning Comments: CM RECEIVED ORDERS FOR HOME HEALTH AND WOUND VAC DRESSING CHANGES. CM MET WITH PT'S PARTNER IN ROOM TO DISCUSS DISCHARGE PLANNING AND NEEDS. PT STILL NOT BACK FROM PROCEDURE. PT LIVING AT HOME DEPENDENTLY WITH LIFE PARTNER WHO IS ASSISTING WITH EVERYTHING EXCEPT EATING AT THIS TIME. PT HAS NEBULIZER, HOME AND PORTABLE OXYGEN, WALKER, WHEELCHAIR AND TRANSFER CHAIR; PROVIDER IS MARGARITA. PT HAS HOME HEALTH WITH [facility]. CM DISCUSSED AVAILABILITY OF HOME HEALTH, REHAB SERVICES AND MEDICAL EQUIPMENT. LIFE PARTNER WANTS [facility] TO CONTINUE FOR VAC DRESSING CHANGES. CHOICE SIGNED. CHOICE SIGNED FOR [facility] PT'S PARTNER DOES NOT WANT TO USE ANY OTHER MEDICAL EQUIPMENT PROVIDER FOR VAC. SIGNIFICANT OTHER TO PICK PT UP FOR DISCHARGE HOME TOMORROW. CM CALLED [facility], , SPOKE TO ROCHELLE AND INFORMED HER OF ORDER, READ ORDER TO ROCHELLE AND INFORMED HER THAT WOUND IS NOT ABANDONED DILALYSIS SITE BUT IS NOT BEING USED CURRENTLY. AFTER CHECKING WITH HER DIRECTOR, ROCHELLE CALLED AND ACCEPTED FOR RESUMPTION ON TUESDAY FOR WOUND VAC CHANGES MWF. CM FAXED REFERRAL INFORMATION TO [facility] AT [phone]. CM NOTIFIED BABATUNDE OF [facility], . CM FAXED REFERRAL FOR WOUND VAC TO [facility] AT [phone]. CM WAITING WOUND VAC APPROVAL FROM [facility] FOR DELIVERY OF PORTABLE TO ROOM FROM [facility]PITAL. FAX DISCHARGE INFORMATION TO [facility] AT [phone]. Texturing Machine Fixer: Phil Caruso DCPIA - Discharge Planning Initial Assessment Updated by [id number]: Phil Caruso on 05/18/19 4:01 pm * How many steps to enter\exit or inside your home? NONE * PCP DR. ANTONIO FERNANDEZ, [facility] * Pharmacy [facility] * Preadmission Environment Home with Family * ADLs Partial Dependent * Partial ADLs (Assistance needed) Ambulation Bathing Dressing Medication Management Toileting Transfers * Equipment Nebulizer Other Oxygen Walker Wheelchair * Other Equipment TRANSFER CHAIR HOME AND PORTABLE OXYGEN [facility] - MEDICAL EQUIPMENT PROVIDER * List name and contact numbers for known caregivers / representatives who currently or will assist patient after discharge: ALICIA BUSH, PARTNER, * Verbal permission to speak to the caregivers and representatives has been obtained from the patient. N/A * Community resources currently utilized Home Health * Please name any agencies selected above. [facility] * Additional services required to return to the preadmission environment? Yes * Can the patient safely return to the preadmission environment? Yes * Has this patient been hospitalized within the prior 30 days at any hospital? No Coverage Notice Reviewer: [id number] - Phil Caruso Notice Issued Date-Time: 05/18/2019 15:29 Notice Type: Patient Choice Letter Notice Delivered To: Other Relationship to Patient: Life Partner [employer] Agent Name: JOSEPHINE RACHELLE Delivery Method: HAND - Hand Delivered Kristyn Days: Prior Verbal Notification: Recipient Understood Notice: Yes Recipient Signature: Yes Med Rec Note Co-signed by Attending: Coverage Notice Comment: [facility] FOR WOUND VAC Last DP export: 05/18/19 3:15 Patient Name: CARO JASSO Page [id number] at 1615 All edits/amendments must be made on the electronic document DICTATION DATE: 05/19/191614 DOCTORATE OF CHIROPRACTIC: ELVIRA 05/19/191614 RPT#: [id number] DC DATE: STATUS: ADM IN [facility] [address] [place] [address] END OF REPORT
--- NOTE | 2019-05-19 16:49 | NUR ---
PT ESCORTED OUT VIA WHEELCHIAR TO POV, DRIVING.
--- NOTE | 2019-05-19 16:58 | MORECARE ---
CASE MANAGEMENT DISCHARGE SUMMARY PATIENT: CARO JASSO UNIT: [id number] ADM DATE: 05/17/19 AGE: 63 : 55 SEX: F ROOM/BED: D.2133 AUTHOR: KENNEY,DOC PHYSICIAN: REFERRING PHYSICIAN: CT CASTELLON MD DATE OF SERVICE: 05/19/19 Discharge Plan Patient Name: CARO JASSO Facility: [facility]:[place] : 1955 Planned Disposition: Home with Home Health Anticipated Discharge Date: 05/19/19 Discharge Date: 05/19/2019 Expected LOS: 2 Initial Reviewer: [id number] Initial Review Date: 05/18/2019 Generated: 05/19/19 5:58 pm Comments DCP- Discharge Planning Updated by [email or web address]: Mariana Coulter on 05/19/19 3:[address] CM contacted Rochelle with [facility] @[phone], to inform that patient is discharging home today and will require wound vac dressing changes M-W-. DC instructions and med rec faxed to [phone]. Wound vac #[id number]. DCP- Discharge Planning Updated by [email or web address]: Phil Caruso on 05/18/19 3:[address] Patient Name: CARO JASSO Admission Status: Elective Accout number: [id number] Admission Date: 05-17-2019 : 1955 Admission Diagnosis: Attending: CT CASTELLON Current LOS: 1 Anticipated DC Date: 05-19-2019 Planned Disposition: Home with Home Health Primary Insurance: [facility] MEDICARE SOLUTIONS PLANNED EXTERNAL PROVIDER: [facility] Discharge Planning Comments: CM RECEIVED ORDERS FOR HOME HEALTH AND WOUND VAC DRESSING CHANGES. CM MET WITH PT'S PARTNER IN ROOM TO DISCUSS DISCHARGE PLANNING AND NEEDS. PT STILL NOT BACK FROM PROCEDURE. PT LIVING AT HOME DEPENDENTLY WITH LIFE PARTNER WHO IS ASSISTING WITH EVERYTHING EXCEPT EATING AT THIS TIME. PT HAS NEBULIZER, HOME AND PORTABLE OXYGEN, WALKER, WHEELCHAIR AND TRANSFER CHAIR; PROVIDER IS [facility]. PT HAS HOME HEALTH WITH [facility]. CM DISCUSSED AVAILABILITY OF HOME HEALTH, REHAB SERVICES AND MEDICAL EQUIPMENT. LIFE PARTNER WANTS [facility] TO CONTINUE FOR VAC DRESSING CHANGES. CHOICE SIGNED. CHOICE SIGNED FOR [facility] PT'S PARTNER DOES NOT WANT TO USE ANY OTHER MEDICAL EQUIPMENT PROVIDER FOR VAC. SIGNIFICANT OTHER TO PICK PT UP FOR DISCHARGE HOME TOMORROW. CM CALLED [facility], , SPOKE TO ROCHELLE AND INFORMED HER OF ORDER, READ ORDER TO ROCHELLE AND INFORMED HER THAT WOUND IS NOT ABANDONED DILALYSIS SITE BUT IS NOT BEING USED CURRENTLY. AFTER CHECKING WITH HER DIRECTOR, ROCHELLE CALLED AND ACCEPTED FOR RESUMPTION ON TUESDAY FOR WOUND VAC CHANGES MWF. CM FAXED REFERRAL INFORMATION TO [facility] AT [phone]. CM NOTIFIED BABATUNDE OF [facility], . CM FAXED REFERRAL FOR WOUND VAC TO [facility] AT [phone]. CM WAITING WOUND VAC APPROVAL FROM [facility] FOR DELIVERY OF PORTABLE TO ROOM FROM [facility]. FAX DISCHARGE INFORMATION TO [facility] AT [phone]. Placement Secretary: Phil Caruso DCPIA - Discharge Planning Initial Assessment Updated by [id number]: Phil Caruso on 05/18/19 4:01 pm * How many steps to enter\exit or inside your home? NONE * PCP DR. ANTONIO FERNANDEZ [facility] * Pharmacy [facility] * Preadmission Environment Home with Family * ADLs Partial Dependent * Partial ADLs (Assistance needed) Ambulation Bathing Dressing Medication Management Toileting Transfers * Equipment Nebulizer Other Oxygen Walker Wheelchair * Other Equipment TRANSFER CHAIR HOME AND PORTABLE OXYGEN [facility] - MEDICAL EQUIPMENT PROVIDER * List name and contact numbers for known caregivers / representatives who currently or will assist patient after discharge: ALICIA BUSH, PARTNER, * Verbal permission to speak to the caregivers and representatives has been obtained from the patient. N/A * Community resources currently utilized Home Health * Please name any agencies selected above. [facility] * Additional services required to return to the preadmission environment? Yes * Can the patient safely return to the preadmission environment? Yes * Has this patient been hospitalized within the prior 30 days at any hospital? No Coverage Notice Reviewer: [id number] - Phil Caruso Notice Issued Date-Time: 05/18/2019 15:29 Notice Type: Patient Choice Letter Notice Delivered To: Other Relationship to Patient: Life Partner Band Tumbler Name: JOSEPHINE BUSH Delivery Method: HAND - Hand Delivered Kristyn Days: Prior Verbal Notification: Recipient Understood Notice: Yes Recipient Signature: Yes Med Rec Note Co-signed by Attending: Coverage Notice Comment: [facility] FOR WOUND VAC Last DP export: 05/19/19 3:15 Patient Name: CARO JASSO Page 32358 at 1658 All edits/amendments must be made on the electronic document DICTATION DATE: 05/19/191657 SURVEY RESEARCHER: ELVIRA 05/19/191657 RPT#: [id number] DC DATE:05/19/19 STATUS: DIS IN [facility] [address] [place] [address] END OF REPORT
--- NOTE | 2019-05-19 18:46 | MORECARE ---
CASE MANAGEMENT DISCHARGE SUMMARY PATIENT: CARO JASSO UNIT: [id number] ADM DATE: 05/17/19 AGE: 63 : 55 SEX: F ROOM/BED: D.0702 AUTHOR: KENNEY,DOC PHYSICIAN: REFERRING PHYSICIAN: CT CASTELLON MD DATE OF SERVICE: 05/19/19 Discharge Plan Patient Name: CARO JASSO Facility: [facility]:[place] : 1955 Planned Disposition: Home with Home Health Anticipated Discharge Date: 05/19/19 Discharge Date: 05/19/2019 Expected LOS: 2 Initial Reviewer: [id number] Initial Review Date: 05/18/2019 Generated: 05/19/19 7:46 pm Comments DCP- Discharge Planning Updated by [email or web address]: Mariana Coulter on 05/19/19 5:[address] CM contacted [place] with [facility] @[phone], to inform that patient is discharging home today and will require wound vac dressing changes M-W-Fr. DC instructions and med rec faxed to [phone]. Wound vac #[id number]. Appended by Mariana Coulter on 05/19/2019 18:40 CREDIT PRODUCTS OFFICER: Nursing did not have the patient sign the wound vac agreement. CM contacted [facility] to request that the paperwork be signed and faxed to [facility], the nurse verifies this will be done. DCP- Discharge Planning Updated by [id number]: Phil Caruso on 05/18/19 3:[address] Patient Name: CARO JASSO Admission Status: Elective Accout number: [id number] Admission Date: 05-17-2019 : 1955 Admission Diagnosis: Attending: CT CASTELLON Current LOS: 1 Anticipated DC Date: 05-19-2019 Planned Disposition: Home with Home Health Primary Insurance: [facility] MEDICARE SOLUTIONS PLANNED EXTERNAL PROVIDER: [facility] Discharge Planning Comments: CM RECEIVED ORDERS FOR HOME HEALTH AND WOUND VAC DRESSING CHANGES. CM MET WITH PT'S PARTNER IN ROOM TO DISCUSS DISCHARGE PLANNING AND NEEDS. PT STILL NOT BACK FROM PROCEDURE. PT LIVING AT HOME DEPENDENTLY WITH LIFE PARTNER WHO IS ASSISTING WITH EVERYTHING EXCEPT EATING AT THIS TIME. PT HAS NEBULIZER, HOME AND PORTABLE OXYGEN, WALKER, WHEELCHAIR AND TRANSFER CHAIR; PROVIDER IS [facility]. PT HAS HOME HEALTH WITH [facility]. CM DISCUSSED AVAILABILITY OF HOME HEALTH, REHAB SERVICES AND MEDICAL EQUIPMENT. LIFE PARTNER WANTS [facility] TO CONTINUE FOR VAC DRESSING CHANGES. CHOICE SIGNED. CHOICE SIGNED FOR [facility] PT'S PARTNER DOES NOT WANT TO USE ANY OTHER MEDICAL EQUIPMENT PROVIDER FOR VAC. SIGNIFICANT OTHER TO PICK PT UP FOR DISCHARGE HOME TOMORROW. CM CALLED [facility], , SPOKE TO YVAN AND INFORMED HER OF ORDER, READ ORDER TO YVAN AND INFORMED HER THAT WOUND IS NOT ABANDONED DILALYSIS SITE BUT IS NOT BEING USED CURRENTLY. AFTER CHECKING WITH HER DIRECTOR, YVAN CALLED AND ACCEPTED FOR RESUMPTION ON TUESDAY FOR WOUND VAC CHANGES MW. CM FAXED REFERRAL INFORMATION TO [facility] AT [phone]. CM NOTIFIED BABATUNDE OF [facility], . CM FAXED REFERRAL FOR WOUND VAC TO [facility] AT [phone]. CM WAITING WOUND VAC APPROVAL FROM [facility] FOR DELIVERY OF PORTABLE TO ROOM FROM [facility]. FAX DISCHARGE INFORMATION TO [facility] AT [phone]. Environmental Health Officer: Phil Caruso DCPIA - Discharge Planning Initial Assessment Updated by [email or web address]: Phil Caruso on 05/18/19 4:01 pm * How many steps to enter\exit or inside your home? NONE * PCP DR. ANTONIO FERNANDEZ [facility] * Pharmacy [facility] * Preadmission Environment Home with Family * ADLs Partial Dependent * Partial ADLs (Assistance needed) Ambulation Bathing Dressing Medication Management Toileting Transfers * Equipment Nebulizer Other Oxygen Walker Wheelchair * Other Equipment TRANSFER CHAIR HOME AND PORTABLE OXYGEN [facility] - MEDICAL EQUIPMENT PROVIDER * List name and contact numbers for known caregivers / representatives who currently or will assist patient after discharge: ALICIA BUSH, PARTNER, * Verbal permission to speak to the caregivers and representatives has been obtained from the patient. N/A * Community resources currently utilized Home Health * Please name any agencies selected above. [facility] * Additional services required to return to the preadmission environment? Yes * Can the patient safely return to the preadmission environment? Yes * Has this patient been hospitalized within the prior 30 days at any hospital? No Coverage Notice Reviewer: [id number] Liyah Caruso Notice Issued Date-Time: 05/18/2019 15:29 Notice Type: Patient Choice Letter Notice Delivered To: Other Relationship to Patient: Life Partner Dynamic Balancer Set Up Worker Name: JOSEPHINE BUSH Delivery Method: HAND - Hand Delivered Kristyn Days: Prior Verbal Notification: Recipient Understood Notice: Yes Recipient Signature: Yes Med Rec Note Co-signed by Attending: Coverage Notice Comment: [facility] FOR WOUND VAC Last DP export: 05/19/19 3:58 Patient Name: CARO JASSO Page 05514 at 1846 All edits/amendments must be made on the electronic document DICTATION DATE: 05/19/191845 UPPER CUTTER: ELVIRA 05/19/191845 RPT#: [id number] DC DATE:05/19/19 STATUS: DIS IN [facility] [address] [place] [address] END OF REPORT
--- NOTE | 2019-05-20 14:20 | MORECARE ---
CASE MANAGEMENT DISCHARGE SUMMARY PATIENT: CARO JASSO UNIT: [id number] ADM DATE: 05/17/19 AGE: 63 : 55 SEX: F ROOM/BED: D.8422 AUTHOR: KENNEY,DOC PHYSICIAN: REFERRING PHYSICIAN: CT CASTELLON MD DATE OF SERVICE: 05/20/19 Discharge Plan Patient Name: CARO JASSO Facility: [facility]:[place] : 1955 Planned Disposition: Home with Home Health Anticipated Discharge Date: 05/19/19 Discharge Date: 05/19/2019 Expected LOS: 2 Initial Reviewer: [email or web address] Initial Review Date: 05/18/2019 Generated: 05/20/19 3:20 pm Comments DCP- Discharge Planning Updated by [email or web address]: Mariana Coulter on 05/19/19 5:[address] CM contacted [place] with [facility] @[phone], to inform that patient is discharging home today and will require wound vac dressing changes M-W-Fr. DC instructions and med rec faxed to [phone]. Wound vac #[id number]. Appended by Mariana Coulter on 05/19/2019 18:40 ADVANCED DEVELOPER: Nursing did not have the patient sign the wound vac agreement. CM contacted [facility] to request that the paperwork be signed and faxed to [facility], the nurse verifies this will be done. DCP- Discharge Planning Updated by [id number]: Phil Caruso on 05/18/19 3:[address] Patient Name: CARO JASSO Admission Status: Elective Accout number: [id number] Admission Date: 05-17-2019 : 1955 Admission Diagnosis: Attending: CT CASTELLON Current LOS: 1 Anticipated DC Date: 05-19-2019 Planned Disposition: Home with Home Health Primary Insurance: [facility] MEDICARE SOLUTIONS PLANNED EXTERNAL PROVIDER: [facility] Discharge Planning Comments: CM RECEIVED ORDERS FOR HOME HEALTH AND WOUND VAC DRESSING CHANGES. CM MET WITH PT'S PARTNER IN ROOM TO DISCUSS DISCHARGE PLANNING AND NEEDS. PT STILL NOT BACK FROM PROCEDURE. PT LIVING AT HOME DEPENDENTLY WITH LIFE PARTNER WHO IS ASSISTING WITH EVERYTHING EXCEPT EATING AT THIS TIME. PT HAS NEBULIZER, HOME AND PORTABLE OXYGEN, WALKER, WHEELCHAIR AND TRANSFER CHAIR; PROVIDER IS [facility]. PT HAS HOME HEALTH WITH [facility]. CM DISCUSSED AVAILABILITY OF HOME HEALTH, REHAB SERVICES AND MEDICAL EQUIPMENT. LIFE PARTNER WANTS [facility] TO CONTINUE FOR VAC DRESSING CHANGES. CHOICE SIGNED. CHOICE SIGNED FOR [facility] PT'S PARTNER DOES NOT WANT TO USE ANY OTHER MEDICAL EQUIPMENT PROVIDER FOR VAC. SIGNIFICANT OTHER TO PICK PT UP FOR DISCHARGE HOME TOMORROW. CM CALLED [facility], , SPOKE TO YVAN AND INFORMED HER OF ORDER, READ ORDER TO YVAN AND INFORMED HER THAT WOUND IS NOT ABANDONED DILALYSIS SITE BUT IS NOT BEING USED CURRENTLY. AFTER CHECKING WITH HER DIRECTOR, YVAN CALLED AND ACCEPTED FOR RESUMPTION ON TUESDAY FOR WOUND VAC CHANGES MW. CM FAXED REFERRAL INFORMATION TO [facility] AT [phone]. CM NOTIFIED BABATUNDE OF [facility], . CM FAXED REFERRAL FOR WOUND VAC TO [facility] AT [phone]. CM WAITING WOUND VAC APPROVAL FROM [facility] FOR DELIVERY OF PORTABLE TO ROOM FROM [facility]. FAX DISCHARGE INFORMATION TO [facility] AT [phone]. Concrete Carpenter: Phil Caruso DCPIA - Discharge Planning Initial Assessment Updated by [email or web address]: Phil Caruso on 05/18/19 4:01 pm * How many steps to enter\exit or inside your home? NONE * PCP DR. ANTONIO FERNANDEZ [facility] * Pharmacy [facility] * Preadmission Environment Home with Family * ADLs Partial Dependent * Partial ADLs (Assistance needed) Ambulation Bathing Dressing Medication Management Toileting Transfers * Equipment Nebulizer Other Oxygen Walker Wheelchair * Other Equipment TRANSFER CHAIR HOME AND PORTABLE OXYGEN [facility] - MEDICAL EQUIPMENT PROVIDER * List name and contact numbers for known caregivers / representatives who currently or will assist patient after discharge: ALICIA BUSH, PARTNER, * Verbal permission to speak to the caregivers and representatives has been obtained from the patient. N/A * Community resources currently utilized Home Health * Please name any agencies selected above. [facility] * Additional services required to return to the preadmission environment? Yes * Can the patient safely return to the preadmission environment? Yes * Has this patient been hospitalized within the prior 30 days at any hospital? No Coverage Notice Reviewer: [id number] Liyah Caruso Notice Issued Date-Time: 05/18/2019 15:29 Notice Type: Patient Choice Letter Notice Delivered To: Other Relationship to Patient: Life Partner Dock Builder Name: JOSEPHINE BUSH Delivery Method: HAND - Hand Delivered Kristyn Days: Prior Verbal Notification: Recipient Understood Notice: Yes Recipient Signature: Yes Med Rec Note Co-signed by Attending: Coverage Notice Comment: [facility] FOR WOUND VAC Last DP export: 05/19/19 5:46 Patient Name: CARO JASSO Page 85190 at 1420 All edits/amendments must be made on the electronic document DICTATION DATE: 05/20/191419 CUSTODIAN: ELVIRA 05/20/19 1420 RPT#: [id number] DC DATE:05/19/19 STATUS: DIS IN [facility] [address] [place] [address] END OF REPORT
--- NOTE | 2019-05-22 14:51 | MORECARE ---
CASE MANAGEMENT DISCHARGE SUMMARY PATIENT: CARO JASSO UNIT: [id number] ADM DATE: 05/17/19 AGE: 63 : 55 SEX: F ROOM/BED: D.2132 AUTHOR: KENNEY,DOC PHYSICIAN: REFERRING PHYSICIAN: CT CASTELLON MD DATE OF SERVICE: 05/22/19 Discharge Plan Patient Name: CARO JSASO Facility: [facility]:[place] : 1955 Planned Disposition: Home with Home Health Anticipated Discharge Date: 05/19/19 Discharge Date: 05/19/2019 Expected LOS: 2 Initial Reviewer: [id number] Initial Review Date: 05/18/2019 Generated: 05/22/19 3:50 pm DCP- Discharge Planning Updated by [email or web address]: Mariana Coulter on 05/19/19 5:[address] CM contacted [place] with [facility] @[phone], to inform that patient is discharging home today and will require wound vac dressing changes M-W-Fr. DC instructions and med rec faxed to [phone]. Wound vac #[id number]. Appended by Mariana Coulter on 05/19/2019 18:40 PROJECT LEADER: Nursing did not have the patient sign the wound vac agreement. CM contacted [facility] to request that the paperwork be signed and faxed to [facility], the nurse verifies this will be done. DCP- Discharge Planning Updated by [id number]: Phil Caruso on 05/18/19 3:[address] Patient Name: CARO JASSO Admission Status: Elective Accout number: [id number] Admission Date: 05-17-2019 : 1955 Admission Diagnosis: Attending: CT CASTELLON Current LOS: 1 Anticipated DC Date: 05-19-2019 Planned Disposition: Home with Home Health Primary Insurance: [facility] MEDICARE SOLUTIONS PLANNED EXTERNAL PROVIDER: [facility] Discharge Planning Comments: CM RECEIVED ORDERS FOR HOME HEALTH AND WOUND VAC DRESSING CHANGES. CM MET WITH PT'S PARTNER IN ROOM TO DISCUSS DISCHARGE PLANNING AND NEEDS. PT STILL NOT BACK FROM PROCEDURE. PT LIVING AT HOME DEPENDENTLY WITH LIFE PARTNER WHO IS ASSISTING WITH EVERYTHING EXCEPT EATING AT THIS TIME. PT HAS NEBULIZER, HOME AND PORTABLE OXYGEN, WALKER, WHEELCHAIR AND TRANSFER CHAIR; PROVIDER IS [facility]. PT HAS HOME HEALTH WITH [facility]. CM DISCUSSED AVAILABILITY OF HOME HEALTH, REHAB SERVICES AND MEDICAL EQUIPMENT. LIFE PARTNER WANTS [facility] TO CONTINUE FOR VAC DRESSING CHANGES. CHOICE SIGNED. CHOICE SIGNED FOR [facility] PT'S PARTNER DOES NOT WANT TO USE ANY OTHER MEDICAL EQUIPMENT PROVIDER FOR VAC. SIGNIFICANT OTHER TO PICK PT UP FOR DISCHARGE HOME TOMORROW. CM CALLED [facility], , SPOKE TO YVAN AND INFORMED HER OF ORDER, READ ORDER TO YVAN AND INFORMED HER THAT WOUND IS NOT ABANDONED DILALYSIS SITE BUT IS NOT BEING USED CURRENTLY. AFTER CHECKING WITH HER DIRECTOR, YVAN CALLED AND ACCEPTED FOR RESUMPTION ON TUESDAY FOR WOUND VAC CHANGES MW. CM FAXED REFERRAL INFORMATION TO [facility] AT [phone]. CM NOTIFIED BABATUNDE OF [facility], . CM FAXED REFERRAL FOR WOUND VAC TO [facility] AT [phone]. CM WAITING WOUND VAC APPROVAL FROM [facility] FOR DELIVERY OF PORTABLE TO ROOM FROM [facility]. FAX DISCHARGE INFORMATION TO [facility] AT [phone]. Remote Medical Coder: Phil Caruso DCPIA - Discharge Planning Initial Assessment Updated by [id number]: Phil Caruso on 05/18/19 4:01 pm * How many steps to enter\exit or inside your home? NONE * PCP DR. ANTONIO FERNANDEZ [facility] * Pharmacy [facility] * Preadmission Environment Home with Family * ADLs Partial Dependent * Partial ADLs (Assistance needed) Ambulation Bathing Dressing Medication Management Toileting Transfers * Equipment Nebulizer Other Oxygen Walker Wheelchair * Other Equipment TRANSFER CHAIR HOME AND PORTABLE OXYGEN [facility] - MEDICAL EQUIPMENT PROVIDER * List name and contact numbers for known caregivers / representatives who currently or will assist patient after discharge: ALICIA BUSH, PARTNER, * Verbal permission to speak to the caregivers and representatives has been obtained from the patient. N/A * Community resources currently utilized Home Health * Please name any agencies selected above. [facility] * Additional services required to return to the preadmission environment? Yes * Can the patient safely return to the preadmission environment? Yes * Has this patient been hospitalized within the prior 30 days at any hospital? No External Providers [facility] Next Contact Date: Service Request Date: Service Type: Resolution: Reviewer: Comments: Coverage Notice Reviewer: [email or web address] Liyah Caruso Notice Issued Date-Time: 05/18/2019 15:29 Notice Type: Patient Choice Letter Notice Delivered To: Other Relationship to Patient: Life Partner Marine Structural Welder Name: JOSEPHINE BUSH Delivery Method: HAND - Hand Delivered Kristyn Days: Prior Verbal Notification: Recipient Understood Notice: Yes Recipient Signature: Yes Med Rec Note Co-signed by Attending: Coverage Notice Comment: [facility] FOR WOUND VAC Last DP export: 05/20/19 1:20 Patient Name: CARO JASSO Page 01611 at 1451 All edits/amendments must be made on the electronic document DICTATION DATE: 05/22/191449 FIRE LOOKOUT: ELVIRA 05/22/19 1450 RPT#: [id number] DC DATE:05/19/19 STATUS: DIS IN [facility] [address] [place] [address] END OF REPORT
== END 2019-05-19 16:50 | disposition home health service (06) | DRG 856 ==
LOC: D.M2 14:51 → EDSTATUS 05-18 12:00 → D.OPS 05-18 12:00 → D.M2 05-19 16:50
PROVIDERS: Surgery; ADMIT Internal Medicine Nephrology; ATTEND Internal Medicine Nephrology
PROC: 5A1D70Z Performance of Urinary Filtration, Intermittent, Less than 6 Hours Per Day (ICD-10-PCS; 2019-05-18)
PROC: 0JD80ZZ Extraction of Abdomen Subcutaneous Tissue and Fascia, Open Approach (ICD-10-PCS; principal; 2019-05-18 12:00)
PROC: 0JC80ZZ Extirpation of Matter from Abdomen Subcutaneous Tissue and Fascia, Open Approach (ICD-10-PCS; 2019-05-18 12:00)
PROC: 2W13X6Z Compression of Abdominal Wall using Pressure Dressing (ICD-10-PCS; 2019-05-18 12:00)
DX: T81.41XA Infection following a procedure, superficial incisional surgical site, initial encounter (principal); N18.6 End stage renal disease; L76.32 Postprocedural hematoma of skin and subcutaneous tissue following other procedure; I13.2 Hypertensive heart and chronic kidney disease with heart failure and with stage 5 chronic kidney disease, or end stage renal disease; Z68.41 Body mass index [BMI] 40.0-44.9, adult; Y83.8 Other surgical procedures as the cause of abnormal reaction of the patient, or of later complication, without mention of misadventure at the time of the procedure; I50.9 Heart failure, unspecified; Z99.2 Dependence on renal dialysis; J44.9 Chronic obstructive pulmonary disease, unspecified; I25.10 Atherosclerotic heart disease of native coronary artery without angina pectoris; I27.20 Pulmonary hypertension, unspecified; D63.1 Anemia in chronic kidney disease; E66.01 Morbid (severe) obesity due to excess calories

== ENCOUNTER → 2019-05-17 15:58 | Outpatient (CLI) | payer MEDICARE ==
[2019-03-27 16:20] VITALS: BMI 55.0
[~2019-05-17 15:58] MED LIST changes: +LEVOFLOXACIN500 MG PO
== END | disposition home or self-care (01) ==
LOC: D.LABREF 15:58
PROVIDERS: ATTEND Surgery
DX: S39.91XA Unspecified injury of abdomen, initial encounter (principal)